=== PATIENT | male | born 1985 | race Caucasian/White ===

== ENCOUNTER 2019-05-26 12:10 | Emergency (ER) | payer MEDICARE, MEDICAID, SELFPAY ==
[2019-05-26 12:23] VITALS: BP 166/127; PULSE 91; RESP 20; TEMP 36.3; O2SAT 97; BMI 35.7
--- NOTE | 2019-05-26 13:15 | ED_ITS ---
Entered by Brenda Kilpatrick, acting as scribe for Gwendolyn Oquendo DO HPI - Abdominal Pain General: Chief Complaint: Abdominal Pain Stated Complaint: Side pain Time Seen by Provider: 05/26/19 13:14 Source: patient Mode of arrival: ambulatory Limitations: no limitations History of Present Illness: HPI narrative: 34 yo Male presents to ED with complaint of right abdominal and flank pain. Pt states that he thinks he has a kidney stone and when he went to the bathroom the pain got better. Pt states that he has a history of kidney stones. MD elicited complaint: abdominal pain and flank pain Pertinent past history: kidney stones Pain Consistency: constant Location: RLQ and R flank Pain scale (0-10): 9 Exacerbating factors: nothing Relieving factors: other (urination) Associated Symptoms: Reports dysuria; Denies chills, constipation, diarrhea, fever(s), fecal incontinence, nausea and vomiting Review of Systems Const: Denies: fever, chills, change in appetite or malaise Eyes: Denies: change in vision, blurry vision, eye discharge or eye redness ENMT: Denies: throat pain, uvular edema, painful swallowing, mouth pain, dental pain, nasal congestion or facial/sinus pain Card: Denies: chest pain, irregular heart rhythm, swelling of feet/ankles, shortness of breath on exertion, shortness of breath when lying down or leg pain with exertion Resp: Denies: shortness of breath, productive cough, wheezing or coughing up blood GI: Reports: abdominal pain; Denies: nausea, vomiting, diarrhea, constipation or fecal incontinence : Reports: flank pain and painful urination Musc: Denies: neck pain, back pain, extremity pain or extremity swelling Skin/Breast: Denies: rash, itching, redness, yellow skin or dry skin Neuro: Denies: headache, numbness in extremities, weakness in extremities, changes in sensation, lack of coordination or difficulty walking Psych: Denies: anxiety, depression, mood swings, panic attacks, sleeping less, suicidal ideation or homicidal ideation Endo: Denies: excessive urination, excessive thirst or tired all the time Bruce/Lymph: Denies: easy bruising, petechiae or enlarged lymph nodes All/Imm: Denies: hives, throat swelling, facial swelling, acute wheezing or seasonal allergies PFSH ED PFSH: Statuses (acute, chronic, etc) shown below reflect problem list status as previously entered and may not be historically accurate Social History Smoking and tobacco status: current every day smoker Physical Exam Const: COMMON NORMALS: no apparent distress, oriented x3, no limitations, healthy appearing, alert and well nourished GENERAL APPEARANCE: cooperative, comfortable, well kempt and well developed ORIENTATION/CONSCIOUSNESS: Yes awake, Yes oriented to person, Yes oriented to place and Yes oriented to time HENMT: COMMON NORMALS: normocephalic, head/scalp atraumatic, hearing grossly normal bilaterally, external ears normal, EAC's normal, TM's normal bilaterally, external nose normal, nasal mucous membranes and turbinates normal, moist oral mucous membranes, oropharynx normal, dentition normal and gingiva normal HEAD & SCALP: normal to inspection, normocephalic and atraumatic FACE & SINUS: normal facial exam NOSE: external nose normal and nasal mucous membranes and turbinates normal EXTERNAL EAR: Yes external ears normal EXTERNAL AUDITORY CANAL: EAC's normal TYMPANIC MEMBRANE: TM's normal bilaterally MOUTH: oral and palatal mucosa normal, lip normal and tongue normal THROAT: no uvular edema Eye: COMMON NORMALS: PERRL, EOMs intact bilaterally, conjunctivae normal, no scleral icterus and normal visual alba by confrontation GENERAL EYE: normal appearance of both eyes and normal light reflex VISUAL ACUITY: Yes acuity normal ALIGNMENT: Yes alignment normal PERIORBITAL: periorbital findings normal EYELID: eyelids normal CONJUNCTIVA: Yes conjunctivae normal SCLERA: sclerae normal PUPIL: Yes PERRL and Yes accommodation reflex normal DIRECT OPHTHALMOSCOPY: Yes normal light reflex Neck/C-Spine: COMMON NORMALS: full ROM, no lymphadenopathy, supple, no meningeal signs and no JVD GENERAL: Yes normal visual inspection CAROTIDS: Yes normal carotid upstroke CERVICAL SPINE: Yes cervical ROM normal Lymph: LYMPHATIC: no lymphadenopathy noted Chest: COMMONS NORMALS: inspection of chest normal CHEST: Yes symmetrical chest wall rise Resp: COMMON NORMALS: normal respiratory effort, no retractions, no use of accessory muscles and clear to auscultation bilaterally EFFORT & INSPECTION: Yes able to speak in complete sentences and Yes symmetric chest movement AUSCULTATION: clear to auscultation bilaterally Cardio: COMMON NORMALS: no JVD, regular rate, regular rhythm, S1 normal heart sound, S2 normal heart sound, no murmurs and peripheral pulses 2+ throughout RATE: regular rate RHYTHM: regular rhythm HEART SOUNDS: S1 normal and S2 normal PERIPHERAL PULSES: pulses 2+ throughout GI: COMMON NORMALS: normal to inspection, nondistended, normoactive bowel sounds and non-tender : COMMON NORMALS: Yes no CVA tenderness BLADDER/KIDNEY EXAM: Yes no CVA tenderness Back/Pelvis: COMMON NORMALS: no CVA tenderness, thoracic and lumbar spine normal to inspection, no thoracic nor lumbar tenderness and thoraco-lumbar ROM normal Extremity: COMMON NORMALS: normal to inspection, full ROM, normal capillary refill, no calf tenderness and no pedal edema Neuro: COMMON NORMALS: oriented x3, CN's II-XII intact bilaterally, moves all extremities, no focal motor deficits, no sensory deficits noted and gait normal SENSORIUM/ORIENTATION: Yes alert, Yes oriented to person, Yes oriented to place and Yes oriented to time MENINGEAL SIGNS: Yes no meningeal signs SPEECH: speech normal GAIT: Yes normal gait MOTOR EXAM: strength 5/5 throughout, no pronator drift and no tremor noted Psych: COMMON NORMALS: mental status grossly normal, thought process normal, cooperative, affect normal, speech normal and activity/motor behavior normal APPEARANCE: Yes well kempt SPEECH: Yes normal speech THOUGHT PROCESS: n ormal thought process THOUGHT CONTENT: Yes normal thought content INSIGHT: insight good Skin: COMMON NORMALS: no rashes or lesions noted, no wounds, skin turgor normal and no jaundice GENERAL SKIN EXAM: no rashes or lesions noted and turgor normal Course ED course: while in the department patient sat up and stated that he believes he passed his stone and that he feels better and is ready to go home. Blood work pending and cancelled. Return as needed. Vital Signs: Vital signs: Vital Signs Temperature 97.4 F L 05/26/19 12:23 Pulse Rate 91 05/26/19 12:23 Respiratory Rate 20 H 05/26/19 12:23 Blood Pressure 166/127 05/26/19 12:23 Pulse Oximetry 97 05/26/19 12:23 MDM - Abdominal Pain Differential Diagnosis: Differential diagnosis abdominal pain: Likely abdominal pain, calculus of kidney and constipation Medical Records: Attestation: I reviewed the patient's medical records. Lab Data: Attestation: I reviewed the patient's lab results. Labs: Lab Results 05/26/19 Range/Units 13:02 Urine Color Red (Yellow) Urine Appearance Cloudy (CLEAR) Urine pH 5 (5-7) Ur Specific Gravit y 1.025 (1.005-1.030) Urine Protein 2+ H (Negative) Urine Glucose (UA) Norm (Normal) Urine Ketones Negative (Negative) Urine Occult Blood 3+ H (Negative) Urine Nitrate Negative (Negative) Urine Bilirubin Neg (NEGATIVE) Urine Urobilinogen 1 H (Negative) mg/dL Ur Leukocyte Caro ase Trace H (Negative) Urine RBC 40-50 H (0-2) /hpf Urine WBC 5-10 H (0-5) /hpf Ur Squamous Epith Cells 0-4 H (0-5) Urine Bacteria 2+ H (NONE) Urine Mucus 1+ Discharge Plan Discharge Patient Disposition: Home, Self-Care Clinical Impression: Calculus of kidney Condition: Stable Discharge Orders: Discharge Order (Routine); Ordered 05/26/19 Ordered By: Gwendolyn Oquendo Referrals: Raheem Varghese MD [Family Provider] - Discharge Diet: Usual diet Discharge Activity: Resume usual activity Patient Instructions: Kidney Stones Coding Level of Care Code ED Office Coordinator for Chg Fwd Exam Problem Focused The documentation recorded by the Shonna max Carmen, accurately reflects the service I personally performed and the decisions made by Azra ballard Amanda, DO
--- NOTE | 2019-05-26 13:18 | CTR_ITS ---
PROCEDURE INFORMATION: Exam: CT Abdomen And Pelvis Without Contrast Exam date and time: 05/26/2019 1:27 PM Age: 34 years old Clinical indication: Abdominal pain; Patient HX: Right flank pain HX of stones TECHNIQUE: Imaging protocol: Computed tomography of the abdomen and pelvis without contrast. Total DLP: 1771.61 mGy-cm Radiation optimization: All CT scans at this facility use at least one of these dose optimization techniques: automated exposure control; mA and/or kV adjustment per patient size (includes targeted exams where dose is matched to clinical indication); or iterative reconstruction. COMPARISON: CT Abdomen/Pelvis Renal 15180 12/31/2018 10:28 AM FINDINGS: Liver: The liver is diffusely decreased in attenuation, consistent with fatty infiltration. Gallbladder and bile ducts: Normal. No calcified stones. No ductal dilation. Pancreas: Normal. No ductal dilation. Spleen: Calcifications are present within the spleen, likely due to old granulomatous disease. Adrenals: Normal. No mass. Kidneys and ureters: Multiple non-obstructing calculi are present within both kidneys. There is minimal dilation of the right renal collecting system and right ureter. Minimal inflammation is also present around the right ureter. No obstructing ureteral stone is identified. Clinical correlation for a recently passed stone or underlying infection is recommended. The previously noted obstructing left ureteral stone is no longer present. Stomach and bowel: Unremarkable. No obstruction. No mucosal thickening. Appendix: No evidence of appendicitis. Intraperitoneal space: Unremarkable. No free air. No significant fluid collection. Vasculature: Unremarkable. No abdominal aortic aneurysm. Lymph nodes: Unremarkable. No enlarged lymph nodes. Bladder: Unremarkable as visualized. Reproductive: Multiple nonspecific calcifications are present in the prostate gland. Bones/joints: Unremarkable. No acute fracture. Soft tissues: A tiny fat containing umbilical hernia is present. CT/CT kidney stone 50301 IMPRESSION: 1. Multiple non-obstructing calculi are present within both kidneys. There is minimal dilation of the right renal collecting system and right ureter. Minimal inflammation is also present around the right ureter. No obstructing ureteral stone is identified. Clinical correlation for a recently passed stone or underlying infection is recommended. 2. Chronic findings as discussed above. Radiation Dose CTDIVOL = (mGy): DLP = 1771.61 (mGy-cm)
--- NOTE | 2019-05-26 13:20 | PC.NURSE ---
Patient states he has had several kidney stones, these symptoms are similar to previous kidney stones. After vomiting from intense pain, feels like its passed as pain has lessened but still present.
[2019-05-26 13:31] LABS: Bilirubin Urine Neg (NEGATIVE); Blood Urine 3+ (Negative); Glucose Urine UA Norm (Normal); Ketones Urine Negative (Negative); Leukocyte Esterase Urine Trace (Negative); Nitrate Urine Negative (Negative); Protein Urine 2+ (Negative); Specific Gravity, Urine 1.025 (1.005-1.030); Urine Appearance Cloudy (CLEAR); Urine Color Red (Yellow); Urobilinogen Urine 1 mg/dL (Negative); pH Urine 5 (5-7)
[2019-05-26 13:32] LABS: Add Urine Microscopic? YES
[2019-05-26 13:37] LABS: Bacteria Urine 2+; Mucus Urine 1+; RBC Urine 40-50 /hpf (0-2); Squamous Epithelial Cell Urine 0-4 (0-5)
[2019-05-26 13:38] LABS: Add Urine Culture? Yes
[2019-05-26 13:57] VITALS: BP 145/102; PULSE 86; RESP 18; O2SAT 99
== END 2019-05-26 13:55 | disposition home or self-care (01) ==
LOC: ER 13:57
PROVIDERS: Nurse Practitioner Family; Emergency Provider Emergency Medicine; Family Provider Family Medicine
DX: N20.0 Calculus of kidney (principal); F17.210 Nicotine dependence, cigarettes, uncomplicated
CPT/HCPCS: 74176; 81001; 87086; 99282; A9270

== ENCOUNTER 2019-06-18 09:38 | Emergency (ER) | payer MEDICARE, MEDICAID, SELFPAY ==
[2019-06-18 09:39] VITALS: BP 167/101; PULSE 104; RESP 22; TEMP 36.6; O2SAT 98; BMI 35.2
--- NOTE | 2019-06-18 09:42 | ED_ITS ---
Entered by Carlos Mcgill, acting as scribe for HPI - Abdominal Pain General: Chief Complaint: Abdominal Pain Stated Complaint: abd/back pain Time Seen by Provider: 06/18/19 09:42 History of Present Illness: HPI narrative: 34 yo male presents with abd pain and back pain. Pt states that he started having pain about 2 am this morning. Pt states that he has seen Dr. Hendricks. Associated Symptoms: Reports nausea and vomiting; Denies chills and fever(s) Review of Systems Const: Denies: fever, chills, body aches or change in appetite Eyes: Denies: blurry vision or eye discomfort ENMT: Denies: throat pain or dental pain Card: Denies: chest pain Resp: Denies: shortness of breath GI: Reports: abdominal pain, nausea and vomiting : Reports: flank pain Musc: Denies: neck pain or back pain Skin/Breast: Denies: rash Neuro: Denies: headache Psych: Denies: depression Bruce/Lymph: Denies: easy bruising All/Imm: Denies: hives PFSH ED PFSH: Medical History (Updated 06/18/19 @ 11:21 by Ananth Romano MD) Kidney stones Surgical History (Updated 06/18/19 @ 09:47 by Carlos Mcgill) Hx of tonsillectomy Social History Smoking and tobacco status: current every day smoker Physical Exam Const: COMMON NORMALS: no apparent distress, oriented x3 and healthy appearing HENMT: COMMON NORMALS: normocephalic and head/scalp atraumatic HEAD & SCALP: normocephalic and atraumatic Eye: COMMON NORMALS: PERRL and EOMs intact bilaterally PUPIL: Yes PERRL Neck/C-Spine: COMMON NORMALS: full ROM and supple Chest: COMMONS NORMALS: inspection of chest normal and palpation of chest normal Resp: COMMON NORMALS: normal respiratory effort, no retractions, no use of accessory muscles and clear to auscultation bilaterally AUSCULTATION: clear to auscultation bilaterally Cardio: COMMON NORMALS: regular rate, regular rhythm and no murmurs RATE: regular rate RHYTHM: regular rhythm GI: COMMON NORMALS: soft to palpation PALPATION: Yes soft and Yes tender : BLADDER/KIDNEY EXAM: Yes CVA tenderness Back/Pelvis: GENERAL BACK: Yes CVA tenderness Extremity: COMMON NORMALS: normal to inspection and full ROM Neuro: COMMON NORMALS: oriented x3, moves all extremities and no focal motor deficits Psych: COMMON NORMALS: mental status grossly normal, thought process normal and cooperative THOUGHT PROCESS: normal thought process Skin: COMMON NORMALS: no rashes or lesions noted and no wounds GENERAL SKIN EXAM: no rashes or lesions noted Course Vital Signs: Vital signs: Vital Signs Temperature 97.8 F 06/18/19 09:39 Pulse Rate 89 06/18/19 11:43 Respiratory Rate 18 06/18/19 11:43 Blood Pressure 150/102 06/18/19 11:43 Pulse Oximetry 97 06/18/19 11:43 MDM - Abdominal Pain MDM Narrative: Medical decision making narrative: Patient presents here with flank pain with likely kidney stone. Patient does have hematuria. Patient's pain is much improved here and will prescribe pain meds for home. He is to follow-up with urology and return if worsening. Lab Data: Labs: Lab Results 06/18/19 Range/Units 10:40 Urine Color Red (Yellow) Urine Appearance Bloody A (CLEAR) Urine pH 5 (5-7) Ur Specific Gravit y 1.020 (1.005-1.030) Urine Protein 1+ H (Negative) Urine Glucose (UA) Norm (Normal) Urine Ketones 1+ H (Negative) Urine Blood 3+ H (Negative) Urine Nitrate Negative (Negative) Urine Bilirubin Neg (NEGATIVE) Urine Urobilinogen 1 H (Negative) mg/dL Ur Leukocyte Caro ase Negative (Negative) Urine RBC Too numerous to c nt H (0-2) /hpf Urine WBC None (0-5) /hpf Ur Squamous Epith Cells None (0-5) Urine Bacteria 1+ H (NONE) Discharge Plan Discharge Patient Disposition: Home, Self-Care Clinical Impression: Calculus of kidney Condition: Stable Prescriptions: New [place] 5-325 mg tablet 1 tab PO Q6H PRN (Reason: pain) Qty: 10 RF: 0 Zofran 4 mg tablet 4 mg PO QID PRN (Reason: nausea and vomiting) Qty: 14 RF: 0 Discharge Orders: Discharge Order (Routine); Ordered 06/18/19 Ordered By: Ananth Romano Referrals: Kaden Hendricks MD [Physician] - Raheem Varghese MD [Family Provider] - Discharge Diet: Advance as tolerated Discharge Activity: Resume usual activity Patient Instructions: Kidney Stones (ED) Discharge Date/Time: 06/18/19 11:46 Coding Level of Care Code ED Grounds Caretaker for Chg Fwd Exam Comprehensive The documentation recorded by the Artem max Kialy, accurately reflects the service I personally performed and the decisions made by Juan Antonio ballard Korby, MD Jun 18, 2019 09:38
[2019-06-18] MEDS: sodium chloride 0.9% 1,000 ML 999 ML IV (10:32)
[2019-06-18] MEDS: ondansetron 2 mg/ML SDV 2 mL 4 MG IVP (10:35)
[2019-06-18 11:17] LABS: Urine Appearance Bloody (CLEAR); Urine Color Red (Yellow)
[2019-06-18 11:18] LABS: Bilirubin Urine Neg (NEGATIVE); Blood Urine 3+ (Negative); Glucose Urine UA Norm (Normal); Ketones Urine 1+ (Negative); Leukocyte Esterase Urine Negative (Negative); Nitrate Urine Negative (Negative); Protein Urine 1+ (Negative); Urobilinogen Urine 1 mg/dL (Negative); pH Urine 5 (5-7)
[2019-06-18 11:21] VITALS: BP 150/102; PULSE 96; O2SAT 96
[2019-06-18] MEDS: HYDROcodone-acetaminophen 7.5-325 mg Tablet 1 TAB PO (11:22)
[2019-06-18 11:23] LABS: Add Urine Culture? Yes; Bacteria Urine 1+; RBC Urine TOO NUMEROUS TO CNT /hpf (0-2)
[2019-06-18 11:43] VITALS: BP 150/102; PULSE 89; RESP 18; O2SAT 97
--- NOTE | 2019-06-19 14:20 | DCPLANNER ---
retail advertising sales manager had message to schedule a follow up appointment for patient with Dr. Hendricks. retail advertising sales manager called the office of Dr. Hendricks, spoke with Keerthi, gave clinic patients information. retail advertising sales manager was told that patients information would be printed and given to Mary Ellen for review. Clinic will call patient with appointment information, spring encaser will call for appointment information.
--- NOTE | 2019-06-20 13:11 | DCPLANNER ---
Patient has a follow up appointment scheduled for , June 29, 2019 at 2:[address] Hendricks. Clinic will call patient with appointment information.
--- NOTE | 2019-07-14 09:22 | DCPLANNER ---
Appointment scheduled for 07.06.19 has been rescheduled for a later date.
== END 2019-06-18 11:46 | disposition home or self-care (01) ==
PROVIDERS: Emergency Provider Emergency Medicine; Family Provider Family Medicine
DX: N20.0 Calculus of kidney (principal); F17.200 Nicotine dependence, unspecified, uncomplicated
CPT/HCPCS: 81001; 87086; 96361; 96374; 96375; 99282; 99283; J2405; J7030

== ENCOUNTER 2019-09-22 00:13 | Emergency (ER) | payer MEDICARE, MEDICAID, SELFPAY ==
[2019-09-22 00:31] VITALS: BP 182/93; PULSE 114; RESP 18; TEMP 37.1; O2SAT 97; BMI 34.4
--- NOTE | 2019-09-22 00:36 | W.ED.WOUNDLC ---
HPI - Wound/Laceration General: Chief Complaint: Wound/Laceration Stated Complaint: ABSESS ON R SIDE OF NECK Time Seen by Provider: 09/22/19 00:32 Source: patient Mode of arrival: ambulatory Limitations: no limitations History of Present Illness: HPI narrative: 34-year-old male he has an abscess to his anterior chest over the last 4 days. He states that he started out as a pimple and he has popped it and it is open and draining but is increased in size. States it is painful and rates pain a 2 out of 10. Denies any fever. He denies any worsening or improving factors. Associated symptoms: Denies chills, fever(s), nausea or vomiting Review of Systems Const: Denies: fever(s), chills, body aches or change in appetite Eyes: Denies: blurry vision or eye discomfort ENMT: Denies: throat pain or dental pain Card: Denies: chest pain Resp: Denies: dyspnea GI: Denies: abdominal pain, nausea, vomiting or diarrhea : Denies: dysuria Musc: Denies: neck pain or back pain Skin/Breast: Denies: rash Neuro: Denies: headache(s) Psych: Denies: depression Bruce/Lymph: Denies: easy bruising All/Imm: Denies: urticaria PFSH ED PFSH: Medical History (Updated 09/22/19 @ 00:36 by Ananth Romano MD) Kidney stones Surgical History (Updated 06/22/19 @ 14:50 by Mayi Peterson RN) Hx of tonsillectomy Family History (Updated 06/22/19 @ 14:50 by Mayi Peterson RN) Family/Other Cancer Diabetes Mother No problems noted. Social History (Updated 06/22/19 @ 14:51 by Mayi Peterson RN) Smoking and tobacco status: current every day smoker Alcohol intake: current Marital status: Single History of recent travel: No Physical Exam Const: COMMON NORMALS: no acute distress, patient oriented x3 and healthy appearing HENMT: COMMON NORMALS: normocephalic and atraumatic HEAD & SCALP: normocephalic and atraumatic Eye: COMMON NORMALS: Equal, round and reactive pupils present and EOMs intact bilaterally PUPIL: Yes Equal, round and reactive pupils present Neck/C-Spine: COMMON NORMALS: full ROM and supple Chest: COMMONS NORMALS: normal inspection of the chest and normal palpation of entire chest wall Resp: COMMON NORMALS: normal respiratory effort, No retractions, No use of accessory muscles and clear to auscultation bilaterally AUSCULTATION: clear to auscultation bilaterally Cardio: COMMON NORMALS: regular rate, regular rhythm and No murmurs present (Cardio) RATE: regular rate RHYTHM: regular rhythm GI: COMMON NORMALS: Normal to inspection, nondistended, normoactive bowel sounds present, Soft to palpation, non-tender and no masses PALPATION: Yes Soft to palpation Extremity: COMMON NORMALS: normal to inspection and full ROM Neuro: COMMON NORMALS: patient oriented x3, moves all extremities and no focal motor deficits Psych: COMMON NORMALS: mental status grossly normal, Normal thought process present and cooperative THOUGHT PROCESS: Normal thought process present Skin: COMMON NORMALS: no rashes or lesions noted and no wounds NARRATIVE SKIN EXAM: 2 cm abscess to anterior chest that is currently opening and draining mild cellulitis around abscess GENERAL SKIN EXAM: no rashes or lesions noted Course Vital Signs: Vital signs: Vital Signs Temperature 98.7 F 09/22/19 00:31 Pulse Rate 114 H 09/22/19 00:31 Respiratory Rate 18 09/22/19 00:31 Blood Pressure 182/93 09/22/19 00:31 Pulse Oximetry 97 09/22/19 00:31 MDM - Wound/Laceration MDM Narrative: Medical decision making narrative: Patient presents with an abscess to his chest that is currently open and draining we will start him on Bactrim and he is to do warm compresses. Patient is to return if worsening. He understands and agrees to plan. Discharge Plan Discharge Patient Disposition: Home, Self-Care Clinical Impression: Abscess Condition: Stable Prescriptions: New Bactrim DS 800-160 mg tablet 1 tab PO BID 10 Days Qty: 20 RF: 0 Discharge Orders: Discharge Order (Routine); Ordered 09/22/19 Ordered By: Ananth Romano Discharge Diet: Advance as tolerated Discharge Activity: Resume usual activity Patient Instructions: Abscess (ED) Coding Level of Care Code ED Income Tax Expert for 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
== END 2019-09-22 00:45 | disposition home or self-care (01) ==
LOC: ER 00:37
PROVIDERS: Emergency Provider Emergency Medicine
DX: L02.213 Cutaneous abscess of chest wall (principal); F17.210 Nicotine dependence, cigarettes, uncomplicated
CPT/HCPCS: 12345; 99281; 99282

== ENCOUNTER 2019-12-31 12:57 | Emergency (ER) | payer MEDICARE, MEDICAID, SELFPAY ==
[2019-12-31 13:02] VITALS: BP 171/116; PULSE 93; RESP 18; TEMP 36.6; O2SAT 96; BMI 28.7
[2019-12-31] MEDS: ondansetron 2 mg/ML SDV 2 mL 4 MG IVP (13:12)
--- NOTE | 2019-12-31 13:12 | W.ED.MALEGU ---
HPI - Male Genitourinary General: Chief complaint: Urogenital-Male Stated complaint: POSS KIDNEY STONE Time Seen by Provider: 12/31/19 13:03 Source: patient Mode of arrival: ambulatory Limitations: no limitations History of Present Illness: HPI Narrative: 34-year-old male who has history of multiple kidney stones in the past. Patient states this morning at 6 AM started having severe right flank pain. Patient states the pain is sharp in nature and rates it a 9 out of 10. Denies any fever. Denies any worsening or improving factors. Associated symptoms: Deny nausea or vomiting Review of Systems Const: Denies: fever(s), chills, body aches or change in appetite Eyes: Denies: blurry vision or eye discomfort ENMT: Denies: throat pain or dental pain Card: Denies: chest pain Resp: Denies: dyspnea GI: Denies: abdominal pain, nausea, vomiting or diarrhea : Reports: flank pain Musc: Denies: neck pain or back pain Skin/Breast: Denies: rash Neuro: Denies: headache(s) Psych: Denies: depression Bruce/Lymph: Denies: easy bruising All/Imm: Denies: urticaria PFSH ED PFSH: Medical History Kidney stones Surgical History Hx of tonsillectomy Family History Family/Other Cancer Diabetes Mother No problems noted. Social History Smoking and tobacco status: current every day smoker Alcohol intake: current Marital status: Single History of recent travel: No Physical Exam Const: COMMON NORMALS: no acute distress, patient oriented x3 and healthy appearing HENMT: COMMON NORMALS: normocephalic and atraumatic HEAD & SCALP: normocephalic and atraumatic Eye: COMMON NORMALS: Equal, round and reactive pupils present and EOMs intact bilaterally PUPIL: Yes Equal, round and reactive pupils present Neck/C-Spine: COMMON NORMALS: full ROM and supple Chest: COMMONS NORMALS: normal inspection of the chest and normal palpation of entire chest wall Resp: COMMON NORMALS: normal respiratory effort, No retractions, No use of accessory muscles and clear to auscultation bilaterally AUSCULTATION: clear to auscultation bilaterally Cardio: COMMON NORMALS: regular rate, regular rhythm and No murmurs present (Cardio) RATE: regular rate RHYTHM: regular rhythm GI: COMMON NORMALS: Normal to inspection, nondistended, normoactive bowel sounds present, Soft to palpation, non-tender and no masses PALPATION: Yes Soft to palpation Extremity: COMMON NORMALS: normal to inspection and full ROM Neuro: COMMON NORMALS: patient oriented x3, moves all extremities and no focal motor deficits Psych: COMMON NORMALS: mental status grossly normal, Normal thought process present and cooperative THOUGHT PROCESS: Normal thought process present Skin: COMMON NORMALS: no rashes or lesions noted and no wounds GENERAL SKIN EXAM: no rashes or lesions noted Course Vital Signs: Vital signs: Vital Signs Temperature 97.8 F 12/31/19 13:02 Pulse Rate 78 12/31/19 14:32 Respiratory Rate 17 12/31/19 14:32 Blood Pressure 188/92 12/31/19 14:32 Pulse Oximetry 99 12/31/19 14:32 MDM - Male MDM Narrative: Medical decision making narrative: Patient presents here with flank pain possible kidney stone. He does have heme. Has had multiple kidney stones in the past and I do not believe he needs a CT scan at this time. Patient's pain is improved here. He is to follow-up with Dr. Hendricks and is to return if worsening. Lab Data: Labs: Lab Results 12/31/19 Range/Units 13:27 Urine Color Red (Yellow) Urine Appearance Cloudy (CLEAR) Urine pH 5 (5-7) Ur Specific Gravit y 1.025 (1.005-1.030) Urine Protein 1+ H (Negative) Urine Glucose (UA) Norm (Normal) Urine Ketones Negative (Negative) Urine Blood 3+ H (Negative) Urine Nitrate Negative (Negative) Urine Bilirubin Neg (Negative) Urine Urobilinogen Norm (Negative) mg/dL Ur Leukocyte Caro ase Trace H (Negative) Urine RBC >100 H (0-2) /hpf Urine WBC 5-10 H (0-5) /hpf Ur Squamous Epith Cells None (0-5) /hpf Amorphous Sediment Not Reportable Urine Bacteria 1+ H (NONE) /hpf Imaging Data: KUB: Radiologist's impression: [facility] [address] [place] [address] XRay Report Signed Patient: Markie Meza Unit #: [id number] : 1985 Age/Sex: 34 / M ADM Date: 12/31/19 Loc: ER Room/Bed: Attending Dr: Ordering Provider/Ordering MD: Ananth Romano MD Date of Service: 12/31/19 Procedure(s): XR KUB portable [id number] Accession Number(s): [id number] Report Number: [id number] PROCEDURE INFORMATION: Exam: XR Abdomen, 1 View Exam date and time: 12/31/2019 1:12 PM Age: 34 years old Clinical indication: Abdominal pain; Flank; Right; Prior surgery; Surgery date: 6+ months; Surgery type: Lithotripsy; Additional info: Kidney stone TECHNIQUE: Imaging protocol: XR of the abdomen. Views: Frontal supine view of the abdomen. 1 View. COMPARISON: CT kidney stone [id number] 05/26/2019 1:50 PM FINDINGS: Gastrointestinal tract: There is diffuse colonic fecal stasis in the ascending and transverse colon Organs: Kidneys: There are multiple nonobstructing caliceal stones present in the proximal collecting system of both kidneys. The largest stones measure 3 mm to 4 mm size. The remainder of the stones are smaller. Review of prior CT abdomen examination showed these findings were present on prior study and are similar Bones/joints: The distal coccyx is curved toward the right side stable since prior XR/XR KUB portable [id number] IMPRESSION: 1. Stable multiple bilateral renal caliceal stones. 2. Distal coccyx curved toward the right side 3. Otherwise No acute GI abnormality. Discharge Plan Discharge Patient Disposition: Home Clinical Impression: Right flank pain Condition: Stable Prescriptions: [place] 5-325 mg tablet 1 tab PO Q6H PRN (Reason: pain) Qty: 14 RF: 0 ondansetron 4 mg tablet,disintegrating 4 mg PO Q6H PRN (Reason: nausea and vomiting) Qty: 14 RF: 0 Flomax 0.4 mg capsule 0.4 mg PO DAILY Qty: 5 RF: 0 Discharge Orders: Discharge Order (Routine); Ordered 12/31/19 Ordered By: Ananth Romano Referrals: Kaden Hendricks MD [Physician] - 1-3 days Discharge Diet: Advance as tolerated Discharge Activity: Resume usual activity Patient Instructions: Kidney Stones (ED) Discharge Date/Time: 12/31/19 14:35 Coding Level of Care Code ED Preschool Teacher Aide for Chg Fwd Exam Comprehensive
[2019-12-31 13:14] VITALS: RESP 18; O2SAT 99
[2019-12-31] MEDS: HYDROmorphone 1 mg/mL INJ 1 mL IVP ×2 (13:14→14:16)
[2019-12-31 13:31] VITALS: BP 194/124; PULSE 87; RESP 18; O2SAT 98
[2019-12-31] MEDS: ketorolac 30 mg/mL INJ IVP (13:37)
[2019-12-31 13:40] LABS: Add Urine Microscopic? YES; Bilirubin Urine Neg (Negative); Blood Urine 3+ (Negative); Glucose Urine UA Norm (Normal); Ketones Urine Negative (Negative); Leukocyte Esterase Urine Trace (Negative); Nitrate Urine Negative (Negative); Protein Urine 1+ (Negative); Specific Gravity, Urine 1.025 (1.005-1.030); Urine Appearance Cloudy (CLEAR); Urine Color Red (Yellow); Urobilinogen Urine Norm (Negative); pH Urine 5 (5-7)
[2019-12-31 13:45] LABS: RBC Urine >100 /hpf (0-2)
[2019-12-31 13:46] LABS: Add Urine Culture? Yes; Bacteria Urine 1+ /hpf
[2019-12-31 14:16] VITALS: RESP 18; O2SAT 98
[2019-12-31 14:32] VITALS: BP 188/92; PULSE 78; RESP 17; O2SAT 99
--- NOTE | 2020-01-01 09:46 | DCPLANNER ---
adult education manager had message to schedule a follow up appointment for patient with Dr. Hendricks. adult education manager called the office of Dr. Hendricks, spoke with Evelyn, gave clinic patients information. adult education manager gave clinic patients information, was told that patients information would be printed and given to Mary Ellen for review. Clinic will call patient with appointment information.
--- NOTE | 2020-01-04 15:11 | DCPLANNER ---
Addendum entered by Mary Tellez 01/05/20 09:52: Patients appointment scheduled for 01.05.20 was cancelled. Original Note: Patient has a follow up appointment scheduled for Wednesday, January 05, 2020 at 8:[address] Adams office. Clinic will call patient with appointment information.
== END 2019-12-31 14:35 | disposition home or self-care (01) ==
PROVIDERS: Emergency Provider Emergency Medicine
DX: R10.9 Unspecified abdominal pain (principal); F17.210 Nicotine dependence, cigarettes, uncomplicated; Z87.442 Personal history of urinary calculi
CPT/HCPCS: 12345; 74018; 81001; 87086; 96374; 96375; 96376; 99282; 99283; J1170; J1885; J2405

== ENCOUNTER 2020-08-09 07:56 | Emergency (ER) | payer MEDICARE, MEDICAID, SELFPAY ==
[2020-08-09 08:02] VITALS: BP 175/126; PULSE 91; RESP 18; TEMP 36.3; O2SAT 100; BMI 34.4
[2020-08-09 08:14] VITALS: O2SAT 99
--- NOTE | 2020-08-09 08:22 | W.ED.EYEPROB ---
HPI - Eye Problem General: Chief complaint: Eye Problems Stated complaint: PAIN IN BOTH EYES Time Seen by Provider: 08/09/20 08:05 History of Present Illness: HPI Narrative: 5-year-old male presents emergency room complaint of eye discomfort feels scratchy bilaterally some mild redness and drainage. He is using a perlite grinder yesterday. He does not feel like he got anything in his eyes. No vision changes or loss. Photophobia. chief complaint: eye pain, eye redness and foreign body Onset (ago): hour(s) Onset description: sudden Duration: constant Location: both eyes Eye Symptoms: burning, redness, pain, foreign body sensation, itching and photophobia Place: home Mechanism: occurred while hammering/grinding Severity: moderate If Pain, Quality: burning Associated symptoms: Reports no associated symptoms; Denies fever(s), nausea or vomiting Treatments Prior to Arrival: none Review of Systems Const: Denies: fever(s), chills, body aches, change in appetite, fatigue or malaise ENMT: Denies: throat pain, ear or mastoid pain, nasal discharge or nasal congestion Card: Denies: chest pain, edema, dyspnea on exertion or orthopnea Resp: Denies: dyspnea, productive cough or non-productive cough GI: Denies: abdominal pain, nausea, vomiting, hematemesis, coffee ground emesis, diarrhea, constipation, bloating, hematochezia or melena : Denies: flank pain, dysuria, urinary frequency or urinary urgency Skin/Breast: Denies: rash or pruritus [facility] ED PFSH: Medical History (Updated 08/09/20 @ 09:12 by Allen Lal DO) Kidney stones Surgical History Hx of tonsillectomy Family History Family/Other Cancer Diabetes Mother No problems noted. Social History Smoking and tobacco status: current every day smoker Alcohol intake: current Marital status: Single History of recent travel: No Physical Exam Const: COMMON NORMALS: no acute distress GENERAL APPEARANCE: cooperative and comfortable ORIENTATION/CONSCIOUSNESS: Yes awake, Yes oriented to person, Yes oriented to place and Yes oriented to time HENMT: COMMON NORMALS: normocephalic, atraumatic, hearing grossly normal bilaterally, external ears normal, EAC's normal, TM's normal bilaterally, Normal nasal mucous membranes and turbinates present, moist oral mucous membranes and oropharynx normal HEAD & SCALP: normocephalic and atraumatic NOSE: Normal nasal mucous membranes and turbinates present EXTERNAL EAR: Yes external ears normal EXTERNAL AUDITORY CANAL: EAC's normal TYMPANIC MEMBRANE: TM's normal bilaterally Eye: COMMON NORMALS: Equal, round and reactive pupils present and EOMs intact bilaterally PUPIL: Yes Equal, round and reactive pupils present DIRECT OPHTHALMOSCOPY: Yes photophobia OTHER: Laterally reddened inflamed sclera. Tetracaine dye applied and fluorescein patient is multiple corneal abrasions that appear to be punctate there are multiple foreign bodies present with about 4-5 including several in the central field of vision on the right a few less on the left. Neck/C-Spine: COMMON NORMALS: no JVD Resp: COMMON NORMALS: normal respiratory effort, No retractions, No use of accessory muscles and clear to auscultation bilaterally AUSCULTATION: clear to auscultation bilaterally Cardio: COMMON NORMALS: no JVD, regular rate, regular rhythm and No murmurs present (Cardio) RATE: regular rate RHYTHM: regular rhythm Neuro: SENSORIUM/ORIENTATION: Yes oriented to person, Yes oriented to place and Yes oriented to time Skin: COMMON NORMALS: no rashes or lesions noted GENERAL SKIN EXAM: no rashes or lesions noted Course Vital Signs: Vital signs: Vital Signs Temperature 97.4 F L 08/09/20 08:02 Pulse Rate 91 08/09/20 08:02 Respiratory Rate 18 08/09/20 08:02 Blood Pressure 175/126 08/09/20 08:02 Pulse Oximetry 99 08/09/20 08:14 MDM - Eye Problem MDM Narrative: Medical decision making narrative: Dr. Oswald is on-call will discharge the patient from the ER to his office he has proper equipment care to remove foreign bodies we have a slit-lamp here but I am not comfortable removing these in the central part of the vision has been present there for almost 24 hours none patient given directions to Dr. Oswald's office asked to see there directly. He states his tetanus up-to-date Discharge Plan Discharge Patient Disposition: Home Clinical Impression: Corneal abrasion, Foreign body of cornea, left, Foreign body of cornea, right Condition: Stable Prescriptions: No Action [place] 5-325 mg tablet 1 tab PO Q6H PRN (Reason: pain) Qty: 14 RF: 0 ondansetron 4 mg tablet,disintegrating 4 mg PO Q6H PRN (Reason: nausea and vomiting) Qty: 14 RF: 0 Flomax 0.4 mg capsule 0.4 mg PO DAILY Qty: 5 RF: 0 Discharge Orders: Discharge ED (Routine); Ordered 08/09/20 Ordered By: Allen Lal Patient Instructions: Opioid Safety Activity Restrictions/Additional Instructions: Recommend you go directly to Dr. Oswald's office after being discharged from the ER. He has specialized equipment at his office and will be able to remove the corneal foreign bodies. Coding Level of Care Code ED Diamond Finishing Supervisor for Trang Fwd Exam Detailed
[2020-08-09] MEDS: tetanus-dipt-pertussis 0.5 mL SDV IM (09:20)
== END 2020-08-09 09:26 | disposition home or self-care (01) ==
PROVIDERS: Emergency Provider Family Medicine
DX: T15.02XA Foreign body in cornea, left eye, initial encounter (principal); T15.01XA Foreign body in cornea, right eye, initial encounter; X58.XXXA Exposure to other specified factors, initial encounter; F17.210 Nicotine dependence, cigarettes, uncomplicated; Z23 Encounter for immunization
CPT/HCPCS: 90471; 90715; 99283

== ENCOUNTER 2021-04-26 15:01 | Emergency (ER) | payer MEDICARE, MEDICAID, SELFPAY ==
[2021-04-26 15:41] VITALS: BP 136/95; PULSE 87; RESP 14; TEMP 36.7; O2SAT 98; BMI 35.9
--- NOTE | 2021-04-26 15:54 | XRR_ITS ---
PROCEDURE INFORMATION: Exam: XR Chest Exam date and time: 04/26/2021 3:54 PM Age: 35 years old Clinical indication: Pain; Chest pressure; Additional info: CVA TECHNIQUE: Imaging protocol: XR of the chest. Views: 1 view. COMPARISON: CR XR KUB portable [id number] 12/31/2019 1:19 PM FINDINGS: Lungs: Calcified granuloma in the peripheral right lung base. No consolidation. Pleural spaces: Unremarkable. No pleural effusion. No pneumothorax. Heart/Mediastinum: Unremarkable. No cardiomegaly. Bones/joints: Unremarkable. XR/XR chest 1V portable [id number] IMPRESSION: No acute findings.
--- NOTE | 2021-04-26 15:54 | ECG_ITS ---
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 Measurements Intervals [place] Rate: 79 P: 76 TN: 163 QRS: 98 QRSD: 102 T: 75 QT: 361 QTc: 414 Interpretive Statements SINUS RHYTHM BORDERLINE RIGHT AXIS DEVIATION [QRS AXIS > 90] INTERPRETATION BASED ON A DEFAULT AGE OF 40 YEARS No previous ECG available for comparison Electronically Signed On 04-27-2021 8:10:40 GROUND WATER PUMP INSTALLER by Shasha James M.D. [id number] f
--- NOTE | 2021-04-26 15:54 | CTR_ITS ---
PROCEDURE INFORMATION: Exam: CT Head Without Contrast Exam date and time: 04/26/2021 3:54 PM Age: 35 years old Clinical indication: Weakness, extremity; Right; Additional info: CVA TECHNIQUE: Imaging protocol: Computed tomography of the head without contrast. Radiation optimization: All CT scans at this facility use at least one of these dose optimization techniques: automated exposure control; mA and/or kV adjustment per patient size (includes targeted exams where dose is matched to clinical indication); or iterative reconstruction. COMPARISON: CT neck w con* [id number] 07/07/2015 8:24 PM RADIATION DOSE METRICS: Total DLP (mGy-cm): 2048.03 FINDINGS: Brain: No hemorrhage. Mild diffuse cerebral atrophy. Unremarkable white matter. No mass effect. Cerebral ventricles: No ventriculomegaly. Intact cavum septum pellucidum noted. Paranasal sinuses: Opacified right frontal sinus. Partially opacified ethmoid sinuses. The rest of the paranasal sinuses are well pneumatized. Mastoid air cells: Visualized mastoid air cells are well aerated. Bones/joints: Unremarkable. No acute fracture. Soft tissues: Unremarkable. CT/CT head wo con* [id number] IMPRESSION: 1. No acute intracranial abnormality. 2. Mild diffuse cerebral atrophy, appears advanced for patient's stated age.
--- NOTE | 2021-04-26 16:01 | ED_ITS ---
HPI - Weakness General: Chief complaint: Weakness Stated complaint: NO FEELING IN RIGHT SIDE Time Seen by Provider: 04/26/21 15:54 Source: patient Mode of arrival: ambulatory Limitations: no limitations History of Present Illness: HPI Narrative: 35-year-old male states that yesterday morning he started having weakness in his right arm right leg has been having difficulty walking due to weakness in the right leg. Last known normal was yesterday morning states he is also had some numbness to the right side of his face have a hard time drinking water also is having slurred speech denies any history of stroke denies any worsening improving factors. Patient here has been extremely agitated he screamed at me multiple times was unable to get a full physical due to him not being cooperative. Associated symptoms: Denies chest pain, chills, dysuria, easy bruising, fever(s), nausea or vomiting Review of Systems Const: Denies: fever(s), chills, body aches or change in appetite Eyes: Denies: blurry vision or eye discomfort ENMT: Denies: throat pain or dental pain Card: Denies: chest pain Resp: Denies: dyspnea GI: Denies: abdominal pain, nausea, vomiting or diarrhea : Denies: dysuria Musc: Denies: neck pain or back pain Skin/Breast: Denies: rash Neuro: Reports: weakness in extremities and Slurred speech present Psych: Denies: depression Bruce/Lymph: Denies: easy bruising All/Imm: Denies: urticaria PFSH ED PFSH: Medical History (Updated 04/26/21 @ 17:18 by Ananth Romano MD) Kidney stones Surgical History Hx of tonsillectomy Family History Family/Other Cancer Diabetes Mother No problems noted. Social History Smoking and tobacco status: current every day smoker Alcohol intake: current Marital status: Single History of recent travel: No Physical Exam Const: COMMON NORMALS: patient oriented x3 and healthy appearing HENMT: COMMON NORMALS: normocephalic and atraumatic HEAD & SCALP: normocephalic and atraumatic Eye: COMMON NORMALS: Equal, round and reactive pupils present and EOMs intact bilaterally PUPIL: Yes Equal, round and reactive pupils present Neck/C-Spine: COMMON NORMALS: full ROM and supple Chest: COMMONS NORMALS: normal inspection of the chest and normal palpation of entire chest wall Resp: COMMON NORMALS: normal respiratory effort, No retractions, No use of accessory muscles and clear to auscultation bilaterally AUSCULTATION: clear to auscultation bilaterally Cardio: COMMON NORMALS: regular rate, regular rhythm and No murmurs present (Cardio) RATE: regular rate RHYTHM: regular rhythm GI: COMMON NORMALS: Normal to inspection, nondistended, normoactive bowel sounds present, Soft to palpation, non-tender and no masses PALPATION: Yes Soft to palpation Extremity: COMMON NORMALS: normal to inspection and full ROM Neuro: COMMON NORMALS: patient oriented x3 and no focal motor deficits OTHER: Slurred speech noted does have difficulty with the rising his right arm and right leg was not able to do a full NIH as patient is extremely rude and inappropriate and would not follow commands we had him lift his right hand he flipped me off and said fuck off. I then explained to him I had to do this to assess his neuro status and asked him lift his right arm again he said want to slap you with it. When I asked him to smile he has fake teeth he just took them out and threw him on the bed and refused Psych: COMMON NORMALS: mental status grossly normal and Normal thought process present MOOD & AFFECT: Yes hostile affect THOUGHT PROCESS: Normal thought process present Skin: COMMON NORMALS: no rashes or lesions noted and no wounds GENERAL SKIN EXAM: no rashes or lesions noted Course Vital Signs: Vital signs: Vital Signs Temperature 98.0 F 04/26/21 15:41 Pulse Rate 87 04/26/21 15:41 Respiratory Rate 14 04/26/21 15:41 Blood Pressure 136/95 04/26/21 15:41 Pulse Oximetry 98 04/26/21 15:41 MDM - Weakness MDM Narrative: Medical decision making narrative: Patient presents here with right-sided weakness initial work-up here is all normal patient here has been very uncooperative when to speak to him and recommended admission as he likely needs an MRI to rule out a stroke he refuses he had already ripped out his IV in the room before I came and was actually walking out when I went and was not able to talk him into staying he left AGAINST MEDICAL ADVICE. Lab Data: Labs: Lab Results 04/26/21 04/26/21 04/26/21 16:11 16:11 16:11 WBC 13.0 10^3/uL H 10 ^3/uL (4.0-10.0) RBC 5.47 10^6/uL H 10 ^6/uL (4.1-5.3) Hgb 16.3 g/dL g/dL (11.7-16.6) Hct 49.0 % % (42.0-52.0) MCV 89.6 fl fl (80-94) MCH 29.8 pg pg (28.0-34.0) MCHC 33.3 g/dL g/dL (30.0-36.0) RDW 13.2 % % (12.1-15.1) Plt Count 310 10^3/cmm 10^3 /cmm (130-400) MPV 10.6 fL H fL (7.4-10.4) Neut % (Auto) 61.7 % % Lymph % (Auto) 26.4 % % [place] % (Auto) 9.7 % % Eos % (Auto) 1.5 % % Baso % (Auto) 0.5 % % Neut # (Auto) 7.98 10^3/uL H 10 ^3/uL (1.8-7.7) Lymph # (Auto) 3.4 10^3/uL 10^3/ uL (0.8-4.8) [place] # (Auto) 1.3 10^3/uL H 10^ 3/uL (0.2-0.9) Eos # (Auto) 0.2 10^3/uL 10^3/ uL (0.0-0.8) Baso # (Auto) 0.1 10^3/uL 10^3/ uL (0.0-0.1) Nucleated RBC % (a uto) 0 % % Nucleated RBCs # 0.0 /100WBC /100W BC PT 12.50 SECONDS SEC ONDS (12.1-14.9) INR 0.90 (0.8-1.2) Sodium 130 mmol/L L mmol /L (136-145) Potassium 3.5 mmol/L mmol/L (3.5-5.1) Chloride 94 mmol/L L mmol/ L (98-107) Carbon Dioxide 23 mmol/L mmol/L (22-29) Anion Gap 16.5 (5-19) BUN 16 mg/dL mg/dL (6-20) Creatinine 0.8 mg/dL mg/dL (0.7-1.2) GFR Calculation 109.4 mL/min mL/m in (90-130) Glucose 89 mg/dL mg/dL (65-115) Calculated Osmolal ity 271 mOsm/kg L mOs m/kg (285-295) Calcium 10.2 mg/dL mg/dL (8.5-10.5) Total Bilirubin 0.4 mg/dL mg/dL (0.15-1.2) AST 19 U/L U/L (0-40) ALT 18 U/L U/L (0-41) Alkaline Phosphata se 83 IU/L IU/L (40-130) Total Protein 7.5 g/dL g/dL (6.6-8.7) Albumin 4.5 g/dL g/dL (3.5-5.2) Globulin 3.0 g/dL g/dL (1.3-4.6) EKG Data^: EKG 1: Attestation: I personally reviewed and interpreted this EKG as follows: EKG interpretation date: 04/26/21 EKG interpretation time: 16:11 Interpretation: nsr hr [address] or t wave abnormalities qrs 102 qtc 395 Discharge Plan Discharge Patient Disposition: Left Against Medical Advice Clinical Impression: Right sided weakness Condition: Stable Prescriptions: No Action No Known Home Medications RF: 0 Discharge Diet: Advance as tolerated Discharge Activity: Resume usual activity Coding Level of Care Code ED Speech Language Pathologist Prn for Chg Fwd Exam Comprehensive
[2021-04-26 16:38] LABS: Basophils # 0.1 10^3/uL (0.0-0.1); Basophils % 0.5 %; Eosinophils # 0.2 10^3/uL (0.0-0.8); Eosinophils % 1.5 %; Hemoglobin 16.3 g/dL (11.7-16.6); Lymphocytes # 3.4 10^3/uL (0.8-4.8); Lymphocytes % 26.4 %; Mean Corpuscular HGB Conc 33.3 g/dL (30.0-36.0); Mean Corpuscular Hemoglobin 29.8 pg (28.0-34.0); Mean Corpuscular Volume 89.6 fl (80-94); Mean Platelet Volume 10.6 fL (7.4-10.4); Monocytes # 1.3 10^3/uL (0.2-0.9); Monocytes % 9.7 %; Neutrophils # 7.98 10^3/uL (1.8-7.7); Neutrophils % 61.7 %; Nucleated Red Blood Cells % 0 %; Platelet Count 310 10^3/cmm (130-400); Red Blood Count 5.47 10^6/uL (4.1-5.3); Red Cell Distribution Width 13.2 % (12.1-15.1)
[2021-04-26 17:02] LABS: Alanine Aminotransferase 18 U/L (0-41); Albumin Level 4.5 g/dL (3.5-5.2); Alkaline Phosphatase 83 IU/L (40-130); Anion Gap 16.5 (5-19); Aspartate Amino Transferase 19 U/L (0-40); Blood Urea Nitrogen 16 mg/dL (6-20); Calcium 10.2 mg/dL (8.5-10.5); Carbon Dioxide 23 mmol/L (22-29); Chloride 94 mmol/L (98-107); Glomerular Filtration Rate 109.4 mL/min (90-130); Glucose 89 mg/dL (65-115); Osmolality Calculated 271 mOsm/kg (285-295); Potassium 3.5 mmol/L (3.5-5.1); Sodium 130 mmol/L (136-145); Total Bilirubin 0.4 mg/dL (0.15-1.2); Total Protein 7.5 g/dL (6.6-8.7)
== END 2021-04-26 17:26 | disposition left against medical advice (07) ==
PROVIDERS: Emergency Provider Emergency Medicine
DX: R53.1 Weakness (principal); Z53.29 Procedure and treatment not carried out because of patient's decision for other reasons; Z91.19 Patient's noncompliance with other medical treatment and regimen; R47.81 Slurred speech; F17.200 Nicotine dependence, unspecified, uncomplicated; R45.1 Restlessness and agitation
CPT/HCPCS: 70450; 71045; 80053; 85025; 85610; 93005; 99283

== ENCOUNTER 2021-04-27 16:36 | Emergency (ER) | payer MEDICARE, MEDICAID, SELFPAY ==
[2021-04-27 16:56] VITALS: BP 133/85; PULSE 84; RESP 14; TEMP 36.9; O2SAT 98; BMI 35.9
--- NOTE | 2021-04-27 18:14 | XRR_ITS ---
PROCEDURE INFORMATION: Exam: XR Chest Exam date and time: 04/27/2021 6:14 PM Age: 35 years old Clinical indication: Other: Weakness TECHNIQUE: Imaging protocol: XR of the chest. Views: 1 view. COMPARISON: CR (CHEST, ) 04/26/2021 4:20 PM FINDINGS: Lungs: Calcified granuloma noted in the peripheral right lung base. No consolidation. Pleural spaces: Unremarkable. No pleural effusion. No pneumothorax. Heart/Mediastinum: Unremarkable. No cardiomegaly. Bones/joints: Unremarkable. XR/XR chest 1V portable [id number] IMPRESSION: No acute findings.
== END 2021-04-27 19:46 ==
PROVIDERS: Emergency Provider Family Medicine
DX: Z53.21 Procedure and treatment not carried out due to patient leaving prior to being seen by health care provider (principal)
CPT/HCPCS: 71045

== ENCOUNTER 2021-04-28 13:59 | Emergency (ER) | payer MEDICARE, MEDICAID, SELFPAY ==
[2021-04-28 14:12] VITALS: BP 177/109; PULSE 94; RESP 18; TEMP 36.8; O2SAT 94; BMI 28.7
== END 2021-04-28 15:34 | disposition left against medical advice (07) ==
PROVIDERS: Emergency Provider Family Medicine
DX: Z53.21 Procedure and treatment not carried out due to patient leaving prior to being seen by health care provider (principal)
CPT/HCPCS: 99282

== ENCOUNTER 2021-04-29 08:02 | Emergency (ER) | payer MEDICARE, MEDICAID, SELFPAY ==
--- NOTE | 2021-04-29 08:13 | XR_ITS ---
WS: [id number] XR ankle RT min 3V* [id number] REASON FOR EXAM: pain FINDINGS: No fracture or focal bone lesion. Lateral clear space and tibiotalar joint space well preserved. There is degenerative change involving the distal most medial malleolus compatible with previous medi al ligamentous injury. This is associated with mild narrowing of the medial clear space. 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 No acute abnormality identified.
[2021-04-29 08:14] VITALS: BP 162/103; PULSE 88; RESP 15; TEMP 36.7; O2SAT 99; BMI 45.7
--- NOTE | 2021-04-29 08:33 | ED_ITS ---
HPI - General Adult General: Chief complaint: General Medical Stated complaint: Right side numb and ankle pain from fall Time Seen by Provider: 04/29/21 08:12 History of Present Illness: HPI narrative: 35 yo male returns emergency room complaining of right ankle pain. He has been seen several times in the last few days. 3 days ago he was seen by Dr. Romano who wanted to work him up for stroke he had right-sided weakness facial droop and speech slurring. Patient refused and ended up leaving AMA. He twisted his ankle several times in the last several days he is not able to walk on it now. He is belligerent and profane when seen by the staff and by myself. He is exhibited phoebe similar behavior previously. I did offer to work him up for his stroke like symptoms which I highly suspect he has had he vehemently opposes this and began swearing at me again. He declines to answer any further questions regarding his health or condition. Onset (ago): day(s) (4) Location: right and lower extremity (Ankle) Severity: mild Quality: aching Pain Consistency: constant Relieving factors: immobilization and rest Exacerbating factors: movement and other (Ambulation) Associated symptoms: Reports malaise and weakness (Right side) Treatments prior to arrival: none Review of Systems General: Reports: Other (Patient refuses to discuss) Const: Reports: malaise [facility] ED PFSH: Medical History (Updated 04/29/21 @ 08:48 by Allen Lal DO) CVA (cerebral vascular accident) Kidney stones Right ankle sprain Surgical History Hx of tonsillectomy Family History Family/Other Cancer Diabetes Mother No problems noted. Social History Smoking and tobacco status: current every day smoker Alcohol intake: current Marital status: Single History of recent travel: No Physical Exam Const: ORIENTATION/CONSCIOUSNESS: Yes awake HENMT: COMMON NORMALS: normocephalic, atraumatic and hearing grossly normal bilaterally HEAD & SCALP: normocephalic and atraumatic Neck/C-Spine: COMMON NORMALS: no JVD Resp: COMMON NORMALS: normal respiratory effort, No retractions, No use of accessory muscles and clear to auscultation bilaterally AUSCULTATION: clear to auscultation bilaterally Cardio: COMMON NORMALS: no JVD, regular rate, regular rhythm and No murmurs present (Cardio) RATE: regular rate RHYTHM: regular rhythm Extremity: OTHER: Moderate swelling over the right lateral malleolus. Dorsalis pedis posterior tibialis pulses strong. Sensation somewhat decreased on the right compared to the left. No cyanosis. No deformity Course Vital Signs: Vital signs: Vital Signs Temperature 98.0 F 04/29/21 08:14 Pulse Rate 88 04/29/21 08:14 Respiratory Rate 15 04/29/21 08:14 Blood Pressure 162/103 04/29/21 08:14 Pulse Oximetry 99 04/29/21 08:14 MDM - General Adult MDM Narrative: Medical decision making narrative: X-rays are unremarkable of the right ankle. I tried to convince the patient to allow us to further evaluate him particularly for his right-sided weakness. I suspect he has had a stroke. He has had several days now of persistent right-sided weakness and he is falling and injuring that right side. He is adamantly opposed to any kind of further evaluation Wanted an x-ray of his ankle. X-ray is unremarkable we will discharge him home unfortunately I think the only thing we will be able to do to help him is encouraged him to take 81 mg tablet of aspirin daily. Given diclofenac to use as needed prescription written for a wheelchair since I do not think he can safe ly use a pair crutches also wrote a prescription for ankle brace. We will have staff Taco wrap his ankle prior to discharge. Additionally his blood pressure is markedly elevated we will start him on a low-dose antihypertensive. Discharge Plan Discharge Patient Disposition: Home Clinical Impression: Right ankle sprain, CVA (cerebral vascular accident), Hypertension Condition: Stable Prescriptions: New aspirin 81 mg tablet,delayed release (DR/EC) 81 mg PO DAILY Qty: 30 RF: 0 diclofenac sodium 75 mg tablet,delayed release (DR/EC) 75 mg PO Q12H PRN (Reason: pain) Qty: 20 RF: 0 (DME) Ankle Brace Misc See Rx Instructions .ROUTE Qty: 1 RF: 0 amlodipine 5 mg tablet 5 mg PO DAILY Qty: 30 RF: 0 Discharge Orders: Discharge ED (Routine); Ordered 04/29/21 Ordered By: Allen Lal Other Ambulatory Orders: DME: Wheelchair (Order) Location: None Selected Ordered By: Allen Lal Discharge Diet: Usual diet Discharge Activity: Wheelchair as instructed Patient Instructions: Opioid Safety Coding Level of Care Code ED Senior Project 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
== END 2021-04-29 09:08 | disposition home or self-care (01) ==
PROVIDERS: Emergency Provider Family Medicine
DX: S93.401A Sprain of unspecified ligament of right ankle, initial encounter (principal); I63.9 Cerebral infarction, unspecified; I10 Essential (primary) hypertension; Z79.82 Long term (current) use of aspirin; F17.210 Nicotine dependence, cigarettes, uncomplicated; X50.1XXA Overexertion from prolonged static or awkward postures, initial encounter
CPT/HCPCS: 73610; 99282

== ENCOUNTER 2021-08-09 00:03 | Emergency (ER) | payer MEDICARE, MEDICAID, SELFPAY ==
[2021-08-09 00:21] VITALS: BP 152/104; PULSE 101; RESP 20; TEMP 36.7; O2SAT 98; BMI 34.4
--- NOTE | 2021-08-09 00:34 | ED_ITS ---
HPI - Eye Problem General: Chief complaint: Eye Problems Stated complaint: welders flash Time Seen by Provider: 08/09/21 00:11 History of Present Illness: Patient complains about eyes hurting after welding today and being exposed to UV light at times. Said eye started hurting late th is evening. Denies drainage or other problems. Associated symptoms: Denies fever(s), headache(s), nausea or vomiting Review of Systems Const: Denies: fever(s), chills or body aches Eyes: Reports: photophobia, eye discomfort (Occurred after welding without a w elders helmet for a while today.) and eye redness; Denies: eye discharge ENMT: Denies: throat pain Card: Denies: chest pain Resp: Denies: dyspnea GI: Denies: abdominal pain, nausea or vomiting Skin/Breast: Denies: rash Neuro: Denies: headache(s) Psych: Denies: depression or suicidal ideation [facility] ED PFSH: Medical History (Updated 08/09/21 @ 00:36 by AMAYA Goins) CVA (cerebral vascular accident) Kidney stones Right ankle sprain Surgical History Hx of tonsillectomy Family History Family/Other Cancer Diabetes Mother No problems noted. Social History Smoking and tobacco status: current every day smoker Alcohol intake: current Marital status: Single History of recent travel: No Physical Exam Const: COMMON NORMALS: average body habitus HENMT: COMMON NORMALS: normocephalic and Normal external nose present HEAD & SCALP: normocephalic NOSE: Normal external nose present Eye: PERIORBITAL: periorbital findings normal EYELID: eyelids normal CONJUNCTIVA: Yes conjunctival abnormal positive bilateral conjunctival injection Resp: COMMON NORMALS: normal respiratory effort Psych: COMMON NORMALS: mental status grossly normal Course Vital Signs: Vital signs: Vital Signs Temperature 98.1 F 08/09/21 00:21 Pulse Rate 101 H 08/09/21 00:21 Respiratory Rate 20 H 08/09/21 00:21 Blood Pressure 152/104 08/09/21 00:21 Pulse Oximetry 98 08/09/21 00:21 MDM - Eye Problem Medical Decision Making Photo keratosis related to welding without using a welding helmet part of the day. Discharge Plan Discharge Patient Disposition: Home Clinical Impression: Photokeratitis of both eyes Condition: Stable Prescriptions: New [id number] 3.5-400-10,000 mg-unit/g-1% ointment 1 applic ophthalmic (eye) TID 5 Days Qty: 3.5 0RF Celebrex 100 mg capsule 100 mg PO BID Qty: 20 0RF No Action aspirin 81 mg tablet,delayed release (DR/EC) 81 mg PO DAILY Qty: 30 0RF diclofenac sodium 75 mg tablet,delayed release (DR/EC) 75 mg PO Q12H PRN (Reason: pain) Qty: 20 0RF (DME) Ankle Brace Misc See Rx Instructions .Route Qty: 1 0RF Rx Instructions: As directed amlodipine 5 mg tablet 5 mg PO DAILY Qty: 30 0RF Discharge Orders: Discharge ED (Routine); Ordered 08/09/21 Ordered By: Gene Tucker Patient Instructions: Corneal Flash Bella (ED) Activity Restrictions/Additional Instructions: Follow-up your primary care the eye doctor if no significant improvement noted in 24 to 36 hours. Medication as directed. Coding Level of Care Code ED Moving Consultant for Trang Fwd Exam Detailed
[2021-08-09] MEDS: HYDROcodone-acetaminophen 5-325 mg Tablet 2 TAB PO (00:51)
[2021-08-09] MEDS: neomycin-poly-dex Op 5 mL Btl 2 DROP EYE-BOTH (01:03)
[2021-08-09 01:21] VITALS: BP 159/100; PULSE 89; RESP 22; O2SAT 98
== END 2021-08-09 01:22 | disposition home or self-care (01) ==
PROVIDERS: Emergency Provider Nurse Practitioner Family
DX: H16.133 Photokeratitis, bilateral (principal); F17.200 Nicotine dependence, unspecified, uncomplicated
CPT/HCPCS: 99283

== ENCOUNTER 2022-02-26 03:23 | Emergency (ER) | payer MEDICARE, MEDICAID, SELFPAY ==
[2022-02-26 03:29] VITALS: BP 168/113; PULSE 99; RESP 16; TEMP 36.6; O2SAT 98; BMI 31.5
[2022-02-26 03:32] VITALS: PULSE 99; RESP 17; O2SAT 98
--- NOTE | 2022-02-26 03:32 | ED_ITS ---
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 Associated symptoms: Denies fever(s), headache(s), nausea, neck pain or vomiting Review of Systems Const: Denies: fever(s), chills, body aches or change in appetite Eyes: Reports: eye discomfort and eye redness ENMT: Denies: throat pain or dental pain Card: Denies: chest pain Resp: Denies: dyspnea GI: Denies: abdominal pain, nausea, vomiting or diarrhea : Denies: dysuria Musc: Denies: neck pain or back pain Skin/Breast: Denies: rash Neuro: Denies: headache(s) Psych: Denies: depression Bruce/Lymph: Denies: easy bruising All/Imm: Denies: urticaria PFS ED PFSH: Medical History (Updated 02/26/22 @ 03:34 by Ananth Romano MD) CVA (cerebral vascular accident) Kidney stones Right ankle sprain Surgical History Hx of tonsillectomy Family History Family/Other Cancer Diabetes Mother No problems noted. Social History Smoking and tobacco status: current every day smoker Alcohol intake: current Marital status: Single History of recent travel: No Physical Exam Const: COMMON NORMALS: no acute distress and patient oriented x3 HENMT: COMMON NORMALS: normocephalic and atraumatic HEAD & SCALP: normocephalic and atraumatic Eye: OTHER: Erythema to bilateral eyes Neck/C-Spine: COMMON NORMALS: full ROM Chest: COMMONS NORMALS: normal inspection of the chest Resp: COMMON NORMALS: normal respiratory effort Cardio: COMMON NORMALS: regular rate and regular rhythm RATE: regular rate RHYTHM: regular rhythm GI: INSPECTION: Yes normal to inspection Extremity: COMMON NORMALS: normal to inspection Neuro: COMMON NORMALS: patient oriented x3 Psych: COMMON NORMALS: mental status grossly normal Skin: COMMON NORMALS: no rashes or lesions noted GENERAL SKIN EXAM: no rashes or lesions noted Course Vital Signs: Vital signs: Vital Signs Temperature 97.9 F 02/26/22 03:29 Pulse Rate 99 02/26/22 03:29 Respiratory Rate 16 02/26/22 03:29 Blood Pressure 168/113 02/26/22 03:29 Pulse Oximetry 98 02/26/22 03:29 Oxygen Delivery Me thod 02/26/22 03:29 MDM - Eye Problem Medical Decision Making Patient presents here with Welders burn to bilateral eyes he is well-appearing here no signs of abrasions we will place him on erythromycin ointment he is to follow-up with PCP and return if worsening. Discharge Plan Discharge Patient Disposition: Home Clinical Impression: Welders' keratitis of both eyes Condition: Stable Prescriptions: New erythromycin 5 mg/gram (0.5 %) ointment 1 applic ophthalmic (eye) BID 7 Days Qty: 3.5 0RF No Action aspirin 81 mg tablet,delayed release (DR/EC) 81 mg PO DAILY Qty: 30 0RF diclofenac sodium 75 mg tablet,delayed release (DR/EC) 75 mg PO Q12H PRN (Reason: pain) Qty: 20 0RF (DME) Ankle Brace Misc See Rx Instructions .Route Qty: 1 0RF Rx Instructions: As directed amlodipine 5 mg tablet 5 mg PO DAILY Qty: 30 0RF Celebrex 100 mg capsule 100 mg PO BID Qty: 20 0RF Discharge Orders: Discharge ED (Routine); Ordered 02/26/22 Ordered By: Ananth Romano Discharge Diet: Advance as tolerated Discharge Activity: Resume usual activity Patient Instructions: Keratitis (ED) Coding Level of Care Code ED Senior Policy Associate for 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
[2022-02-26] MEDS: HYDROcodone-acetaminophen 7.5-325 mg Tablet 1 TAB PO (03:46)
== END 2022-02-26 03:47 | disposition home or self-care (01) ==
PROVIDERS: Emergency Provider Emergency Medicine
DX: H16.133 Photokeratitis, bilateral (principal); W89.8XXA Exposure to other man-made visible and ultraviolet light, initial encounter; Z86.73 Personal history of transient ischemic attack (TIA), and cerebral infarction without residual deficits; F17.210 Nicotine dependence, cigarettes, uncomplicated
CPT/HCPCS: 99283

== ENCOUNTER 2022-04-04 15:12 | Emergency (ER) | payer MEDICARE, MEDICAID, SELFPAY ==
[2022-04-04 15:19] VITALS: BP 163/107; PULSE 94; RESP 20; TEMP 36.4; O2SAT 100; BMI 31.5
--- NOTE | 2022-04-04 15:25 | ED_ITS ---
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 Patient states that his welders goggles were broken and allowed too much light in. Patient started having pain and discomfort after using them this morning. Patient worked reports worsening discomfort this evening. Patient has a history of prior injury. Patient appears nontoxic. Review of Systems Eyes: Reports: photophobia and eye discomfort [facility] ED PFSH: Medical History (Updated 04/04/22 @ 15:55 by AMAYA Mcallister) CVA (cerebral vascular accident) Kidney stones Right ankle sprain Surgical History Hx of tonsillectomy Family History Family/Other Cancer Diabetes Mother No problems noted. Social History Smoking and tobacco status: current every day smoker Alcohol intake: current Marital status: Single History of recent travel: No Physical Exam Const: COMMON NORMALS: alert HENMT: COMMON NORMALS: atraumatic HEAD & SCALP: atraumatic Neck/C-Spine: COMMON NORMALS: full ROM Resp: COMMON NORMALS: normal respiratory effort Cardio: COMMON NORMALS: regular rate and regular rhythm RATE: regular rate RHYTHM: regular rhythm Extremity: COMMON NORMALS: normal to inspection Neuro: SENSORIUM/ORIENTATION: Yes alert Skin: COMMON NORMALS: turgor normal GENERAL SKIN EXAM: turgor normal Course Vital Signs: Vital signs: Vital Signs Temperature 97.6 F 04/04/22 15:19 Pulse Rate 94 04/04/22 15:19 Respiratory Rate 20 H 04/04/22 15:19 Blood Pressure 163/107 04/04/22 15:19 Pulse Oximetry 100 04/04/22 15:19 Oxygen Delivery Me thod 04/04/22 15:19 MDM - Eye Problem Medical Decision Making Patient comes in today for 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 Patient appears in pain. Eyes were examined with tetracaine for anesthetic and fluorescein for staining. No obvious injury or ulceration was noted. QT was unable to be evaluated due to light sensitivity. Vital signs are normal. No signs of serious illness or injury was noted. Differential diagnosis photokeratitis, corneal abrasion/ulceration, conjunctivitis. Patient has a case of photokeratitis. Recommended emollient eyedrops, antibiotic eyedrops, and pain medication. Patient reported understanding of care plan need for follow-up or return to the ER. Discharge Plan Discharge Patient Disposition: Home Clinical Impression: Photokeratitis of both eyes Condition: Stable Prescriptions: New hydrocodone-acetaminophen 5-325 mg tablet 1 tab PO Q6H PRN (Reason: pain (scale score 7-10)) Qty: 8 0RF No Action aspirin 81 mg tablet,delayed release (DR/EC) 81 mg PO DAILY Qty: 30 0RF diclofenac sodium 75 mg tablet,delayed release (DR/EC) 75 mg PO Q12H PRN (Reason: pain) Qty: 20 0RF (DME) Ankle Brace Misc See Rx Instructions .Route Qty: 1 0RF Rx Instructions: As directed amlodipine 5 mg tablet 5 mg PO DAILY Qty: 30 0RF Celebrex 100 mg capsule 100 mg PO BID Qty: 20 0RF Discharge Orders: Discharge ED (Routine); Ordered 04/04/22 Ordered By: Jan Ang Discharge Diet: Usual diet Discharge Activity: Increase activity as tolerated Patient Instructions: Corneal Flash Bella (ED) Activity Restrictions/Additional Instructions: Use of emollient eyedrops like liquid tears as directed by liz. Continue Maxitrol, antibiotic eyedrops, 1 drop 4 times a day while awake for the next 7 days. Have eyes reevaluated in 3 days by eye animal care supervisor or primary care provider. Eyes most likely should heal without any difficulty and should improve steadily over the next 2 to 3 days. If symptoms persist or worsen it is necessary that you follow-up with the eye animal care supervisor. Return to ER for new concerns. Coding Level of Care Code ED Sausage Stringer for Trang Fwd Exam Detailed
[2022-04-04] MEDS: HYDROcodone-acetaminophen 10-325 mg Tablet 1 TAB PO (15:48)
[2022-04-04] MEDS: fluorescein 1 mg Strip EYE-BOTH (15:50)
[2022-04-04] MEDS: tetracaine 0.5% Op Soln 4 mL Btl 1 DROP EYE-BOTH (15:50)
[2022-04-04 15:54] VITALS: BP 158/110; PULSE 95; RESP 16; O2SAT 100
[2022-04-04] MEDS: neomycin-poly-dex Op 5 mL Btl 2 DROP EYE-BOTH (15:59)
[2022-04-04 16:03] VITALS: BP 170/113; PULSE 85; RESP 16; O2SAT 97
[2022-04-04 16:21] VITALS: BP 190/130; PULSE 95; RESP 16; O2SAT 99
[2022-04-04 16:26] VITALS: BP 190/130; PULSE 95; RESP 16; O2SAT 99
== END 2022-04-04 16:23 | disposition home or self-care (01) ==
PROVIDERS: Emergency Provider Nurse Practitioner Family
DX: H16.133 Photokeratitis, bilateral (principal); Z79.82 Long term (current) use of aspirin; F17.210 Nicotine dependence, cigarettes, uncomplicated; Z86.73 Personal history of transient ischemic attack (TIA), and cerebral infarction without residual deficits
CPT/HCPCS: 99283

== ENCOUNTER 2022-04-25 04:36 | Emergency (ER) | payer MEDICARE, MEDICAID, SELFPAY ==
[2022-04-25 04:44] VITALS: BP 178/127; PULSE 86; RESP 22; TEMP 36.4; O2SAT 93; BMI 33.7
--- NOTE | 2022-04-25 04:52 | CTR_ITS ---
PROCEDURE INFORMATION: Exam: CT Abdomen And Pelvis Without Contrast Exam date and time: 04/25/2022 5:16 AM Age: 36 years old Clinical indication: Abdominal pain; Flank; Right; Additional info: R flank pain TECHNIQUE: Imaging protocol: Computed tomography of the abdomen and pelvis without contrast. Radiation optimization: All CT scans at this facility use at least one of these dose optimization techniques: automated exposure control; mA and/or kV adjustment per patient size (includes targeted exams where dose is matched to clinical indication); or iterative reconstruction. COMPARISON: CT kidney stone [id number] 05/26/2019 1:50 PM RADIATION DOSE METRICS: Total DLP (mGy-cm): 877.53 FINDINGS: Lungs: Calcified granuloma in the lateral right lower lobe. The lung bases otherwise appear essentially clear. No pleural fluid. Liver: Unremarkable. Gallbladder and bile ducts: No definite gallbladder abnormality by CT. No biliary tree dilation. Pancreas: Unremarkable. Spleen: Unremarkable. Adrenal glands: Unremarkable. Kidneys and ureters: Multiple small intrarenal calculi bilaterally, right greater than left. Mild right perinephric and periureteric stranding. Moderate right hydronephrosis and hydroureter. There is a 5 mm distal right ureteral calculus, about 5 mm from the UVJ. No left hydronephrosis or visible left ureteral calculus. Stomach and bowel: No significant bowel distention. There are no CT findings to strongly suggest diverticulitis. Appendix: The appendix is visualized and appears normal. Intraperitoneal space: No free intraperitoneal air, or ascites. Vasculature: No evidence for abdominal aortic aneurysm. Lymph nodes: Several borderline and mildly enlarged inguinal lymph nodes bilaterally. Urinary bladder: Suspect mild to moderate diffuse urinary bladder wall thickening. Evaluation is somewhat limited, as the bladder is not well distended. While nonspecific, this could indicate evidence for cystitis. Please correlate clinically. Reproductive: Essentially unremarkable for age. Bones/joints: No significant acute finding. Soft tissues: Small umbilical hernia, containing only fat. CT/CT kidney stone [id number] IMPRESSION: 1. 5 mm distal right ureteral calculus, details above. 2. Moderate right hydronephrosis and hydroureter. 3. Bilateral intrarenal calculi. 4. Suspected urinary bladder wall thickening, see above. 5. Normal appendix. 6. Other findings discussed above.
[2022-04-25] MEDS: HYDROmorphone 1 mg/mL INJ 1 mL IVP (05:06)
[2022-04-25] MEDS: ondansetron 2 mg/ML SDV 2 mL 4 MG IVP (05:06)
[2022-04-25] MEDS: sodium chloride 0.9% 1,000 ML 999 ML IV (05:06)
[2022-04-25 05:10] LABS: Basophils # 0.1 10^3/uL (0.0-0.1); Basophils % 0.9 %; Eosinophils # 0.5 10^3/uL (0.0-0.8); Eosinophils % 4.4 %; Hematocrit 44.3 % (42.0-52.0); Hemoglobin 14.4 g/dL (11.7-16.6); Lymphocytes # 3.5 10^3/uL (0.8-4.8); Lymphocytes % 33.7 %; Mean Corpuscular HGB Conc 32.5 g/dL (30.0-36.0); Mean Corpuscular Hemoglobin 29.7 pg (28.0-34.0); Mean Corpuscular Volume 91.3 fl (80-94); Mean Platelet Volume 10.5 fL (7.4-10.4); Monocytes # 1.1 10^3/uL (0.2-0.9); Neutrophils # 5.14 10^3/uL (1.8-7.7); Neutrophils % 49.7 %; Nucleated Red Blood Cells % 0 %; Platelet Count 308 10^3/cmm (130-400); Red Blood Count 4.85 10^6/uL (4.1-5.3); Red Cell Distribution Width 13.6 % (12.1-15.1); White Blood Count 10.3 10^3/uL (4.0-10.0)
--- NOTE | 2022-04-25 05:12 | W.ED.BACK ---
HPI - Back Pain/Injury General: Chief Complaint: Back Pain/Injury Stated Complaint: kidney stones Time Seen by Provider: 04/25/22 04:49 Source: patient History of Present Illness: 36-year-old male with a history of kidney stones. He presents with acute onset of right flank pain yesterday, worsening this morning. He is nauseated, but has not vomited. No fever. He has noted darkening and blood in his urine. MD elicited complaint: back pain and other Pertinent past history: kidney stones Onset (ago): hour(s) Timing: intermittent and progressively worsening Severity: similar to previous episodes Quality: stabbing Location: right flank Radiation: abdomen Exacerbating factors: none Relieving factors: none Associated symptoms: Reports abdominal pain, hematuria and nausea; Deny fever(s) or vomiting Review of Systems Const: Denies: fever(s) Card: Denies: chest pain Resp: Denies: dyspnea GI: Reports: abdominal pain and nausea; Denies: vomiting : Reports: hematuria Musc: Reports: back pain; Denies: extremity pain PFSH ED PFSH: Medical History CVA (cerebral vascular accident) Kidney stones Right ankle sprain Surgical History Hx of tonsillectomy Family History Family/Other Cancer Diabetes Mother No problems noted. Social History Smoking and tobacco status: current every day smoker Alcohol intake: current Marital status: Single History of recent travel: No Physical Exam Const: COMMON NORMALS: no acute distress GENERAL APPEARANCE: cooperative and in distress (in pain); not frail appearing HENMT: COMMON NORMALS: normocephalic and Normal external nose present HEAD & SCALP: normocephalic FACE & SINUS: normal facial exam and face symmetric NOSE: Normal external nose present Eye: COMMON NORMALS: Equal, round and reactive pupils present and EOMs intact bilaterally PUPIL: Yes Equal, round and reactive pupils present Neck/C-Spine: GENERAL: Yes trachea midline Chest: CHEST: Yes Symmetrical chest wall rise Resp: COMMON NORMALS: normal respiratory effort, No retractions, No use of accessory muscles and clear to auscultation bilaterally AUSCULTATION: clear to auscultation bilaterally Cardio: COMMON NORMALS: regular rate and regular rhythm RATE: regular rate RHYTHM: regular rhythm GI: COMMON NORMALS: Normal to inspection, nondistended, normoactive bowel sounds present PALPATION: Yes Tenderness to palpation present (GI) Details: RLQ : BLADDER/KIDNEY EXAM: Yes CVA tenderness on the right Back/Pelvis: GENERAL BACK: Yes CVA tenderness Extremity: COMMON NORMALS: no pedal edema Neuro: AUBREY COMA SCALE: document GCS findings Stella coma scale eye opening: Spontaneous Stella coma scale verbal response: Orientated Stella coma scale motor response: Obey commands Stella coma scale total score: 15 SENSORY EXAM: Yes extremities (intact) Psych: COMMON NORMALS: speech normal SPEECH: Yes normal speech Skin: COMMON NORMALS: no rashes or lesions noted GENERAL SKIN EXAM: no rashes or lesions noted Course Vital Signs: Vital signs: Vital Signs Temperature 97.5 F L 04/25/22 04:44 Pulse Rate 86 04/25/22 04:44 Respiratory Rate 22 H 04/25/22 04:44 Blood Pressure 178/127 04/25/22 04:44 Pulse Oximetry 93 04/25/22 04:44 Oxygen Delivery Me thod 04/25/22 04:44 MDM - Back Pain/Injury Medical Decision Making Right flank pain in a patient with 5 mm distal right ureter calculus, moderate hydronephrosis and hydroureter, and no evidence of infection on urinalysis. He does have hematuria. His white count is 10. He has not thrown up since he has been here. Pain is better controlled. He will be given a trial as an outpatient on Flomax, Toradol, and hydrocodone. He is positive for amphetamines on drug screening which is concerning, which is why minimal narcotic pain medication will be prescribed. Close outpatient follow-up, knows to return if worsening. Labs 04/25/22 05:04 04/25/22 05:04 Radiology Impressions Abdomen/Pelvis CT 04/25/22 04:52 IMPRESSION: 1. 5 mm distal right ureteral calculus, details above. 2. Moderate right hydronephrosis and hydroureter. 3. Bilateral intrarenal calculi. 4. Suspected urinary bladder wall thickening, see above. 5. Normal appendix. 6. Other findings discussed above. Laboratory Results WBC 10.3 10^3/uL (4.0-10.0) H 04/25/22 05:04 RBC 4.85 10^6/uL (4.1-5.3) 04/25/22 05:04 Hgb 14.4 g/dL (11.7-16.6) 04/25/22 05:04 Hct 44.3 % (42.0-52.0) 04/25/22 05:04 MCV 91.3 fl (80-94) 04/25/22 05:04 MCH 29.7 pg (28.0-34.0) 04/25/22 05:04 MCHC 32.5 g/dL (30.0-36.0) 04/25/22 05:04 RDW 13.6 % (12.1-15.1) 04/25/22 05:04 Plt Count 308 10^3/cmm (130-400) 04/25/22 05:04 MPV 10.5 fL (7.4-10.4) H 04/25/22 05:04 Neut % (Auto) 49.7 % 04/25/22 05:04 Lymph % (Auto) 33.7 % 04/25/22 05:04 O'Brien % (Auto) 11.0 % 04/25/22 05:04 Eos % (Auto) 4.4 % 04/25/22 05:04 Baso % (Auto) 0.9 % 04/25/22 05:04 Neut # (Auto) 5.14 10^3/uL (1.8-7.7) 04/25/22 05:04 Lymph # (Auto) 3.5 10^3/uL (0.8-4.8) 04/25/22 05:04 O'Brien # (Auto) 1.1 10^3/uL (0.2-0.9) H 04/25/22 05:04 Eos # (Auto) 0.5 10^3/uL (0.0-0.8) 04/25/22 05:04 Baso # (Auto) 0.1 10^3/uL (0.0-0.1) 04/25/22 05:04 Nucleated RBC % (auto) 0 % 04/25/22 05:04 Nucleated RBCs # 0.0 /100WBC 04/25/22 05:04 Sodium 137 mmol/L (136-145) 04/25/22 05:04 Potassium 3.9 mmol/L (3.5-5.1) 04/25/22 05:04 Chloride 103 mmol/L (98-107) 04/25/22 05:04 Carbon Dioxide 25 mmol/L (22-29) 04/25/22 05:04 Anion Gap 12.9 (5-19) 04/25/22 05:04 BUN 18 mg/dL (6-20) 04/25/22 05:04 Creatinine 0.8 mg/dL (0.7-1.2) 04/25/22 05:04 GFR Calculation 108.8 mL/min (90-130) 04/25/22 05:04 Glucose 108 mg/dL (65-115) 04/25/22 05:04 Calculated Osmolality 286 mOsm/kg (285-295) 04/25/22 05:04 Calcium 8.7 mg/dL (8.5-10.5) 04/25/22 05:04 Magnesium 2.0 mg/dL (1.7-2.3) 04/25/22 05:04 Total Bilirubin 0.2 mg/dL (0.15-1.2) 04/25/22 05:04 AST 17 U/L (0-40) 04/25/22 05:04 ALT 19 U/L (0-41) 04/25/22 05:04 Alkaline Phosphatase 99 U/L (40-130) 04/25/22 05:04 Total Protein 7.2 g/dL (6.6-8.7) 04/25/22 05:04 Albumin 4.1 g/dL (3.5-5.2) 04/25/22 05:04 Globulin 3.1 g/dL (1.3-4.6) 04/25/22 05:04 Lipase 229 U/L (13-60) H 04/25/22 05:04 Urine Color [place] (Yellow) 04/25/22 06:07 Urine Appearance Sl cloudy (CLEAR) A 04/25/22 06:07 Urine pH 5 (5-7) 04/25/22 06:07 Ur Specific [place] 1.020 (1.005-1.030) 04/25/22 06:07 Urine Protein 1+ (Negative) H 04/25/22 06:07 Urine Glucose (UA) Norm (Normal) 04/25/22 06:07 Urine Ketones Negative (Negative) 04/25/22 06:07 Urine Blood 3+ (Negative) H 04/25/22 06:07 Urine Nitrate Negative (Negative) 04/25/22 06:07 Urine Bilirubin Neg (Negative) 04/25/22 06:07 Urine Urobilinogen Neg mg/dL (Negative) 04/25/22 06:07 Ur Leukocyte Esterase Trace (Negative) H 04/25/22 06:07 Urine RBC >100 /hpf (0-2) H 04/25/22 06:07 Urine WBC 10-15 /hpf (0-5) H 04/25/22 06:07 Ur Squamous Epith Cells 0-4 /hpf (0-5) H 04/25/22 06:07 Amorphous Sediment Not Reportable 04/25/22 06:07 Urine Bacteria 1+ /hpf (NONE) H 04/25/22 06:07 Urine Opiates Screen Negative ng/mL (Negative) 04/25/22 06:07 Ur Barbiturates Screen Negative ng/mL (Negative) 04/25/22 06:07 Ur Phencyclidine Scrn Negative ng/mL (Negative) 04/25/22 06:07 Ur Amphetamines Screen Positive ng/mL (Negative) H 04/25/22 06:07 U Benzodiazepines Scrn Negative ng/mL (Negative) 04/25/22 06:07 Urine Cocaine Screen Negative ng/mL (Negative) 04/25/22 06:07 U Marijuana (THC) Screen Negative ng/mL (Negative) 04/25/22 06:07 Discharge Plan Discharge Patient Disposition: Home Clinical Impression: Ureterolithiasis Condition: Stable Prescriptions: New ketorolac 10 mg tablet 10 mg PO TID PRN (Reason: pain) Qty: 10 0RF ondansetron 4 mg film 4 mg PO DAILY PRN (Reason: nausea and vomiting) Qty: 10 0RF Flomax 0.4 mg capsule 0.4 mg PO DAILY Qty: 10 0RF Continued hydrocodone-acetaminophen 5-325 mg tablet 1 tab PO Q6H PRN (Reason: pain (scale score 7-10)) Qty: 8 0RF Discontinued diclofenac sodium 75 mg tablet,delayed release (DR/EC) 75 mg PO Q12H PRN (Reason: pain) Qty: 20 0RF celecoxib [Celebrex] 100 mg capsule 100 mg PO BID Qty: 20 0RF No Action aspirin 81 mg tablet,delayed release (DR/EC) 81 mg PO DAILY Qty: 30 0RF (DME) Ankle Brace Misc See Rx Instructions .Route Qty: 1 0RF Rx Instructions: As directed amlodipine 5 mg tablet 5 mg PO DAILY Qty: 30 0RF Discharge Orders: Discharge ED (Routine); Ordered 04/25/22 Ordered By: Saeid York Referrals: Kaden Hendricks MD [Physician] - 4-7 days Patient Instructions: Kidney Stones (ED), Opioid Safety, Pain Management Activity Restrictions/Additional Instructions: Medications as directed. Tamsulosin should help you pass the kidney stone. Return for vomiting liquids or medications, fever greater than 100, inability to control pain despite medication, other concerning symptoms. Follow-up with urology. Call them on Wednesday as directed. Coding Level of Care Code ED Software Sales Executive for Chg Fwd Exam Comprehensive
[2022-04-25 05:33] LABS: Alanine Aminotransferase 19 U/L (0-41); Albumin Level 4.1 g/dL (3.5-5.2); Alkaline Phosphatase 99 U/L (40-130); Anion Gap 12.9 (5-19); Aspartate Amino Transferase 17 U/L (0-40); Blood Urea Nitrogen 18 mg/dL (6-20); Calcium 8.7 mg/dL (8.5-10.5); Carbon Dioxide 25 mmol/L (22-29); Chloride 103 mmol/L (98-107); Globulin 3.1 g/dL (1.3-4.6); Glomerular Filtration Rate 108.8 mL/min (90-130); Glucose 108 mg/dL (65-115); Lipase 229 U/L (13-60); Osmolality Calculated 286 mOsm/kg (285-295); Potassium 3.9 mmol/L (3.5-5.1); Sodium 137 mmol/L (136-145); Total Bilirubin 0.2 mg/dL (0.15-1.2); Total Protein 7.2 g/dL (6.6-8.7)
[2022-04-25 06:33] LABS: Blood Urine 3+ (Negative); Leukocyte Esterase Urine Trace (Negative); Protein Urine 1+ (Negative); Urine Color Orange (Yellow); pH Urine 5 (5-7)
[2022-04-25 06:34] LABS: Add Urine Microscopic? YES; Bilirubin Urine Neg (Negative); Glucose Urine UA Norm (Normal); Ketones Urine Negative (Negative); Nitrate Urine Negative (Negative); Urobilinogen Urine Neg (Negative)
[2022-04-25 06:37] LABS: Amphetamines Screen Urine Positive (Negative); Bacteria Urine 1+ /hpf; Barbiturates Screen Urine Negative (Negative); Benzodiazepines Screen Urine Negative (Negative); Cocaine Screen Urine Negative (Negative); Opiate Screen Urine Negative (Negative); PCP Screen Urine Negative (Negative); RBC Urine >100 /hpf (0-2); Squamous Epithelial Cell Urine 0-4 /hpf (0-5); THC Screen Urine Negative (Negative)
[2022-04-25 06:38] LABS: Add Urine Culture? Yes
== END 2022-04-25 07:00 | disposition home or self-care (01) ==
PROVIDERS: Emergency Provider Emergency Medicine
DX: N13.2 Hydronephrosis with renal and ureteral calculous obstruction (principal); Z79.82 Long term (current) use of aspirin; F17.210 Nicotine dependence, cigarettes, uncomplicated; Z86.73 Personal history of transient ischemic attack (TIA), and cerebral infarction without residual deficits; Z87.442 Personal history of urinary calculi
CPT/HCPCS: 74176; 80053; 80306; 81001; 83690; 83735; 85025; 87077; 87086; 96361; 96374; 96375; 99285; J1170; J2405; J7030

== ENCOUNTER 2022-06-27 16:19 | Emergency (ER) | payer MEDICARE, MEDICAID, SELFPAY ==
[2022-06-27 16:21] VITALS: BP 221/136; PULSE 104; RESP 24; O2SAT 100; BMI 31.5
--- NOTE | 2022-06-27 16:26 | ECG_ITS ---
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 Measurements Intervals [place] Rate: 104 P: 64 MD: 136 QRS: 202 QRSD: 90 T: 48 QT: 336 QTc: 443 Interpretive Statements SINUS TACHYCARDIA INDETERMINATE AXIS POSSIBLE RIGHT VENTRICULAR CONDUCTION DELAY [RSR (QR) IN V1/V2] LEFT POSTERIOR FASCICULAR BLOCK [QRS AXIS > 109, INFERIOR Q] Compared to ECG 04/26/2021 16:11:03 Indeterminate axis now present Left posterior fascicular block now present Sinus rhythm no longer present Electronically Signed On 06-28-2022 19:38:48 CDT by Berkley Ayala M.D. [id number]
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
[2022-06-27] MEDS: iohexol 350 mg/mL 500 mL Btl (per mL) IV (16:43)
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
[2022-06-27 17:02] VITALS: BP 201/136; PULSE 95; RESP 15; O2SAT 99
[2022-06-27 17:05] LABS: Basophils # 0.1 10^3/uL (0.0-0.1); Eosinophils # 0.3 10^3/uL (0.0-0.8); Eosinophils % 3.6 %; Hematocrit 47.5 % (42.0-52.0); Hemoglobin 15.6 g/dL (11.7-16.6); Lymphocytes # 2.5 10^3/uL (0.8-4.8); Lymphocytes % 30.5 %; Mean Corpuscular HGB Conc 32.8 g/dL (30.0-36.0); Mean Corpuscular Hemoglobin 29.4 pg (28.0-34.0); Mean Corpuscular Volume 89.5 fl (80-94); Mean Platelet Volume 11.2 fL (7.4-10.4); Monocytes # 0.8 10^3/uL (0.2-0.9); Monocytes % 9.3 %; Neutrophils # 4.56 10^3/uL (1.8-7.7); Neutrophils % 55.4 %; Nucleated Red Blood Cells % 0 %; Platelet Count 303 10^3/cmm (130-400); Red Blood Count 5.31 10^6/uL (4.1-5.3); Red Cell Distribution Width 13.3 % (12.1-15.1); White Blood Count 8.2 10^3/uL (4.0-10.0)
[2022-06-27 17:09] LABS: Alanine Aminotransferase 18 U/L (0-41); Albumin Level 4.3 g/dL (3.5-5.2); Alkaline Phosphatase 104 U/L (40-130); Blood Urea Nitrogen 13 mg/dL (6-20); Calcium 9.2 mg/dL (8.5-10.5); Carbon Dioxide 24 mmol/L (22-29); Chloride 104 mmol/L (98-107); Globulin 3.3 g/dL (1.3-4.6); Glomerular Filtration Rate 94.4 mL/min (90-130); Glucose 100 mg/dL (65-115); Lipase 297 U/L (13-60); Osmolality Calculated 292 mOsm/kg (285-295); Sodium 141 mmol/L (136-145); Total Bilirubin 0.3 mg/dL (0.15-1.2); Total Protein 7.6 g/dL (6.6-8.7)
[2022-06-27 17:13] LABS: Anion Gap 16.7 (5-19)
[2022-06-27 17:14] LABS: Aspartate Amino Transferase 21 U/L (0-40); Potassium 3.7 mmol/L (3.5-5.1)
--- NOTE | 2022-06-27 17:14 | PC.NURSE ---
DR. DEVRIES GAVE VERBAL ORDER TO DC C-COLLAR
[2022-06-27] MEDS: ketorolac 30 mg/mL INJ IVP (17:22)
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
[2022-06-27 17:54] LABS: Add Urine Microscopic? YES; Bilirubin Urine Neg (Negative); Blood Urine 2+ (Negative); Glucose Urine UA Norm (Normal); Ketones Urine Negative (Negative); Leukocyte Esterase Urine Negative (Negative); Nitrate Urine Negative (Negative); Protein Urine Neg (Negative); Specific Gravity, Urine 1.015 (1.005-1.030); Urine Appearance Clear (CLEAR); Urine Color Yellow (Yellow); Urobilinogen Urine Norm (Negative); pH Urine 6.5 (5-7)
[2022-06-27 17:55] LABS: Add Urine Culture? No; Bacteria Urine TRACE /hpf; Mucus Urine 1+ /hpf; Squamous Epithelial Cell Urine 0-4 /hpf (0-5); WBC Urine 0-4 /hpf (0-5)
[2022-06-27 18:02] LABS: Amphetamines Screen Urine Positive (Negative); Barbiturates Screen Urine Negative (Negative); Benzodiazepines Screen Urine Negative (Negative); Cocaine Screen Urine Negative (Negative); Opiate Screen Urine Negative (Negative); PCP Screen Urine Negative (Negative); THC Screen Urine Negative (Negative)
--- NOTE | 2022-06-30 15:43 | DCPLANNER ---
Addendum entered by Mary Tellez 06/30/22 15:44: patient declines Original Note: 06.28.22 - patient called due to no primary care physician - no answer at this time
== END 2022-06-27 17:55 | disposition left against medical advice (07) ==
PROVIDERS: Emergency Provider Family Medicine
DX: M54.2 Cervicalgia (principal); R51.9 Headache, unspecified; R41.82 Altered mental status, unspecified; Z86.73 Personal history of transient ischemic attack (TIA), and cerebral infarction without residual deficits; F17.200 Nicotine dependence, unspecified, uncomplicated; V89.2XXA Person injured in unspecified motor-vehicle accident, traffic, initial encounter; Z53.21 Procedure and treatment not carried out due to patient leaving prior to being seen by health care provider
CPT/HCPCS: 70450; 71260; 72125; 74177; 80053; 80306; 81001; 83690; 85025; 93005; 96374; 99285; J1885; Q9967

== ENCOUNTER 2022-07-03 07:52 | Inpatient (IN) | payer MEDICARE, MEDICAID, SELFPAY ==
[2022-07-03 07:55] VITALS: BMI 29.7
[2022-07-03 07:58] VITALS: BP 167/111; PULSE 99; RESP 16; TEMP 36.6; O2SAT 98
--- NOTE | 2022-07-03 08:00 | W.ED.PSYCHS ---
Documented by User: DILIA Damico 07/03/22 08:57 HPI - Psych General: Chief Complaint: Psychiatric Symptoms Stated Complaint: SI Time Seen by Provider: 07/03/22 07:54 Source: patient and EMS Mode of arrival: EMS Limitations: no limitations History of Present Illness: Patient is a 37-year-old male who presents to ED today with a complaint of auditory and visual hallucinations and self harming behaviors as well as intermittent suicidal thoughts. Patient states he is of been going on over the past 3 to 4 months. He states he will see dogs and bears and stuff . He states he hears a bunch of jumbled voices . He states he feels so distraught by the voices that it makes him want to harm himself and kill himself. The voices do not tell him to harm himself or harm other people. He states prior to several months ago he is not had much issues with depression or suicidal ideations. Patient is not on any psychiatric medications. When asked about drug use he states he will do meth once in a blue miller . MD complaint: suicidal ideation and feels depressed Onset (ago): month(s) Duration: intermittent History of same: No Relieving factors: none Exacerbating factors: none Associated psychiatric symptoms: depression, suicidal ideation, auditory hallucinations and visual hallucinations Associated symptoms: Reports auditory hallucinations, visual hallucinations, depression and suicidal ideation; Deny homicidal ideation Treatments prior to arrival: none If self harm: admits thoughts of self harm Review of Systems Const: Denies: fever(s) or chills Card: Denies: chest pain, palpitations, lightheadedness or syncope Resp: Denies: dyspnea GI: Denies: abdominal pain, nausea, vomiting or diarrhea Skin/Breast: Denies: rash Neuro: Denies: headache(s) Psych: Reports: depression, hopelessness, visual hallucinations, auditory hallucinations and suicidal ideation; Denies: panic attacks or homicidal ideation [facility] ED PFSH: Medical History CVA (cerebral vascular accident) Kidney stones Right ankle sprain Surgical History Hx of tonsillectomy Family History Family/Other Cancer Diabetes Mother No problems noted. Social History Smoking and tobacco status: current every day smoker Alcohol intake: current Marital status: Single Physical Exam Const: COMMON NORMALS: no acute distress, patient oriented x3, alert and well nourished GENERAL APPEARANCE: cooperative Resp: COMMON NORMALS: normal respiratory effort and clear to auscultation bilaterally AUSCULTATION: clear to auscultation bilaterally Cardio: COMMON NORMALS: regular rate and regular rhythm RATE: regular rate RHYTHM: regular rhythm Extremity: NARRATIVE EXTREMITY EXAM: several scabbed linear cuts/abrasions to bilateral forearms from cutting Neuro: MARCELINO COMA SCALE: document GCS findings [place] coma scale eye opening: Spontaneous [place] coma scale verbal response: Orientated [place] coma scale motor response: Obey commands Marcelino coma scale total score: 15 COMMON NORMALS: patient oriented x3 SENSORIUM/ORIENTATION: Yes alert Psych: COMMON NORMALS: mental status grossly normal, Normal thought process present, cooperative, speech normal, activity/motor behavior normal and denies homicidal ideation APPEARANCE: Yes disheveled ATTITUDE: Yes calm ACTIVITY/MOTOR BEHAVIOR: No psychomotor agitation and Yes Avoids eye contact (attititude/behavior) SPEECH: Yes normal speech MOOD & AFFECT: Yes Flat affect present THOUGHT PROCESS: Normal thought process present THOUGHT CONTENT: Yes Normal thought content present ATTENTION/CONCENTRATION: Yes attention grossly intact and Yes concentration grossly intact MEMORY/COGNITION: Yes memory grossly intact and Yes cognition grossly intact INSIGHT: Good insight present (Psych) JUDGEMENT: Good judgement present (Psych) Skin: NARRATIVE SKIN EXAM: see extremity assessment-otherwise normal skin exam Course Consultations: Consultation #1: Dr. ePterson-accepts to [facility] Vital Signs: Vital signs: Vital Signs Temperature 97.8 F 07/03/22 07:58 Pulse Rate 99 07/03/22 08:20 Respiratory Rate 16 07/03/22 08:20 Blood Pressure 167/95 07/03/22 08:20 Pulse Oximetry 98 07/03/22 07:58 Oxygen Delivery Me thod 07/03/22 07:58 MDM - Psych Medical Decision Making Patient will be admitted to NPU to Dr. Peterson for treatment and evaluation of auditory and visual hallucinations and suicidal ideations. Lab Data 07/03/22 08:09 07/03/22 08:09 Laboratory Results WBC 9.8 10^3/uL (4.0-10.0) 07/03/22 08:09 RBC 5.48 10^6/uL (4.1-5.3) H 07/03/22 08:09 Hgb 15.8 g/dL (11.7-16.6) 07/03/22 08:09 Hct 48.6 % (42.0-52.0) 07/03/22 08:09 MCV 88.7 fl (80-94) 07/03/22 08:09 MCH 28.8 pg (28.0-34.0) 07/03/22 08:09 MCHC 32.5 g/dL (30.0-36.0) 07/03/22 08:09 RDW 13.1 % (12.1-15.1) 07/03/22 08:09 Plt Count 289 10^3/cmm (130-400) 07/03/22 08:09 MPV 10.5 fL (7.4-10.4) H 07/03/22 08:09 Neut % (Auto) 56.4 % 07/03/22 08:09 Lymph % (Auto) 30.5 % 07/03/22 08:09 Logan % (Auto) 9.3 % 07/03/22 08:09 Eos % (Auto) 2.6 % 07/03/22 08:09 Baso % (Auto) 0.9 % 07/03/22 08:09 Neut # (Auto) 5.52 10^3/uL (1.8-7.7) 07/03/22 08:09 Lymph # (Auto) 3.0 10^3/uL (0.8-4.8) 07/03/22 08:09 Logan # (Auto) 0.9 10^3/uL (0.2-0.9) 07/03/22 08:09 Eos # (Auto) 0.3 10^3/uL (0.0-0.8) 07/03/22 08:09 Baso # (Auto) 0.1 10^3/uL (0.0-0.1) 07/03/22 08:09 Nucleated RBC % (auto) 0 % 07/03/22 08:09 Nucleated RBCs # 0.0 /100WBC 07/03/22 08:09 Sodium 143 mmol/L (136-145) 07/03/22 08:09 Potassium 4.0 mmol/L (3.5-5.1) 07/03/22 08:09 Chloride 105 mmol/L (98-107) 07/03/22 08:09 Carbon Dioxide 26 mmol/L (22-29) 07/03/22 08:09 Anion Gap 16.0 (5-19) 07/03/22 08:09 BUN 12 mg/dL (6-20) 07/03/22 08:09 Creatinine 0.9 mg/dL (0.7-1.2) 07/03/22 08:09 GFR Calculation 94.4 mL/min (90-130) 07/03/22 08:09 Glucose 99 mg/dL (65-115) 07/03/22 08:09 Calculated Osmolality 296 mOsm/kg (285-295) H 07/03/22 08:09 Calcium 9.3 mg/dL (8.5-10.5) 07/03/22 08:09 Total Bilirubin 0.3 mg/dL (0.15-1.2) 07/03/22 08:09 AST 18 U/L (0-40) 07/03/22 08:09 ALT 16 U/L (0-41) 07/03/22 08:09 Alkaline Phosphatase 93 U/L (40-130) 07/03/22 08:09 Total Protein 7.5 g/dL (6.6-8.7) 07/03/22 08:09 Albumin 4.3 g/dL (3.5-5.2) 07/03/22 08:09 Globulin 3.2 g/dL (1.3-4.6) 07/03/22 08:09 Salicylates < 0.3 mg/dL (3-10) L 07/03/22 08:09 Acetaminophen < 5.0 ug/mL (10-30) L 07/03/22 08:09 Ethyl Alcohol < 10 mg/dL (0-10) 07/03/22 08:09 Discharge Plan Discharge Patient Disposition: Xfer Psychiatric Hosp Clinical Impression: Suicidal ideation, Hallucinations Condition: Stable Coding Level of Care Code ED Senior Principal Process Engineer for [employer] Documented by User: Allen Lal DO 07/03/22 09:05 HPI - Psych General: Chief Complaint: Psychiatric Symptoms Stated Complaint: SI Time Seen by Provider: 07/03/22 07:54 PFSH ED PFSH: Medical History CVA (cerebral vascular accident) Kidney stones Right ankle sprain Surgical History Hx of tonsillectomy Family History Family/Other Cancer Diabetes Mother No problems noted. Social History Smoking and tobacco status: current every day smoker Alcohol intake: current Marital status: Single Physical Exam Neuro: MARCELINO COMA SCALE: document GCS findings Marcelino coma scale total score: 15 Course Vital Signs: Vital signs: Vital Signs Temperature 97.8 F 07/03/22 07:58 Pulse Rate 99 07/03/22 08:20 Respiratory Rate 16 07/03/22 08:20 Blood Pressure 167/95 07/03/22 08:20 Pulse Oximetry 98 07/03/22 07:58 Oxygen Delivery Me thod 07/03/22 07:58 MDM - Psych Medical Decision Making Patient will be admitted to NPU to Dr. Peterson for treatment and evaluation of auditory and visual hallucinations and suicidal ideations. Chart reviewed and patient discussed with midlevel. Agree with assessment and plan. Lab Data 07/03/22 08:09 07/03/22 08:09 Laboratory Results WBC 9.8 10^3/uL (4.0-10.0) 07/03/22 08:09 RBC 5.48 10^6/uL (4.1-5.3) H 07/03/22 08:09 Hgb 15.8 g/dL (11.7-16.6) 07/03/22 08:09 Hct 48.6 % (42.0-52.0) 07/03/22 08:09 MCV 88.7 fl (80-94) 07/03/22 08:09 MCH 28.8 pg (28.0-34.0) 07/03/22 08:09 MCHC 32.5 g/dL (30.0-36.0) 07/03/22 08:09 RDW 13.1 % (12.1-15.1) 07/03/22 08:09 Plt Count 289 10^3/cmm (130-400) 07/03/22 08:09 MPV 10.5 fL (7.4-10.4) H 07/03/22 08:09 Neut % (Auto) 56.4 % 07/03/22 08:09 Lymph % (Auto) 30.5 % 07/03/22 08:09 Logan % (Auto) 9.3 % 07/03/22 08:09 Eos % (Auto) 2.6 % 07/03/22 08:09 Baso % (Auto) 0.9 % 07/03/22 08:09 Neut # (Auto) 5.52 10^3/uL (1.8-7.7) 07/03/22 08:09 Lymph # (Auto) 3.0 10^3/uL (0.8-4.8) 07/03/22 08:09 Logan # (Auto) 0.9 10^3/uL (0.2-0.9) 07/03/22 08:09 Eos # (Auto) 0.3 10^3/uL (0.0-0.8) 07/03/22 08:09 Baso # (Auto) 0.1 10^3/uL (0.0-0.1) 07/03/22 08:09 Nucleated RBC % (auto) 0 % 07/03/22 08:09 Nucleated RBCs # 0.0 /100WBC 07/03/22 08:09 Sodium 143 mmol/L (136-145) 07/03/22 08:09 Potassium 4.0 mmol/L (3.5-5.1) 07/03/22 08:09 Chloride 105 mmol/L (98-107) 07/03/22 08:09 Carbon Dioxide 26 mmol/L (22-29) 07/03/22 08:09 Anion Gap 16.0 (5-19) 07/03/22 08:09 BUN 12 mg/dL (6-20) 07/03/22 08:09 Creatinine 0.9 mg/dL (0.7-1.2) 07/03/22 08:09 GFR Calculation 94.4 mL/min (90-130) 07/03/22 08:09 Glucose 99 mg/dL (65-115) 07/03/22 08:09 Calculated Osmolality 296 mOsm/kg (285-295) H 07/03/22 08:09 Calcium 9.3 mg/dL (8.5-10.5) 07/03/22 08:09 Total Bilirubin 0.3 mg/dL (0.15-1.2) 07/03/22 08:09 AST 18 U/L (0-40) 07/03/22 08:09 ALT 16 U/L (0-41) 07/03/22 08:09 Alkaline Phosphatase 93 U/L (40-130) 07/03/22 08:09 Total Protein 7.5 g/dL (6.6-8.7) 07/03/22 08:09 Albumin 4.3 g/dL (3.5-5.2) 07/03/22 08:09 Globulin 3.2 g/dL (1.3-4.6) 07/03/22 08:09 Salicylates < 0.3 mg/dL (3-10) L 07/03/22 08:09 Acetaminophen < 5.0 ug/mL (10-30) L 07/03/22 08:09 Ethyl Alcohol < 10 mg/dL (0-10) 07/03/22 08:09 Discharge Plan Discharge Patient Disposition: Xfer Psychiatric Hosp Clinical Impression: Suicidal ideation, Hallucinations Condition: Stable Coding Level of Care Code ED Senior Principal Process Engineer for 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
[2022-07-03 08:15] LABS: Basophils # 0.1 10^3/uL (0.0-0.1); Basophils % 0.9 %; Eosinophils # 0.3 10^3/uL (0.0-0.8); Eosinophils % 2.6 %; Hematocrit 48.6 % (42.0-52.0); Hemoglobin 15.8 g/dL (11.7-16.6); Lymphocytes % 30.5 %; Mean Corpuscular HGB Conc 32.5 g/dL (30.0-36.0); Mean Corpuscular Hemoglobin 28.8 pg (28.0-34.0); Mean Corpuscular Volume 88.7 fl (80-94); Mean Platelet Volume 10.5 fL (7.4-10.4); Monocytes # 0.9 10^3/uL (0.2-0.9); Monocytes % 9.3 %; Neutrophils # 5.52 10^3/uL (1.8-7.7); Neutrophils % 56.4 %; Nucleated Red Blood Cells % 0 %; Platelet Count 289 10^3/cmm (130-400); Red Blood Count 5.48 10^6/uL (4.1-5.3); Red Cell Distribution Width 13.1 % (12.1-15.1); White Blood Count 9.8 10^3/uL (4.0-10.0)
[2022-07-03 08:20] VITALS: BP 167/95; PULSE 99; RESP 16
[2022-07-03 08:34] LABS: Alanine Aminotransferase 16 U/L (0-41); Albumin Level 4.3 g/dL (3.5-5.2); Alkaline Phosphatase 93 U/L (40-130); Aspartate Amino Transferase 18 U/L (0-40); Blood Urea Nitrogen 12 mg/dL (6-20); Calcium 9.3 mg/dL (8.5-10.5); Carbon Dioxide 26 mmol/L (22-29); Chloride 105 mmol/L (98-107); Globulin 3.2 g/dL (1.3-4.6); Glomerular Filtration Rate 94.4 mL/min (90-130); Glucose 99 mg/dL (65-115); Osmolality Calculated 296 mOsm/kg (285-295); Sodium 143 mmol/L (136-145); Total Bilirubin 0.3 mg/dL (0.15-1.2); Total Protein 7.5 g/dL (6.6-8.7)
[2022-07-03 08:45] LABS: Acetaminophen < 5.0 ug/mL (10-30); Alcohol Level < 10 mg/dL (0-10); Salicylate < 0.3 mg/dL (3-10)
[2022-07-03 09:24] LABS: Amphetamines Screen Urine Positive (Negative); Barbiturates Screen Urine Negative (Negative); Benzodiazepines Screen Urine Negative (Negative); Cocaine Screen Urine Negative (Negative); Opiate Screen Urine Negative (Negative); PCP Screen Urine Negative (Negative); THC Screen Urine Negative (Negative)
[2022-07-03 12:15] VITALS: BP 155/71; PULSE 85; RESP 16
--- NOTE | 2022-07-03 12:40 | PC.NURSE ---
Patient given 96hr rights @1240. Reviewed these rights with pt. All question answered, but patient extremely unhappy with hold and inability to leave. Patient copy left at bedside. No other needs verbalized at this time.
[2022-07-03] MEDS: LORazepam 2 mg/mL INJ 1 mL (12:41)
[2022-07-03] MEDS: ziprasidone 20 mg/mL SDV (12:41)
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
--- NOTE | 2022-07-03 13:27 | PC.NURSE ---
Pt given water per request
--- NOTE | 2022-07-03 14:02 | PC.NURSE ---
Pt has calmed down, per Dr. Lal pt was removed from restraints with no issuies
[2022-07-03 14:08] VITALS: BP 143/93; PULSE 90; O2SAT 98
--- NOTE | 2022-07-03 14:14 | PC.NURSE ---
Pt arrived via wheelchair accompanied by ED and security staff. Pt leaning to his side while being pushed in chair. Pt very sleepy having received medication in ER; received minimal assistance from staff. VS taken 143/93 with 90 pulse 98% O2 sat. Pt remains in paper scrubs as pt lethargic at this time. Pt had to be redirected as was noted to be sitting at bedside reaching for things not there. He laid back down on the bed.
--- NOTE | 2022-07-03 15:15 | PC.NURSE ---
Resting in bed; eyes closed; respirations even and unlabored.
--- NOTE | 2022-07-03 15:47 | PC.OT ---
OT Eval Held - Patient inappropriate at this time, evaluation held until patient is more appropriate.
--- NOTE | 2022-07-03 16:19 | PC.NURSE ---
Attempted to complete pt's admission. Pt continues to rest in bed with his eyes closed; respirations even and unlabored. Pt did not respond to staff calling his name nor when staff covered pt's bottom with his blanket as he was exposed. Pt allowed to rest.
--- NOTE | 2022-07-03 17:23 | PC.NURSE ---
Attempted to complete pt's admission, however, pt didn't respond to staff's attempts to awaken him. Continues to rest in bed with eyes closed. Respirations even and unlabored.
[2022-07-03 22:00] VITALS: RESP 15
[2022-07-04 06:00] VITALS: RESP 17
--- NOTE | 2022-07-04 09:36 | P.NPUHP_ITS ---
Providers/Chief Complaint Admitting Physician: David Peterson MD Chief Complaint: SI HPI NPU History of Present Illness Markie Meza is a 37 year old male who presented to the emergency department on 07/03/2022 with complaints of auditory and visual hallucinations with reports of thoughts of hurting himself and thoughts of hurting others. The patient was admitted to the neuropsychiatric unit for further evaluation and treatment. Prior to arriving on the neuropsychiatric unit, the patient had been very ag itated and required the use of as needed medications including Geodon Ativan and Haldol. The patient on interview today reports that he has been having problems with hearing voices telling him to hurt himself and seeing things telling him to hurt himself. He has endorsed increased suspiciousness of others and states that the voices are sometimes jumbled. He had reported that he had been using m ethamphetamine intranasally and states that he had previously consumed alcohol but was no longer drinking. The patient was a poor historian and hostile and belligerent throughout much of the interview insisting that he needed to immediately check on his house. Patient had reported that he understood that he was on a 96-hour hold and stated that he did not like to take medications. Patient had acknowledged having depressed mood but did not elaborate any further regarding any changes in energy appetite or concentration. He reports having been diagnosed as having cognitive impairment and states that he was currently on disability for ADHD. Past psychiatric history: Patient denied any past history of psychiatric treatment other than reports of having been treated with ADHD as a child and r eporting having been hospitalized as a teenager in [place] for psychiatric reasons. 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 He had endorsed using methamphetamine infrequently for several years. He denied any other drug use. He smokes cigarettes Family psychiatric history: None reported Legal History: unknown Social history: Patient was born in [facility]. He had reported having several siblings. He reports that he grew up in a dysfunctional family and states that his biological parents are no longer together. He reports that his mother lives in [place] and his father is . He reports having a significant learning disability and graduated [employer] with a special diploma. He had reported that he is currently on disability and is not employed. He denies any sexual physical or emotional abuse. He reports he has never been but has children. Meds NPU Home Medications Medication Instructions Recorded Confirmed Last Taken Type leg brace (Ankle Brace) #1 ea 04/29/21 07/03/22 Unknown Rx Allergies Allergy/AdvReac Type Severity Reaction Status Date / Time No Known Allergies Allergy Verified 07/03/22 08:59 PFSH NPU PFSH: Medical History CVA (cerebral vascular accident) Kidney stones Right ankle sprain Surgical History Hx of tonsillectomy Family History Family/Other Cancer Diabetes Mother No problems noted. Social History Smoking and tobacco status: current every day smoker Alcohol intake: current Marital status: Single Mental Status Exam MSE Comments: Patient was lying in the bed in the dark and was extremely irritable and a poor distant historian as he appeared to get agitated when answering questions. He was alert and oriented to person place and time. His mood was described as okay. His affect was mood incongruent and irritable. His speech was slow and steady with normal volume. There was no evidence of any abnormal involuntary motor movements tics or tremors appreciated. His attention span appeared poor. He did at times appear to be responding to internal stimuli and reported to continue to hear things in his head. He had also appeared paranoid complaining of a red light that was bright underneath the ceiling tiles. He had reported that this was a camera to watch over him. His insight appeared impaired his judgment was poor. His impulse control appeared poor. His intelligence appeared commensurate with mild cognitive impairment. Vitals/I&O/Wt Last Vital Signs Temp 97.8 F 07/03/22 07:58 Pulse 90 07/03/22 14:08 Resp 17 07/04/22 06:00 BP 143/93 07/03/22 14:08 Pulse Ox 98 07/03/22 14:08 O2 Del Method 03/17/23 07:58 Weight last 48 hrs Weight 93.894 kg Data NPU 07/03/22 08:09 07/03/22 08:09 A&P Assessment and plan (1) Psychotic disorder due to psychoactive substance: (2) Hallucinations: Plan The patient is a 37-year-old white male with reports of auditory and visual hallucinations and increased paranoia likely controlled by methamphetamine use which was present in his urine on admission. Patient will be involuntarily hospitalized. He has requested to return home for unspecified reasons but does not appear to be a candidate at this time for discharge. 1.? Patient refusing any medication at this time. 2.? Continue every 15 minute checks for safety. 3.? Encourage individual, group and milieu therapy once he has engaged. 4.? Encourage sobriety treatment after discharge to the hospital care to which she is willing to commit.? Work on continuing previous plan for rehab. Attestations NPU Medical Necessity Statement*: Inpatient hospitalization is medically necessary and clinically appropriate at this time. We will monitor/initiate medications and make changes as indicated.? He will be in the hospital for over 2 midnights with his likely length of stay 7-10 days. Coding Level of Care Code Acute Code for [facility] Fwd Diagnoses Psychotic disorder due to psychoactive substance F19.959 Hallucinations R44.3
[2022-07-04] MEDS: nicotine 21 mg Patch 1 PATCH TRANSDERMA (13:48)
[2022-07-04] MEDS: hyDROXYzine 25 mg Capsule 50 MG PO (13:48)
[2022-07-04 14:00] VITALS: BP 147/99; PULSE 94; RESP 20; O2SAT 97
[2022-07-04 14:44] VITALS: BP 129/90; BP 147/99; PULSE 125; PULSE 94
[2022-07-04] MEDS: LORazepam 2 mg Tablet PO (16:06)
[2022-07-04] MEDS: haloperidol inj 5 mg/mL INJ 1 mL IM (16:27)
--- NOTE | 2022-07-04 16:33 | PC.NURSE ---
patient seen pacing in the [place], when asked he stated he was more anxious. Patient was given Ativan 2mg PO after scoring 15 on CIWA. Susananet then began stating he was told he could leave. He stated it was not staff or another patient, but he kept hearing it. This voice is a female and commanding him to get out. Patient agreed to an injection of Haldol 5mg IM in LD.
[2022-07-04 16:42] VITALS: BP 153/93; PULSE 94; RESP 18; O2SAT 98
[2022-07-04 22:00] VITALS: RESP 18
[2022-07-05 06:00] VITALS: RESP 18; BMI 29.7
[2022-07-05] MEDS: nicotine 21 mg Patch 1 PATCH TRANSDERMA (08:54)
[2022-07-05 14:00] VITALS: BP 91/72; PULSE 93; RESP 18; TEMP 36.4; O2SAT 98
[2022-07-05] MEDS: OLANZapine 5 mg ODT PO ×2 (14:49→21:04)
[2022-07-05] MEDS: hyDROXYzine 25 mg Capsule 50 MG PO ×2 (14:49→21:03)
--- NOTE | 2022-07-05 16:31 | P.NPUPN_ITS ---
Subjective NPU Subjective: 37-year-old white male with mild cognitive impairment admitted with aggression auditory hallucinations and increased irritability in the context of the use of methamphetamine. The patient was sleeping in his room and stated that he did not wish to talk about anything further. He stated that he wished to go home but reported that he understood that he was placed on a 96- hour hold. He reported that he continued to hear things but did not wish to take any medications at this time. He had made some vague threats on the unit but was redirectable and was eating and isolating himself in his room throughout much of the day. Mental Status Exam MSE Comments: Patient was lying in the bed in the dark and was extremely irritable. He was alert and oriented to person place and time. His mood was described as upset. His affect was irritable and mood congruent. There was clear cuts seen in his left arm that were healed over. His speech was slow and steady with normal volume. There was no evidence of any abnormal involuntary motor movements tics or tremors appreciated. His attention span appeared poor. He did not appear to be responding internal stimuli. He had appeared paranoid and suspicious on the unit. His doctor that his insight appeared impaired his judgment was poor. His impulse control appeared poor. His intelligence appeared commensurate with mild cognitive impairment. Vitals/I&O/Wt Last Vital Signs Temp 97.6 F 07/05/22 14:00 Pulse 93 07/05/22 14:00 Resp 18 07/05/22 14:00 BP 91/72 07/05/22 14:00 Pulse Ox 98 07/05/22 14:00 O2 Del Method 07/04/22 16:42 Weight last 48 hrs Weight 93.894 kg Data NPU 07/03/22 08:09 07/03/22 08:09 A&P Assessment and plan (1) Psychotic disorder due to psychoactive substance: (2) Hallucinations: Plan The patient is a 37-year-old white male with reports of auditory and visual h allucinations and increased paranoia likely controlled by methamphetamine use which was present in his urine on admission. Patient will be involuntarily hospitalized. He has requested to return home for unspecified reasons but does not appear to be a candidate at this time for discharge. 1.? Patient refusing any medication at this time. 2.? Continue every 15 minute checks for safety. 3.? Encourage individual, group and milieu therapy once he has engaged. 4.? Encourage sobriety treatment after discharge to the hospital care to which she is willing to commit.? Involuntary Hold Information 96 Hour Hold: 96 Hour Involuntary Admission: Yes 96 Hour Hold Ending Date: 07/09/22 96 Hour Hold Ending Time: 12:30 Attestations NPU Medical Necessity Statement*: Inpatient hospitalization is medically necessary and clinically appropriate at this time. We will monitor/initiate medications and make changes as indicated with his likely length of stay 7-10 days. Coding Level of Care Code Acute Code for [facility] Fwd Diagnoses Psychotic disorder due to psychoactive substance F19.959 Hallucinations R44.3
[2022-07-05 19:48] VITALS: BP 158/94; PULSE 109; RESP 16; TEMP 36.3; O2SAT 100
[2022-07-05] MEDS: trazodone 50 mg Tablet PO (21:03)
[2022-07-05] MEDS: LORazepam 2 mg Tablet PO (22:19)
[2022-07-05] MEDS: haloperidol 5 mg Tablet PO (22:20)
[2022-07-06 06:00] VITALS: BP 116/72; PULSE 76; RESP 16; O2SAT 97
--- NOTE | 2022-07-06 10:00 | PC.OT ---
OT EVALUATION ATTEMPTED. PATIENT SLEEPING SOUNDLY. WILL ATTEMPT AT A LATER TIME.
--- NOTE | 2022-07-06 13:47 | W.PM.NPUPNS ---
Subjective NPU Subjective: 37-year-old white male with mild cognitive impairment admitted with aggression auditory hallucinations and increased irritability in the context of the use of methamphetamine. The patient was sleeping in his room and stated that he did not wish to discuss his methamphetamine use and did not wish to go to rehab. Mother of patient had revealed that the patient had called repeatedly expressing paranoia that appeared to corroborate much of the witnessed behavior seen in while he had entered into the hospital. Patient had isolated himself and continued to spend much of the day in his room with limited communication with his peers. Patient had reported that he was frequently frustrated and stated that he had been treated for ADHD in the past. Mental Status Exam MSE Comments: Patient was lying in the bed in the dark and was less irritable. He was alert and oriented to person place and time. His mood was described as better. His affect somewhat flat. There was clear cuts seen in his left arm that were healed over. His speech was slow and steady with normal volume. There was no evidence of any abnormal involuntary motor movements tics or tremors appreciated. His attention span appeared poor. He did not appear to be responding internal stimuli. He had appeared distrustful on interview. His insight appeared impaired. His judgment was poor. His impulse control appeared poor. His intelligence appeared commensurate with mild cognitive impairment. Vitals/I&O/Wt Last Vital Signs Temp 97.4 F L 07/05/22 19:48 Pulse 76 07/06/22 06:00 Resp 16 07/06/22 06:00 BP 116/72 07/06/22 06:00 Pulse Ox 97 07/06/22 06:00 O2 Del Method 07/04/22 16:42 Weight last 48 hrs Weight 93.894 kg Data NPU 07/03/22 08:09 07/03/22 08:09 A&P Assessment and plan (1) Psychotic disorder due to psychoactive substance: (2) Hallucinations: Plan The patient is a 37-year-old white male with reports of auditory and visual hallucinations and increased paranoia likely controlled by methamphetamine use which was present in his urine on admission. Patient will be involuntarily hospitalized. He has requested to return home for unspecified reasons but does not appear to be a candidate at this time for discharge. 1.? Trial of risperidone 1mg at night to target agitation, psychosis. 2.? Continue every 15 minute checks for safety. 3.? Encourage individual, group and milieu therapy once he has engaged. 4.? Encourage sobriety treatment after discharge to the hospital care to which she is willing to commit.? Involuntary Hold Information 96 Hour Hold: 96 Hour Involuntary Admission: Yes 96 Hour Hold Ending Date: 07/09/22 96 Hour Hold Ending Time: 12:30 Attestations NPU Medical Necessity Statement*: Inpatient hospitalization is medically necessary and clinically appropriate at this time. We will monitor/initiate medications and make changes as indicated with his likely length of stay 4-6 days. Coding Level of Care Code Acute Code for [facility] Fwd Diagnoses Psychotic disorder due to psychoactive substance F19.959 Hallucinations R44.3
[2022-07-06 14:00] VITALS: RESP 17
[2022-07-06] MEDS: nicotine 4 mg lozenge MUCOUS MEM (17:51)
--- NOTE | 2022-07-06 18:26 | PC.NURSE ---
Patient told nurse he had a stroke about 1 year ago. When asked if patient was taking any medications for this, patient stated that he did not stay at the hospital long enough to be prescribed a medication. He also stated that he did not have a follow-up related to his stroke.
[2022-07-06 19:43] VITALS: BP 150/109; PULSE 131; RESP 18; TEMP 36.3; O2SAT 97
[2022-07-06] MEDS: OLANZapine 5 mg ODT PO (20:28)
[2022-07-06] MEDS: risperiDONE 1 mg Tablet PO (20:28)
[2022-07-06] MEDS: trazodone 50 mg Tablet PO (20:29)
[2022-07-07 06:00] VITALS: BP 124/90; PULSE 70; RESP 16; TEMP 36.5; O2SAT 98
[2022-07-07] MEDS: nicotine 21 mg Patch 1 PATCH TRANSDERMA (11:25)
[2022-07-07 14:00] VITALS: BP 154/101; PULSE 106; RESP 17; TEMP 36.3; O2SAT 98
[2022-07-07] MEDS: haloperidol 5 mg Tablet PO (15:10)
[2022-07-07] MEDS: LORazepam 2 mg Tablet PO (15:10)
--- NOTE | 2022-07-07 15:11 | PC.NURSE ---
PATIENT SITTING ON FLOOR ACROSS FROM NURSING STATION. APPEARS VERY DISTRESSED AND ANXIOUS. THIS NURSE ASKED PT WHAT IS WRONG AND HE BECAME TEARFUL AND HARD TO UNDERSTAND. VITAL SIGNS TAKEN; BP-148/118 P-106. DR. SALDIVAR NOTIFIED. NO NEW ORDER RECEIVED. PRN ATIVAN 2 MG BY MOUTH AND PRN HALDOL 5 MG BY MOUTH GIVEN FOR ANXIETY.
--- NOTE | 2022-07-07 16:01 | P.NPUPN_ITS ---
Subjective NPU Subjective: 37-year-old white male with mild cognitive impairment admitted with aggression auditory hallucinations and increased irritability in the context of the use of methamphetamine. The patient had reported that he continued to hear voices. He reports that he would take what ever medications he would need to to leave here. He had reported significant polysubstance use and reported that he did not wish to go into rehabilitation or treatment. He had acknowledged having increased paranoia while taking methamphetamine. Staff notes the patient had episodes of crying on the floor and had reported being distressed by the hallucinations according to nurses. He had attended groups but was minimally interactive. Mental Status Exam MSE Comments: Patient was casually dressed white male with poor hygiene and intermittent eye contact. He was alert and oriented to person place and time. His mood was described as okay. His affect was somewhat flat and mood incongruent. There was clear cuts seen in his left arm that were healed over. His speech was slow with some evidence of speech latency. There was a general poverty of content. There was no evidence of any abnormal involuntary motor mo vements tics or tremors appreciated. His attention span appeared poor. He did appear to be responding internal stimuli. His insight appeared impaired. His judgment was poor. His impulse control appeared poor. His intelligence appeared commensurate with mild cognitive impairment. Vitals/I&O/Wt Last Vital Signs Temp 97.7 F 07/07/22 06:00 Pulse 70 07/07/22 06:00 Resp 16 07/07/22 06:00 BP 124/90 07/07/22 06:00 Pulse Ox 98 07/07/22 06:00 O2 Del Method 07/04/22 16:42 Data NPU 07/03/22 08:09 07/03/22 08:09 A&P Assessment and plan (1) Psychotic disorder due to psychoactive substance: (2) Hallucinations: Plan The patient is a 37-year-old white male with reports of auditory and visual hallucinations and increased paranoia likely controlled by methamphetamine use which was present in his urine on admission. Patient will be involuntarily hospitalized. He has requested to return home for unspecified reasons but does not appear to be a candidate at this time for discharge. 1.? Switch to invega 3mg at night to target agitation, psychosis. 2.? Continue every 15 minute checks for safety. 3.? Encourage individual, group and milieu therapy once he has engaged. 4.? Encourage sobriety treatment after discharge to the hospital care to which she is willing to commit.? Involuntary Hold Information 96 Hour Hold: 96 Hour Involuntary Admission: Yes 96 Hour Hold Ending Date: 07/09/22 96 Hour Hold Ending Time: 12:30 Attestations NPU Medical Necessity Statement*: Inpatient hospitalization is medically necessary and clinically appropriate at this time. We will monitor/initiate medications and make changes as indicated with his likely length of stay 4-6 days. Coding Level of Care Code Acute Code for [facility] Fwd Diagnoses Psychotic disorder due to psychoactive substance F19.959 Hallucinations R44.3
[2022-07-07 17:07] VITALS: BP 152/115; PULSE 109; O2SAT 100
[2022-07-07] MEDS: cloNIDine 0.1 mg Tablet PO (18:00)
--- NOTE | 2022-07-07 18:45 | PC.NURSE ---
Rechecked patient's blood pressure at 1843. Reading was: 146/99. Patient is resting in bed.
[2022-07-07] MEDS: paliperidone ER 3 mg Tablet PO (20:52)
[2022-07-07] MEDS: OLANZapine 5 mg ODT PO (20:52)
--- NOTE | 2022-07-08 02:49 | PC.NURSE ---
earlier in the evening the patient reported to nurse he was unable to sleep as his roommate snores. pt moved to another room.
[2022-07-08 06:00] VITALS: BP 157/89; PULSE 77; RESP 18; TEMP 36.5; O2SAT 100
[2022-07-08] MEDS: paliperidone ER 3 mg Tablet PO (09:07)
[2022-07-08 13:49] VITALS: BP 144/90; PULSE 96; RESP 18; TEMP 36.6; O2SAT 96
[2022-07-08] MEDS: nicotine 21 mg Patch 1 PATCH TRANSDERMA (13:57)
[2022-07-08] MEDS: hyDROXYzine 25 mg Capsule 50 MG PO (15:37)
[2022-07-08] MEDS: acetaminophen 325 mg Tablet 650 MG PO (17:38)
--- NOTE | 2022-07-08 18:07 | W.PM.NPUPNS ---
Subjective NPU Subjective: 37-year-old white male with mild cognitive impairment admitted with aggression auditory hallucinations and increased irritability in the context of the use of methamphetamine. The patient had appeared more interactive and less isolative on the milieu. He reported that the thoughts of hurting himself had diminished. He reported that the voices were becoming quieter. He had expressed desire to return home and stated that he would try to continue to take the medication. He had been able to attend groups although he appeared on the periphery. He had appeared to struggle significantly with reading and had endorsed having problems with reading. He had had a history of a learning problem throughout his life. He had reported no desire to attend substance abuse treatment but reported that he was willing to continue to take medication that may help with protecting him from having hallucinations if he were to use illicit substances particularly methamphetamine. Mental Status Exam MSE Comments: Patient was casually dressed white male with poor hygiene and intermittent eye contact. He was alert and oriented to person place and time. His mood was described as okay. His affect was somewhat flat and mood incongruent. There was clear cuts seen in his left arm that were healed over. His speech was slow with some evidence of speech latency. There was a general poverty of content. There was no evidence of any abnormal involuntary motor movements tics or tremors appreciated. His attention span appeared poor. He did not appear to be responding internal stimuli. His insight appeared impaired. His judgment was poor. His impulse control appeared to be improving. His intelligence appeared commensurate with mild cognitive impairment. Vitals/I&O/Wt Last Vital Signs Temp 97.8 F 07/08/22 13:49 Pulse 96 07/08/22 13:49 Resp 18 07/08/22 13:49 BP 144/90 07/08/22 13:49 Pulse Ox 96 07/08/22 13:49 O2 Del Method 07/08/22 06:00 Data NPU 07/03/22 08:09 07/03/22 08:09 A&P Assessment and plan (1) Psychotic disorder due to psychoactive substance: (2) Hallucinations: Plan The patient is a 37-year-old white male with reports of auditory and visual hallucinations and increased paranoia likely controlled by methamphetamine use which was present in his urine on admission. Patient will be involuntarily hospitalized. He has requested to return home for unspecified reasons but does not appear to be a candidate at this time for discharge. 1.? Continue invega 3mg at night to target agitation, psychosis. 2.? Continue every 15 minute checks for safety. 3.? Encourage individual, group and milieu therapy once he has engaged. 4.? Encourage sobriety treatment after discharge to the hospital care to which she is willing to commit.? Involuntary Hold Information 96 Hour Hold: 96 Hour Involuntary Admission: Yes 96 Hour Hold Ending Date: 07/09/22 96 Hour Hold Ending Time: 12:30 Attestations NPU Medical Necessity Statement*: Inpatient hospitalization is medically necessary and clinically appropriate at this time. We will monitor/initiate medications and make changes as indicated with his likely length of stay 1-2 days. Coding Level of Care Code Acute Code for [facility] Fwd Diagnoses Psychotic disorder due to psychoactive substance F19.959 Hallucinations R44.3
--- NOTE | 2022-07-08 19:55 | PC.NURSE ---
Patient reports feeling very anxious and agitated. Reports female peer is in his personal space and it is bothering him. Patient requesting prn for agitation. Haldol given.
[2022-07-08] MEDS: haloperidol 5 mg Tablet PO (19:56)
[2022-07-08] MEDS: trazodone 50 mg Tablet PO (19:56)
[2022-07-08] MEDS: OLANZapine 5 mg ODT PO (20:05)
[2022-07-08 20:10] VITALS: BP 150/113
[2022-07-08] MEDS: cloNIDine 0.1 mg Tablet PO (20:10)
--- NOTE | 2022-07-08 20:14 | PC.NURSE ---
Dr. Peterson contatcted for B/P of 150/113 and pulse of 111. N.O. received to give 0.1 clonidine po prn. Give one now as well. Educated patient on medication and voiced understanding.
--- NOTE | 2022-07-08 21:00 | PC.NURSE ---
Patient stated haldol helped calm him down. Discussed coping skills with patient and suggested he return to room and rest. Patient voiced understanding.
[2022-07-08 21:27] VITALS: BP 150/113; PULSE 111; RESP 18; TEMP 37; O2SAT 100
--- NOTE | 2022-07-08 21:30 | PC.NURSE ---
Blood pressure rechecked with a reading of 151/83 pulse 102. No signs of distress.
[2022-07-09 06:00] VITALS: RESP 18
[2022-07-09] MEDS: paliperidone ER 3 mg Tablet PO (08:43)
[2022-07-09] MEDS: nicotine 21 mg Patch 1 PATCH TRANSDERMA (08:44)
--- NOTE | 2022-07-09 09:20 | P.NPUDS_ITS ---
Diagnoses at Discharge Discharge Diagnosis (1) Psychotic disorder due to psychoactive substance: Status: Acute (2) Hallucinations: Status: Acute Reason for Visit Reason for Visit: SI Brief History: History of Present Illness Markie Meza is a 37 year old male who presented to the emergency department on 07/03/2022 with complaints of auditory and visual hallucinations with reports of thoughts of hurting himself and thoughts of hurting others.? The patient was admitted to the neuropsychiatric unit for further evaluation and treatment.? P rior to arriving on the neuropsychiatric unit, the patient had been very agitated and required the use of as needed medications including Geodon Ativan and Haldol.? The patient on interview today reports that he has been having problems with hearing voices telling him to hurt himself and seeing things telling him to hurt himself.? He has endorsed increased suspiciousness of others and states that the voices are sometimes jumbled.? He had reported that he had been using methamphetamine intranasally and states that he had previously consumed alcohol but was no longer drinking.? The patient was a poor historian and hostile and belligerent throughout much of the interview insisting that he needed to immediately check on his house.? Patient had reported that he understood that he was on a 96-hour hold and stated that he did not like to take medications.? Patient had acknowledged having depressed mood but did not elaborate any further regarding any changes in energy appetite or concentration .? He reports having been diagnosed as having cognitive impairment and states that he was currently on disability for ADHD. Past psychiatric history: Patient denied any past history of psychiatric lexie atment other than reports of having been treated with ADHD as a child and reporting having been hospitalized as a teenager in [place] for psychiatric reasons. 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 He had endorsed using methamphetamine infrequently for several years.? He denied any other drug use.? He smokes cigarettes Family psychiatric history: None reported Legal History: unknown Social history: Patient was born in [facility]. He had reported having s everal siblings.? He reports that he grew up in a dysfunctional family and states that his biological parents are no longer together.? He reports that his mother lives in [place] and his father is .? He reports having a significant learning disability and graduated [employer] with a special diploma.? He had reported that he is currently on disability and is not employed.? He denies any sexual physical or emotional abuse. He reports he has never been but has children. Hospital Course Hospital Course Discharge Summary: During the hospitalization, patient had routine laboratory studies which were within normal limits except for few outliers. Additionally there was a general medical evaluation which was also within normal limits and revealed no new acute processes. At the time of discharge, lethality was denied and psychosis was resolving. Mood and anxiety were well managed. Patient endorsed a plan to avoid all drugs of abuse and follow-up with the aftercare recommendations of the treatment team. Patient was evaluated and deemed to be absent credible lethality, and had achieved the maximum benefit from an inpatient hospitalization, so was discharged. He refused all efforts for outpatient or inpatient substance abuse treatment but was willing to receive outpatient medication management for psychotic symptoms. Involuntary Hold Information 96 Hour Hold: 96 Hour Involuntary Admission: Yes 96 Hour Hold Ending Date: 07/09/22 96 Hour Hold Ending Time: 12:30 Mental Status Exam MSE Comments: Patient was casually dressed white male with poor hygiene and intermittent eye contact. He was alert and oriented to person place and time. His mood was described as good. His affect remained flat. There was clear cuts seen in his left arm that were healed over. His speech was slow but productive and normal in volume. There was no evidence of any abnormal involuntary motor movements tics or tremors appreciated. His attention span appeared variable. He did not appear to be responding internal stimuli. His insight appeared limited. His judgment was fair. His impulse control appeared to be improving. His intelligence appeared commensurate with mild cognitive impairment. Discharge Data Studies Completed and Pending: Laboratory Results WBC 9.8 10^3/uL (4.0- 10.0) 07/03/22 08:09 RBC 5.48 10^6/uL (4.1 -5.3) H 07/03/22 08:09 Hgb 15.8 g/dL (11.7-1 6.6) 07/03/22 08:09 Hct 48.6 % (42.0-52.0 ) 07/03/22 08:09 MCV 88.7 fl (80-94) 07/03/22 08:09 MCH 28.8 pg (28.0-34. 0) 07/03/22 08:09 MCHC 32.5 g/dL (30.0-3 6.0) 07/03/22 08:09 RDW 13.1 % (12.1-15.1 ) 07/03/22 08:09 Plt Count 289 10^3/cmm (130 -400) 07/03/22 08:09 MPV 10.5 fL (7.4-10.4 ) H 07/03/22 08:09 Neut % (Auto) 56.4 % 07/03/22 08:09 Lymph % (Auto) 30.5 % 07/03/22 08:09 [place]nairy % (Auto) 9.3 % 07/03/22 08:09 Eos % (Auto) 2.6 % 07/03/22 08:09 Baso % (Auto) 0.9 % 07/03/22 08:09 Neut # (Auto) 5.52 10^3/uL (1.8 -7.7) 07/03/22 08:09 Lymph # (Auto) 3.0 10^3/uL (0.8- 4.8) 07/03/22 08:09 [place]nairy # (Auto) 0.9 10^3/uL (0.2- 0.9) 07/03/22 08:09 Eos # (Auto) 0.3 10^3/uL (0.0- 0.8) 07/03/22 08:09 Baso # (Auto) 0.1 10^3/uL (0.0- 0.1) 07/03/22 08:09 Nucleated RBC % (a uto) 0 % 07/03/22 08:09 Nucleated RBCs # 0.0 /100WBC 07/03/22 08:09 Sodium 143 mmol/L (136-1 45) 07/03/22 08:09 Potassium 4.0 mmol/L (3.5-5 .1) 07/03/22 08:09 Chloride 105 mmol/L (98-10 7) 07/03/22 08:09 Carbon Dioxide 26 mmol/L (22-29) 07/03/22 08:09 Anion Gap 16.0 (5-19) 07/03/22 08:09 BUN 12 mg/dL (6-20) 07/03/22 08:09 Creatinine 0.9 mg/dL (0.7-1. 2) 07/03/22 08:09 GFR Calculation 94.4 mL/min (90-1 30) 07/03/22 08:09 Glucose 99 mg/dL (65-115) 07/03/22 08:09 Calculated Osmolal ity 296 mOsm/kg (285- 295) H 07/03/22 08:09 Calcium 9.3 mg/dL (8.5-10 .5) 07/03/22 08:09 Total Bilirubin 0.3 mg/dL (0.15-1 .2) 07/03/22 08:09 AST 18 U/L (0-40) 07/03/22 08:09 ALT 16 U/L (0-41) 07/03/22 08:09 Alkaline Phosphata se 93 U/L (40-130) 07/03/22 08:09 Total Protein 7.5 g/dL (6.6-8.7 ) 07/03/22 08:09 Albumin 4.3 g/dL (3.5-5.2 ) 07/03/22 08:09 Globulin 3.2 g/dL (1.3-4.6 ) 07/03/22 08:09 Salicylates < 0.3 mg/dL (3-10 ) L 07/03/22 08:09 Urine Opiates Scre en Negative ng/mL (N egative) 07/03/22 08:42 Acetaminophen < 5.0 ug/mL (10-3 0) L 07/03/22 08:09 Ur Barbiturates Sc reen Negative ng/mL (N egative) 07/03/22 08:42 Ur Phencyclidine S crn Negative ng/mL (N egative) 07/03/22 08:42 Ur Amphetamines Sc reen Positive ng/mL (N egative) H 07/03/22 08:42 U Benzodiazepines Scrn Negative ng/mL (N egative) 07/03/22 08:42 Urine Cocaine Scre en Negative ng/mL (N egative) 07/03/22 08:42 U Marijuana (THC) Screen Negative ng/mL (N egative) 07/03/22 08:42 Ethyl Alcohol < 10 mg/dL (0-10) 07/03/22 08:09 Vitals: Last Vital Signs Temp 98.6 F 07/08/22 21:27 Pulse 111 H 07/08/22 21:27 Resp 18 07/09/22 06:00 BP 150/113 07/08/22 21:27 Pulse Ox 100 07/08/22 21:27 O2 Del Method 07/08/22 21:27 Discharge Plan Discharge Patient Disposition: Home Condition: Stable Prescriptions: New paliperidone 3 mg Tablet Extended Release 24 Hr 3 mg PO .at night 30 Days Qty: 30 1RF clonidine HCl 0.1 mg Tablet 0.1 mg PO TID 30 Days Qty: 90 1RF No Action (DME) Ankle Brace Misc See Rx Instructions .Route Qty: 1 0RF Rx Instructions: As directed Discharge Orders: Discharge Order (Routine); Ordered 07/09/22 Ordered By: David Peterson Referrals: [facility] [Outside] - 07/16/22 8:30 am (Initail apppointment) Anthony Panda MD [Physician] - 07/17/22 11:00 am (Establishing care) Discharge Diet: Usual diet Discharge Activity: Resume usual activity Patient Instructions: Clonidine (By mouth) (Cataprbecky, Mario, Kapely Dose Pack), Paliperidone (By mouth) (Invega), Suicide Prevention (DC), Opioid Safety Discharge Attestations NPU Time Spent in Discharge Care*: less than 30 min Specific Discharge Activities: Specific discharge activities: educating patient, discussing with showcase maker/social workers/dc planners, documenting/other paperwork and evaluating patient/reviewing data Coding Level of Care Code Acute Chg FW DC note Diagnoses Psychotic disorder due to psychoactive substance F19.959 Hallucinations R44.3
[2022-07-09 09:36] VITALS: RESP 18
--- NOTE | 2022-07-09 11:16 | DCPLANNER ---
IMM completed 07/09/22 @ 1108. Pt was given a copy of rights and he stated he understood his rights.
== END 2022-07-09 11:28 | disposition home or self-care (01) | DRG 897 ==
LOC: ER 09:03 → NP 11:48
PROVIDERS: Physician Assistant; Admitting Provider Psychiatry & Neurology Psychiatry; Emergency Provider Family Medicine; Visit Provider Psychiatry & Neurology Psychiatry
DX: F15.151 Other stimulant abuse with stimulant-induced psychotic disorder with hallucinations (principal); F10.11 Alcohol abuse, in remission; F90.9 Attention-deficit hyperactivity disorder, unspecified type; Z86.73 Personal history of transient ischemic attack (TIA), and cerebral infarction without residual deficits; F17.200 Nicotine dependence, unspecified, uncomplicated; G31.84 Mild cognitive impairment of uncertain or unknown etiology
CPT/HCPCS: 36415; 80053; 80306; 80307; 85025; 96372; 97150; 97165; 99238; 99285; J1630; J2060; J3486

== ENCOUNTER 2022-07-20 08:11 | Inpatient (IN) | payer MEDICARE, MEDICAID, SELFPAY ==
[2022-07-20 08:25] VITALS: BP 164/120; PULSE 120; RESP 16; O2SAT 99; BMI 34.4
[2022-07-20 08:32] VITALS: RESP 22
--- NOTE | 2022-07-20 08:38 | ED.C_ITS ---
HPI - Psych General: Chief Complaint: Psychiatric Symptoms Stated Complaint: [facility] Eval Time Seen by Provider: 07/20/22 08:22 Source: patient Mode of arrival: ambulatory History of Present Illness: 29-year-old male presents emergency room with a family friend he is acutely psychotic with auditory and visual hallucinations telling him to harm himself and others. He admits to all of this he also endorses suicidal intent. He last used meth 2 days ago. He has a history of methamphetamine and alcohol abuse. MD complaint: suicidal ideation and feels depressed Onset (ago): day(s) Duration: constant History of same: Yes Relieving factors: none Exacerbating factors: drug use Context: recent drug abuse Associated psychiatric symptoms: depression, suicidal ideation, homicidal ideation, auditory hallucinations and visual hallucinations Associated symptoms: Reports auditory hallucinations, visual hallucinations, depression, homicidal ideation and suicidal ideation Treatments prior to arrival: none If self harm: admits thoughts of self harm and has plan Review of Systems Const: Denies: fever(s), chills, body aches, fatigue, malaise or night sweats Eyes: Denies: change in vision or blurry vision ENMT: Denies: throat pain, oral sores, dental pain, nasal discharge or nasal congestion Card: Denies: chest pain, palpitations, irregular heart rhythm, edema, syncope, dyspnea on exertion, orthopnea or leg pain with exertion Resp: Denies: dyspnea, productive cough, non-productive cough or wheezing GI: Denies: abdominal pain, nausea, vomiting, hematemesis, coffee ground emesis, dysphagia, heartburn, diarrhea, constipation, GI cramping, hematochezia or melena : Denies: flank pain, difficulty urinating, dysuria, urinary frequency, urinary urgency, urinary incontinence or hematuria Musc: Denies: neck pain, back pain, extremity pain, extremity swelling, joint pain or joint swelling Skin/Breast: Denies: rash, pruritus or erythema Neuro: Denies: headache(s), numbness in extremities, weakness in extremities, sensory changes, lack of coordination, difficulty walking, frequent falls, dizziness, vertigo or confusion Psych: Reports: depression, visual hallucinations, auditory hallucinations, suicidal ideation and homicidal ideation Endo: Denies: polyuria, polydipsia, tired all the time or cold intolerance Bruce/Lymph: Denies: easy bruising, easy bleeding, petechiae, enlarged lymph nodes or tender lymph nodes PFS ED PFSH: Medical History (Updated 07/20/22 @ 14:13 by Allen Lal DO) CVA (cerebral vascular accident) Kidney stones Psychiatric care Right ankle sprain Surgical History Hx of tonsillectomy Family History Family/Other Cancer Diabetes Mother No problems noted. Social History Smoking and tobacco status: current every day smoker Alcohol intake: current Marital status: Single Physical Exam Const: GENERAL APPEARANCE: comfortable ORIENTATION/CONSCIOUSNESS: Yes awake HENMT: COMMON NORMALS: normocephalic, atraumatic and hearing grossly normal bilaterally HEAD & SCALP: normocephalic and atraumatic Resp: COMMON NORMALS: normal respiratory effort, No retractions, No use of accessory muscles and clear to auscultation bilaterally AUSCULTATION: clear to auscultation bilaterally Cardio: COMMON NORMALS: regular rate, regular rhythm and No murmurs present (Cardio) RATE: regular rate RHYTHM: regular rhythm GI: COMMON NORMALS: Soft to palpation and No hepatosplenomegaly present AUSCULTATION: Yes normoactive bowel sounds PALPATION: Yes Soft to palpation, No Tenderness to palpation present (GI), No Guarding due to palpation present (GI) and Yes No hepatosplenomegaly present Extremity: COMMON NORMALS: normal to inspection, capillary refill normal, no clubbing, cyanosis or edema, no calf tenderness and no pedal edema Skin: COMMON NORMALS: no rashes or lesions noted GENERAL SKIN EXAM: no rashes or lesions noted Course Vital Signs: Vital signs: Vital Signs Pulse Rate 88 07/20/22 11:55 Respiratory Rate 16 07/20/22 11:55 Blood Pressure 172/115 07/20/22 11:55 Pulse Oximetry 94 07/20/22 11:55 Oxygen Delivery Me thod 07/20/22 12:02 MDM - Psych Medical Decision Making 96-hour hold for suicidal homicidal ideation. 96-hour hold filled out discussed Dr. Ansari he has agreed to take you patient. Orders written Medical Records I reviewed the patient's medical records. Lab Data I reviewed the patient's lab results. 07/20/22 08:43 07/20/22 08:43 Laboratory Results WBC 12.4 10^3/uL (4.0-10.0) H 07/20/22 08:43 RBC 5.06 10^6/uL (4.1-5.3) 07/20/22 08:43 Hgb 14.8 g/dL (11.7-16.6) 07/20/22 08:43 Hct 44.6 % (42.0-52.0) 07/20/22 08:43 MCV 88.1 fl (80-94) 07/20/22 08:43 MCH 29.2 pg (28.0-34.0) 07/20/22 08:43 MCHC 33.2 g/dL (30.0-36.0) 07/20/22 08:43 RDW 13.5 % (12.1-15.1) 07/20/22 08:43 Plt Count 308 10^3/cmm (130-400) 07/20/22 08:43 MPV 9.9 fL (7.4-10.4) 07/20/22 08:43 Neut % (Auto) 69.1 % 07/20/22 08:43 Lymph % (Auto) 18.8 % 07/20/22 08:43 Callaway % (Auto) 9.5 % 07/20/22 08:43 Eos % (Auto) 1.6 % 07/20/22 08:43 Baso % (Auto) 0.6 % 07/20/22 08:43 Neut # (Auto) 8.53 10^3/uL (1.8-7.7) H 07/20/22 08:43 Lymph # (Auto) 2.3 10^3/uL (0.8-4.8) 07/20/22 08:43 [place] # (Auto) 1.2 10^3/uL (0.2-0.9) H 07/20/22 08:43 Eos # (Auto) 0.2 10^3/uL (0.0-0.8) 07/20/22 08:43 Baso # (Auto) 0.1 10^3/uL (0.0-0.1) 07/20/22 08:43 Nucleated RBC % (auto) 0 % 07/20/22 08:43 Nucleated RBCs # 0.0 /100WBC 07/20/22 08:43 Sodium 133 mmol/L (136-145) L 07/20/22 08:43 Potassium 3.3 mmol/L (3.5-5.1) L 07/20/22 08:43 Chloride 99 mmol/L (98-107) 07/20/22 08:43 Carbon Dioxide 25 mmol/L (22-29) 07/20/22 08:43 Anion Gap 12.3 (5-19) 07/20/22 08:43 BUN 8 mg/dL (6-20) 07/20/22 08:43 Creatinine 0.8 mg/dL (0.7-1.2) 07/20/22 08:43 GFR Calculation 108.2 mL/min (90-130) 07/20/22 08:43 Glucose 92 mg/dL (65-115) 07/20/22 08:43 Calculated Osmolality 274 mOsm/kg (285-295) L 07/20/22 08:43 Calcium 8.9 mg/dL (8.5-10.5) 07/20/22 08:43 Total Bilirubin 0.2 mg/dL (0.15-1.2) 07/20/22 08:43 AST 17 U/L (0-40) 07/20/22 08:43 ALT 17 U/L (0-41) 07/20/22 08:43 Alkaline Phosphatase 97 U/L (40-130) 07/20/22 08:43 Total Protein 7.4 g/dL (6.6-8.7) 07/20/22 08:43 Albumin 4.3 g/dL (3.5-5.2) 07/20/22 08:43 Globulin 3.1 g/dL (1.3-4.6) 07/20/22 08:43 Salicylates < 0.3 mg/dL (3-10) L 07/20/22 08:43 Acetaminophen < 5.0 ug/mL (10-30) L 07/20/22 08:43 Ethyl Alcohol < 10 mg/dL (0-10) 07/20/22 08:43 Discharge Plan Discharge Patient Disposition: Admitted As Inpatient Admit Provider: Jason Ansari Clinical Impression: Suicidal ideation, Drug-induced psychotic disorder Condition: Stable Coding Level of Care Code ED Terminal Make Up Operator for 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
[2022-07-20 08:58] LABS: Basophils # 0.1 10^3/uL (0.0-0.1); Basophils % 0.6 %; Eosinophils # 0.2 10^3/uL (0.0-0.8); Eosinophils % 1.6 %; Hematocrit 44.6 % (42.0-52.0); Hemoglobin 14.8 g/dL (11.7-16.6); Lymphocytes # 2.3 10^3/uL (0.8-4.8); Lymphocytes % 18.8 %; Mean Corpuscular HGB Conc 33.2 g/dL (30.0-36.0); Mean Corpuscular Hemoglobin 29.2 pg (28.0-34.0); Mean Corpuscular Volume 88.1 fl (80-94); Mean Platelet Volume 9.9 fL (7.4-10.4); Monocytes # 1.2 10^3/uL (0.2-0.9); Monocytes % 9.5 %; Neutrophils # 8.53 10^3/uL (1.8-7.7); Neutrophils % 69.1 %; Nucleated Red Blood Cells % 0 %; Platelet Count 308 10^3/cmm (130-400); Red Blood Count 5.06 10^6/uL (4.1-5.3); Red Cell Distribution Width 13.5 % (12.1-15.1); White Blood Count 12.4 10^3/uL (4.0-10.0)
[2022-07-20 09:17] LABS: Alanine Aminotransferase 17 U/L (0-41); Albumin Level 4.3 g/dL (3.5-5.2); Alkaline Phosphatase 97 U/L (40-130); Anion Gap 12.3 (5-19); Aspartate Amino Transferase 17 U/L (0-40); Blood Urea Nitrogen 8 mg/dL (6-20); Calcium 8.9 mg/dL (8.5-10.5); Carbon Dioxide 25 mmol/L (22-29); Chloride 99 mmol/L (98-107); Globulin 3.1 g/dL (1.3-4.6); Glomerular Filtration Rate 108.2 mL/min (90-130); Glucose 92 mg/dL (65-115); Osmolality Calculated 274 mOsm/kg (285-295); Potassium 3.3 mmol/L (3.5-5.1); Sodium 133 mmol/L (136-145); Total Bilirubin 0.2 mg/dL (0.15-1.2); Total Protein 7.4 g/dL (6.6-8.7)
[2022-07-20 09:18] LABS: Acetaminophen < 5.0 ug/mL (10-30); Salicylate < 0.3 mg/dL (3-10)
[2022-07-20 09:40] LABS: Alcohol Level < 10 mg/dL (0-10)
[2022-07-20] MEDS: ziprasidone 20 mg/mL SDV 5 MG IM (09:54)
[2022-07-20] MEDS: amlodipine 5 mg Tablet PO (10:52)
[2022-07-20 11:11] VITALS: BP 175/128
[2022-07-20] MEDS: cloNIDine 0.1 mg Tablet PO (11:11)
[2022-07-20 11:55] VITALS: BP 172/115; PULSE 88; RESP 16; O2SAT 94
[2022-07-20 14:00] VITALS: BP 145/94; PULSE 119; RESP 18; TEMP 36.6; O2SAT 96
--- NOTE | 2022-07-20 19:48 | PC.NURSE ---
Pt given his 96 hr rights @0900, and a copy was left at bedside with pt. Pt did not seem to fully understand what 96hr rights meant, and stated he felt like we were going to make him go to retirement. Code 10 called overhead because pt forcefully trying to get out the door to leave hospital facility. Multiple attempts by myself, and ER Dr to explain reasoning for 96 hr to be placed.
[2022-07-20 22:00] VITALS: BP 155/93; PULSE 94; RESP 18; TEMP 36.8; O2SAT 99
[2022-07-21 01:16] VITALS: BP 139/93; PULSE 103; RESP 18; TEMP 36.6; O2SAT 99
--- NOTE | 2022-07-21 05:00 | PC.NURSE ---
Patient B/P 153/96. Clonidine given as ordered. Patient denies any symptoms. No signs of distress. Will continue to assess.
[2022-07-21 05:13] VITALS: BP 153/96; PULSE 86; RESP 16; TEMP 36.6; O2SAT 97
[2022-07-21 05:36] VITALS: BP 153/96
[2022-07-21] MEDS: cloNIDine 0.1 mg Tablet PO (05:36)
--- NOTE | 2022-07-21 08:54 | W.PM.NPUH&PS ---
Providers/Chief Complaint Admitting Physician: Jason Ansari MD Chief Complaint: [facility] Eval [facility] NPU History of Present Illness Markie Meza is a 37 year old male who presented to the emergency department with the following report: Chief Complaint: Psychiatric Symptoms Stated Complaint: [facility] Eval Time Seen by Provider: 07/20/22 08:22 Source: patient Mode of arrival: ambulatory History of Present Illness: 29-year-old male presents emergency room with a family friend he is acutely psychotic with auditory and visual hallucinations telling him to harm himself and others. He admits to all of this he also endorses suicidal intent. He last used meth 2 days ago. He has a history of methamphetamine and alcohol abuse. MD complaint: suicidal ideation and feels depressed Onset (ago): day(s) Duration: constant History of same: Yes Relieving factors: none Exacerbating factors: drug use Context: recent drug abuse Associated psychiatric symptoms: depression, suicidal ideation, homicidal ideation, auditory hallucinations and visual hallucinations Associated symptoms: Reports auditory hallucinations, visual hallucinations, depression, homicidal ideation and suicidal ideation Treatments prior to arrival: none If self harm: admits thoughts of self harm and has plan Was admitted to the neuropsychiatric unit for definitive treatment of those issues. He once again presents as a limited historian due to some likely lethargy secondary to his presumed methamphetamine withdrawal. He presents with limited responses but endorsing that he has not been taking his medication, that he has been still engaged in methamphetamine use and that he came to the hospital secondary to feeling suicidal and having hallucinations. We discussed the risk benefits and alternatives of restarting the Invega but at 6 mg p.o. nightly as well as working with the treatment team to figure out if we can find a reasonable treatment option to begin to impact his drug use. He was fairly ambivalent in the conversation but mostly secondary to being lethargic and wanting to really sleep versus answering the questions. An excerpt of his discharge summary from 07/09/2022 is included below for context and the fact that he denies substantive changes since that time. UDS was not back at the time of interview. Per his 07/09/2022 [facility] inpatient psychiatric discharge summary: SI Brief History: History of Present Illness Markie Mzea is a 37 year old male who presented to the emergency department on 07/03/2022 with complaints of auditory and visual hallucinations with reports of thoughts of hurting himself and thoughts of hurting others. The patient was admitted to the neuropsychiatric unit for further evaluation and treatment. Prior to arriving on the neuropsychiatric unit, the patient had been very agitated and required the use of as needed medications including Geodon Ativan and Haldol. The patient on interview today reports that he has been having problems with hearing voices telling him to hurt himself and seeing things telling him to hurt himself. He has endorsed increased suspiciousness of others and states that the voices are sometimes jumbled. He had reported that he had been using methamphetamine intranasally and states that he had previously consumed alcohol but was no longer drinking. The patient was a poor historian and hostile and belligerent throughout much of the interview insisting that he needed to immediately check on his house. Patient had reported that he understood that he was on a 96-hour hold and stated that he did not like to take medications. Patient had acknowledged having depressed mood but did not elaborate any further regarding any changes in energy appetite or concentration. He reports having been diagnosed as having cognitive impairment and states that he was currently on disability for ADHD. Past psychiatric history: Patient denied any past history of psychiatric treatment other than reports of having been treated with ADHD as a child and reporting having been hospitalized as a teenager in [place] for psychiatric reasons. 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 He had endorsed using methamphetamine infrequently for several years. He denied any other drug use. He smokes cigarettes Family psychiatric history: None reported Legal History: unknown Social history: Patient was born in [facility]. He had reported having several siblings. He reports that he grew up in a dysfunctional family and states that his biological parents are no longer together. He reports that his mother lives in [place] and his father is . He reports having a significant learning disability and graduated [employer] with a special diploma. He had reported that he is currently on disability and is not employed. He denies any sexual physical or emotional abuse. He reports he has never been but has children. Hospital Course Discharge Summary: During the hospitalization, patient had routine laboratory studies which were within normal limits except for few outliers. Additionally there was a general medical evaluation which was also within normal limits and revealed no new acute processes. At the time of discharge, lethality was denied and psychosis was resolving. Mood and anxiety were well managed. Patient endorsed a plan to avoid all drugs of abuse and follow-up with the aftercare recommendations of the treatment team. Patient was evaluated and deemed to be absent credible lethality, and had achieved the maximum benefit from an inpatient hospitalization, so was discharged. He refused all efforts for outpatient or inpatient substance abuse treatment but was willing to receive outpatient medication management for psychotic symptoms. Meds NPU Home Medications Medication Instructions Recorded Confirmed Last Taken Type leg brace (Ankle Brace) #1 ea 04/29/21 07/20/22 Unknown Rx clonidine HCl 0.1 mg tablet 0.1 mg PO TID 30 days #90 tabs 07/09/22 07/20/22 Unknown Rx paliperidone 3 mg tablet,extended 3 mg PO .at night 30 days #30 tabs 07/09/22 07/20/22 Unknown Rx release 24 hr Allergies Allergy/AdvReac Type Severity Reaction Status Date / Time No Known Allergies Allergy Verified 07/03/22 08:59 PFS NPU PFSH: Medical History (Updated 07/20/22 @ 14:13 by Allen Lal DO) CVA (cerebral vascular accident) Kidney stones Psychiatric care Right ankle sprain Surgical History Hx of tonsillectomy Family History Family/Other Cancer Diabetes Mother No problems noted. Social History Smoking and tobacco status: current every day smoker Alcohol intake: current Marital status: Single Mental Status Exam MSE Comments: This is an obese white male in hospital scrubs with limited grooming and eye contact. Mostly disheveled and with poor hygiene and clearly dirty and notable foul smell. No abnormal movements except for significant psychomotor retardation. Limited cooperation with exam and mild distress. Speech was limited and decreased rate and volume. Mood not described but affect was subdued. Thought process linear. Thought content: Patient endorsed suicidal but denied homicidal ideation, there were no delusions reported but clear paranoia noted, he endorsed auditory and visual hallucinations. Attention and concentration were limited and memory was somewhat reliable but none were formally tested. He is alert and oriented to person and place. Insight, judgment and impulse control are impaired. Vitals/I&O/Wt Last Vital Signs Temp 97.9 F 07/21/22 05:13 Pulse 86 07/21/22 05:13 Resp 16 07/21/22 05:13 BP 153/96 07/21/22 05:36 Pulse Ox 97 07/21/22 05:13 O2 Del Method 07/20/22 12:02 Weight last 48 hrs Weight 108.862 kg Data NPU 07/20/22 08:43 07/20/22 08:43 A&P Assessment and plan (1) Psychotic disorder due to psychoactive substance: (2) Hallucinations: Plan The patient is a 37-year-old white male who was discharged from this unit about 2 weeks ago once again presenting with with reports of auditory and visual hallucinations and increased paranoia likely related to methamphetamine use which was present in his urine on last admission. Patient once again involuntarily hospitalized. 1.? Restart Invega but increase to 6mg at night to target agitation, psychosis. 2.? Continue every 15 minute checks for safety. 3.? Encourage individual, group and milieu therapy once he has engaged. 4.? Encourage sobriety treatment after discharge to the hospital care to which she is willing to commit.? 5. Obtain UDS. Involuntary Hold Information 96 Hour Hold: 96 Hour Involuntary Admission: Yes 96 Hour Hold Ending Date: 07/27/22 96 Hour Hold Ending Time: 08:45 Attestations NPU Medical Necessity Statement*: Inpatient hospitalization is medically necessary and clinically appropriate at this time. We will monitor/initiate medications and make changes as indicated.? He will be in the hospital for over 2 midnights. Likely length of stay 7-10 days. Coding Level of Care Code Acute Code for [facility] Fwd Diagnoses Psychotic disorder due to psychoactive substance F19.959 Hallucinations R44.3
[2022-07-21] MEDS: haloperidol 5 mg Tablet PO (11:02)
[2022-07-21] MEDS: OLANZapine 5 mg ODT PO (11:02)
[2022-07-21 14:00] VITALS: BP 120/86; PULSE 126; RESP 18; TEMP 36.6; O2SAT 97
[2022-07-21 19:34] VITALS: RESP 18
[2022-07-21] MEDS: paliperidone ER 6 mg Tablet PO (19:46)
[2022-07-22 06:00] VITALS: RESP 15
[2022-07-22] MEDS: nicotine 21 mg Patch 1 PATCH TRANSDERMA (11:05)
[2022-07-22] MEDS: acetaminophen 325 mg Tablet 650 MG PO (13:04)
[2022-07-22 14:00] VITALS: BP 146/88; PULSE 86; RESP 20; TEMP 36.6; O2SAT 97
--- NOTE | 2022-07-22 15:39 | P.NPUPN_ITS ---
Subjective NPU Subjective: Today patient presented reporting that he was doing okay. However he seemed almost more confused than when he got here. He was asking about when he might be discharged but seem to almost be having aphasic tendencies of not being able to find the word or having paraphrases surrounding the words he is seeking. Trying to discuss the possibility of discharge as we tried to discuss the importance of him taking his medication and gaining clarity. Mental Status Exam MSE Comments: This is an obese white male in hospital scrubs with limited grooming and eye contact. Mostly disheveled and with poor hygiene and clearly dirty and notable foul smell. No abnormal movements except for significant psy chomotor retardation. Limited cooperation with exam and mild distress. Speech was limited and decreased rate and volume. Mood not described but affect was subdued. Thought process linear, but at times disorganized. Thought content: Patient endorsed suicidal but denied homicidal ideation, there were no delusions reported but clear paranoia noted, he endorsed auditory and visual hallucinations. Attention and concentration were limited and memory was somewhat reliable but none were formally tested. He is alert and oriented to person and place. Insight, judgment and impulse control are impaired. Vitals/I&O/Wt Last Vital Signs Temp 98 F 07/21/22 14:00 Pulse 126 H 07/21/22 14:00 Resp 15 07/22/22 06:00 BP 120/86 07/21/22 14:00 Pulse Ox 97 07/21/22 14:00 O2 Del Method 07/21/22 14:00 Data NPU 07/20/22 08:43 07/20/22 08:43 A&P Assessment and plan (1) Psychotic disorder due to psychoactive substance: (2) Hallucinations: Plan The patient is a 37-year-old white male who was discharged from this unit about 2 weeks ago once again presenting with with reports of auditory and visual hallucinations and increased paranoia likely related to methamphetamine use which was present in his urine on last admission. Patient once again involuntarily hospitalized. 1.? Restart Invega but increased to 6mg at night to target agitation, psychosis. 2.? Continue every 15 minute checks for safety. 3.? Encourage individual, group and milieu therapy once he has engaged. 4.? Encourage sobriety treatment after discharge to the hospital care to which she is willing to commit.? 5. Obtain UDS. Involuntary Hold Information 96 Hour Hold: 96 Hour Involuntary Admission: Yes 96 Hour Hold Ending Date: 07/27/22 96 Hour Hold Ending Time: 08:45 Attestations NPU Medical Necessity Statement*: Inpatient hospitalization is medically necessary and clinically appropriate at this time. We will monitor/initiate medications and make changes as indicated.? He will be in the hospital for over 2 midnights. Likely length of stay 7-10 days. Coding Level of Care Code Acute Code for [facility] Fwd Diagnoses Psychotic disorder due to psychoactive substance F19.959 Hallucinations R44.3
[2022-07-22] MEDS: hyDROXYzine 25 mg Capsule 50 MG PO (16:47)
--- NOTE | 2022-07-22 16:48 | PC.NURSE ---
Patient given 50mg Vistaril PO. Patient stated that he was feeling anxious and requested a medication to help with this. Patient took the medication
[2022-07-22] MEDS: haloperidol 5 mg Tablet PO (18:44)
--- NOTE | 2022-07-22 18:45 | PC.NURSE ---
Patient stated that he was hearing voices persistently. Patient given Haldol. Patient denies knowing what the voices are saying.
[2022-07-22] MEDS: paliperidone ER 6 mg Tablet PO (20:02)
[2022-07-23 06:00] VITALS: RESP 15
--- NOTE | 2022-07-23 11:15 | P.NPUPN_ITS ---
Subjective NPU Subjective: Patient presented today with some more spontaneous speech during our conversation. This was the first time of the strong lucius sentences to talk about what is next versus just alluding to discharge. He identified that taking his medication might assist him and not returning here anytime soon and then, seemingly reluctantly, he identified that not using drugs would also go a long way in preventing recurrence of hospitalization and improving his overall functioning. He identified working with the dialysis social worker to connect him with turning naseem and suggested that he wanted to engage in treatment. However he once again was focused on discharge as the primary question. Mental Status Exam MSE Comments: This is an obese white male in hospital scrubs with limited grooming and eye contact. Less disheveled and slightly better hygiene. No abnormal movements except for significant psychomotor retardation. More cooperative with exam and mild distress. Speech was more spontaneous and decr eased rate and volume with speech impediment related to Rs. Mood described as better, affect congruent but still slightly subdued. Thought process linear and less disorganized. Thought content: Patient denied suicidal or homicidal ideation, there were no delusions reported and less paranoia/guardedness noted, he denied current auditory and visual hallucinations. Attention and concentration were improving and memory was more reliable but none were formally tested. He is alert and oriented x3. Insight, judgment and impulse control are limited. Vitals/I&O/Wt Last Vital Signs Temp 97.9 F 07/22/22 14:00 Pulse 86 07/22/22 14:00 Resp 15 07/23/22 06:00 BP 146/88 07/22/22 14:00 Pulse Ox 97 07/22/22 14:00 O2 Del Method 07/21/22 14:00 Data NPU 07/20/22 08:43 07/20/22 08:43 A&P Assessment and plan (1) Psychotic disorder due to psychoactive substance: (2) Hallucinations: Plan The patient is a 37-year-old white male who was discharged from this unit about 2 weeks ago once again presenting with with reports of auditory and visual hallucinations and increased paranoia likely related to methamphetamine use which was present in his urine on last admission. Patient once again involuntarily hospitalized. 1.? Restart Invega but increased to 6mg at night to target agitation, psychosis. Work towards long-acting injectable. 2.? Continue every 15 minute checks for safety. 3.? Encourage individual, group and milieu therapy once he has engaged. 4.? Encourage sobriety treatment after discharge to the hospital care to which she is willing to commit.? Involuntary Hold Information 96 Hour Hold: 96 Hour Involuntary Admission: Yes 96 Hour Hold Ending Date: 07/27/22 96 Hour Hold Ending Time: 08:45 Attestations NPU Medical Necessity Statement*: Inpatient hospitalization is medically necessary and clinically appropriate at this time. We will monitor/initiate medications and make changes as indicated.? Likely length of stay 5-7 days. Coding Level of Care Code Acute Code for [facility] Fwd Diagnoses Psychotic disorder due to psychoactive substance F19.959 Hallucinations R44.3
[2022-07-23] MEDS: OLANZapine 5 mg ODT PO (11:56)
[2022-07-23] MEDS: haloperidol 5 mg Tablet PO (13:17)
--- NOTE | 2022-07-23 13:37 | PC.NURSE ---
PRN Linux Engineer Patient walking the hallways, staring blankly ahead. This RN asked him if something was bothering him and he asked if there was something he could take to get rid of the voices he was hearing. I then asked what he was hearing and he became very tearful and stated, I just hear people talking about killing me and killing my family. Haldol 5mg PO administered. Patient advised to take deep breaths and redirected to reality that he and his family were safe.
[2022-07-23 14:00] VITALS: BP 187/92; PULSE 88; RESP 20; TEMP 36.6; O2SAT 92
[2022-07-23] MEDS: acetaminophen 325 mg Tablet 650 MG PO (18:35)
[2022-07-23] MEDS: paliperidone ER 6 mg Tablet PO (21:33)
[2022-07-23 22:00] VITALS: RESP 15
[2022-07-24 06:00] VITALS: RESP 16
[2022-07-24] MEDS: acetaminophen 325 mg Tablet 650 MG PO (12:14)
[2022-07-24 13:19] VITALS: BP 138/101; PULSE 114; RESP 17; TEMP 36.4; O2SAT 97
--- NOTE | 2022-07-24 13:39 | W.PM.NPUPNS ---
Subjective NPU Subjective: Patient presented today reporting that he was still having psychotic symptoms and hearing voices. We discussed the risk benefits and alternatives of increasing his Invega to 9 mg p.o. daily and he understood and agreed to proceed as is documented in this note. We continue to discuss his psychosis and our plan to initiate a 21-day hold. Mental Status Exam MSE Comments: This is an obese white male in hospital scrubs with limited grooming and eye contact. Less disheveled and slightly better hygiene. No abnormal movements except for significant psychomotor retardation. More cooperative with exam and mild distress. Speech was more spontaneous and decreased rate and volume with speech impediment related to Rs. Mood described as better, affect congruent but still slightly subdued. Thought process linear and less disorganized. Thought content: Patient denied suicidal or homicidal ideation, there were no delusions reported and less paranoia/guardedness noted, he denied current auditory and visual hallucinations. Attention and concentration were improving and memory was more reliable but none were formally tested. He is alert and oriented x3. Insight, judgment and impulse control are limited. Vitals/I&O/Wt Last Vital Signs Temp 97.5 F L 07/24/22 13:19 Pulse 114 H 07/24/22 13:19 Resp 17 07/24/22 13:19 BP 138/101 07/24/22 13:19 Pulse Ox 97 07/24/22 13:19 O2 Del Method 07/21/22 14:00 Data NPU 07/20/22 08:43 07/20/22 08:43 A&P Assessment and plan (1) Psychotic disorder due to psychoactive substance: (2) Hallucinations: Plan The patient is a 37-year-old white male who was discharged from this unit about 2 weeks ago once again presenting with with reports of auditory and visual hallucinations and increased paranoia likely related to methamphetamine use which was present in his urine on last admission. Patient once again involuntarily hospitalized. 1.? Restart Invega but increased to 6mg at night to target agitation, psychosis. Increase Invega to 9 mg p.o. nightly. Work towards long-acting injectable. 2.? Continue every 15 minute checks for safety. 3.? Encourage individual, group and milieu therapy once he has engaged. 4.? Encourage sobriety treatment after discharge to the hospital care to which she is willing to commit.? Involuntary Hold Information 96 Hour Hold: 96 Hour Involuntary Admission: Yes 96 Hour Hold Ending Date: 07/27/22 96 Hour Hold Ending Time: 08:45 Attestations NPU Medical Necessity Statement*: Inpatient hospitalization is medically necessary and clinically appropriate at this time. We will monitor/initiate medications and make changes as indicated.? Likely length of stay 5-7 days. Coding Level of Care Code Acute Code for [facility] Fwd Diagnoses Psychotic disorder due to psychoactive substance F19.959 Hallucinations R44.3
[2022-07-24] MEDS: nicotine 21 mg Patch 1 PATCH TRANSDERMA (14:07)
[2022-07-24] MEDS: hyDROXYzine 25 mg Capsule 50 MG PO ×2 (16:31→21:43)
--- NOTE | 2022-07-24 17:03 | PC.NURSE ---
3mg invega ordered by doctor for this RN to put in to equal 9mg for the day so this RN entered the order. However, we did not realize he took it at night so skipped the 3mg originally ordered and will give the full 9mg tonight.
[2022-07-24 17:57] VITALS: BP 155/108; PULSE 104; RESP 16; TEMP 36.7
--- NOTE | 2022-07-24 17:58 | PC.NURSE ---
patient came to desk asking to have his BP checked. Stated he was having chest pain, on the R side, described as sharp and worse with deep inspiration, cough, and palpation. Very wet cough. Covid swab done and sent to lab, patient asked to isolate to his room until the test comes back.
[2022-07-24 20:09] VITALS: BP 146/99; PULSE 88; RESP 18; TEMP 36.6; O2SAT 96
[2022-07-24] MEDS: paliperidone ER 3 mg Tablet 9 MG PO (21:05)
[2022-07-24] MEDS: trazodone 50 mg Tablet PO ×2 (21:43→23:59)
[2022-07-24 22:41] LABS: Adenovirus Not Detected (NOT DETECT); Chlamydia Pneumoniae Not Detected (NOT DETECT); Coronavirus 229E,HKU1,NL63,OC4 Not Detected (NOT DETECT); Human Metapneumovirus Not Detected (NOT DETECT); Human Rhinovirus/Enterovirus Not Detected (NOT DETECT); Influenza A Not Detected (NOT DETECT); Influenza A H1 Not Detected (NOT DETECT); Influenza A H1-2009 Not Detected (NOT DETECT); Influenza A H3 Not Detected (NOT DETECT); Influenza B Not Detected (NOT DETECT); Mycoplasma Pneumoniae Not Detected (NOT DETECT); Parainfluenza Virus Type 1 Not Detected (NOT DETECT); Parainfluenza Virus Type 2 Not Detected (NOT DETECT); Parainfluenza Virus Type 3 Not Detected (NOT DETECT); Parainfluenza Virus Type 4 Not Detected (NOT DETECT); Respiratory Syncytial Virus A Not Detected (NOT DETECT); Respiratory Syncytial Virus B Not Detected (NOT DETECT); SARS-COV-2 Not Detected (NOT DETECT)
[2022-07-25 06:00] VITALS: BP 127/81; PULSE 79; RESP 18; TEMP 37; O2SAT 97
--- NOTE | 2022-07-25 13:21 | P.NPUPN_ITS ---
Subjective NPU Subjective: Patient presented today lamenting about still being in the hospital. We discussed the fact that he was reporting overwhelming auditory hallucinations just yesterday we increased his Invega to 9 mg p.o. daily. And that his drug use has led us to this challenging situation. He was demonstrati ng very little insight and very little impulse control as he expressed that he needed to be here no later than Wednesday or things would not be good. He defined not good his holes in burr and things like that. We discussed the fact that his being here is a testament to recent behaviors and not the choices of the staff or the hospital. Mental Status Exam MSE Comments: This is an obese white male in hospital scrubs with limited grooming and eye contact. Less disheveled and slightly better hygiene. No abnormal movements except for significant psychomotor agitation. More cooperative with exam in moderate distress. Speech was more spontaneous and decreased rate and volume with speech impediment related to Rs. Mood described as upset about being here, affect congruent and irritable. Thought process linear and less disorganized. Thought content: Patient denied suicidal or homicidal ideation, there were no delusions reported and less paranoia/guardedness noted, he denied current auditory and visual hallucinations. Attention and concentration were improving and memory was more reliable but none were formally tested. He is alert and oriented x3. Insight, judgment and impulse control are limited. Vitals/I&O/Wt Last Vital Signs Temp 98.6 F 07/25/22 06:00 Pulse 79 07/25/22 06:00 Resp 18 07/25/22 06:00 BP 127/81 07/25/22 06:00 Pulse Ox 97 07/25/22 06:00 O2 Del Method 07/24/22 17:57 07/24/22 07/25/22 07/25/22 22:59 06:59 14:59 Intake Total 480 / 480 Balance 480 / 480 Data NPU 07/20/22 08:43 07/20/22 08:43 A&P Assessment and plan (1) Psychotic disorder due to psychoactive substance: (2) Hallucinations: Plan The patient is a 37-year-old white male who was discharged from this unit about 2 weeks ago once again presenting with with reports of auditory and visual hallucinations and increased paranoia likely related to methamphetamine use which was present in his urine on last admission. Patient once again involuntarily hospitalized. 1.? Restart Invega but increased to 6mg at night to target agitation, psychosis. Increase Invega to 9 mg p.o. nightly. Work towards long-acting injectable. 2.? Continue every 15 minute checks for safety. 3.? Encourage individual, group and milieu therapy once he has engaged. 4.? Encourage sobriety treatment after discharge to the hospital care to which he is willing to commit.? 5. 21-day hold paperwork was submitted. Involuntary Hold Information 96 Hour Hold: 96 Hour Involuntary Admission: Yes 96 Hour Hold Ending Date: 07/27/22 96 Hour Hold Ending Time: 08:45 Attestations NPU Medical Necessity Statement*: Inpatient hospitalization is medically necessary and clinically appropriate at this time. We will monitor/initiate medications and make changes as indicated.? Likely length of stay 5-7 days. Coding Level of Care Code Acute Code for [facility] Fwd Diagnoses Psychotic disorder due to psychoactive substance F19.959 Hallucinations R44.3
[2022-07-25 14:00] VITALS: BP 137/100; PULSE 101; RESP 18; TEMP 36.7; O2SAT 97
[2022-07-25] MEDS: hyDROXYzine 25 mg Capsule 50 MG PO (14:44)
--- NOTE | 2022-07-25 14:48 | PC.NURSE ---
Addendum entered by Mara Robles RN 07/25/22 15:04: Dr. Ansari informed of pt's behavior, i.e., hurting his knuckles against the door frame. Original Note: Staff reported pt had been rubbing his knuckles against his door jamb and barking his knuckles. Staff requested pt to come back to his room and pt was asked about his behavior. He acknowledged he had been trying to hurt his hands because he was tired of being here. Superficial scrapes noted to knuckles on both hands. Pt had recently spoke with his mom on the phone and had been a little agitated with her, complaining he was having to be here, there wasn't much to do, the food was terrible, etc. Pt cursing a lot during the conversation. Staff sat and visited with the pt briefly. Pt said he didn't think he could stay here much longer, said he was tired of being alone. Staff talked about coping skills and pt was encouraged to use relaxation techniques, including tensing and relaxing his muscles, using breathing techniques, visualizations. Pt agreed to take medication for anxiety. Up for a snack and then returned to his room to lay down.
--- NOTE | 2022-07-25 16:42 | PC.NURSE ---
Pt up in day room watching tv. Pt said he was feeling a little better; less anxious.
[2022-07-25 20:24] VITALS: BP 147/92
[2022-07-25] MEDS: paliperidone ER 3 mg Tablet 9 MG PO (20:24)
[2022-07-25] MEDS: cloNIDine 0.1 mg Tablet PO (20:24)
[2022-07-25] MEDS: trazodone 50 mg Tablet PO (20:25)
[2022-07-25] MEDS: nicotine 2 mg Gum BUCCAL (20:25)
[2022-07-25] MEDS: OLANZapine 5 mg ODT PO (20:25)
[2022-07-25 22:00] VITALS: BP 147/92; PULSE 92; RESP 18; TEMP 36.2; O2SAT 95
[2022-07-26 06:00] VITALS: BP 124/84; PULSE 69; RESP 18; TEMP 36.4; O2SAT 98; BMI 34.4
--- NOTE | 2022-07-26 07:15 | W.PM.NPUPNS ---
Subjective NPU Subjective: Patient presented today reporting that he is feeling like he wants to leave still. We discussed the fact that we would like to get him transferred over to the long-acting injectable and that some kind of treatment for his addiction would seem necessary to give him a better chance of not having to face some of the issues surrounding his psychosis but also exacerbating his psychosis. He continues to report that being in the hospital was not helpful. We discussed him having his 21-day hold hearing likely tomorrow or Wednesday. Mental Status Exam MSE Comments: This is an obese white male in hospital scrubs with limited grooming and eye contact. Less disheveled and slightly better hygiene. No abnormal movements except for significant psychomotor agitation. More cooperative with exam in moderate distress. Speech was more spontaneous and decreased rate and volume with speech impediment related to Rs. Mood described as upset about being here, affect congruent and irritable. Thought process linear and less disorganized. Thought content: Patient denied suicidal or homicidal ideation, there were no delusions reported and less paranoia/guardedness noted, he denied current auditory and visual hallucinations. Attention and concentration were improving and memory was more reliable but none were formally tested. He is alert and oriented x3. Insight, judgment and impulse control are limited. Vitals/I&O/Wt Last Vital Signs Temp 97.2 F L 07/25/22 22:00 Pulse 92 07/25/22 22:00 Resp 18 07/25/22 22:00 BP 147/92 07/25/22 22:00 Pulse Ox 95 07/25/22 22:00 O2 Del Method 07/24/22 17:57 Weight last 48 hrs Weight 108.862 kg Data NPU 07/20/22 08:43 07/20/22 08:43 A&P Assessment and plan (1) Psychotic disorder due to psychoactive substance: (2) Hallucinations: Plan The patient is a 37-year-old white male who was discharged from this unit about 2 weeks ago once again presenting with with reports of auditory and visual hallucinations and increased paranoia likely related to methamphetamine use which was present in his urine on last admission. Patient once again involuntarily hospitalized. 1.? Restart Invega but increased to 6mg at night to target agitation, psychosis. Increased Invega to 9 mg p.o. nightly. Work towards long-acting injectable. 2.? Continue every 15 minute checks for safety. 3.? Encourage individual, group and milieu therapy once he has engaged. 4.? Encourage sobriety treatment after discharge to the hospital care to which he is willing to commit.? 5. 21-day hold paperwork was submitted. Involuntary Hold Information 96 Hour Hold: 96 Hour Involuntary Admission: Yes 96 Hour Hold Ending Date: 07/27/22 96 Hour Hold Ending Time: 08:45 Attestations NPU Medical Necessity Statement*: Inpatient hospitalization is medically necessary and clinically appropriate at this time. We will monitor/initiate medications and make changes as indicated.? Likely length of stay 5-7 days. Coding Level of Care Code Acute Code for [facility] Fwd Diagnoses Psychotic disorder due to psychoactive substance F19.959 Hallucinations R44.3
[2022-07-26] MEDS: nicotine 2 mg Gum BUCCAL (13:05)
[2022-07-26 14:00] VITALS: BP 138/74; PULSE 120; RESP 17; TEMP 36.3; O2SAT 98
[2022-07-26] MEDS: nicotine 4 mg lozenge MUCOUS MEM (16:42)
[2022-07-26] MEDS: paliperidone ER 3 mg Tablet 9 MG PO (19:39)
[2022-07-26 20:25] VITALS: BP 143/91; PULSE 108; RESP 18; TEMP 36.6; O2SAT 100
[2022-07-26] MEDS: OLANZapine 5 mg ODT PO (20:59)
[2022-07-26] MEDS: trazodone 50 mg Tablet PO (20:59)
[2022-07-27 06:00] VITALS: BP 160/93; PULSE 85; RESP 18; TEMP 36.7; O2SAT 96
--- NOTE | 2022-07-27 13:53 | PC.NURSE ---
off unit for court hearing
[2022-07-27 14:00] VITALS: BP 143/88; PULSE 124; RESP 20; TEMP 36.7; O2SAT 97
[2022-07-27] MEDS: nicotine 4 mg lozenge MUCOUS MEM (15:04)
[2022-07-27] MEDS: diphenhydrAMINE 50 mg/mL SDV 1mL IM (15:45)
[2022-07-27] MEDS: haloperidol inj 5 mg/mL INJ 1 mL IM (15:46)
[2022-07-27] MEDS: LORazepam 2 mg/mL INJ 1 mL IM (15:46)
--- NOTE | 2022-07-27 15:49 | PC.NURSE ---
disruptive behavior/Code 10/PRN Ativan, Haldol, Benadryl patient had a visitor, got upset while visiting started yelling, flipped two chairs over in the day area, came up to the nurses & attempted to flip over the wooden bench in the hallway yelling I just want the fuck out of here now! staff immediately intervened, asked visitor to exit since patient was experiencing increased anxiety/agitation. security also called to come to the unit, once visitor was out through the door, patient began hitting the door several times with his right hand, Code 10 called at this time, this nurse went to the med room to pull PRN injections, several staff members responded to the Code 10, when this nurse came back to the nurses station with injections, patient was pacing hallways, offered PRN injections to help improve his mood, alleviate anxiety/agitation. pt stated no I don't just want to be knocked the fuck out! staff offered oral medications, pt refused. this nurse & NPU guard manager offered injections again, pt agreeable to take injections. went to his room for med administration, Benadryl 50 mg given IM in left detoid, Haldol 5 mg given IM with Ativan 2 mg IM in right deltoid. offered lemonade which patient accepted. staff will cont to monitor closely for medication effectiveness. Dr. Peterson also notified about patient behaviors.
--- NOTE | 2022-07-27 17:08 | P.NPUPN_ITS ---
Subjective NPU Subjective: Patient is a 37-year-old white male with mild cognitive impairment admitted with agitation hallucinations paranoia likely secondary to the use of methamphetamine. Patient had been placed involuntarily for up to [address] today. He had become agitated after a visit with his mother and required as needed medications due to aggression and significant agitation. He had continued to show evidence of limited insight stating that he was at simply wanted to return home and would be able to manage his sobriety. He had reported no desire to consider any form of substance abuse treatment despite his previous failure with maintenance of sobriety just 2 weeks ago. Mental Status Exam MSE Comments: This is an obese white male in hospital scrubs with limited grooming and eye contact. Less disheveled and slightly better hygiene. No abnormal movements except for significant psychomotor agitation. He is in moderate to severe distress. Speech was more spontaneous and decreased rate and volume with speech impediment related to impairment. Mood was described as upset. His affect was mood congruent and irritable. Thought process was concrete and superficial. Thought content: Patient denied suicidal or homicidal ideation. He was agitated and threatening later on interview requiring chemical restraint. He denied current auditory and visual hallucinations. Attention and concentration were improving and memory was more reliable but none were formally tested. He is alert and oriented x3. Insight is poor. His judgment and impulse control are feeble. Vitals/I&O/Wt Last Vital Signs Temp 98.1 F 07/27/22 14:00 Pulse 124 H 07/27/22 14:00 Resp 20 H 07/27/22 14:00 BP 143/88 07/27/22 14:00 Pulse Ox 97 07/27/22 14:00 O2 Del Method 07/24/22 17:57 Weight last 48 hrs Weight 108.862 kg Data NPU 07/20/22 08:43 07/20/22 08:43 A&P Assessment and plan (1) Psychotic disorder due to psychoactive substance: (2) Hallucinations: Plan The patient is a 37-year-old white male who was discharged from this unit about 2 weeks ago once again presenting with with reports of auditory and visual hallucinations and increased paranoia likely related to methamphetamine use which was present in his urine on last admission. Patient once again involuntarily hospitalized. 1.? Restart Invega but increased to 6mg at night to target agitation, psychosis. Increased Invega to 9 mg p.o. nightly. Long acting injectable ordered today- 234mg IM invega sustenna 2.? Continue every 15 minute checks for safety. 3.? Encourage individual, group and milieu therapy once he has engaged. 4.? Encourage sobriety treatment after discharge to the hospital care to which he is willing to commit.? 5. 21-day hold confirmed in court today. Involuntary Hold Information 96 Hour Hold: 96 Hour Involuntary Admission: Yes 96 Hour Hold Ending Date: 07/27/22 96 Hour Hold Ending Time: 08:45 Attestations NPU Medical Necessity Statement*: Inpatient hospitalization is medically necessary and clinically appropriate at this time. We will monitor/initiate medications and make changes as indicated.? Likely length of stay 5-7 days. Coding Level of Care Code Acute Code for g Fwd Diagnoses Psychotic disorder due to psychoactive substance F19.959 Hallucinations R44.3
[2022-07-27] MEDS: paliperidone palmitate 234 mg Syringe IM (17:26)
[2022-07-27 19:55] VITALS: BP 105/63; PULSE 110; RESP 20; TEMP 36.7; O2SAT 98
[2022-07-27] MEDS: trazodone 50 mg Tablet PO (20:42)
[2022-07-27] MEDS: paliperidone ER 3 mg Tablet 9 MG PO (20:42)
[2022-07-27] MEDS: hyDROXYzine 25 mg Capsule 50 MG PO (20:42)
[2022-07-28 06:00] VITALS: BP 132/79; PULSE 70; RESP 18; O2SAT 97
[2022-07-28 14:00] VITALS: BP 142/95; PULSE 104; RESP 18; TEMP 36.4; O2SAT 98
[2022-07-28] MEDS: nicotine 4 mg lozenge MUCOUS MEM ×3 (14:47→19:56)
[2022-07-28] MEDS: hyDROXYzine 25 mg Capsule 50 MG PO ×2 (16:10→19:57)
--- NOTE | 2022-07-28 16:18 | PC.NURSE ---
After ending a phone call, patient came to this nurse stating that he needed something for his anxiety. Patient was visibly shaken and teary eyed. Administered 50mg PO Vistaril to patient. Will continue to monitor patient.
[2022-07-28] MEDS: ibuprofen 600 mg Tablet PO (17:11)
--- NOTE | 2022-07-28 17:38 | PC.NURSE ---
Patient's son's cell phone number is: [phone]. Patient's son is
[2022-07-28] MEDS: OLANZapine 5 mg ODT PO ×2 (18:20→21:23)
--- NOTE | 2022-07-28 18:22 | PC.NURSE ---
Patient stated that he is hearing voices. Patient stated that the voices are telling him to hurt himself. Administered 5mg Zyprexa to patient.
[2022-07-28] MEDS: nicotine 2 mg Gum BUCCAL (18:49)
--- NOTE | 2022-07-28 19:14 | P.NPUPN_ITS ---
Subjective NPU Subjective: Patient is a 37-year-old white male with mild cognitive impairment admitted with agitation hallucinations paranoia likely secondary to the use of methamphetamine. Patient continued to isolate himself in the milieu and was reporting feeling bored. He had been somewhat quiet and did not wish to speak today to the junior underwriter of this note stating that he was tired of being here. The patient had struggled with reading and writing and appeared to struggle with processing information in groups. He had acknowledged that he needed help with maintaining sobriety but continued to report no desire to engage in any inpatient substance abuse treatment. He had appeared to become very agitated in the presence of his mother requiring as needed medications and chemical restraint. He stated he was willing to continue with medications to help with managing his paranoia and did receive his intramuscular Invega Sustenna yesterday. Mental Status Exam MSE Comments: This is an burly white male in hospital scrubs with limited grooming and eye contact. Less disheveled and slightly better hygiene. No abn ormal movements except for significant psychomotor agitation. He is in moderate to severe distress. Speech was more spontaneous and decreased rate and volume with speech impediment related to impairment. Mood was described as upset. His affect was mood congruent, labile and irritable. Thought process was concrete and superficial. Thought content: Patient denied suicidal or homicidal idea tion. He denied current auditory and visual hallucinations. Attention and concentration were improving and memory was more reliable but none were formally tested. He is alert and oriented x3. Insight is poor. His judgment and impulse control are impaired. His intelligence was commensurate with mild cognitive impairment. Vitals/I&O/Wt Last Vital Signs Temp 97.6 F 07/28/22 14:00 Pulse 104 H 07/28/22 14:00 Resp 18 07/28/22 14:00 BP 142/95 07/28/22 14:00 Pulse Ox 98 07/28/22 14:00 O2 Del Method 07/28/22 06:00 Data NPU 07/20/22 08:43 07/20/22 08:43 A&P Assessment and plan (1) Psychotic disorder due to psychoactive substance: (2) Hallucinations: Plan The patient is a 37-year-old white male who was discharged from this unit about 2 weeks ago once again presenting with with reports of auditory and visual hallu cinations and increased paranoia likely related to methamphetamine use which was present in his urine on last admission. Patient once again involuntarily hospitalized. 1.? Restart Invega but increased to 6mg at night to target agitation, psychosis. Continue Invega to 9 mg p.o. nightly. Long acting injectable ordered and given on 07/27/22-234mg IM invega sustenna 2.? Continue every 15 minute checks for safety. 3.? Encourage individual, group and milieu therapy once he has engaged. 4.? Encourage sobriety treatment after discharge to the hospital care to which he is willing to commit.? 5. 21-day hold confirmed in court today. Involuntary Hold Information 96 Hour Hold: 96 Hour Involuntary Admission: Yes 96 Hour Hold Ending Date: 07/27/22 96 Hour Hold Ending Time: 08:45 Attestations NPU Medical Necessity Statement*: Inpatient hospitalization is medically necessary and clinically appropriate at this time. We will monitor/initiate medications and make changes as indicated.? Likely length of stay 5-7 days. Coding Level of Care Code Acute Code for [facility] Fwd Diagnoses Psychotic disorder due to psychoactive substance F19.959 Hallucinations R44.3
[2022-07-28 19:55] VITALS: BP 137/69; PULSE 112; RESP 18; TEMP 36.7; O2SAT 97
[2022-07-28] MEDS: paliperidone ER 3 mg Tablet 9 MG PO (19:56)
[2022-07-28] MEDS: trazodone 50 mg Tablet PO (19:57)
[2022-07-29 06:00] VITALS: BP 124/80; PULSE 66; RESP 20; TEMP 36.4; O2SAT 99
[2022-07-29] MEDS: nicotine 4 mg lozenge MUCOUS MEM ×5 (11:31→20:26)
[2022-07-29] MEDS: acetaminophen 325 mg Tablet 650 MG PO ×2 (13:35→18:20)
[2022-07-29 14:00] VITALS: BP 148/85; PULSE 105; RESP 18; TEMP 36.7; O2SAT 98
[2022-07-29] MEDS: hyDROXYzine 25 mg Capsule 50 MG PO ×2 (15:51→20:26)
[2022-07-29] MEDS: OLANZapine 5 mg ODT PO (17:55)
--- NOTE | 2022-07-29 18:04 | W.PM.NPUPNS ---
Subjective NPU Subjective: Patient is a 37-year-old white male with mild to moderate cognitive impairment admitted with agitation, hallucinations , and paranoia likely secondary to the use of methamphetamine abuse. The patient continued to struggle with his emotions with periods of crying and reporting frustration at having to be here. The patient did not appear to attend groups and struggled with processing information within the group. He had acknowledged being illiterate and struggled with paying attention and gaining information regarding his medications. He had expressed concern that he could not manage oral medications and remember to take them but stated that he was motivated to continue a once a month shot. He had reported no side effects from his Invega Sustenna. Mental Status Exam MSE Comments: This is an burly white male in hospital scrubs with limited grooming and eye contact. Less disheveled and slightly better hygiene. No abnormal movements except for significant psychomotor agitation. He is in moderate to severe distress. Speech was more spontaneous and decreased rate and volume with speech impediment related to impairment. Mood was described as upset. His affect was mood congruent but less irritable. Thought process was concrete and superficial. Thought content: Patient denied suicidal or homicidal ideation. He denied current auditory and visual hallucinations. Attention and concentration were improving and memory was more reliable but none were formally tested. He is alert and oriented x3. Insight is poor. His judgment and impulse control are impaired. His intelligence was commensurate with mild cognitive impairment. Vitals/I&O/Wt Last Vital Signs Temp 98.1 F 07/29/22 14:00 Pulse 105 H 07/29/22 14:00 Resp 18 07/29/22 14:00 BP 148/85 07/29/22 14:00 Pulse Ox 98 07/29/22 14:00 O2 Del Method Room Air 07/29/22 06:00 Data NPU 07/20/22 08:43 07/20/22 08:43 A&P Assessment and plan (1) Psychotic disorder due to psychoactive substance: (2) Hallucinations: Plan The patient is a 37-year-old white male who was discharged from this unit about 2 weeks ago once again presenting with with reports of auditory and visual hallucinations and increased paranoia likely related to methamphetamine use which was present in his urine on last admission. Patient once again involuntarily hospitalized. 1.? Long acting injectable ordered and given on 07/27/22-234mg IM invega sustenna. 2.? Continue every 15 minute checks for safety. 3.? Encourage individual, group and milieu therapy once he has engaged. 4.? Encourage sobriety treatment after discharge to the hospital care to which he is willing to commit.? 5. 21-day hold confirmed in court, he appears to be poor candidate for drug rehabilitation due to cognitive limitations. Involuntary Hold Information 96 Hour Hold: 96 Hour Involuntary Admission: Yes 96 Hour Hold Ending Date: 07/27/22 96 Hour Hold Ending Time: 08:45 Attestations NPU Medical Necessity Statement*: Inpatient hospitalization is medically necessary and clinically appropriate at this time. We will monitor/initiate medications and make changes as indicated.? Likely length of stay 2-3 days. Coding Level of Care Code Acute Code for [facility] Fwd Diagnoses Psychotic disorder due to psychoactive substance F19.959 Hallucinations R44.3
[2022-07-29] MEDS: trazodone 50 mg Tablet PO (20:26)
[2022-07-29] MEDS: paliperidone ER 3 mg Tablet 9 MG PO (20:26)
[2022-07-29 22:00] VITALS: RESP 15
[2022-07-30 06:00] VITALS: RESP 16
[2022-07-30] MEDS: paliperidone palmitate 156 mg Syringe IM (10:00)
[2022-07-30 11:41] VITALS: BP 148/85; PULSE 105; RESP 16; TEMP 36.7; O2SAT 100
--- NOTE | 2022-07-30 12:08 | W.PM.NPUDCS ---
Diagnoses at Discharge Discharge Diagnosis (1) Psychotic disorder due to psychoactive substance: Status: Resolved (2) Hallucinations: Status: Resolved Reason for Visit Reason for Visit: [facility] Eval Brief History: History of Present Illness Markie Meza is a 37 year old male who presented to the emergency department with the following report: Chief Complaint: Psychiatric Symptoms Stated Complaint: [facility] Eval Time Seen by Provider: 07/20/22 08:22 Source: patient Mode of arrival: ambulatory History of Present Illness:?? 29-year-old male presents emergency room with a family friend he is acutely psychotic with auditory and visual hallucinations telling him to harm himself and others.? He admits to all of this he also endorses suicidal intent.? He last used meth 2 days ago.? He has a history of methamphetamine and alcohol abuse. MD complaint: suicidal ideation and feels depressed Onset (ago): day(s) Duration: constant History of same: Yes Relieving factors: none Exacerbating factors: drug use Context: recent drug abuse Associated psychiatric symptoms: depression, suicidal ideation, homicidal ideation, auditory hallucinations and visual hallucinations Associated symptoms: Reports auditory hallucinations, visual hallucinations, depression, homicidal ideation and suicidal ideation Treatments prior to arrival: none If self harm: admits thoughts of self harm and has plan Was admitted to the neuropsychiatric unit for definitive treatment of those issues.? He once again presents as a limited historian due to some likely lethargy secondary to his presumed methamphetamine withdrawal.? He presents with limited responses but endorsing that he has not been taking his medication, that he has been still engaged in methamphetamine use and that he came to the hospital secondary to feeling suicidal and having hallucinations.? We discussed the risk benefits and alternatives of restarting the Invega but at 6 mg p.o. nightly as well as working with the treatment team to figure out if we can find a reasonable treatment option to begin to impact his drug use.? He was fairly ambivalent in the conversation but mostly secondary to being lethargic and wanting to really sleep versus answering the questions.? An excerpt of his discharge summary from 07/09/2022 is included below for context and the fact that he denies substantive changes since that time.? UDS was not back at the time of interview. Per his 07/09/2022 [facility] inpatient psychiatric discharge summary: SI? Brief History: History of Present Illness Markie Meza is a 37 year old male who presented to the emergency department on 07/03/2022 with complaints of auditory and visual hallucinations with reports of thoughts of hurting himself and thoughts of hurting others.? The patient was admitted to the neuropsychiatric unit for further evaluation and treatment.? Prior to arriving on the neuropsychiatric unit, the patient had been very agitated and required the use of as needed medications including Geodon Ativan and Haldol.? The patient on interview today reports that he has been having problems with hearing voices telling him to hurt himself and seeing things telling him to hurt himself.? He has endorsed increased suspiciousness of others and states that the voices are sometimes jumbled.? He had reported that he had been using methamphetamine intranasally and states that he had previously consumed alcohol but was no longer drinking.? The patient was a poor historian and hostile and belligerent throughout much of the interview insisting that he needed to immediately check on his house.? Patient had reported that he understood that he was on a 96-hour hold and stated that he did not like to take medications.? Patient had acknowledged having depressed mood but did not elaborate any further regarding any changes in energy appetite or concentration.? He reports having been diagnosed as having cognitive impairment and states that he was currently on disability for ADHD. Past psychiatric history: Patient denied any past history of psychiatric treatment other than reports of having been treated with ADHD as a child and reporting having been hospitalized as a teenager in [place] for psychiatric reasons. 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 He had endorsed using methamphetamine infrequently for several years.? He denied any other drug use.? He smokes cigarettes Family psychiatric history: None reported Legal History: unknown Social history: Patient was born in [facility]. He had reported having several siblings.? He reports that he grew up in a dysfunctional family and states that his biological parents are no longer together.? He reports that his mother lives in [place] and his father is .? He reports having a significant learning disability and graduated [employer] with a special diploma.? He had reported that he is currently on disability and is not employed.? He denies any sexual physical or emotional abuse. He reports he has never been but has children. ? Hospital Course Discharge Summary: During the hospitalization, patient had routine laboratory studies which were within normal limits except for few outliers.? Additionally there was a general medical evaluation which was also within normal limits and revealed no new acute processes. At the time of discharge, lethality was denied and psychosis was resolving.? Mood and anxiety were well managed.? Patient endorsed a plan to avoid all drugs of abuse and follow-up with the aftercare recommendations of the treatment team.? Patient was evaluated and deemed to be absent credible lethality, and had achieved the maximum benefit from an inpatient hospitalization, so was discharged.? He refused all efforts for outpatient or inpatient substance abuse treatment but was willing to receive outpatient medication management for psychotic symptoms. Hospital Course Hospital Course Discharge Summary: During the hospitalization, patient had routine laboratory studies which were within normal limits except for few outliers. Additionally there was a general medical evaluation which was also within normal limits and revealed no new acute processes. At the time of discharge, lethality was denied and psychosis was resolving. Mood and anxiety were well managed. Patient endorsed a plan to avoid all drugs of abuse and follow-up with the aftercare recommendations of the treatment team. Patient was evaluated and deemed to be absent credible lethality, and had achieved the maximum benefit from an inpatient hospitalization, so was discharged. He was placed on IM invega sustenna and 3 shots Involuntary Hold Information 96 Hour Hold: 96 Hour Involuntary Admission: Yes 96 Hour Hold Ending Date: 07/27/22 96 Hour Hold Ending Time: 08:45 Mental Status Exam MSE Comments: This is an burly white male in hospital scrubs with limited grooming and eye contact. Less disheveled and slightly better hygiene. No abnormal movements except for significant psychomotor agitation. He is in mild distress. Speech was more spontaneous and decreased rate and volume with speech impediment related to impairment. Mood was described as better. His affect was brighter on discharge. Thought process was concrete and superficial. Thought content: Patient denied suicidal or homicidal ideation. He denied current auditory and visual hallucinations. Attention and concentration were improving and memory was more reliable but none were formally tested. He is alert and oriented x3. Insight is poor. His judgment and impulse control are at baseline. His intelligence was commensurate with mild cognitive impairment. Discharge Data Studies Completed and Pending: Pending at discharge Category Date Time Status Drug Screen, Urin e Stat Lab 07/20/22 09:11 Uncollected Laboratory Results WBC 12.4 10^3/uL (4.0 -10.0) H 07/20/22 08:43 RBC 5.06 10^6/uL (4.1 -5.3) 07/20/22 08:43 Hgb 14.8 g/dL (11.7-1 6.6) 07/20/22 08:43 Hct 44.6 % (42.0-52.0 ) 07/20/22 08:43 MCV 88.1 fl (80-94) 07/20/22 08:43 MCH 29.2 pg (28.0-34. 0) 07/20/22 08:43 MCHC 33.2 g/dL (30.0-3 6.0) 07/20/22 08:43 RDW 13.5 % (12.1-15.1 ) 07/20/22 08:43 Plt Count 308 10^3/cmm (130 -400) 07/20/22 08:43 MPV 9.9 fL (7.4-10.4) 07/20/22 08:43 Neut % (Auto) 69.1 % 07/20/22 08:43 Lymph % (Auto) 18.8 % 07/20/22 08:43 [place] % (Auto) 9.5 % 07/20/22 08:43 Eos % (Auto) 1.6 % 07/20/22 08:43 Baso % (Auto) 0.6 % 07/20/22 08:43 Neut # (Auto) 8.53 10^3/uL (1.8 -7.7) H 07/20/22 08:43 Lymph # (Auto) 2.3 10^3/uL (0.8- 4.8) 07/20/22 08:43 [place] # (Auto) 1.2 10^3/uL (0.2- 0.9) H 07/20/22 08:43 Eos # (Auto) 0.2 10^3/uL (0.0- 0.8) 07/20/22 08:43 Baso # (Auto) 0.1 10^3/uL (0.0- 0.1) 07/20/22 08:43 Nucleated RBC % (a uto) 0 % 07/20/22 08:43 Nucleated RBCs # 0.0 /100WBC 07/20/22 08:43 Sodium 133 mmol/L (136-1 45) L 07/20/22 08:43 Potassium 3.3 mmol/L (3.5-5 .1) L 07/20/22 08:43 Chloride 99 mmol/L (98-107 ) 07/20/22 08:43 Carbon Dioxide 25 mmol/L (22-29) 07/20/22 08:43 Anion Gap 12.3 (5-19) 07/20/22 08:43 BUN 8 mg/dL (6-20) 07/20/22 08:43 Creatinine 0.8 mg/dL (0.7-1. 2) 07/20/22 08:43 GFR Calculation 108.2 mL/min (90- 130) 07/20/22 08:43 Glucose 92 mg/dL (65-115) 07/20/22 08:43 Calculated Osmolal ity 274 mOsm/kg (285- 295) L 07/20/22 08:43 Calcium 8.9 mg/dL (8.5-10 .5) 07/20/22 08:43 Total Bilirubin 0.2 mg/dL (0.15-1 .2) 07/20/22 08:43 AST 17 U/L (0-40) 07/20/22 08:43 ALT 17 U/L (0-41) 07/20/22 08:43 Alkaline Phosphata se 97 U/L (40-130) 07/20/22 08:43 Total Protein 7.4 g/dL (6.6-8.7 ) 07/20/22 08:43 Albumin 4.3 g/dL (3.5-5.2 ) 07/20/22 08:43 Globulin 3.1 g/dL (1.3-4.6 ) 07/20/22 08:43 Salicylates < 0.3 mg/dL (3-10 ) L 07/20/22 08:43 Acetaminophen < 5.0 ug/mL (10-3 0) L 07/20/22 08:43 Ethyl Alcohol < 10 mg/dL (0-10) 07/20/22 08:43 Coronavirus 229E ( PCR) Not detected (NO T DETECT) 07/24/22 17:46 SARS-CoV-2 (PCR) Not detected (NO T DETECT) 07/24/22 17:46 SARS-CoV-2 Ag (Rap id) Cancelled 07/24/22 17:46 Vitals: Last Vital Signs Temp 98.1 F 07/30/22 11:41 Pulse 105 H 07/30/22 11:41 Resp 16 07/30/22 11:41 BP 148/85 07/30/22 11:41 Pulse Ox 100 07/30/22 11:41 O2 Del Method Room Air 07/29/22 06:00 Discharge Plan Discharge Patient Disposition: Home Condition: Stable Prescriptions: New Invega Sustenna 117 mg/0.75 mL syringe 117 mg IM Q30D Qty: 0.75 1RF Rx Instructions: This shot is due on 08/24/22 Continued clonidine HCl 0.1 mg Tablet 0.1 mg PO TID 30 Days Qty: 90 1RF Discontinued paliperidone 3 mg Tablet Extended Release 24 Hr 3 mg PO .at night 30 Days Qty: 30 1RF No Action (DME) Ankle Brace [facility] See Rx Instructions .Route Qty: 1 0RF Rx Instructions: As directed Discharge Orders: Discharge Order (Routine); Ordered 07/30/22 Ordered By: David Peterson Referrals: [facility] [Other] (Your application has been sent. Call to check on date and time for the Blitz happening in August. ) [facility] [Outside] - 08/06/22 8:45 am (Follow up appointment 08/06/22@ 08:45 am with Bogdan Conte for 7 day follow-up only, not for therapy. ) Anthony Panda MD [Physician] - Jo-Ann Interiano, [email or web address] [Staff Physician] - 08/21/22 9:30 am Discharge Diet: Usual diet Discharge Activity: Resume usual activity Patient Instructions: Clonidine (By mouth), Paliperidone (By injection) (Invega Sustenna, Invega Trinza, Invega..., Psychotic Disorder (ED), Suicide Prevention (DC), Opioid Safety Discharge Attestations NPU Time Spent in Discharge Care*: less than 30 min Specific Discharge Activities: Specific discharge activities: educating patient and documenting/other paperwork Coding Level of Care Code Acute [facility] DC note Diagnoses Psychotic disorder due to psychoactive substance F19.959 Hallucinations R44.3
[2022-07-30] MEDS: nicotine 4 mg lozenge MUCOUS MEM (12:18)
--- NOTE | 2022-07-30 12:55 | DCPLANNER ---
IMM was given to pt and rights explained and a copy was placed in pts file.
== END 2022-07-30 13:05 | disposition home or self-care (01) | DRG 897 ==
LOC: ER 09:52 → NP 14:10
PROVIDERS: Admitting Provider Psychiatry & Neurology Psychiatry; Emergency Provider Family Medicine; Visit Provider Psychiatry & Neurology Psychiatry
DX: F15.151 Other stimulant abuse with stimulant-induced psychotic disorder with hallucinations (principal); R45.851 Suicidal ideations; R45.850 Homicidal ideations; F15.13 Other stimulant abuse with withdrawal; F17.210 Nicotine dependence, cigarettes, uncomplicated; Z86.73 Personal history of transient ischemic attack (TIA), and cerebral infarction without residual deficits
CPT/HCPCS: 36415; 80053; 80307; 85025; 87635; 96372; 97150; 97165; 99285; J1200; J1630; J2060; J3486

== ENCOUNTER 2022-07-31 23:45 | Emergency (ER) | payer MEDICARE, MEDICAID, SELFPAY ==
[2022-08-01 00:01] VITALS: BP 129/93; PULSE 104; RESP 20; TEMP 36.7; O2SAT 98; BMI 34.4
[2022-08-01] MEDS: tetracaine 0.5% Op Soln 4 mL Btl 1 DROP EYE-BOTH (00:30)
[2022-08-01] MEDS: fluorescein 1 mg Strip EYE-BOTH (00:31)
[2022-08-01] MEDS: eye irrigation 30 mL Btl EYE-BOTH (00:31)
[2022-08-01] MEDS: ketorolac 0.5% Op 5 mL Btl 1 DROP EYE-BOTH (00:31)
[2022-08-01] MEDS: polymyxin-trimethoprim Op Soln 10 mL Btl 1 DROP EYE-BOTH (00:32)
--- NOTE | 2022-08-01 02:40 | W.ED.EYEPROB ---
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 His eyes began to hurt this evening. He complains of pain, blurry vision, light sensitivity, etc. chief complaint: eye pain and eye redness Onset (ago): hour(s) Onset description: sudden Duration: constant Location: both eyes Eye Symptoms: burning, redness, pain, blurry vision and photophobia Place: home Mechanism: UV exposure Severity: moderate If Pain, Quality: burning Associated symptoms: Denies cough, fever(s), nausea, neck pain, short of breath or vomiting Treatments Prior to Arrival: none Review of Systems Const: Denies: fever(s) ENMT: Denies: throat pain Card: Denies: chest pain GI: Denies: nausea or vomiting Musc: Denies: neck pain PFS ED PFSH: Medical History (Updated 08/01/22 @ 00:36 by Saeid York DO) CVA (cerebral vascular accident) Kidney stones Psychiatric care Right ankle sprain Surgical History Hx of tonsillectomy Family History Family/Other Cancer Diabetes Mother No problems noted. Social History Smoking and tobacco status: current every day smoker Alcohol intake: current Marital status: Single Physical Exam Const: COMMON NORMALS: no acute distress GENERAL APPEARANCE: cooperative; not ill appearing and not frail appearing HENMT: COMMON NORMALS: normocephalic, atraumatic and Normal external nose present HEAD & SCALP: normocephalic and atraumatic FACE & SINUS: normal facial exam and face symmetric NOSE: Normal external nose present Eye: COMMON NORMALS: Equal, round and reactive pupils present and EOMs intact bilaterally CONJUNCTIVA: Yes conjunctival abnormal positive bilateral conjunctival injection; without discharge PUPIL: Yes Equal, round and reactive pupils present Neck/C-Spine: GENERAL: Yes trachea midline Chest: CHEST: Yes Symmetrical chest wall rise Resp: COMMON NORMALS: normal respiratory effort, No retractions, No use of accessory muscles and clear to auscultation bilaterally AUSCULTATION: clear to auscultation bilaterally Cardio: COMMON NORMALS: regular rate and regular rhythm RATE: regular rate RHYTHM: regular rhythm GI: COMMON NORMALS: Normal to inspection, nondistended, normoactive bowel sounds present Extremity: COMMON NORMALS: no pedal edema Neuro: MARCELINO COMA SCALE: document GCS findings Marcelino coma scale eye opening: Spontaneous Marcelino coma scale verbal response: Orientated [place] coma scale motor response: Obey commands Marcelino coma scale total score: 15 SENSORY EXAM: Yes extremities (intact) Psych: COMMON NORMALS: speech normal SPEECH: Yes normal speech Skin: COMMON NORMALS: no rashes or lesions noted GENERAL SKIN EXAM: no rashes or lesions noted Course Vital Signs: Vital signs: Vital Signs Temperature 98.1 F 08/01/22 00:01 Pulse Rate 104 H 08/01/22 00:01 Respiratory Rate 20 H 08/01/22 00:01 Blood Pressure 129/93 08/01/22 00:01 Pulse Oximetry 98 08/01/22 00:01 Oxygen Delivery Me thod Room Air 08/01/22 00:01 MDM - Eye Problem Medical Decision Making Findings consistent with UV keratitis. Treat accordingly. Ketorolac eyedrops. Polytrim. Ophthalmology follow-up. Discharge Plan Discharge Patient Disposition: Home Clinical Impression: Ultraviolet keratitis of both eyes Condition: Stable Prescriptions: No Action (DME) Ankle Brace Misc See Rx Instructions .Route Qty: 1 0RF Rx Instructions: As directed clonidine HCl 0.1 mg Tablet 0.1 mg PO TID 30 Days Qty: 90 1RF Invega Sustenna 117 mg/0.75 mL syringe 117 mg IM Q30D Qty: 0.75 1RF Rx Instructions: This shot is due on 08/24/22 Discharge Orders: Discharge ED (Routine); Ordered 08/01/22 Ordered By: Saeid York Referrals: Liu Womack [Referring] - 4-7 days Patient Instructions: Keratitis (ED) Activity Restrictions/Additional Instructions: Use the ketorolac eyedrops every 6 hours while awake for pain. Antibiotic eyedrops every 4 hours while awake for the next 7 days. If symptoms or not improving significantly in 3 days, follow-up with ophthalmology. Their number is listed above. Let them know you were seen in the ER. Coding Level of Care Code ED Project Production Engineer for 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
--- NOTE | 2022-08-05 15:21 | DCPLANNER ---
TCM called patient due to no primary physician - patient declines
== END 2022-08-01 00:40 | disposition home or self-care (01) ==
PROVIDERS: Emergency Provider Emergency Medicine
DX: H16.133 Photokeratitis, bilateral (principal); W89.8XXA Exposure to other man-made visible and ultraviolet light, initial encounter; Z86.73 Personal history of transient ischemic attack (TIA), and cerebral infarction without residual deficits; F17.210 Nicotine dependence, cigarettes, uncomplicated
CPT/HCPCS: 99283

== ENCOUNTER → 2022-08-17 10:18 | Outpatient (BNVA) | payer MEDICARE, MEDICAID, SELFPAY | PROVIDERS: Visit Provider Podiatrist Foot & Ankle Surgery | DX: M21.611 Bunion of right foot (principal); M21.612 Bunion of left foot; M25.872 Other specified joint disorders, left ankle and foot; M21.40 Flat foot [pes planus] (acquired), unspecified foot | CPT/HCPCS: 73630; 99203 ==

== ENCOUNTER → 2022-08-21 11:58 | Outpatient (BNVA) | payer MEDICARE, MEDICAID, SELFPAY | PROVIDERS: Visit Provider Nurse Practitioner Psychiatric/Mental Health | DX: F15.20 Other stimulant dependence, uncomplicated (principal); F12.90 Cannabis use, unspecified, uncomplicated; F17.210 Nicotine dependence, cigarettes, uncomplicated; Z79.899 Other long term (current) drug therapy | CPT/HCPCS: 80053; 80061; 80307; 83036 ==

== ENCOUNTER → 2022-10-28 09:05 | Outpatient (BNVA) | payer MEDICARE, MEDICAID, SELFPAY | PROVIDERS: Visit Provider Podiatrist Foot & Ankle Surgery | DX: M21.611 Bunion of right foot (principal); M21.612 Bunion of left foot; M25.872 Other specified joint disorders, left ankle and foot; M21.40 Flat foot [pes planus] (acquired), unspecified foot | CPT/HCPCS: 99213 ==

== ENCOUNTER 2023-03-09 15:37 | Emergency (ER) | payer MEDICARE, MEDICAID, SELFPAY ==
[2023-03-09 15:47] VITALS: BP 131/81; PULSE 102; RESP 17; TEMP 37.1; O2SAT 99; BMI 38.0
--- NOTE | 2023-03-09 16:19 | ED_ITS ---
HPI - General Adult General: Chief complaint: General Medical Stated complaint: skin problems Time Seen by Provider: 03/09/23 15:51 Source: patient and family (mother) Mode of arrival: ambulatory Limitations: no limitations History of Present Illness: Patient is a 37-year-old male who presents to ED today along with his mother for medical concerns. Mother states he had unprotected intercourse with a female individual approximately a 1-2 months ago. Mother states that the female sleeps around . She states she had one of patient's friends tell him that the hallucinations that he has could be secondary to tertiary syphilis/neurosyphilis. Patient has been dealing with hallucinations for years. He recently has been placed on Zyprexa by PCP and mother states these seem to be helping. Relieving factors: none Exacerbating factors: none Associated symptoms: Deny chest pain, dyspnea, headache(s), malaise, nausea, rash or vomiting Treatments prior to arrival: none Review of Systems Const: Denies: fever(s), chills, body aches, fatigue or malaise Eyes: Denies: change in vision, blurry vision, photophobia, floaters or seeing flashes Card: Denies: chest pain Resp: Denies: dyspnea GI: Denies: abdominal pain, nausea, vomiting or diarrhea : Denies: flank pain, difficulty urinating, dysuria, urinary frequency, urinary urgency, hematuria, genital pain, genital lesions, penile discharge, testicular pain, testicular mass, scrotal swelling or hematospermia Musc: Denies: neck pain, back pain, extremity pain or joint pain Skin/Breast: Denies: rash Neuro: Denies: headache(s), numbness in extremities, weakness in extremities, sensory changes or dizziness Psych: Reports: visual hallucinations and auditory hallucinations; Denies: suicidal ideation or homicidal ideation [facility] ED PFSH: Medical History Cigarette nicotine dependence CVA (cerebral vascular accident) Kidney stones Marijuana use, episodic 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 Social History Smoking and tobacco/nicotine status: current every day tobacco/nicotine user Alcohol intake: current Marital status: Single Physical Exam Const: COMMON NORMALS: no acute distress, average body habitus, patient oriented x3, no limitations, alert and well nourished HENMT: COMMON NORMALS: normocephalic and atraumatic HEAD & SCALP: normocephalic and atraumatic Eye: COMMON NORMALS: Equal, round and reactive pupils present and EOMs intact bilaterally GENERAL EYE: appearance normal, both eyes and all related structures and normal light reflex PUPIL: Yes Equal, round and reactive pupils present DIRECT OPHTHALMOSCOPY: Yes normal light reflex Neck/C-Spine: COMMON NORMALS: full ROM, no lymphadenopathy, supple and no meningeal signs Chest: COMMONS NORMALS: normal inspection of the chest Resp: COMMON NORMALS: normal respiratory effort and clear to auscultation bilaterally AUSCULTATION: clear to auscultation bilaterally Cardio: COMMON NORMALS: regular rate and regular rhythm RATE: regular rate RHYTHM: regular rhythm GI: COMMON NORMALS: Normal to inspection, nondistended, normoactive bowel sounds present, Soft to palpation, non-tender, No hepatosplenomegaly present and no masses PALPATION: Yes Soft to palpation and Yes No hepatosplenomegaly present : COMMON NORMALS: Yes no CVA tenderness BLADDER/KIDNEY EXAM: Yes no CVA tenderness Back/Pelvis: COMMON NORMALS: no CVA tenderness and thoracic and lumbar spine normal to inspection Extremity: COMMON NORMALS: normal to inspection Neuro: MARCELINO COMA SCALE: document GCS findings Marcelino coma scale eye opening: Spontaneous [place] coma scale verbal response: Orientated Marcelino coma scale motor response: Obey commands [place] coma scale total score: 15 COMMON NORMALS: patient oriented x3, CN's II-XII intact bilaterally, moves all extremities, no focal motor deficits, no sensory deficits noted and gait normal SENSORIUM/ORIENTATION: Yes alert MENINGEAL SIGNS: Yes no meningeal signs Skin: COMMON NORMALS: no rashes or lesions noted GENERAL SKIN EXAM: no rashes or lesions noted Course Vital Signs: Vital signs: Vital Signs Temperature 98.7 F 03/09/23 15:47 Pulse Rate 102 H 03/09/23 15:47 Respiratory Rate 17 03/09/23 15:47 Blood Pressure 131/81 03/09/23 15:47 Pulse Oximetry 99 03/09/23 15:47 Oxygen Delivery Me thod Room Air 03/09/23 15:47 MDM - General Adult Medical Decision Making Patient's hallucinations have been present even before the reported worrisome exposure. Patient denies ever having a genital lesion/chancre. I have zero concern at this time for tertiary/neurosyphilis. I do recommend he go to the health department for full STD screening if he is worried about his recent unprotected exposure. No radiology studies performed this visit Discharge Plan Discharge Patient Disposition: Home Clinical Impression: Hallucinations Condition: Stable Prescriptions: No Action propranolol 20 mg tablet 20 mg PO .morning Qty: 30 3RF Rx Instructions: Take one tablet every morning olanzapine 10 mg tablet,disintegrating 10 mg PO BID Qty: 60 3RF Rx Instructions: Take one tablet twice per day Discharge Orders: Discharge ED (Routine); Ordered 03/09/23 Ordered By: Estella Miramontes Coding Level of Care Code ED Performance Improvement Coordinator for 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
== END 2023-03-09 17:08 | disposition home or self-care (01) ==
PROVIDERS: Emergency Provider Physician Assistant
DX: R44.3 Hallucinations, unspecified (principal); Z72.0 Tobacco use; Z86.73 Personal history of transient ischemic attack (TIA), and cerebral infarction without residual deficits
CPT/HCPCS: 99281

== ENCOUNTER 2023-03-18 16:33 | Emergency (ER) | payer MEDICARE, MEDICAID, SELFPAY ==
--- NOTE | 2023-03-18 16:33 | ECG_ITS ---
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 Measurements Intervals Waterfall Rate: 96 P: 70 IL: 153 QRS: 89 QRSD: 94 T: 61 QT: 331 QTc: 420 Interpretive Statements SINUS RHYTHM Normal EKG Compared to ECG 06/27/2022 17:17:35 No Change Electronically Signed On 03-18-2023 17:05:46 RAIL TRACTOR OPERATOR by Marlo Tirado M.D. [email or web address]
[2023-03-18 16:40] VITALS: BMI 38.0
[2023-03-18 16:42] VITALS: BP 160/87; PULSE 98; RESP 16; TEMP 37.2; O2SAT 98
--- NOTE | 2023-03-18 16:46 | ED_ITS ---
HPI - Chest Pain General: Chief Complaint: Chest Pain Stated Complaint: chest pain Time Seen by Provider: 03/18/23 16:36 History of Present Illness: Patient presents to the ER from residential with chest pain. Patient was given 3 and 24 mg aspirin and [address] Immediately when I walked in the room he asked me if he could leave. He said he did have to go through all the stuff pain it was in his heart. I told him that he was on advisable that he would have to sign out AGAINST MEDICAL ADVICE which he said he would and he proceeded to sign out AGAINST MEDICAL ADVICE. 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 Social History Smoking and tobacco/nicotine status: current every day tobacco/nicotine user Alcohol intake: current Marital status: Single Physical Exam Const: EXAM LIMITATIONS: other limitations (Unobtainable due to patient leaving AMA) Course Vital Signs: Vital signs: Vital Signs Temperature 98.9 F 03/18/23 16:42 Pulse Rate 98 03/18/23 16:42 Respiratory Rate 16 03/18/23 16:42 Blood Pressure 160/87 03/18/23 16:42 Pulse Oximetry 98 03/18/23 16:42 Oxygen Delivery Me thod Room Air 03/18/23 16:42 MDM - Chest Pain Medical Decision Making Patient left AMA Differential Diagnosis Unlikely acute massive pulmonary embolism, acute respiratory failure, acute myocardial infarction, cardiac arrest or sudden cardiac Medical Records I reviewed the patient's medical records. Lab Data I reviewed the patient's lab results. No radiology studies performed this visit EKG Data EKG 1: I personally reviewed and interpreted this EKG as follows: EKG interpretation date: 03/18/23 EKG interpretation time: 16:33 Prior EKG tracings: not available for review Interpretation: EKG showed ventricular rate 96 bpm, ID interval 153, QRS duration 94, QTc of 385, sinus rhythm Discharge Plan Discharge Patient Disposition: Left Against Medical Advice Clinical Impression: Chest pain Qualifiers: Chest pain type: unspecified Qualified Code(s): R07.9 - Chest pain, unspecified Condition: Stable Prescriptions: No Action propranolol 20 mg tablet 20 mg PO .morning Qty: 30 3RF Rx Instructions: Take one tablet every morning olanzapine 10 mg tablet,disintegrating 10 mg PO BID Qty: 60 3RF Rx Instructions: Take one tablet twice per day Discharge Orders: Discharge ED (Routine); Ordered 03/18/23 Ordered By: Momo Felipe Patient Instructions: Chest Pain (ED), Against Medical Advice (ED) Activity Restrictions/Additional Instructions: Please follow-up with your reproductive healthcare assistant and/or family practice physician [facility] for further evaluation and testing. If you change your mind or the pain changes or worsens please feel free to return to the ER for further evaluation testing. Coding Level of Care Code ED Large Animal Husbandry Technician for 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
[2023-03-18 16:54] VITALS: BP 160/87; PULSE 98; RESP 16; TEMP 37.2; O2SAT 98
== END 2023-03-18 16:55 | disposition left against medical advice (07) ==
PROVIDERS: Emergency Provider Emergency Medicine
DX: R07.9 Chest pain, unspecified (principal); Z53.29 Procedure and treatment not carried out because of patient's decision for other reasons; Z86.73 Personal history of transient ischemic attack (TIA), and cerebral infarction without residual deficits; Z72.0 Tobacco use
CPT/HCPCS: 93005; 99283

== ENCOUNTER → 2023-03-23 13:39 | Outpatient (BNVA) | payer MEDICARE, MEDICAID, OTHER, SELFPAY | PROVIDERS: Visit Provider Nurse Practitioner Psychiatric/Mental Health | DX: Z79.899 Other long term (current) drug therapy (principal); F15.251 Other stimulant dependence with stimulant-induced psychotic disorder with hallucinations; F12.90 Cannabis use, unspecified, uncomplicated; R45.88 Nonsuicidal self-harm; F17.210 Nicotine dependence, cigarettes, uncomplicated | CPT/HCPCS: 80306 ==

== ENCOUNTER 2023-03-24 12:43 | Inpatient (IN) | payer MEDICARE, MEDICAID, SELFPAY ==
[2023-03-24 12:47] VITALS: BP 141/89; PULSE 89; RESP 18; TEMP 37.2; O2SAT 98; BMI 35.2
--- NOTE | 2023-03-24 13:09 | PC.NURSE ---
this nurse informed pt in ER room 9 of hospital policy and need to change into scrubs and remove personal belongings. pt refused to change into scrubs or give up personal belongings. pt states he is hearing voices telling himself to hurt himself. this nurse informed ER physician caring for pt at this time. security notified at this time.
--- NOTE | 2023-03-24 13:15 | W.ED.PSYCHS ---
HPI - Psych General: Chief Complaint: Psychiatric Symptoms Stated Complaint: SI Time Seen by Provider: 03/24/23 12:51 Source: patient Mode of arrival: ambulatory Limitations: no limitations History of Present Illness: 37-year-old male who states he has a history of meth abuse he states has been using meth recently he is having loose [place] he states has been hearing voices they have been telling him to harm himself he states he had suicidal thoughts and thoughts of cutting his wrist denies any worsening improving factors. Associated symptoms: Reports auditory hallucinations, depression and suicidal ideation Review of Systems Const: Denies: fever(s), chills, body aches or change in appetite ENMT: Denies: throat pain or dental pain Card: Denies: chest pain Resp: Denies: dyspnea GI: Denies: abdominal pain, nausea, vomiting or diarrhea Musc: Denies: neck pain or back pain Skin/Breast: Denies: rash Neuro: Denies: headache(s) Psych: Reports: depression, auditory hallucinations and suicidal ideation [facility] ED PFSH: Medical History (Updated 03/24/23 @ 13:19 by Ananth Romano MD) Non-suicidal self harm as coping mechanism Marijuana use, episodic Cigarette nicotine dependence 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 Social History Smoking and tobacco/nicotine status: current every day tobacco/nicotine user Alcohol intake: current Marital status: Single Physical Exam Const: COMMON NORMALS: patient oriented x3 HENMT: COMMON NORMALS: normocephalic and atraumatic HEAD & SCALP: normocephalic and atraumatic Eye: COMMON NORMALS: Equal, round and reactive pupils present and EOMs intact bilaterally PUPIL: Yes Equal, round and reactive pupils present Neck/C-Spine: COMMON NORMALS: full ROM and supple Chest: COMMONS NORMALS: normal inspection of the chest and normal palpation of entire chest wall Resp: COMMON NORMALS: normal respiratory effort, No retractions, No use of accessory muscles and clear to auscultation bilaterally AUSCULTATION: clear to auscultation bilaterally Cardio: COMMON NORMALS: regular rate, regular rhythm and No murmurs present (Cardio) RATE: regular rate RHYTHM: regular rhythm GI: COMMON NORMALS: Normal to inspection, nondistended, normoactive bowel sounds present, Soft to palpation, non-tender and no masses PALPATION: Yes Soft to palpation Extremity: COMMON NORMALS: normal to inspection and full ROM Neuro: COMMON NORMALS: patient oriented x3, moves all extremities and no focal motor deficits Psych: COMMON NORMALS: mental status grossly normal, Normal thought process present and cooperative THOUGHT PROCESS: Normal thought process present THOUGHT CONTENT: Yes Suicidality present and Yes Hallucination(s) present Skin: COMMON NORMALS: no rashes or lesions noted and no wounds GENERAL SKIN EXAM: no rashes or lesions noted Course Vital Signs: Vital signs: Vital Signs Temperature 98.9 F 03/24/23 12:47 Pulse Rate 22 L 03/24/23 14:24 Respiratory Rate 18 03/24/23 12:47 Blood Pressure 141/89 03/24/23 12:47 Pulse Oximetry 98 03/24/23 12:47 Oxygen Delivery Me thod Room Air 03/24/23 12:47 MDM - Psych Medical Decision Making Patient presents here with meth abuse along with hallucinations and suicidal ideations patient placed under 96-hour hold I spoke to psychiatrist Dr. Ansari and will admit at this time. Medical Records I reviewed the patient's medical records. Lab Data I reviewed the patient's lab results. 03/24/23 13:17 03/24/23 13:17 Laboratory Results WBC 11.23 10^3/uL (3.29-11.43) 03/24/23 13:17 RBC 4.80 10^6/uL (3.85-5.65) 03/24/23 13:17 Hgb 14.80 g/dL (11.27-16.99) 03/24/23 13:17 Hct 45.5 % (37-53) 03/24/23 13:17 MCV 94.8 fl (82-101) 03/24/23 13:17 MCH 30.8 pg (27-33) 03/24/23 13:17 MCHC 32.5 g/dL (30-55) 03/24/23 13:17 RDW 13.1 % (12.1-15.1) 03/24/23 13:17 Plt Count 257 10^3/cmm (157-399) 03/24/23 13:17 MPV 10.5 fL (7.4-10.4) H 03/24/23 13:17 Neut % (Auto) 67.8 % 03/24/23 13:17 Lymph % (Auto) 21.2 % 03/24/23 13:17 [place] % (Auto) 7.3 % 03/24/23 13:17 Eos % (Auto) 2.8 % 03/24/23 13:17 Baso % (Auto) 0.5 % 03/24/23 13:17 Neut # (Auto) 7.60 10^3/uL (1.8-7.7) 03/24/23 13:17 Lymph # (Auto) 2.4 10^3/uL (0.8-4.8) 03/24/23 13:17 [place] # (Auto) 0.8 10^3/uL (0.2-0.9) 03/24/23 13:17 Eos # (Auto) 0.3 10^3/uL (0.0-0.8) 03/24/23 13:17 Baso # (Auto) 0.1 10^3/uL (0.0-0.1) 03/24/23 13:17 Nucleated RBC % (auto) 0 % 03/24/23 13:17 Nucleated RBCs # 0.0 /100WBC 03/24/23 13:17 Sodium 141 mmol/L (136-145) 03/24/23 13:17 Potassium 3.7 mmol/L (3.5-5.1) 03/24/23 13:17 Chloride 107 mmol/L (98-107) 03/24/23 13:17 Carbon Dioxide 23 mmol/L (22-29) 03/24/23 13:17 Anion Gap 14.7 (5-19) 03/24/23 13:17 BUN 15 mg/dL (6-20) 03/24/23 13:17 Creatinine 0.9 mg/dL (0.7-1.2) 03/24/23 13:17 GFR Calculation 94.4 mL/min (90-130) 03/24/23 13:17 Glucose 115 mg/dL (65-115) 03/24/23 13:17 Calculated Osmolality 294 mOsm/kg (285-295) 03/24/23 13:17 Calcium 8.8 mg/dL (8.5-10.5) 03/24/23 13:17 Total Bilirubin 0.2 mg/dL (0.15-1.2) 03/24/23 13:17 AST 13 U/L (0-40) 03/24/23 13:17 ALT 16 U/L (0-41) 03/24/23 13:17 Alkaline Phosphatase 94 U/L (40-130) 03/24/23 13:17 Total Protein 6.5 g/dL (6.6-8.7) L 03/24/23 13:17 Albumin 3.9 g/dL (3.5-5.2) 03/24/23 13:17 Globulin 2.6 g/dL (1.3-4.6) 03/24/23 13:17 Salicylates < 0.3 mg/dL (3-10) L 03/24/23 13:17 Acetaminophen < 5.0 ug/mL (10-30) L 03/24/23 13:17 Ethyl Alcohol < 10 mg/dL (0-10) 03/24/23 13:17 No radiology studies performed this visit Discharge Plan Discharge Patient Disposition: Admitted As Inpatient Admit Provider: Jason Ansari Clinical Impression: Suicidal ideation, Drug-induced psychotic disorder Condition: Stable Coding Level of Care Code ED Radioactivity Technician for 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
--- NOTE | 2023-03-24 13:19 | PC.PHAR ---
pt states he doesnt know the names of his medications-pt states he he brought in his medication bottles-medications entered are from the medication bottles the pt brought in-pt brought in olanzapine odt 10mg bid dated 03/17/23 15d/s and 5mg hs dated 11/20/22 90d/s
[2023-03-24 13:28] LABS: Basophils # 0.1 10^3/uL (0.0-0.1); Basophils % 0.5 %; Eosinophils # 0.3 10^3/uL (0.0-0.8); Eosinophils % 2.8 %; Hematocrit 45.5 % (37-53); Lymphocytes # 2.4 10^3/uL (0.8-4.8); Lymphocytes % 21.2 %; Mean Corpuscular HGB Conc 32.5 g/dL (30-55); Mean Corpuscular Hemoglobin 30.8 pg (27-33); Mean Corpuscular Volume 94.8 fl (82-101); Mean Platelet Volume 10.5 fL (7.4-10.4); Monocytes # 0.8 10^3/uL (0.2-0.9); Monocytes % 7.3 %; Neutrophils % 67.8 %; Nucleated Red Blood Cells % 0 %; Platelet Count 257 10^3/cmm (157-399); Red Cell Distribution Width 13.1 % (12.1-15.1); White Blood Count 11.23 10^3/uL (3.29-11.43)
[2023-03-24] MEDS: haloperidol inj 5 mg/mL INJ 1 mL IM (13:35)
--- NOTE | 2023-03-24 13:35 | PC.NURSE ---
pt informed by security and house mover supervisor that pt is placed on 96 hour hold. pt irritable, cussing at staff. pt did cooperate and change into scrubs and give personal belongings to staff. pt started hitting himself and scratching arms multiple times. pt L arm started bleeding. wound dressed with coban and 2x2.
[2023-03-24 13:49] LABS: Alanine Aminotransferase 16 U/L (0-41); Albumin Level 3.9 g/dL (3.5-5.2); Alkaline Phosphatase 94 U/L (40-130); Anion Gap 14.7 (5-19); Aspartate Amino Transferase 13 U/L (0-40); Blood Urea Nitrogen 15 mg/dL (6-20); Calcium 8.8 mg/dL (8.5-10.5); Carbon Dioxide 23 mmol/L (22-29); Chloride 107 mmol/L (98-107); Creatinine Clr Calc Pharmacy 138.9152; Globulin 2.6 g/dL (1.3-4.6); Glomerular Filtration Rate 94.4 mL/min (90-130); Glucose 115 mg/dL (65-115); Osmolality Calculated 294 mOsm/kg (285-295); Potassium 3.7 mmol/L (3.5-5.1); Sodium 141 mmol/L (136-145); Total Bilirubin 0.2 mg/dL (0.15-1.2); Total Protein 6.5 g/dL (6.6-8.7)
[2023-03-24 13:51] LABS: Acetaminophen < 5.0 ug/mL (10-30); Alcohol Level < 10 mg/dL (0-10); Salicylate < 0.3 mg/dL (3-10)
--- NOTE | 2023-03-24 13:51 | PC.NURSE ---
pt started getting irritable and cussing and raising voice at staff. pt began scratching arms causing them to bleed. pt pacing around room and hitting hand apprentice instrument technician in room 9. security, 4 [facility] deputies, x3 nurses at bedside. pt given 20mg geodon IM at 1350. pt currently laying in bed in room 9 calm 1355.
[2023-03-24] MEDS: ziprasidone 20 mg/mL SDV IM (13:56)
[2023-03-24] MEDS: water for injection-sterile 10 ML (13:56)
--- NOTE | 2023-03-24 14:16 | PC.NURSE ---
report called to NPU by this nurse. security notified for transport to NPU
[2023-03-24 14:24] VITALS: PULSE 22
[2023-03-24 14:36] VITALS: BP 152/99; PULSE 106; RESP 16; TEMP 36.6; O2SAT 98
--- NOTE | 2023-03-24 19:33 | PC.NURSE ---
Patient has self-inflicted scratches to left and right forearms. Superficial in depth.
[2023-03-24 19:47] VITALS: BP 147/76; PULSE 77; RESP 15; TEMP 36.7; O2SAT 96
[2023-03-25 06:00] VITALS: RESP 16
--- NOTE | 2023-03-25 06:51 | W.PM.NPUH&PS ---
Providers/Chief Complaint Admitting Physician: Jason Ansari MD Chief Complaint: SI HPI NPU History of Present Illness Markie Meza is a 37 year old male who presented to the emergency department with the following report: Chief Complaint: Psychiatric Symptoms Stated Complaint: SI Time Seen by Provider: 03/24/23 12:51 Source: patient Mode of arrival: ambulatory Limitations: no limitations History of Present Illness: 37-year-old male who states he has a history of meth abuse he states has been using meth recently he is having loose [place] he states has been hearing voices they have been telling him to harm himself he states he had suicidal thoughts and thoughts of cutting his wrist denies any worsening improving factors. Associated symptoms: Reports auditory hallucinations, depression and suicidal ideation He was admitted to the neuropsychiatric unit for definitive treatment of those issues. He presents today as he has presented to previous hospitalizations fairly disheveled, disorganized and indecisive. He had limited responses to the interview. He is known to this junior underwriter through past contacts. A discharge summary from July was reviewed with him and he denied substantive changes but seem to be willing to answer briefly and abruptly to anything to try to get the interview to end. He did acknowledge continued methamphetamine use and reports an openness to getting engaged in treatment. An excerpt of that discharge summary is included below for context and the fact that he is very limited as a historian at this point. We agreed we would review available data to identify the likelihood of adherence to his Invega and that we would restart the Invega as indicated with that information. We discussed the desire to initiate the long-acting injectable. We discussed his outpatient chart and the fact that he has been attending his appointments as scheduled and he could not give a clear indication of what happened to get things off course. We agreed we would assist him in getting things restarted. Per his 07/30/2022 [facility] inpatient psychiatric discharge summary: Discharge Diagnosis (1) Psychotic disorder due to psychoactive substance: Status: Resolved (2) Hallucinations: Status: Resolved Reason for Visit Reason for Visit: [facility] Eval Brief History: History of Present Illness Markie Meza is a 37 year old male who presented to the emergency department with the following report: Chief Complaint: Psychiatric Symptoms Stated Complaint: [facility] Eval Time Seen by Provider: 07/20/22 08:22 Source: patient Mode of arrival: ambulatory History of Present Illness: 29-year-old male presents emergency room with a family friend he is acutely psychotic with auditory and visual hallucinations telling him to harm himself and others. He admits to all of this he also endorses suicidal intent. He last used meth 2 days ago. He has a history of methamphetamine and alcohol abuse. MD complaint: suicidal ideation and feels depressed Onset (ago): day(s) Duration: constant History of same: Yes Relieving factors: none Exacerbating factors: drug use Context: recent drug abuse Associated psychiatric symptoms: depression, suicidal ideation, homicidal ideation, auditory hallucinations and visual hallucinations Associated symptoms: Reports auditory hallucinations, visual hallucinations, depression, homicidal ideation and suicidal ideation Treatments prior to arrival: none If self harm: admits thoughts of self harm and has plan Was admitted to the neuropsychiatric unit for definitive treatment of those issues. He once again presents as a limited historian due to some likely lethargy secondary to his presumed methamphetamine withdrawal. He presents with limited responses but endorsing that he has not been taking his medication, that he has been still engaged in methamphetamine use and that he came to the hospital secondary to feeling suicidal and having hallucinations. We discussed the risk benefits and alternatives of restarting the Invega but at 6 mg p.o. nightly as well as working with the treatment team to figure out if we can find a reasonable treatment option to begin to impact his drug use. He was fairly ambivalent in the conversation but mostly secondary to being lethargic and wanting to really sleep versus answering the questions. An excerpt of his discharge summary from 07/09/2022 is included below for context and the fact that he denies substantive changes since that time. UDS was not back at the time of interview. Per his 07/09/2022 [facility] inpatient psychiatric discharge summary: SI Brief History: History of Present Illness Markie Meza is a 37 year old male who presented to the emergency department on 07/03/2022 with complaints of auditory and visual hallucinations with reports of thoughts of hurting himself and thoughts of hurting others. The patient was admitted to the neuropsychiatric unit for further evaluation and treatment. Prior to arriving on the neuropsychiatric unit, the patient had been very agitated and required the use of as needed medications including Geodon Ativan and Haldol. The patient on interview today reports that he has been having problems with hearing voices telling him to hurt himself and seeing things telling him to hurt himself. He has endorsed increased suspiciousness of others and states that the voices are sometimes jumbled. He had reported that he had been using methamphetamine intranasally and states that he had previously consumed alcohol but was no longer drinking. The patient was a poor historian and hostile and belligerent throughout much of the interview insisting that he needed to immediately check on his house. Patient had reported that he understood that he was on a 96-hour hold and stated that he did not like to take medications. Patient had acknowledged having depressed mood but did not elaborate any further regarding any changes in energy appetite or concentration. He reports having been diagnosed as having cognitive impairment and states that he was currently on disability for ADHD. Past psychiatric history: Patient denied any past history of psychiatric treatment other than reports of having been treated with ADHD as a child and reporting having been hospitalized as a teenager in [place] for psychiatric reasons. 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 He had endorsed using methamphetamine infrequently for several years. He denied any other drug use. He smokes cigarettes Family psychiatric history: None reported Legal History: unknown Social history: Patient was born in [facility]. He had reported having several siblings. He reports that he grew up in a dysfunctional family and states that his biological parents are no longer together. He reports that his mother lives in [place] and his father is . He reports having a significant learning disability and graduated [employer] with a special diploma. He had reported that he is currently on disability and is not employed. He denies any sexual physical or emotional abuse. He reports he has never been but has children. Hospital Course Discharge Summary: During the hospitalization, patient had routine laboratory studies which were within normal limits except for few outliers. Additionally there was a general medical evaluation which was also within normal limits and revealed no new acute processes. At the time of discharge, lethality was denied and psychosis was resolving. Mood and anxiety were well managed. Patient endorsed a plan to avoid all drugs of abuse and follow-up with the aftercare recommendations of the treatment team. Patient was evaluated and deemed to be absent credible lethality, and had achieved the maximum benefit from an inpatient hospitalization, so was discharged. He refused all efforts for outpatient or inpatient substance abuse treatment but was willing to receive outpatient medication management for psychotic symptoms. Hospital Course Discharge Summary: During the hospitalization, patient had routine laboratory studies which were within normal limits except for few outliers. Additionally there was a general medical evaluation which was also within normal limits and revealed no new acute processes. At the time of discharge, lethality was denied and psychosis was resolving. Mood and anxiety were well managed. Patient endorsed a plan to avoid all drugs of abuse and follow-up with the aftercare recommendations of the treatment team. Patient was evaluated and deemed to be absent credible lethality, and had achieved the maximum benefit from an inpatient hospitalization, so was discharged. He was placed on IM invega sustenna and 3 shots Meds NPU Home Medications Medication Instructions Recorded Confirmed Last Taken Type olanzapine 10 mg disintegrating 10 mg PO BID #60 tabs 03/08/23 03/24/23 Unknown Rx tablet amoxicillin 875 mg-potassium 1 tab PO BID 03/24/23 03/24/23 Unknown History clavulanate 125 mg tablet naltrexone 50 mg tablet 50 mg PO QAM 03/24/23 03/24/23 Unknown History olanzapine 5 mg tablet 5 mg PO BEDTIME 03/24/23 03/24/23 Unknown History propranolol 20 mg tablet 20 mg PO QAM 03/24/23 03/24/23 Unknown History Allergies Allergy/AdvReac Type Severity Reaction Status Date / Time No Known Allergies Allergy Verified 03/23/23 12:51 [facility] NPU PFSH: Medical History (Updated 03/24/23 @ 13:19 by Ananth Romano MD) Non-suicidal self harm as coping mechanism Marijuana use, episodic Cigarette nicotine dependence 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 Social History Smoking and tobacco/nicotine status: current every day tobacco/nicotine user Alcohol intake: current Marital status: Single Mental Status Exam MSE Comments: This is an obese white male in hospital scrubs with limited grooming and eye contact. Mostly disheveled and with poor hygiene and clearly dirty and notable foul smell. No abnormal movements except for significant psychomotor retardation. Limited cooperation with exam in mild distress. Speech was limited and decreased rate and volume. Mood not described but affect was subdued. Thought process linear. Thought content: Patient endorsed suicidal but denied homicidal ideation, there were no delusions reported but clear paranoia noted, he endorsed auditory and visual hallucinations. Attention and concentration were limited and memory was unreliable but none were formally tested. He is alert and oriented to person and place. Insight, judgment and impulse control are impaired. Vitals/I&O/Wt Last Vital Signs Temp 98.0 F 03/24/23 19:47 Pulse 77 03/24/23 19:47 Resp 16 03/25/23 06:00 BP 147/76 03/24/23 19:47 Pulse Ox 96 03/24/23 19:47 O2 Del Method Room Air 03/24/23 19:47 03/24/23 03/24/23 03/25/23 14:59 22:59 06:59 Intake Total Balance Weight last 48 hrs Weight 111.13 kg Data NPU 03/24/23 13:17 03/24/23 13:17 A&P Assessment and plan (1) Psychotic disorder due to psychoactive substance: (2) Hallucinations: Plan The patient is a 37-year-old white male who was most recently discharged from this unit in July of this year presents as he often does with reports of auditory and visual hallucinations and increased paranoia likely related to methamphetamine use which was present in his urine on admission. Patient once again involuntarily hospitalized. 1.? Continue current medications or restart Invega if cannot determine adherence 2.? Continue every 15 minute checks for safety. 3.? Encourage individual, group and milieu therapy once he has engaged. 4.? Encourage sobriety treatment after discharge to the hospital care to which he is willing to commit.? Involuntary Hold Information 96 Hour Hold: 96 Hour Involuntary Admission: Yes 96 Hour Hold Ending Date: 07/27/22 96 Hour Hold Ending Time: 08:45 Attestations NPU Medical Necessity Statement*: Inpatient hospitalization is medically necessary and clinically appropriate at this time. We will monitor/initiate medications and make changes as indicated.? He will be in the hospital for over 2 midnights. Likely length of stay 5-7 days. Coding Level of Care Code Acute Code for Chg Fwd Diagnoses Psychotic disorder due to psychoactive substance F19.959 Hallucinations R44.3
[2023-03-25] MEDS: propranolol 20 mg Tablet PO (11:39)
[2023-03-25] MEDS: OLANZapine 10 mg TABLET PO ×2 (11:39→17:34)
[2023-03-25] MEDS: naltrexone hcl 50 mg Tablet PO (11:39)
[2023-03-25 14:00] VITALS: BP 122/71; PULSE 86; RESP 18; TEMP 36.9; O2SAT 99
[2023-03-25] MEDS: haloperidol 5 mg Tablet PO (15:03)
--- NOTE | 2023-03-25 15:03 | PC.NURSE ---
Administered 5mg haldol to patient after patient reported hearing voices. will continue to monitor
[2023-03-25] MEDS: OLANZapine 5 mg ODT PO (17:13)
[2023-03-25] MEDS: amoxicillin-clav 875-125 mg Tablet 1 TAB PO (17:34)
[2023-03-25] MEDS: nicotine 4 mg lozenge MUCOUS MEM (17:34)
[2023-03-25] MEDS: OLANZapine 5 mg TABLET PO (19:55)
--- NOTE | 2023-03-25 20:22 | PC.NURSE ---
pt ref vs upset and cussing about having to do a ua resp 18
[2023-03-25 21:16] LABS: Amphetamines Screen Urine Positive (Negative); Barbiturates Screen Urine Negative (Negative); Benzodiazepines Screen Urine Positive (Negative); Cocaine Screen Urine Negative (Negative); Opiate Screen Urine Negative (Negative); PCP Screen Urine Negative (Negative); THC Screen Urine Negative (Negative)
--- NOTE | 2023-03-26 06:43 | PC.NURSE ---
pt sleeping resp documented
[2023-03-26] MEDS: amoxicillin-clav 875-125 mg Tablet 1 TAB PO ×2 (08:46→17:19)
[2023-03-26] MEDS: propranolol 20 mg Tablet PO (08:46)
[2023-03-26] MEDS: naltrexone hcl 50 mg Tablet PO (08:46)
[2023-03-26] MEDS: OLANZapine 10 mg TABLET PO ×2 (08:46→17:24)
[2023-03-26] MEDS: nicotine 4 mg lozenge MUCOUS MEM ×2 (08:46→16:13)
--- NOTE | 2023-03-26 10:14 | P.NPUPN_ITS ---
Subjective NPU 2 Subjective: Patient presented today reporting that he is doing a little better. He reports he is tolerating the Zyprexa as currently prescribed. He reports that he has a place to go to at discharge he was just feeling bad and felt he needed to make some change so that things that get worse. He continues to demonstrate ambivalence about the methamphetamine and not really appreciating how impactful it is to his psychosis. We discussed possible treatment options other than the naltrexone including active recovery oriented treatment but he continues to be resistant. Mental Status Exam 2 MSE Comments: This is an obese white male in hospital scrubs with limited grooming and eye contact. Mostly disheveled with some improved hygiene and clearly dirty and no current notable foul smell. No abnormal movements except for significant psychomotor retardation. More cooperative with exam in mild distress. Speech was limited and decreased rate and volume. Mood reported as a little better, affect was subdued. Thought process linear. Thought content: Patient endorsed suicidal but denied homicidal ideation, there were no delusions reported but clear paranoia noted, he endorsed auditory and visual hallucinations. Attention and concentration were limited and memory was unreliable but none were formally tested. He is alert and oriented to person and place. Insight, judgment and impulse control are impaired. Vitals/I&O/Wt Last Vital Signs Temp 98.4 F 03/25/23 14:00 Pulse 86 03/25/23 14:00 Resp 18 03/25/23 14:00 BP 122/71 03/25/23 14:00 Pulse Ox 99 03/25/23 14:00 O2 Del Method Room Air 03/25/23 14:00 Weight last 48 hrs Weight 111.13 kg Data NPU 03/24/23 13:17 03/24/23 13:17 A&P Assessment and plan (1) Psychotic disorder due to psychoactive substance: (2) Hallucinations: Plan The patient is a 37-year-old white male who was most recently discharged from this unit in July of this year presents as he often does with reports of auditory and visual hallucinations and increased paranoia likely related to methamphetamine use which was present in his urine on admission. Patient once again involuntarily hospitalized. 1.? Continue current medications. Continue the Zyprexa 10 mg p.o. twice daily with an increase to the extra 5 mg at bedtime. 2.? Continue every 15 minute checks for safety. 3.? Encourage individual, group and milieu therapy once he has engaged. 4.? Encourage sobriety treatment after discharge to the hospital care to which he is willing to commit.? Involuntary Hold Information 2 96 Hour Hold: 96 Hour Involuntary Admission: Yes 96 Hour Hold Ending Date: 07/27/22 96 Hour Hold Ending Time: 08:45 Attestations NPU 2 Medical Necessity Statement*: Inpatient hospitalization is medically necessary and clinically appropriate at this time. We will monitor/initiate medications and make changes as indicated.?Likely length of stay 5-7 days. Coding Level of Care Code Acute Code for Chg Fwd Diagnoses Psychotic disorder due to psychoactive substance F19.959 Hallucinations R44.3
[2023-03-26 14:00] VITALS: BP 138/92; PULSE 86; RESP 16; TEMP 36.5; O2SAT 94
--- NOTE | 2023-03-26 15:26 | DCPLANNER ---
Imm was printed and given to patient and copy placed in file
--- NOTE | 2023-03-26 17:27 | DCPLANNER ---
Imm was given to pt and copy placed in file.
[2023-03-26] MEDS: OLANZapine 5 mg TABLET PO (20:04)
[2023-03-26 20:53] VITALS: BP 151/80; PULSE 82; RESP 20; O2SAT 96
[2023-03-27 06:00] VITALS: RESP 16
[2023-03-27] MEDS: amoxicillin-clav 875-125 mg Tablet 1 TAB PO ×2 (09:24→17:58)
[2023-03-27] MEDS: OLANZapine 10 mg TABLET PO ×2 (09:24→17:58)
[2023-03-27] MEDS: propranolol 20 mg Tablet PO (09:24)
[2023-03-27] MEDS: naltrexone hcl 50 mg Tablet PO (09:25)
[2023-03-27 14:00] VITALS: BP 145/72; PULSE 108; RESP 16; TEMP 36.3; O2SAT 96
--- NOTE | 2023-03-27 15:52 | PC.NURSE ---
Mr. Meza's mother came to visit him and stated to staff that she hoped he would not be released anytime soon because she believes he is getting worse. She says she is tired of this shit and hopes he stays here for a long time and gets help.
--- NOTE | 2023-03-27 16:32 | P.NPUPN_ITS ---
Subjective NPU 2 Subjective: Patient presented today reporting that he is doing okay. He reports that he is working with the treatment team for discharge planning but continues to seem ambivalent about any changes. We discussed working with them on Wednesday for a more clear discharge plan. He denied any issues with the medications. Mental Status Exam 2 MSE Comments: This is an obese white male in hospital scrubs with limited grooming and eye contact. Mostly disheveled with some improved hygiene and more kempt and no current notable foul smell. No abnormal movements except for psychomotor retardation. More cooperative with exam in mild distress. Speech was limited and decreased rate and volume. Mood reported as a little better, affect was subdued. Thought process linear. Thought content: Patient endorsed suicidal but denied homicidal ideation, there were no delusions reported but clear paranoia noted, he endorsed auditory and visual hallucinations. Attention and concentration were limited and memory was unreliable but none were formally tested. He is alert and oriented to person and place. Insight, judgment and impulse control are impaired. Vitals/I&O/Wt Last Vital Signs Temp 97.3 F L 03/27/23 14:00 Pulse 108 H 03/27/23 14:00 Resp 16 03/27/23 14:00 BP 145/72 03/27/23 14:00 Pulse Ox 96 03/27/23 14:00 O2 Del Method Room Air 03/27/23 14:00 Data NPU 03/24/23 13:17 03/24/23 13:17 A&P Assessment and plan (1) Psychotic disorder due to psychoactive substance: (2) Hallucinations: Plan The patient is a 37-year-old white male who was most recently discharged from this unit in July of this year presents as he often does with reports of auditory and visual hallucinations and increased paranoia likely related to methamphetamine use which was present in his urine on admission. Patient once again involuntarily hospitalized. 1.? Continue current medications. Continue the Zyprexa 10 mg p.o. twice daily with extra 5 mg at bedtime now. 2.? Continue every 15 minute checks for safety. 3.? Encourage individual, group and milieu therapy once he has engaged. 4.? Encourage sobriety treatment after discharge to the hospital care to which he is willing to commit.? Involuntary Hold Information 2 96 Hour Hold: 96 Hour Involuntary Admission: Yes 96 Hour Hold Ending Date: 07/27/22 96 Hour Hold Ending Time: 08:45 Attestations NPU 2 Medical Necessity Statement*: Inpatient hospitalization is medically necessary and clinically appropriate at this time. We will monitor/initiate medications and make changes as indicated.?Likely length of stay 4-6 days. Coding Level of Care Code Acute Code for Chg Fwd Diagnoses Psychotic disorder due to psychoactive substance F19.959 Hallucinations R44.3
[2023-03-27] MEDS: OLANZapine 5 mg TABLET PO (20:29)
[2023-03-27 20:47] VITALS: RESP 16
[2023-03-28 06:00] VITALS: BP 135/83; PULSE 93; RESP 15; O2SAT 98
[2023-03-28] MEDS: amoxicillin-clav 875-125 mg Tablet 1 TAB PO ×2 (09:47→17:01)
[2023-03-28] MEDS: propranolol 20 mg Tablet PO (09:47)
[2023-03-28] MEDS: naltrexone hcl 50 mg Tablet PO (09:47)
[2023-03-28] MEDS: OLANZapine 10 mg TABLET PO ×2 (09:48→17:01)
--- NOTE | 2023-03-28 13:04 | P.NPUPN_ITS ---
Subjective NPU 2 Subjective: Patient presented today continuing to spend a lot of time in bed but being up more often. He reports that he is tolerating his medication without any problems. He continues to be fairly ambivalent about issues surrounding any addictive behavior. And is endorsing being hopeful that he can discharge in the next 24 to 48 hours. Mental Status Exam 2 MSE Comments: This is an obese white male in hospital scrubs with limited grooming and eye contact. Mostly disheveled with some improved hygiene and more kempt and no current notable foul smell. No abnormal movements except for psychomotor retardation. More cooperative with exam in mild distress. Speech was limited and decreased rate and volume. Mood reported as a little better, affect was subdued. Thought process linear. Thought content: Patient endorsed suicidal but denied homicidal ideation, there were no delusions reported but clear paranoia noted, he endorsed auditory and visual hallucinations. Attention and concentration were limited and memory was unreliable but none were formally tested. He is alert and oriented to person and place. Insight, judgment and impulse control are impaired. Vitals/I&O/Wt Last Vital Signs Temp 97.3 F L 03/27/23 14:00 Pulse 93 03/28/23 06:00 Resp 15 03/28/23 06:00 BP 135/83 03/28/23 06:00 Pulse Ox 98 03/28/23 06:00 O2 Del Method Room Air 03/27/23 14:00 Weight last 48 hrs Weight 92.079 kg Data NPU 03/24/23 13:17 03/24/23 13:17 A&P Assessment and plan (1) Psychotic disorder due to psychoactive substance: (2) Hallucinations: Plan The patient is a 37-year-old white male who was most recently discharged from this unit in July of this year presents as he often does with reports of auditory and visual hallucinations and increased paranoia likely related to methamphetamine use which was present in his urine on admission. Patient once again involuntarily hospitalized. 1.? Continue current medications. Continue the Zyprexa 10 mg p.o. twice daily with extra 5 mg at bedtime now. 2.? Continue every 15 minute checks for safety. 3.? Encourage individual, group and milieu therapy once he has engaged. 4.? Encourage sobriety treatment after discharge to the hospital care to which he is willing to commit.? Involuntary Hold Information 2 96 Hour Hold: 96 Hour Involuntary Admission: Yes 96 Hour Hold Ending Date: 07/27/22 96 Hour Hold Ending Time: 08:45 Attestations NPU 2 Medical Necessity Statement*: Inpatient hospitalization is medically necessary and clinically appropriate at this time. We will monitor/initiate medications and make changes as indicated.?Likely length of stay 2-4 days. Coding Level of Care Code Acute Code for Chg Fwd Diagnoses Psychotic disorder due to psychoactive substance F19.959 Hallucinations R44.3
[2023-03-28 14:00] VITALS: BP 134/86; PULSE 74; RESP 16; TEMP 36.6; O2SAT 98
[2023-03-28] MEDS: nicotine 4 mg lozenge MUCOUS MEM (15:11)
[2023-03-28 19:43] VITALS: BP 135/94; PULSE 88; RESP 18; O2SAT 97
[2023-03-28] MEDS: OLANZapine 5 mg TABLET PO (19:52)
[2023-03-28] MEDS: nicotine 2 mg Gum BUCCAL (19:52)
[2023-03-29 06:00] VITALS: BP 137/82; PULSE 71; RESP 18; O2SAT 98
[2023-03-29] MEDS: OLANZapine 10 mg TABLET PO (09:49)
[2023-03-29] MEDS: naltrexone hcl 50 mg Tablet PO (09:49)
[2023-03-29] MEDS: propranolol 20 mg Tablet PO (09:49)
--- NOTE | 2023-03-29 12:46 | P.NPUDS_ITS ---
Diagnoses at Discharge Discharge Diagnosis (1) Psychotic disorder due to psychoactive substance: Status: Resolved (2) Hallucinations: Status: Resolved Reason for Visit Reason for Visit: SI Brief History: History of Present Illness Markie Meza is a 37 year old male who presented to the emergency department with the following report: Chief Complaint: Psychiatric Symptoms Stated Complaint: SI Time Seen by Provider: 03/24/23 12:51 Source: patient Mode of arrival: ambulatory Limitations: no limitations History of Present Illness: 37-year-old male who states he has a his tory of meth abuse he states has been using meth recently he is having loose [place] he states has been hearing voices they have been telling him to harm himself he states he had suicidal thoughts and thoughts of cutting his wrist denies any worsening improving factors. Associated symptoms: Reports auditory hallucinations, depression and suicidal ideation He was admitted to the neuropsychiatric unit for definitive treatment of those issues. He presents today as he has presented to previous hospitalizations fairly disheveled, disorganized and indecisive. He had limited responses to the interview. He is known to this creative services writer through past contacts. A discharge summary from July was reviewed with him and he denied substantive changes but seem to be willing to answer briefly and abruptly to anything to try to get the interview to end. He did acknowledge continued methamphetamine use and reports an openness to getting engaged in treatment. An excerpt of that discharge summary is included below for context and the fact that he is very limited as a historian at this point. We agreed we would review available data to identify the likelihood of adherence to his Invega and that we would restart the Invega as indicated with that information. We discussed the desire to initiate the long-acting injectable. We discussed his outpatient chart and the fact that he has been attending his appointments as scheduled and he could not give a clear indication of what happened to get things off course. We agreed we would assist him in getting things restarted. Per his 07/30/2022 [facility] inpatient psychiatric discharge summary: Discharge Diagnosis (1) Psychotic disorder due to psychoacti ve substance: Status: Resolved (2) Hallucinations: Status: Resolved Reason for Visit Reason for Visit: [facility] Eval Brief History: History of Present Illness Markie Meza is a 37 year old male who presented to the emergency department with the following report: Chief Complaint: Psychiatric Symptoms Stated Complaint: [facility] Eval Time Seen by Provider: 07/20/22 08:22 Source: patient Mode of arrival: ambulatory History of Present Illness: 29-year-old male presents emergency room with a family friend he is acutely psychotic with auditory and visual hallucinations telling him to harm himself and others. He admits to all of this he also endorses suicidal intent. He last used meth 2 days ago. He has a history of methamphetamine and alcohol abuse. MD complaint: suicidal ideation and feels depressed Onset (ago): day(s) Duration: constant History of same: Yes Relieving factors: none Exacerbating factors: drug use Context: recent drug abuse Associated psychiatric symptoms: depression, suicidal ideation, homicidal ideation, auditory hallucinations and visual hallucinations Associated symptoms: Reports auditory hallucinations, visual hallucinations, depression, homicidal ideation and suicidal ideation Treatments prior to arrival: none If self harm: admits thoughts of self harm and has plan Was admitted to the neuropsychiatric unit for definitive treatment of those issues. He once again presents as a limited historian due to some likely lethargy secondary to his presumed methamphetamine withdrawal. He presents with limited responses but endorsing that he has not been taking his medication, that he has been still engaged in methamphetamine use and that he came to the hospital secondary to feeling suicidal and having hallucinations. We discussed the risk benefits and alternatives of restarting the Invega but at 6 mg p.o. nightly as well as working with the treatment team to figure out if we can find a reasonable treatment option to begin to impact his drug use. He was fairly ambivalent in the conversation but mostly secondary to being lethargic and wanting to really sleep versus answering the questions. An excerpt of his discharge summary from 07/09/2022 is included below for context and the fact that he denies substantive changes since that time. UDS was not back at the time of interview. Per his 07/09/2022 [facility] inpatient psychiatric discharge summary: SI Brief History: History of Present Illness Markie Meza is a 37 year old male who presented to the emergency department on 07/03/2022 with complaints of auditory and visual hallucinations with reports of thoughts of hurting himself and thoughts of hurting others. The patient was admitted to the neuropsychiatric unit for further evaluation and treatment. Prior to arriving on the neuropsychiatric unit, the patient had been very agitated and required the use of as needed medications including Geodon Ativan and Haldol. The patient on interview today reports that he has been having prob lems with hearing voices telling him to hurt himself and seeing things telling him to hurt himself. He has endorsed increased suspiciousness of others and states that the voices are sometimes jumbled. He had reported that he had been using methamphetamine intranasally and states that he had previously consumed alcohol but was no longer drinking. The patient was a poor historian and hostile and belligerent throughout much of the interview insisting that he needed to immediately check on his house. Patient had reported that he understood that he was on a 96-hour hold and stated that he did not like to take medications. Patient had acknowledged having depressed mood but did not elaborate any further regarding any changes in energy appetite or concentration. He reports having been diagnosed as having cognitive impairment and states that he was currently on disability for ADHD. Past psychiatric history: Patient denied any past history of psychiatric treatment other than reports of having been treated with ADHD as a child and reporting having been hospitalized as a teenager in [place] for psychiatric reasons. 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 He had endorsed using methamphetamine infrequently for several years. He denied any other drug use. He smokes cigarettes Family psychiatric history: None reported Legal History: unknown Social history: Patient was born in [facility]. He had reported having several siblings. He reports that he grew up in a dysfunctional family and states that his biological parents are no longer together. He reports that his mother lives in [place] and his father is . He reports having a sig nificant learning disability and graduated [employer] with a special diploma. He had reported that he is currently on disability and is not employed. He denies any sexual physical or emotional abuse. He reports he has never been but has children. Hospital Course Discharge Summary: During the hospitalization, patient had routine laboratory studies which were within normal limits except for few outliers. Additionally there was a general medical evaluation which was also within normal limits and revealed no new acute processes. At the time of discharge, lethality was denied and psychosis was resolving. Mood and anxiety were well managed. Patient endorsed a plan to avoid all drugs of abuse and follow-up with the aftercare recommendations of the treatment team. Patient was evaluated and deemed to be absent credible lethality, and had achieved the maximum benefit from an inpatient hospitalization, so was discharged. He was placed on IM invega sustenna and 3 shots Hospital Course Hospital Course He slowly acclimated to the individual, group and milieu therapies provided. He presented with nonadherence to his medication. Eventually he allowed us to restart his medications with an increase from 10 mg p.o. twice daily of Zyprexa to 10 mg in the morning and 15 mg at night. We continued his other medications without incident. He did well with these changes. He was able to work with the social work team to get appropriate follow-up and aftercare. During the stay, he had significant improvement and was able to contract for safety outside of the hospital prior to discharge. During the hospitalization, the patient had routine laboratory studies which were within normal limits except for a few outliers.? Additionally, there was a general medical evaluation which was also within normal limits and revealed no new acute processes.? At the time of discharge, he denied lethality and his psychosis was resolving.? Mood and anxiety were well managed.? The patient endorsed a plan to avoid all drugs of abuse and follow up with the aftercare recommendations of the treatment team.? The patient was evaluated and deemed to be absent credible lethality and had achieved the maximum benefit from an inpatient hospitalization, and so was discharged. Involuntary Hold Information 96 Hour Hold: 96 Hour Involuntary Admission: Yes 96 Hour Hold Ending Date: 07/27/22 96 Hour Hold Ending Time: 08:45 Mental Status Exam MSE Comments: This is an obese white male in hospital scrubs with limited grooming and eye contact. Some improved hygiene and more kempt and no current notable foul smell. No abnormal movements except for mild psychomotor retardation. More cooperative with exam in mild distress. Speech was limited and decreased rate and volume. Mood reported as better, affect was less subdued. Thought process linear. Thought content: Patient denied suicidal or homicidal ideation, there were no delusions reported but clear paranoia noted, he endorsed auditory and visual hallucinations. Attention and concentration were limited and memory was unreliable but none were formally tested. He is alert and oriented to person and place. Insight, judgment and impulse control are impaired. Discharge Data Studies Completed and Pending: Laboratory Results WBC 11.23 10^3/uL (3. 29-11.43) 03/24/23 13:17 RBC 4.80 10^6/uL (3.8 5-5.65) 03/24/23 13:17 Hgb 14.80 g/dL (11.27 -16.99) 03/24/23 13:17 Hct 45.5 % (37-53) 03/24/23 13:17 MCV 94.8 fl (82-101) 03/24/23 13:17 MCH 30.8 pg (27-33) 03/24/23 13:17 MCHC 32.5 g/dL (30-55) 03/24/23 13:17 RDW 13.1 % (12.1-15.1 ) 03/24/23 13:17 Plt Count 257 10^3/cmm (157 -399) 03/24/23 13:17 MPV 10.5 fL (7.4-10.4 ) H 03/24/23 13:17 Neut % (Auto) 67.8 % 03/24/23 13:17 Lymph % (Auto) 21.2 % 03/24/23 13:17 [place] % (Auto) 7.3 % 03/24/23 13:17 Eos % (Auto) 2.8 % 03/24/23 13:17 Baso % (Auto) 0.5 % 03/24/23 13:17 Neut # (Auto) 7.60 10^3/uL (1.8 -7.7) 03/24/23 13:17 Lymph # (Auto) 2.4 10^3/uL (0.8- 4.8) 03/24/23 13:17 [place] # (Auto) 0.8 10^3/uL (0.2- 0.9) 03/24/23 13:17 Eos # (Auto) 0.3 10^3/uL (0.0- 0.8) 03/24/23 13:17 Baso # (Auto) 0.1 10^3/uL (0.0- 0.1) 03/24/23 13:17 Nucleated RBC % (a uto) 0 % 03/24/23 13:17 Nucleated RBCs # 0.0 /100WBC 03/24/23 13:17 Sodium 141 mmol/L (136-1 45) 03/24/23 13:17 Potassium 3.7 mmol/L (3.5-5 .1) 03/24/23 13:17 Chloride 107 mmol/L (98-10 7) 03/24/23 13:17 Carbon Dioxide 23 mmol/L (22-29) 03/24/23 13:17 Anion Gap 14.7 (5-19) 03/24/23 13:17 BUN 15 mg/dL (6-20) 03/24/23 13:17 Creatinine 0.9 mg/dL (0.7-1. 2) 03/24/23 13:17 GFR Calculation 94.4 mL/min (90-1 30) 03/24/23 13:17 Glucose 115 mg/dL (65-115 ) 03/24/23 13:17 Calculated Osmolal ity 294 mOsm/kg (285- 295) 03/24/23 13:17 Calcium 8.8 mg/dL (8.5-10 .5) 03/24/23 13:17 Total Bilirubin 0.2 mg/dL (0.15-1 .2) 03/24/23 13:17 AST 13 U/L (0-40) 03/24/23 13:17 ALT 16 U/L (0-41) 03/24/23 13:17 Alkaline Phosphata se 94 U/L (40-130) 03/24/23 13:17 Total Protein 6.5 g/dL (6.6-8.7 ) L 03/24/23 13:17 Albumin 3.9 g/dL (3.5-5.2 ) 03/24/23 13:17 Globulin 2.6 g/dL (1.3-4.6 ) 03/24/23 13:17 Salicylates < 0.3 mg/dL (3-10 ) L 03/24/23 13:17 Urine Opiates Scre en Negative ng/mL (N egative) 03/25/23 20:15 Acetaminophen < 5.0 ug/mL (10-3 0) L 03/24/23 13:17 Ur Barbiturates Sc reen Negative ng/mL (N egative) 03/25/23 20:15 Ur Phencyclidine S crn Negative ng/mL (N egative) 03/25/23 20:15 Ur Amphetamines Sc reen Positive ng/mL (N egative) H 03/25/23 20:15 U Benzodiazepines Scrn Positive ng/mL (N egative) H 03/25/23 20:15 Urine Cocaine Scre en Negative ng/mL (N egative) 03/25/23 20:15 U Marijuana (THC) Screen Negative ng/mL (N egative) 03/25/23 20:15 Ethyl Alcohol < 10 mg/dL (0-10) 03/24/23 13:17 Vitals: Last Vital Signs Temp 98 F 03/28/23 14:00 Pulse 71 03/29/23 06:00 Resp 18 03/29/23 06:00 BP 137/82 03/29/23 06:00 Pulse Ox 98 03/29/23 06:00 O2 Del Method Room Air 03/28/23 19:43 Discharge Plan Discharge Patient Disposition: Home Condition: Stable Prescriptions: Continued olanzapine 10 mg tablet,disintegrating 10 mg PO BID Qty: 60 3RF olanzapine 5 mg tablet 5 mg PO BEDTIME 30 Days Qty: 30 1RF Rx Instructions: rx bottle dated 11/20/22 90d/s Changed naltrexone 50 mg tablet 50 mg PO QAM 30 Days Qty: 30 1RF propranolol 20 mg tablet 20 mg PO QAM 30 Days Qty: 30 1RF Discontinued amoxicillin-pot clavulanate 875-125 mg tablet 1 tab PO BID Rx Instructions: for 10 days (rx filled 03/13/23) No Action amoxicillin-pot clavulanate 875-125 mg tablet 1 tab PO BID Qty: 14 0RF ketorolac 10 mg tablet 10 mg PO Q6H PRN (Reason: pain) 5 Days Qty: 14 0RF Discharge Orders: Discharge Order (Routine); Ordered 03/29/23 Ordered By: Jason Ansari Referrals: [facility] [Other] [facility] [Outside] - 03/30/23 7:30 am (Hospital follow up 03/30/23 @ 7:30 with Corazon Burns) Jo-Ann Interiano, PMHNP [Staff Physician] - 04/29/23 1:15 pm (Follow up) Discharge Diet: Regular Discharge Activity: Resume usual activity Patient Instructions: Olanzapine (By mouth), Help Prevent Suicide in Older Adults (GEN), Opioid Safety Discharge Attestations NPU Time Spent in Discharge Care*: less than 30 min Specific Discharge Activities: Specific discharge activities: educating patient, discussing with case advocate/social workers/dc planners, documenting/other paperwork and evaluating patient/reviewing data Coding Level of Care Code Acute Code for Chg Fwd Diagnoses Psychotic disorder due to psychoactive substance F19.959 Hallucinations R44.3
[2023-03-29 13:03] VITALS: BP 137/82; PULSE 71; RESP 18; O2SAT 98
--- NOTE | 2023-03-29 13:17 | DCPLANNER ---
IMM was printed and given to pt and it was placed in his file
== END 2023-03-29 13:29 | disposition home or self-care (01) | DRG 897 ==
LOC: ER 13:21 → NP 13:51
PROVIDERS: Admitting Provider Psychiatry & Neurology Psychiatry; Emergency Provider Emergency Medicine; Visit Provider Psychiatry & Neurology Psychiatry
DX: F15.151 Other stimulant abuse with stimulant-induced psychotic disorder with hallucinations (principal); R45.851 Suicidal ideations; F10.10 Alcohol abuse, uncomplicated; F15.150 Other stimulant abuse with stimulant-induced psychotic disorder with delusions; F32.A Depression, unspecified; Z91.52 Personal history of nonsuicidal self-harm; F12.90 Cannabis use, unspecified, uncomplicated; F17.210 Nicotine dependence, cigarettes, uncomplicated; Z86.73 Personal history of transient ischemic attack (TIA), and cerebral infarction without residual deficits; F90.9 Attention-deficit hyperactivity disorder, unspecified type
CPT/HCPCS: 36415; 80053; 80306; 80307; 85025; 96372; 97165; 99285; J1630; J2060; J3486

== ENCOUNTER 2023-04-12 17:51 | Emergency (ER) | payer MEDICARE, MEDICAID, SELFPAY ==
--- NOTE | 2023-04-12 18:00 | ECG_ITS ---
[facility] Test Date: 2023-04-12 Pat Name: Markie Meza Department: Room: Gender: Male Ostomy Rn: : 1985 Requested By: Momo Felipe Order Number: [id number] Bledsoe MD: Primitivo Smith M.D. Measurements Intervals E[place] Rate: 120 P: 67 LA: 143 QRS: 259 QRSD: 86 T: 67 QT: 302 QTc: 427 Interpretive Statements SINUS TACHYCARDIA RIGHT VENTRICULAR HYPERTROPHY [SOME/ALL OF: PROMINENT R IN V1, LATE TRANSITION, RAD, RAMANA, SSS] Compared to ECG 03/18/2023 16:33:52 Right ventricular hypertrophy now present Atrial abnormality now present Sinus rhythm no longer present Electronically Signed On 04-12-2023 22:58:10 POLICY WRITER TYPIST by Primitivo Smith M.D. [email or web address]
[2023-04-12 18:01] VITALS: BP 156/122; PULSE 116; RESP 17; TEMP 36.3; O2SAT 99; BMI 34.4
--- NOTE | 2023-04-12 18:14 | XRR_ITS ---
PROCEDURE INFORMATION: Exam: XR Chest Exam date and time: 04/12/2023 6:19 PM Age: 37 years old Clinical indication: Chest wall pain; Additional info: Chest pain TECHNIQUE: Imaging protocol: Radiologic exam of the chest. Views: 1 view. COMPARISON: CT chest abdpel w/*[id number] 06/27/2022 4:48 PM FINDINGS: Lungs: No consolidation. Granuloma in the right lower lung, unchanged. Pleural spaces: No large pleural effusion. No pneumothorax. Heart/Mediastinum: Unremarkable cardiomediastinal silhouette. Bones/joints: No acute abnormality. XR/XR chest 1V portable [id number] IMPRESSION: No acute findings.
--- NOTE | 2023-04-12 18:58 | PC.NURSE ---
RN assumed care at this time
[2023-04-12 19:01] VITALS: BP 135/89; PULSE 93; RESP 18; O2SAT 96
[2023-04-12 19:43] VITALS: BP 103/74; PULSE 101; RESP 16; O2SAT 97
--- NOTE | 2023-04-12 19:44 | ED_ITS ---
HPI - Chest Pain 2 General: Chief Complaint: Chest Pain Stated Complaint: chest pains, back pains Time Seen by Provider: 04/12/23 18:14 History of Present Illness: Presents to the ER with 1 day history of chest pain that radiated to his back between shoulder blades. Patient denies any shortness of breath diaphoresis nausea or vomiting. Denies any recent injury or trauma. Patient does have hypertension and takes his medicine. He has no other heart history. Patient has not been having fevers chills or coughs. 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 Social History Smoking and tobacco/nicotine status: current every day tobacco/nicotine user Alcohol intake: current Marital status: Single Physical Exam 2 Const: COMMON NORMALS: no acute distress, average body habitus, patient oriented x3, no limitations, healthy appearing, alert and well nourished HENMT: COMMON NORMALS: normocephalic, atraumatic, hearing grossly normal bilaterally, external ears normal, Normal external nose present, moist oral mucous membranes and oropharynx normal HEAD & SCALP: normocephalic and atraumatic NOSE: Normal external nose present EXTERNAL EAR: Yes external ears normal Neck/C-Spine: COMMON NORMALS: full ROM, no lymphadenopathy, supple, no meningeal signs, no JVD and Thyroid normal THYROID: Thyroid normal Chest: COMMONS NORMALS: normal inspection of the chest and normal palpation of entire chest wall Resp: COMMON NORMALS: normal respiratory effort, No retractions, No use of accessory muscles and clear to auscultation bilaterally AUSCULTATION: clear to auscultation bilaterally Cardio: COMMON NORMALS: no JVD, regular rate, regular rhythm, S1 normal heart sound present, S2 normal heart sound present, No gallops present (Cardio), No clicks present (Cardio), No murmurs present (Cardio) and No rub (Cardio) R ATE: regular rate RHYTHM: regular rhythm HEART SOUNDS: S1 normal heart sound present and S2 normal heart sound present GI: COMMON NORMALS: Normal to inspection, nondistended, normoactive bowel sounds present, Soft to palpation, non-tender, No hepatosplenomegaly present and no masses PALPATION: Yes Soft to palpation and Yes No hepatosplenomegaly present Neuro: COMMON NORMALS: patient oriented x3 SENSORIUM/ORIENTATION: Yes alert MENINGEAL SIGNS: Yes no meningeal signs Course 2 Vital Signs: Vital signs: Vital Signs Temperature 97.3 F L 04/12/23 20:35 Pulse Rate 101 H 04/12/23 20:35 Respiratory Rate 16 04/12/23 20:35 Blood Pressure 103/74 04/12/23 20:35 Pulse Oximetry 97 04/12/23 20:35 Oxygen Delivery Me thod Room Air 04/12/23 19:01 MDM - Chest Pain Medical Decision Making s to the ER with chest pain that radiated to his back for the last day. Patient was worked up in a standard chest pain fashion with serial EKGs, and enzymes and chest x-ray. All of which was essentially benign. It is thought that the patient does not have cardiac type chest pain. Patient be discharged home to follow-up with his PCP on this 7 days or sooner on an as-needed basis. Differential Diagnosis Unlikely acute massive pulmonary embolism, acute respiratory failure, acute myocardial infarction, cardiac arrest or sudden cardiac Medical Records I reviewed the patient's medical records. Present Lab Data I reviewed the patient's lab results. 04/12/23 19:32 04/12/23 19:32 Radiology Impressions Chest X-Ray 04/12/23 18:14 IMPRESSION: No acute findings. Laboratory Results WBC 5.31 10^3/uL (3.29-11.43) 04/12/23 19:32 RBC 5.14 10^6/uL (3.85-5.65) 04/12/23 19:32 Hgb 15.60 g/dL (11.27-16.99) 04/12/23 19:32 Hct 47.1 % (37-53) 04/12/23 19:32 MCV 91.6 fl (82-101) 04/12/23 19:32 MCH 30.4 pg (27-33) 04/12/23 19:32 MCHC 33.1 g/dL (30-55) 04/12/23 19:32 RDW 13.4 % (12.1-15.1) 04/12/23 19:32 Plt Count 166 10^3/cmm (157-399) 04/12/23 19:32 MPV 10.7 fL (7.4-10.4) H 04/12/23 19:32 Neut % (Auto) 53.0 % 04/12/23 19:32 Lymph % (Auto) 27.3 % 04/12/23 19:32 Sawyer % (Auto) 18.1 % 04/12/23 19:32 Eos % (Auto) 0.8 % 04/12/23 19:32 Baso % (Auto) 0.6 % 04/12/23 19:32 Neut # (Auto) 2.82 10^3/uL (1.8-7.7) 04/12/23 19:32 Lymph # (Auto) 1.5 10^3/uL (0.8-4.8) 04/12/23 19:32 Sawyer # (Auto) 1.0 10^3/uL (0.2-0.9) H 04/12/23 19:32 Eos # (Auto) 0.0 10^3/uL (0.0-0.8) 04/12/23 19:32 Baso # (Auto) 0.0 10^3/uL (0.0-0.1) 04/12/23 19:32 Nucleated RBC % (auto) 0 % 04/12/23 19: Nucleated RBCs # 0.0 /100WBC 04/12/23 19:32 Sodium 140 mmol/L (136-145) 04/12/23 19:32 Potassium 4.1 mmol/L (3.5-5.1) 04/12/23 19:32 Chloride 105 mmol/L (98-107) 04/12/23 19:32 Carbon Dioxide 25 mmol/L (22-29) 04/12/23 19:32 Anion Gap 14.1 (5-19) 04/12/23 19:32 BUN 21 mg/dL (6-20) H 04/12/23 19:32 Creatinine 0.8 mg/dL (0.7-1.2) 04/12/23 19:32 GFR Calculation 108.2 mL/min (90-130) 04/12/23 19:32 Glucose 87 mg/dL (65-115) 04/12/23 19:32 Calculated Osmolality 292 mOsm/kg (285-295) 04/12/23 19:32 Calcium 9.4 mg/dL (8.5-10.5) 04/12/23 19:32 Total Bilirubin 0.2 mg/dL (0.15-1.2) 04/12/23 19:32 AST 22 U/L (0-40) 04/12/23 19:32 ALT 23 U/L (0-41) 04/12/23 19:32 Alkaline Phosphatase 87 U/L (40-130) 04/12/23 19:32 Troponin T Baseline 7 ng/L (0-15) 04/12/23 19:32 Total Protein 7.1 g/dL (6.6-8.7) 04/12/23 19:32 Albumin 4.4 g/dL (3.5-5.2) 04/12/23 19:32 Globulin 2.7 g/dL (1.3-4.6) 04/12/23 19:32 All radiology interpretation(s) finalized by discharge Discharge Plan Discharge Patient Disposition: Home Clinical Impression: Atypical chest pain Condition: Stable Prescriptions: No Action olanzapine 10 mg tablet,disintegrating 10 mg PO BID Qty: 60 3RF naltrexone 50 mg tablet 50 mg PO QAM 30 Days Qty: 30 1RF olanzapine 5 mg tablet 5 mg PO BEDTIME 30 Days Qty: 30 1RF Rx Instructions: rx bottle dated 11/20/22 90d/s propranolol 20 mg tablet 20 mg PO QAM 30 Days Qty: 30 1RF Discharge Orders: Discharge ED (Routine); Ordered 04/12/23 Ordered By: Momo Felipe Referrals: Kim Moser FNP [Primary Care Provider] - 1 week Patient Instructions: Chest Pain (ED) Activity Restrictions/Additional Instructions: Your workup did not show any acute changes for cardiac chest pain. It is thought that you have noncardiac chest pain or probable musculoskeletal pain. Please follow-up with your family practice physician within the next 7 to 10 days for further evaluation and treatment. If your pain worsens or changes please feel free to return to the ER. Coding Level of Care Code ED Industrial Trainer for 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
[2023-04-12 20:01] LABS: Basophils % 0.6 %; Eosinophils % 0.8 %; Hematocrit 47.1 % (37-53); Lymphocytes # 1.5 10^3/uL (0.8-4.8); Lymphocytes % 27.3 %; Mean Corpuscular HGB Conc 33.1 g/dL (30-55); Mean Corpuscular Hemoglobin 30.4 pg (27-33); Mean Corpuscular Volume 91.6 fl (82-101); Mean Platelet Volume 10.7 fL (7.4-10.4); Monocytes % 18.1 %; Neutrophils # 2.82 10^3/uL (1.8-7.7); Nucleated Red Blood Cells % 0 %; Platelet Count 166 10^3/cmm (157-399); Red Blood Count 5.14 10^6/uL (3.85-5.65); Red Cell Distribution Width 13.4 % (12.1-15.1); White Blood Count 5.31 10^3/uL (3.29-11.43)
[2023-04-12 20:21] LABS: Troponin(5th) Baseline 7 ng/L (0-15)
[2023-04-12 20:24] LABS: Alanine Aminotransferase 23 U/L (0-41); Albumin Level 4.4 g/dL (3.5-5.2); Alkaline Phosphatase 87 U/L (40-130); Anion Gap 14.1 (5-19); Aspartate Amino Transferase 22 U/L (0-40); Blood Urea Nitrogen 21 mg/dL (6-20); Calcium 9.4 mg/dL (8.5-10.5); Carbon Dioxide 25 mmol/L (22-29); Chloride 105 mmol/L (98-107); Globulin 2.7 g/dL (1.3-4.6); Glomerular Filtration Rate 108.2 mL/min (90-130); Glucose 87 mg/dL (65-115); Osmolality Calculated 292 mOsm/kg (285-295); Potassium 4.1 mmol/L (3.5-5.1); Sodium 140 mmol/L (136-145); Total Bilirubin 0.2 mg/dL (0.15-1.2); Total Protein 7.1 g/dL (6.6-8.7)
[2023-04-12 20:35] VITALS: BP 103/74; PULSE 101; RESP 16; TEMP 36.3; O2SAT 97
== END 2023-04-12 20:37 | disposition home or self-care (01) ==
PROVIDERS: Emergency Provider Emergency Medicine; PCP Nurse Practitioner Family
DX: R07.89 Other chest pain (principal); Z72.0 Tobacco use; Z86.73 Personal history of transient ischemic attack (TIA), and cerebral infarction without residual deficits
CPT/HCPCS: 36415; 71045; 80053; 84484; 85025; 93005; 99285

== ENCOUNTER 2023-04-21 19:54 | Emergency (ER) | payer MEDICARE, MEDICAID, SELFPAY ==
[2023-04-21 19:55] VITALS: BP 151/101; PULSE 90; RESP 16; TEMP 36.7; O2SAT 100; BMI 28.7
--- NOTE | 2023-04-21 20:08 | ED_ITS ---
HPI - URI/Sore Throat General: Chief Complaint: Ear Stated Complaint: right ear pain Time Seen by Provider: 04/21/23 20:01 History of Present Illness: 37-year-old male patient comes in today with right ear pain. Patient reports that he had a cough for about a week and over the last day or 2 he started having ear pain. Patient appears nontoxic. Patient does appear in mild to moderate pain. 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 Social History Smoking and tobacco/nicotine status: current every day tobacco/nicotine user Alcohol intake: current Marital status: Single Physical Exam Const: COMMON NORMALS: alert HENMT: COMMON NORMALS: normocephalic HEAD & SCALP: normocephalic EXTERNAL AUDITORY CANAL: Abnormal EAC present EAC laterality: right Details: erythema and edema TYMPANIC MEMBRANE: TM abnormal TM laterality: right Details: bulging, dull and erythematous Neck/C-Spine: COMMON NORMALS: full ROM Resp: COMMON NORMALS: normal respiratory effort Cardio: COMMON NORMALS: regular rate RATE: regular rate GI: COMMON NORMALS: non-tender Back/Pelvis: COMMON NORMALS: thoracic and lumbar spine normal to inspection Extremity: COMMON NORMALS: normal to inspection Neuro: SENSORIUM/ORIENTATION: Yes alert Skin: COMMON NORMALS: turgor normal GENERAL SKIN EXAM: turgor normal Course Vital Signs: Vital signs: Vital Signs Temperature 98.1 F 04/21/23 19:55 Pulse Rate 90 04/21/23 19:55 Respiratory Rate 16 04/21/23 19:55 Blood Pressure 151/101 04/21/23 19:55 Pulse Oximetry 100 04/21/23 19:55 Oxygen Delivery Me thod Room Air 04/21/23 19:55 MDM - URI/Sore Throat Medical Decision Making 37-year-old male patient comes in today with complaints of right ear pain. On exam patient has swelling of the right ear canal, erythema and dullness of the right tympanic membrane, posterior pharynx is erythematous, no lymphadenopathy, lungs are clear to auscultation. Vital signs are normal except for some elevated blood pressure. Differential diagnosis includes not limited to upper respiratory infection, otitis media, otitis externa, perforation of the tympanic membrane. Patient has significant swelling of the ear canal we will go ahead and start him on Cortisporin eardrops to help with the infection and swelling of canal. Patient put on oral antibiotics for probable otitis media with secondary otitis externa. Patient was given a Toradol tablet for his pain. Patient was recommended to follow-up with primary care for further instructions and reevaluation in 1 week. No radiology studies performed this visit Discharge Plan Discharge Patient Disposition: Home Clinical Impression: Otitis media Qualifiers: Otitis media type: suppurative Chronicity: acute Laterality: right Recurrence: not specified as recurrent Spontaneous tympanic membrane rupture: without spontaneous rupture Qualified Code(s): H66.001 - Acute suppurative otitis media without spontaneous rupture of ear drum, right ear Condition: Stable Prescriptions: New amoxicillin-pot clavulanate 875-125 mg tablet 1 tab PO BID Qty: 14 0RF ketorolac 10 mg tablet 10 mg PO Q6H PRN (Reason: pain) 5 Days Qty: 14 0RF No Action olanzapine 10 mg tablet,disintegrating 10 mg PO BID Qty: 60 3RF naltrexone 50 mg tablet 50 mg PO QAM 30 Days Qty: 30 1RF olanzapine 5 mg tablet 5 mg PO BEDTIME 30 Days Qty: 30 1RF Rx Instructions: rx bottle dated 11/20/22 90d/s propranolol 20 mg tablet 20 mg PO QAM 30 Days Qty: 30 1RF Discharge Orders: Discharge ED (Routine); Ordered 04/21/23 Ordered By: Jan Ang Referrals: Kim Moser FNP [Primary Care Provider] - Discharge Diet: Usual diet Discharge Activity: Increase activity as tolerated Patient Instructions: Earache (ED) Activity Restrictions/Additional Instructions: Home and rest. Drink plenty of water and fluids. Take antibiotics as directed. Use heat packs to the ear for further pain relief. Use acetaminophen to help control pain. Use ketorolac every 6 hours as needed for worse pain. Follow-up with primary care for further instructions. Return to ED for new concerns. Coding Level of Care Code ED Optical Instrument Assembly Supervisor for 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
[2023-04-21] MEDS: ketorolac 10 mg Tablet PO (20:31)
[2023-04-21] MEDS: amoxicillin-clav 875-125 mg Tablet 1 TAB PO (20:31)
[2023-04-21] MEDS: neomycin-poly-hydrocort Otic Susp 10 mL Btl 4 DROP EAR-RIGHT (20:43)
== END 2023-04-21 20:54 | disposition home or self-care (01) ==
PROVIDERS: Emergency Provider Nurse Practitioner Family; PCP Nurse Practitioner Family
DX: H66.001 Acute suppurative otitis media without spontaneous rupture of ear drum, right ear (principal); Z86.73 Personal history of transient ischemic attack (TIA), and cerebral infarction without residual deficits; Z72.0 Tobacco use
CPT/HCPCS: 99283

== ENCOUNTER → 2023-04-29 14:25 | Outpatient (BNVA) | payer MEDICARE, MEDICAID, SELFPAY | PROVIDERS: PCP Nurse Practitioner Family; Visit Provider Nurse Practitioner Psychiatric/Mental Health | DX: F15.251 Other stimulant dependence with stimulant-induced psychotic disorder with hallucinations (principal); F12.90 Cannabis use, unspecified, uncomplicated; R45.88 Nonsuicidal self-harm; F17.210 Nicotine dependence, cigarettes, uncomplicated; Z79.899 Other long term (current) drug therapy | CPT/HCPCS: 80053; 80061; 80307; 83036 ==

== ENCOUNTER 2023-06-22 04:04 | Inpatient (IN) | payer MEDICARE, MEDICAID, SELFPAY ==
[2023-06-22 04:14] VITALS: PULSE 146; RESP 16; TEMP 36.4; O2SAT 97
[2023-06-22] MEDS: water for injection-sterile 10 ML 1.19999999999999996 ML (04:19)
[2023-06-22] MEDS: ziprasidone 20 mg/mL SDV IM (04:19)
--- NOTE | 2023-06-22 04:29 | ED.C_ITS ---
HPI - Psych 2 General: Chief Complaint: Psychiatric Symptoms Stated Complaint: MHE Time Seen by Provider: 06/22/23 04:22 History of Present Illness: Patient was brought in by EMS for mental health exam, EMS said the patient has been hearing voices for the last few years but woke up tonight and was freaking out. His family called EMS wanted him to be here to be evaluated. Patient adamant that he went to see his mom is not going to stress unit. Patient denies homicidal suicidal ideations. He does state that he hears voices but he cannot understand what they are saying. 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 Social History Smoking and tobacco/nicotine status: current every day tobacco/nicotine user Alcohol intake: current Marital status: Single Physical Exam 2 Const: COMMON NORMALS: no acute distress, average body habitus, healthy appearing, alert and well nourished HENMT: COMMON NORMALS: normocephalic, atraumatic, hearing grossly normal bilaterally, external ears normal, Normal external nose present, moist oral mucous membranes and oropharynx normal HEAD & SCALP: normocephalic and atraumatic NOSE: Normal external nose present EXTERNAL EAR: Yes external ears normal Neck/C-Spine: COMMON NORMALS: no JVD Chest: COMMONS NORMALS: normal inspection of the chest and normal palpation of entire chest wall Resp: COMMON NORMALS: normal respiratory effort, No retractions, No use of accessory muscles and clear to auscultation bilaterally AUSCULTATION: clear to auscultation bilaterally Cardio: COMMON NORMALS: no JVD, regular rhythm, S1 normal heart sound present, S2 normal heart sound present, No clicks present (Cardio), No murmurs present (Cardio) and No rub (Cardio); negative for regular rate (Tachycardic) RATE: abnormal rate (Tachycardic) RHYTHM: regular rhythm HEART SOUNDS: S1 normal heart sound present and S2 normal heart sound present GI: COMMON NORMALS: Normal to inspection, nondistended, normoactive bowel sounds present, Soft to palpation, non-tender, No hepatosplenomegaly present and no masses PALPATION: Yes Soft to palpation and Yes No hepatosplenomegaly present Neuro: SENSORIUM/ORIENTATION: Yes alert Psych: APPEARANCE: Yes grossly normal ACTIVITY/MOTOR BEHAVIOR: Yes appropriate eye contact and Yes psychomotor agitation SPEECH: Yes rapid M OOD & AFFECT: Yes irritable Course 2 Vital Signs: Vital signs: Vital Signs Temperature 97.6 F 06/22/23 04:14 Pulse Rate 146 H 06/22/23 04:14 Respiratory Rate 16 06/22/23 04:14 Pulse Oximetry 97 06/22/23 04:14 [facility] - Psych Medical Decision Making Discussed the patient with the police and his mother. They want him admitted for evaluation. They did file affidavits. Patient be 96-hour held. Lab work was obtained for medical clearance once medical clearance was obtained Dr. Ansari was consulted who agreed to place patient in [facility] for further evaluation and treatment. Differential Diagnosis Likely acute psychosis and drug-induced psychotic disorder Medical Records I reviewed the patient's medical records. Lab Data I reviewed the patient's lab results. 06/22/23 04:14 06/22/23 04:14 Laboratory Results WBC 9.96 10^3/uL (3.29-11.43) 06/22/23 04:14 RBC 5.19 10^6/uL (3.85-5.65) 06/22/23 04:14 Hgb 15.90 g/dL (11.27-16.99) 06/22/23 04:14 Hct 47.2 % (37-53) 06/22/23 04:14 MCV 90.9 fl (82-101) 06/22/23 04:14 MCH 30.6 pg (27-33) 06/22/23 04:14 MCHC 33.7 g/dL (30-55) 06/22/23 04:14 RDW 13.4 % (12.1-15.1) 06/22/23 04:14 Plt Count 283 10^3/cmm (157-399) 06/22/23 04:14 MPV 10.4 fL (7.4-10.4) 06/22/23 04:14 Neut % (Auto) 51.0 % 06/22/23 04:14 Lymph % (Auto) 32.2 % 06/22/23 04:14 Mercer % (Auto) 10.1 % 06/22/23 04:14 Eos % (Auto) 5.3 % 06/22/23 04:14 Baso % (Auto) 1.0 % 06/22/23 04:14 Neut # (Auto) 5.07 10^3/uL (1.8-7.7) 06/22/23 04:14 Lymph # (Auto) 3.2 10^3/uL (0.8-4.8) 06/22/23 04:14 Mercer # (Auto) 1.0 10^3/uL (0.2-0.9) H 06/22/23 04:14 Eos # (Auto) 0.5 10^3/uL (0.0-0.8) 06/22/23 04:14 Baso # (Auto) 0.1 10^3/uL (0.0-0.1) 06/22/23 04:14 Nucleated RBC % (auto) 0 % 06/22/23 04:14 Nucleated RBCs # 0.0 /100WBC 06/22/23 04:14 Sodium 139 mmol/L (136-145) 06/22/23 04:14 Potassium 3.3 mmol/L (3.5-5.1) L 06/22/23 04:14 Chloride 103 mmol/L (98-107) 06/22/23 04:14 Carbon Dioxide 20 mmol/L (22-29) L 06/22/23 04:14 Anion Gap 19.3 (5-19) H 06/22/23 04:14 BUN 13 mg/dL (6-20) 06/22/23 04:14 Creatinine 1.0 mg/dL (0.7-1.2) 06/22/23 04:14 GFR Calculation 83.2 mL/min (90-130) L 06/22/23 04:14 Glucose 169 mg/dL (65-115) H 06/22/23 04:14 Calculated Osmolality 292 mOsm/kg (285-295) 06/22/23 04:14 Calcium 8.9 mg/dL (8.5-10.5) 06/22/23 04:14 Total Bilirubin 0.2 mg/dL (0.15-1.2) 06/22/23 04:14 AST 15 U/L (0-40) 06/22/23 04:14 ALT 16 U/L (0-41) 06/22/23 04:14 Alkaline Phosphatase 107 U/L (40-130) 06/22/23 04:14 Total Protein 7.1 g/dL (6.6-8.7) 06/22/23 04:14 Albumin 4.1 g/dL (3.5-5.2) 06/22/23 04:14 Globulin 3.0 g/dL (1.3-4.6) 06/22/23 04:14 Salicylates < 0.3 mg/dL (3-10) L 06/22/23 04:14 Acetaminophen < 5.0 ug/mL (10-30) L 06/22/23 04:14 Ethyl Alcohol < 10 mg/dL (0-10) 06/22/23 04:14 No radiology studies performed this visit Discharge Plan Discharge Patient Disposition: Admitted As Inpatient Clinical Impression: Acute psychosis, Drug-induced psychotic disorder Condition: Stable Coding Level of Care Code ED Senior Financial Accountant for 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
[2023-06-22 04:41] LABS: Basophils # 0.1 10^3/uL (0.0-0.1); Eosinophils # 0.5 10^3/uL (0.0-0.8); Eosinophils % 5.3 %; Hematocrit 47.2 % (37-53); Lymphocytes # 3.2 10^3/uL (0.8-4.8); Lymphocytes % 32.2 %; Mean Corpuscular HGB Conc 33.7 g/dL (30-55); Mean Corpuscular Hemoglobin 30.6 pg (27-33); Mean Corpuscular Volume 90.9 fl (82-101); Mean Platelet Volume 10.4 fL (7.4-10.4); Monocytes % 10.1 %; Neutrophils # 5.07 10^3/uL (1.8-7.7); Nucleated Red Blood Cells % 0 %; Platelet Count 283 10^3/cmm (157-399); Red Blood Count 5.19 10^6/uL (3.85-5.65); Red Cell Distribution Width 13.4 % (12.1-15.1); White Blood Count 9.96 10^3/uL (3.29-11.43)
[2023-06-22 05:02] LABS: Alanine Aminotransferase 16 U/L (0-41); Albumin Level 4.1 g/dL (3.5-5.2); Alkaline Phosphatase 107 U/L (40-130); Anion Gap 19.3 (5-19); Aspartate Amino Transferase 15 U/L (0-40); Blood Urea Nitrogen 13 mg/dL (6-20); Calcium 8.9 mg/dL (8.5-10.5); Carbon Dioxide 20 mmol/L (22-29); Chloride 103 mmol/L (98-107); Creatinine Clr Calc Pharmacy 117.4349; Glomerular Filtration Rate 83.2 mL/min (90-130); Glucose 169 mg/dL (65-115); Osmolality Calculated 292 mOsm/kg (285-295); Potassium 3.3 mmol/L (3.5-5.1); Sodium 139 mmol/L (136-145); Total Bilirubin 0.2 mg/dL (0.15-1.2); Total Protein 7.1 g/dL (6.6-8.7)
[2023-06-22 05:03] LABS: Acetaminophen < 5.0 ug/mL (10-30); Alcohol Level < 10 mg/dL (0-10); Salicylate < 0.3 mg/dL (3-10)
--- NOTE | 2023-06-22 06:20 | PC.NURSE ---
96 Hour Hold Copy of 96 Hour Hold served to pt by this RN and security. Pt sleepy, but responding appropriately.
[2023-06-22 06:46] VITALS: BP 157/96; PULSE 105; RESP 18; O2SAT 96
[2023-06-22 07:34] VITALS: BP 118/84; PULSE 114; RESP 14; O2SAT 98
--- NOTE | 2023-06-22 13:05 | PC.OT ---
OT EVALUATION ATTEMPTED TWICE TODAY; ONCE IN A.M. AND IN P.M. PATIENT IS SLEEPING SOUNDLY ON BOTH TRIALS. WILL ATTEMPT OT EVALUATION AGAIN TOMORROW.
[2023-06-22 14:00] VITALS: BP 137/90; PULSE 91; RESP 12; O2SAT 97
--- NOTE | 2023-06-22 15:49 | P.NPUHP_ITS ---
Providers/Chief Complaint 2 Admitting Physician: Jason Ansari MD Primary Care Provider: AMAYA Rangel Chief Complaint: MHE HPI NPU History of Present Illness Markie Meza is a 38 year old male most recently discharged from the neuropsychiatric unit on 03/29/2023 who presented to the emergency department by EMS after the family had requested that the patient be evaluated. The patient in the emergency department had acknowledged hearing voices and stated to staff in the emergency department that he was hearing voices. He reported that he was uncertain as to what the voices were saying. The patient had become acutely agitated and was given Geodon 20mg intramuscularly prior to arriving on the neuropsychiatric unit for further evaluation and treatment. He was placed on a 96-hour hold as the patient had been confused and agitated. The patient was unable to provide any further history as he remained sedated throughout this initial interview. Previous outpatient records from his visit in June 01, 2023 had revealed that the patient had continued to use methamphetamines but the patient had reported that he had not been consuming alcohol. He had during that visit stated that he was having problems with hallucinations and increased paranoia as he stated that he had felt as if people are watching him. Current medications: naltrexone 50mg daily, olanzapine 20mg at night. Excerpt from NPU discharge summary on 03/29/23 Discharge Diagnosis (1) Psychotic disorder due to psychoactive substance: Status: Resolved (2) Hallucinations: Status: Resolved Reason for Visit story: History of Present Illness Markie Meza is a 37 year old male who presented to the emergency department with the following report: Chief Complaint: Psychiatric Symptoms Stated Complaint: SI Time Seen by Provider: 03/24/23 12:51 Source: patient Mode of arrival: ambulatory Limitations: no limitations History of Present Illness: 37-year-old male who states he has a history of meth abuse he states has been using meth recently he is having loose Nations he states has been hearing voices they have been telling him to harm himself he states he had suicidal thoughts and thoughts of cutting his wrist denies any worsening improving factors. Associated symptoms: Reports auditory hallucinations, depression and suicidal ideation He was admitted to the neuropsychiatric unit for definitive treatment of those issues. He presents today as he has presented to previous hospitalizations fairly disheveled, disorganized and indecisive. He had limited responses to the interview. He is known to this bid writer through past contacts. A discharge summary from July was reviewed with him and he denied substantive changes but seem to be willing to answer briefly and abruptly to anything to try to get the interview to end. He did acknowledge continued methamphetamine use and reports an openness to getting engaged in treatment. An excerpt of that discharge summary is included below for context and the fact that he is very limited as a historian at this point. We agreed we would review available data to identify the likelihood of adherence to his Invega and that we would restart the Invega as indicated with that information. We discussed the desire to initiate the long-acting injectable. We discussed his outpatient chart and the fact that he has been attending his appointments as scheduled and he could not give a clear indication of what happened to get things off course. We agreed we would assist him in getting things restarted. Per his 07/30/2022 [facility] inpatient psychiatric discharge summary: Discharge Diagnosis (1) Psychotic disorder due to psychoactive substance: Status: Resolved (2) Hallucinations: Status: Resolved Reason for Visit Reason for Visit: [facility] Brief History: History of Present Illness Markie Meza is a 37 year old male who presented to the emergency department with the following report: Chief Complaint: Psychiatric Symptoms Stated Complaint: [facility] Time Seen by Provider: 07/20/22 08:22 Source: patient Mode of arrival: ambulatory History of Present Illness: 29-year-old male presents emergency room with a family friend he is acutely psychotic with auditory and visual hallucinations telling him to harm himself and others. He admits to all of this he also endorses suicidal intent. He last used meth 2 days ago. He has a history of methamphetamine and alcohol abuse. MD complaint: suicidal ideation and feels depressed Onset (ago): day(s) Duration: constant History of same: Yes Relieving factors: none Exacerbating factors: drug use Context: recent drug abuse Associated psychiatric symptoms: depression, suicidal ideation, homicidal ideation, auditory hallucinations and visual hallucinations Associated symptoms: Reports auditory hallucinations, visual hallucinations, depression, homicidal ideation and suicidal ideation Treatments prior to arrival: none If self harm: admits thoughts of self harm and has plan Was admitted to the neuropsychiatric unit for definitive treatment of those issues. He once again presents as a limited historian due to some likely lethargy secondary to his presumed methamphetamine withdrawal. He presents with limited responses but endorsing that he has not been taking his medication, that he has been still engaged in methamphetamine use and that he came to the hospital secondary to feeling suicidal and having hallucinations. We discussed the risk benefits and alternatives of restarting the Invega but at 6 mg p.o. nightly as well as working with the treatment team to figure out if we can find a reasonable treatment option to begin to impact his drug use. He was fairly ambivalent in the conversation but mostly secondary to being lethargic and wanting to really sleep versus answering the questions. An excerpt of his discharge summary from 07/09/2022 is included below for context and the fact that he denies substantive changes since that time. UDS was not back at the time of interview. Per his 07/09/2022 [facility] inpatient psychiatric discharge summary: SI Brief History: History of Present Illness Markie Meza is a 37 year old male who presented to the emergency department on 07/03/2022 with complaints of auditory and visual hallucinations with reports of thoughts of hurting himself and thoughts of hurting others. The patient was admitted to the neuropsychiatric unit for further evaluation and treatment. Prior to arriving on the neuropsychiatric unit, the patient had been very agitated and required the use of as needed medications including Geodon Ativan and Haldol. The patient on interview today reports that he has been having problems with hearing voices telling him to hurt himself and seeing things telling him to hurt himself. He has endorsed increased suspiciousness of others and states that the voices are sometimes jumbled. He had reported that he had been using methamphetamine intranasally and states that he had previously consumed alcohol but was no longer drinking. The patient was a poor historian and hostile and belligerent throughout much of the interview insisting that he needed to immediately check on his house. Patient had reported that he understood that he was on a 96-hour hold and stated that he did not like to take medications. Patient had acknowledged having depressed mood but did not elaborate any further regarding any changes in energy appetite or concentration. He reports having been diagnosed as having cognitive impairment and states that he was currently on disability for ADHD. Past psychiatric history: Patient denied any past history of psychiatric treatment other than reports of having been treated with ADHD as a child and reporting having been hospitalized as a teenager in [place] for psychiatric reasons. 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 He had endorsed using methamphetamine infrequently for several years. He denied any other drug use. He smokes cigarettes Family psychiatric history: None reported Legal History: unknown Social history: Patient was born in [facility]. He had reported having several siblings. He reports that he grew up in a dysfunctional family and states that his biological parents are no longer together. He reports that his mother lives in [place] and his father is . He reports having a significant learning disability and graduated [employer] with a special diploma. He had reported that he is currently on disability and is not employed. He denies any sexual physical or emotional abuse. He reports he has never been but has children. Hospital Course Discharge Summary: During the hospitalization, patient had routine laboratory studies which were within normal limits except for few outliers. Additionally there was a general medical evaluation which was also within normal limits and revealed no new acute processes. At the time of discharge, lethality was denied and psychosis was resolving. Mood and anxiety were well managed. Patient endorsed a plan to avoid all drugs of abuse and follow-up with the aftercare recommendations of the treatment team. Patient was evaluated and deemed to be absent credible lethality, and had achieved the maximum benefit from an inpatient hospitalization, so was discharged. He was placed on IM invega sustenna and 3 shots Hospital Course Hospital Course He slowly acclimated to the individual, group and milieu therapies provided. He presented with nonadherence to his medication. Eventually he allowed us to restart his medications with an increase from 10 mg p.o. twice daily of Zyprexa to 10 mg in the morning and 15 mg at night. We continued his other medications without incident. He did well with these changes. He was able to work with the social work team to get appropriate follow-up and aftercare. During the stay, he had significant improvement and was able to contract for safety outside of the hospital prior to discharge. During the hospitalization, the patient had routine laboratory studies which were within normal limits except for a few outliers.? Additionally, there was a general medical evaluation which was also within normal limits and revealed no new acute processes.? At the time of discharge, he denied lethality and his psychosis was resolving.? Mood and anxiety were well managed.? The patient endorsed a plan to avoid all drugs of abuse and follow up with the aftercare recommendations of the treatment team.? The patient was evaluated and deemed to be absent credible lethality and had achieved the maximum benefit from an inpatient hospitalization, and so was discharged. Meds NPU Home Medications Medication Instructions Recorded Confirmed Last Taken Type naltrexone 50 mg tablet 50 mg PO QAM 30 days #30 tabs 04/29/23 06/22/23 Unknown Rx olanzapine 10 mg tablet (Zyprexa) 10 mg PO BEDTIME #30 tabs 04/29/23 06/22/23 Unknown Rx propranolol 20 mg tablet 40 mg (2 x 20 mg) PO QAM 30 days 04/29/23 06/22/23 Unknown Rx #60 tabs Allergies Allergy/AdvReac Type Severity Reaction Status Date / Time No Known Allergies Allergy Verified 06/01/23 15:42 PFSH NPU 2 PFSH: Medical History Non-suicidal self harm as coping mechanism Marijuana use, episodic Cigarette nicotine dependence 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 Social History Smoking and tobacco/nicotine status: current every day tobacco/nicotine user Alcohol intake: current Marital status: Single Mental Status Exam 2 MSE Comments: This is an obese white male in hospital scrubs with poor grooming and no eye contact. Mostly disheveled and with poor hygiene and malodorous. No abnormal involuntary motor movements except for significant psychomotor retardation. He was not awake and was unable to be awakened. Speech was absent. Mood was not endorsed, Affect appeared blunted. Thought process: difficult to assess as he was essentially nonverbal. Thought content: difficult to assess as he was essentially nonverbal. Attention and concentration were limited and memory was unreliable but none were formally tested. He is nonalert but breathing. He was sleeping and had difficulty with staying awake. Insight, judgment and impulse control are all impaired. Vitals/I&O/Wt Last Vital Signs Temp 97.6 F 06/22/23 04:14 Pulse 114 H 06/22/23 07:34 Resp 14 06/22/23 07:34 BP 118/84 06/22/23 07:34 Pulse Ox 98 06/22/23 07:34 O2 Del Method Room Air 06/22/23 06:46 06/22/23 06/22/23 06/22/23 06:59 14:59 22:59 Intake Total 1.2 / 1.2 Balance 1.2 / 1.2 Weight last 48 hrs Weight 99.79 kg Data NPU 06/22/23 04:14 06/22/23 04:14 A&P Assessment and plan (1) Psychotic disorder due to psychoactive substance: (2) Hallucinations: (3) Methamphetamine abuse: Plan The patient is a 38-year-old white male known to unit discharged in March who presents involuntarily with agitation, and psychosis with unclear history of compliance on zyprexa with continued use of methamphetamine as noted by other recent records. 1.? Consider switching antipsychotic back to Invega instead of zyprexa. 2.? Continue every 15 minute checks for safety. 3.? Encourage individual, group and milieu therapy once he has engaged. 4.? Encourage sobriety treatment after discharge to the hospital care to which he is willing to commit.? 5. Will attempt to gather collateral information. Involuntary Hold Information 2 96 Hour Hold: 96 Hour Involuntary Admission: Yes 96 Hour Hold Ending Date: 07/27/22 96 Hour Hold Ending Time: 08:45 Attestations NPU 2 Medical Necessity Statement*: Inpatient hospitalization is medically necessary and clinically appropriate at this time. We will monitor/initiate medications and make changes as indicated.? He will be in the hospital for over 2 midnights. Likely length of stay 5-7 days. Coding Level of Care Code Acute Code for Chg Fwd Diagnoses Psychotic disorder due to psychoactive substance F19.959 Hallucinations R44.3 Methamphetamine abuse F15.10
[2023-06-22 19:59] VITALS: BP 132/86; PULSE 93; RESP 18; O2SAT 96
[2023-06-23 06:00] VITALS: BP 147/89; PULSE 81; RESP 16; O2SAT 96
[2023-06-23 14:00] VITALS: BP 130/64; PULSE 82; RESP 20; TEMP 36.8; O2SAT 95
--- NOTE | 2023-06-23 14:38 | PC.OT ---
OT EVALUATION ATTEMPTED TWICE TODAY. PATIENT CONTINUES TO SLEEP AND NOT AWAKEN
--- NOTE | 2023-06-23 15:33 | W.PM.NPUPNS ---
Subjective NPU Subjective: 38-year-old white male with mild cognitive impairment admitted with aggression ,auditory hallucinations, paranoia and increased irritability in the presence of the presumptive use of methamphetamine. The patient was sleeping in his room and stated that he did not wish to talk to process description writer of this note. He spent all of the afternoon sleeping with no regard for self care and no communication with staff. He had no need for prn medications for aggression yet. Mental Status Exam MSE Comments: This is an obese white male in hospital scrubs with poor grooming and no eye contact. Mostly disheveled and with poor hygiene and malodorous. No abnormal involuntary motor movements except for significant psychomotor retardation. He was not awake and requested that process description writer go away. Speech was limited. Mood was not endorsed, Affect appeared blunted. Thought process: difficult to assess as he was essentially nonverbal. Thought content: difficult to assess as he was essentially nonverbal. Attention and concentration were limited and memory was unreliable but none were formally tested. He is nonalert but breathing. He was sleeping and was not able to stay awake. Insight, judgment and impulse control are all impaired. Vitals/I&O/Wt Last Vital Signs Temp 97.6 F 06/22/23 04:14 Pulse 81 06/23/23 06:00 Resp 16 06/23/23 06:00 BP 147/89 06/23/23 06:00 Pulse Ox 96 06/23/23 06:00 O2 Del Method Room Air 06/23/23 06:00 Weight last 48 hrs Weight 99.79 kg Data NPU 06/22/23 04:14 06/22/23 04:14 A&P Assessment and plan (1) Psychotic disorder due to psychoactive substance: (2) Hallucinations: (3) Methamphetamine abuse: Plan The patient is a 38-year-old white male known to unit who presents involuntarily with agitation, and psychosis with likely concurrent use of methamphetamine. 1.? Consider Invega IM, invega 3mg oral. 2.? Continue every 15 minute checks for safety. 3.? Encourage individual, group and milieu therapy once he has engaged. 4.? Encourage sobriety treatment after discharge to the hospital care to which he is willing to commit.? 5. Will attempt to gather collateral information. Involuntary Hold Information 96 Hour Hold: 96 Hour Involuntary Admission: Yes 96 Hour Hold Ending Date: 06/28/23 96 Hour Hold Ending Time: 05:15 Attestations NPU Medical Necessity Statement*: Inpatient hospitalization is medically necessary and clinically appropriate at this time. We will monitor/initiate medications and make changes as indicated.? The patient's likely length of stay 5-7 days. Coding Level of Care Code Acute Code for Chg Fwd Diagnoses Psychotic disorder due to psychoactive substance F19.959 Hallucinations R44.3 Methamphetamine abuse F15.10
[2023-06-23] MEDS: paliperidone ER 3 mg Tablet PO (20:20)
[2023-06-23] MEDS: OLANZapine 10 mg TABLET PO (20:20)
[2023-06-23 20:45] VITALS: PULSE 89; RESP 18; O2SAT 97
--- NOTE | 2023-06-23 20:45 | PC.NURSE ---
Took patients vitals. Patients BP was 166/122 told patient that we were taken them again due to it being high. Patient got agitated and ref.
[2023-06-23 20:53] LABS: Add Urine Microscopic? YES; Bilirubin Urine Neg (Negative); Blood Urine 2+ (Negative); Glucose Urine UA Norm (Normal); Ketones Urine 1+ (Negative); Leukocyte Esterase Urine Negative (Negative); Nitrate Urine Negative (Negative); Protein Urine Trace (Negative); Urine Appearance SL Hazy (CLEAR); Urine Color Yellow (Yellow); Urobilinogen Urine Neg (Negative); pH Urine 6.5 (5-7)
[2023-06-23 20:54] LABS: Add Urine Culture? Yes; Bacteria Urine TRACE /hpf; Mucus Urine 2+ /hpf; Squamous Epithelial Cell Urine 0-4 /hpf (0-5)
[2023-06-23 21:05] LABS: Amphetamines Screen Urine Positive (Negative); Barbiturates Screen Urine Negative (Negative); Benzodiazepines Screen Urine Negative (Negative); Cocaine Screen Urine Negative (Negative); Opiate Screen Urine Negative (Negative); PCP Screen Urine Negative (Negative); THC Screen Urine Negative (Negative)
[2023-06-23] MEDS: trazodone 50 mg Tablet PO (21:26)
[2023-06-24 06:00] VITALS: BP 159/89; PULSE 78; RESP 18; O2SAT 96
[2023-06-24] MEDS: naltrexone hcl 50 mg Tablet PO (11:10)
[2023-06-24] MEDS: propranolol 20 mg Tablet 40 MG PO (11:10)
[2023-06-24 14:00] VITALS: BP 115/79; PULSE 117; RESP 20; TEMP 36.6; O2SAT 97
[2023-06-24] MEDS: docusate sodium 100 mg Capsule PO (15:23)
--- NOTE | 2023-06-24 16:37 | P.NPUPN_ITS ---
Subjective NPU 2 Subjective: 38-year-old white male with mild cogniti ve impairment admitted with aggression ,auditory hallucinations, paranoia and increased irritability in the presence of the presumptive use of methamphetamine. Patient urine positive for amphetamine. Patient had continued to isolate self on the milieu. patient reported feeling tired. He had acknowledged feeling depressed. He did not leave his room other than to eat and consume fluids. There was no acts of aggression. Mental Status Exam 2 MSE Comments: This is an obese white male in hospital scrubs with poor grooming and no eye contact. Disheveled appearance with poor hygiene and malodorous. No abnormal involuntary motor movements except for severe psychomotor retardation. He was difficult to awaken again and noncooperative on interview. Speech was nonproductive. Mood was not endorsed, Affect appeared blunted. Thought process: difficult to assess as he was essentially nonverbal. Thought content: difficult to assess as he was essentially nonverbal. Attention and concentration were limited and memory was unreliable but none were formally tested. He is nonalert but breathing. He was sleeping and was not able to stay awake. Insight, judgment and impulse control are all impaired. Vitals/I&O/Wt Last Vital Signs Temp 98 F 06/24/23 14:00 Pulse 117 H 06/24/23 14:00 Resp 20 H 06/24/23 14:00 BP 115/79 06/24/23 14:00 Pulse Ox 97 06/24/23 14:00 O2 Del Method Room Air 06/24/23 06:00 Data NPU 06/22/23 04:14 06/22/23 04:14 A&P Assessment and plan (1) Psychotic disorder due to psychoactive substance: (2) Hallucinations: (3) Methamphetamine abuse: Plan The patient is a 38-year-old white male known to unit who presents involuntarily with agitation, and psychosis with likely concurrent use of methamphetamine. 1.? Restart zyprexa 10mg at night, urine screen positive for amphetamine again. 2.? Continue every 15 minute checks for safety. 3.? Encourage individual, group and milieu therapy once he has engaged. 4.? Encourage sobriety treatment after discharge to the hospital care to which he is willing to commit.? 5. Will attempt to gather collateral information. Involuntary Hold Information 2 96 Hour Hold: 96 Hour Involuntary Admission: Yes 96 Hour Hold Ending Date: 06/28/23 96 Hour Hold Ending Time: 05:15 Attestations NPU 2 Medical Necessity Statement*: Inpatient hospitalization is medically necessary and clinically appropriate at this time. We will monitor/initiate medications and make changes as indicated.? The patient's likely length of stay 5-7 days. Coding Level of Care Code Acute Code for Chg Fwd Diagnoses Psychotic disorder due to psychoactive substance F19.959 Hallucinations R44.3 Methamphetamine abuse F15.10
[2023-06-24] MEDS: paliperidone ER 3 mg Tablet PO (20:03)
[2023-06-24] MEDS: OLANZapine 10 mg TABLET PO (20:03)
--- NOTE | 2023-06-24 20:36 | PC.NURSE ---
PT RESTING IN BED AROUSES TO VOICE. PT DENIES PAIN. DENIES SI/HI AND AVH AT THIS TIME. RATES ANXIETY AND DEPRESSION 0/10. DECLINES THE NEED FOR PRN MEDICATIONS AT THIS TIME. PT IS NOTED TO BE WITHDRAWN AND HAS A FLAT AFFECT, GUARDED WITH STAFF AND EVASIVE WITH ASSESSMENT QUESTIONS. ALL QUESTIONS WERE ANSWERED AND SUPPORT WAS VOICED,
[2023-06-24 20:44] VITALS: BP 134/78; PULSE 89; RESP 16; O2SAT 96
[2023-06-25 06:00] VITALS: BP 147/78; PULSE 70; RESP 15; O2SAT 97
[2023-06-25] MEDS: propranolol 20 mg Tablet 40 MG PO (06:22)
[2023-06-25] MEDS: naltrexone hcl 50 mg Tablet PO (06:23)
--- NOTE | 2023-06-25 06:30 | PC.NURSE ---
PT DID NOT REQUIRE ANY PRN'S THIS SHIFT. PT TOOK SCHEDULED NIGHT TIME MEDICATIONS AND WAS ABLE TO REST THROUGHOUT THE SHIFT. PT HAS SLEPT APPROXIMATELY 8-9 HOURS THIS SHIFT. PT CONTINUES TO REST WITH EYES CLOSED WITH NO DISTRESS NOTED AT THIS TIME.
[2023-06-25] MEDS: guaiFENesin 600 mg Tablet PO ×2 (08:26→17:39)
--- NOTE | 2023-06-25 13:49 | W.PM.NPUPNS ---
Subjective NPU Subjective: 38-year-old white male with mild cognitive impairment admitted with aggression ,auditory hallucinations, paranoia and increased irritability in the presence of the presumptive use of methamphetamine. The patient had admitted to having placed a crossbow next to his had with a plan to harm himself. He continued to spend nearly every hour of the day in his room sleeping. He had some improved oral intake. He had reported that he was living alone. He had acknowledged methamphetamine use. He had stated that he was no longer having thoughts of hurting himself. There was no acts of aggression noted on the unit. Mental Status Exam MSE Comments: This is an obese white male in hospital scrubs with poor grooming and minimal eye contact. Disheveled appearance with poor hygiene and malodorous. No abnormal involuntary motor movements except for severe psychomotor retardation. He was difficult to awaken again and minimally cooperative on interview. Speech was limited to one or two word answers with no elaboration. normal volume and diminished rate. Mood was described as fine. Affect was blunted. Thought process: linear but concrete. Thought content: minimized homicidal or suicidal ideation now but reports having put a bow to his head. He did at times appear to be responding to internal stimuli despite denying any auditory or visual hallucinations. Attention and concentration were limited and memory was unreliable but none were formally tested. He was alert to person and place but not time. He was sleeping and was not able to stay awake. Insight, judgment and impulse control are all impaired. 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 1.? Continue zyprexa 10mg at night, urine screen positive for amphetamine again. 2.? Continue every 15 minute checks for safety. 3.? Encourage individual, group and milieu therapy once he has engaged. 4.? Encourage sobriety treatment after discharge to the hospital care to which he is willing to commit.? 5. Patient remains psychotic and continued request for 21 day hold completed today. Involuntary Hold Information 96 Hour Hold: 96 Hour Involuntary Admission: Yes 96 Hour Hold Ending Date: 06/28/23 96 Hour Hold Ending Time: 05:15 Attestations NPU Medical Necessity Statement*: Inpatient hospitalization is medically necessary and clinically appropriate at this time. We will monitor/initiate medications and make changes as indicated.? The patient's likely length of stay 5-7 days. Coding Level of Care Code Acute Code for [facility] Fwd Diagnoses Psychotic disorder due to psychoactive substance F19.959 Hallucinations R44.3 Methamphetamine abuse F15.10
[2023-06-25 14:00] VITALS: BP 148/87; PULSE 75; RESP 16; TEMP 36.7; O2SAT 97
--- NOTE | 2023-06-25 14:47 | PC.OT ---
OT evaluation attempted with pt declining to be evaluated; will attempt at later time.
[2023-06-25 19:40] VITALS: BP 161/112; PULSE 89; RESP 15; TEMP 36.2; O2SAT 98
[2023-06-25] MEDS: OLANZapine 5 mg TABLET PO (20:25)
[2023-06-25] MEDS: paliperidone ER 6 mg Tablet PO (20:25)
--- NOTE | 2023-06-25 20:47 | PC.NURSE ---
RESTING IN BED AROUSES TO VOICE. DENIES PAIN. DENIES SI/HI AND AVH AT THIS TIME. PT IS NOTED TO HAVE A FLAT AFFECT AND IS WITHDRAWN, ISOLATES TO ROOM. PT RATES ANXIETY 1/10 AND DEPRESSION 1/10. PT DECLINES THE NEED FOR PRN MEDICATIONS. PT IS EVASIVE WITH ASSESSMENT AND ROLLED OVER AND WENT BACK TO RESTING. ALL QUESTIONS ANSWERED AND SUPPORT WAS VOICED.
[2023-06-26 06:00] VITALS: BP 151/84; PULSE 74; RESP 16; TEMP 36.4; O2SAT 97
--- NOTE | 2023-06-26 06:17 | PC.NURSE ---
PT DID NOT REQUIRE ANY PRN MEDICATIONS THIS SHIFT. PT HAS SLEPT APPROXIMATELY 9-10 HOURS THIS SHIFT. PT CONTINUES TO REST WITH EYES CLOSED WITH NO DISTRESS NOTED AT THIS TIME.
[2023-06-26] MEDS: guaiFENesin 600 mg Tablet PO ×2 (08:19→18:21)
[2023-06-26] MEDS: propranolol 20 mg Tablet 40 MG PO ×4 (08:19→19:46)
[2023-06-26] MEDS: naltrexone hcl 50 mg Tablet PO (08:19)
--- NOTE | 2023-06-26 08:28 | PC.NURSE ---
Patient denies anxiety, depression, SI, HI, AVH. Patient sluggish during assessment. Patient states that he feels like crap.
--- NOTE | 2023-06-26 11:33 | P.NPUPN_ITS ---
Subjective NPU 2 Subjective: Patient presented today reporting that he is doing fine and was somewhat unclear about why he was here. He was asking about length of stay and we discussed the fact that he had had limited engagement with the previous provider and that we would need to get some sense of what was driving his situation. We discussed concerns about his adherence to his medications. He was not very engaging and mostly dismissive of questions and more wanting to focus on when he would be discharged. We discussed wanting the work with the treatment team for appropriate discharge planning on Wednesday but wanting to make sure that his thought disorder and dysfunction were at the very least reduced prior to discharge. He denied any side effects to the medications. Mental Status Exam 2 MSE Comments: This is an obese white male in hospital scrubs with poor grooming and minimal eye contact. Disheveled appearance with poor hygiene and malodorous. No abnormal involuntary motor movements except for significant psychomotor retardation. Limited cooperation with exam in mild to moderate distress. Speech was limited with more normal rate and volume.. Mood was described as fine. Affect was blunted. Thought process: linear but concrete. Thought content: minimized homicidal or suicidal ideation. There were no delusions reported but he did appear extremely guarded. He did at times appear to be responding to internal stimuli despite denying any auditory or visual hallucinations. Attention and concentration were limited and memory was unreliable but none were formally tested. He was alert to person and place but not time. He was alert and oriented to person and place. Insight, judgment and impulse control are all impaired. 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 1.? Continue zyprexa 10mg at night, urine screen positive for amphetamine again. May consider switch or addition of Invega or Abilify to allow for a long-acting injectable. 2.? Continue every 15 minute checks for safety. 3.? Encourage individual, group and milieu therapy once he has engaged. 4.? Encourage sobriety treatment after discharge to the hospital care to which he is willing to commit.? 5. Patient remains psychotic and 21-day hold paperwork filed. Involuntary Hold Information 2 96 Hour Hold: 96 Hour Involuntary Admission: Yes 96 Hour Hold Ending Date: 06/28/23 96 Hour Hold Ending Time: 05:15 Attestations NPU 2 Medical Necessity Statement*: Inpatient hospitalization is medically necessary and clinically appropriate at this time. We will monitor/initiate medications and make changes as indicated.? The patient's likely length of stay 4-6 days. Coding Level of Care Code Acute Code for [facility] Fwd Diagnoses Psychotic disorder due to psychoactive substance F19.959 Hallucinations R44.3 Methamphetamine abuse F15.10
[2023-06-26 14:00] VITALS: BP 137/78; PULSE 79; RESP 16; TEMP 36.3; O2SAT 98
[2023-06-26] MEDS: OLANZapine 5 mg TABLET PO (19:46)
[2023-06-26] MEDS: paliperidone ER 6 mg Tablet PO (19:46)
--- NOTE | 2023-06-26 19:55 | PC.NURSE ---
RESTING IN BED,DOES AROUSE TO VOICE. PT DENIES PAIN. DENIES SI/HI AND AVH AT THIS TIME. PT IS NOTED TO HAVE A FLAT AFFECT AND DEPRESSED MOOD. OBSERVED ISOLATING TO ROOM AND IS WITHDRAWN AND GUARDED WITH STAFF. PT IS COMPLIANT WITH HS MEDICATIONS AND DENIES THE NEED FOR PRN MEDICATIONS AT THIS TIME. PT RATES ANXIETY AND DEPRESSION 04/28. ALL QUESTIONS ANSWERED AND SUPPORT WAS VOICED.
[2023-06-26 20:36] VITALS: BP 127/71; PULSE 68; RESP 16; O2SAT 97
--- NOTE | 2023-06-27 05:45 | PC.NURSE ---
PT DID NOT REQUIRE PRN MEDICATIONS THIS SHIFT, PT DENIED THE NEED FOR ANY. PT HAS SLEPT APPROXIMATELY 9-10 HOURS THIS SHIFT. PT CONTINUES TO REST WITH EYES CLOSED WITH NO DISTRESS NOTED AT THIS TIME.
[2023-06-27 06:00] VITALS: BP 128/80; PULSE 64; RESP 15; TEMP 36.4; O2SAT 98
--- NOTE | 2023-06-27 07:58 | W.PM.NPUPNS ---
Subjective NPU Subjective: Patient presented today continuing to be isolative in his interactions on the unit. He continued to stay in his room and be somewhat confused but seeming to be very clear about wanting to leave. He denied any specific issues related to being here and was very resistant to discussions about his recovery and need for appropriate services for us to change this pattern. At times he spoke nonsensical. There were no reports of issues or side effects with his medication. Mental Status Exam MSE Comments: This is an obese white male in hospital scrubs with poor grooming and minimal eye contact. Disheveled appearance with poor hygiene and malodorous. No abnormal involuntary motor movements except for significant psychomotor retardation. Limited cooperation with exam in mild to moderate distress. Speech was limited with more normal rate and volume.. Mood was described as fine. Affect was blunted. Thought process: linear but concrete. Thought content: minimized homicidal or suicidal ideation. There were no delusions reported but he did appear extremely guarded. He did at times appear to be responding to internal stimuli despite denying any auditory or visual hallucinations. Attention and concentration were limited and memory was unreliable but none were formally tested. He was alert to person and place but not time. He was alert and oriented to person and place. Insight, judgment and impulse control are all impaired. 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 1.? Continue zyprexa 10mg at night, urine screen positive for amphetamine again. May consider switch or addition of Invega or Abilify to allow for a long-acting injectable. 2.? Continue every 15 minute checks for safety. 3.? Encourage individual, group and milieu therapy once he has engaged. 4.? Encourage sobriety treatment after discharge to the hospital care to which he is willing to commit.? 5. Patient remains psychotic and 21-day hold paperwork filed. Involuntary Hold Information 96 Hour Hold: 96 Hour Involuntary Admission: Yes 96 Hour Hold Ending Date: 06/28/23 96 Hour Hold Ending Time: 05:15 Attestations NPU Medical Necessity Statement*: Inpatient hospitalization is medically necessary and clinically appropriate at this time. We will monitor/initiate medications and make changes as indicated.? The patient's likely length of stay 4-6 days. Coding Level of Care Code Acute Code for [facility] Fwd Diagnoses Psychotic disorder due to psychoactive substance F19.959 Hallucinations R44.3 Methamphetamine abuse F15.10
[2023-06-27] MEDS: propranolol 20 mg Tablet 40 MG PO ×4 (08:22→20:02)
[2023-06-27] MEDS: guaiFENesin 600 mg Tablet PO ×2 (08:23→17:46)
[2023-06-27] MEDS: naltrexone hcl 50 mg Tablet PO (08:23)
[2023-06-27 14:00] VITALS: BP 141/63; PULSE 66; RESP 16; TEMP 36.6; O2SAT 96
[2023-06-27 19:59] VITALS: BP 131/75; PULSE 67; RESP 18; TEMP 36.4; O2SAT 95
[2023-06-27] MEDS: paliperidone ER 6 mg Tablet PO (20:02)
[2023-06-27] MEDS: trazodone 50 mg Tablet PO (20:02)
[2023-06-27] MEDS: OLANZapine 5 mg TABLET PO (20:02)
[2023-06-28 06:00] VITALS: BP 149/92; PULSE 66; RESP 16; O2SAT 95
--- NOTE | 2023-06-28 07:50 | PC.NURSE ---
RESTING IN BED AROUSES TO VOICE. PT DENIES SI/HI AND AVH AT THIS TIME. DENIES PAIN. RATES ANXIETY AND DEPRESSION 04/28. PT DECLINES THE NEED FOR PRN MEDICATIONS THIS AM. PT IS NOTED TO BE WITHDRAWN AND ISOLATES TO ROOM. PT WAS ENCOURAGED TO EAT BREAKFAST BUT STATED WHO SAID I WAS EATING. PT IS OBSERVED BEING EVASIVE WITH ASSESSMENT QUESTIONS AND ASSESSMENT IN GENERAL. ALL QUESTIONS ANSWERED AND SUPPORT WAS VOICED.
[2023-06-28] MEDS: guaiFENesin 600 mg Tablet PO ×2 (08:31→17:19)
[2023-06-28] MEDS: naltrexone hcl 50 mg Tablet PO (08:31)
[2023-06-28] MEDS: propranolol 20 mg Tablet 40 MG PO ×4 (08:31→20:16)
[2023-06-28 14:00] VITALS: BP 146/81; PULSE 73; RESP 16; TEMP 36.7; O2SAT 94
--- NOTE | 2023-06-28 18:49 | W.PM.NPUPNS ---
Subjective NPU Subjective: Patient presented today reporting that he did not understand why he could not just be discharged. We discussed his outburst when he was made aware that the 21-day hold was granted. We discussed his continued confusion and psychosis and the fact that we needed to know that he was cognitively fit and safe to be discharged before we did that. He denied any side effects of the medication. Mental Status Exam MSE Comments: This is an obese white male in hospital scrubs with poor grooming and minimal eye contact. Disheveled appearance with poor hygiene and malodorous. No abnormal involuntary motor movements except for significant psychomotor retardation. Limited cooperation with exam in mild to moderate distress. Speech was limited with more normal rate and volume.. Mood was described as fine. Affect was blunted. Thought process: linear but concrete. Thought content: minimized homicidal or suicidal ideation. There were no delusions reported but he did appear extremely guarded. He did at times appear to be responding to internal stimuli despite denying any auditory or visual hallucinations. Attention and concentration were limited and memory was unreliable but none were formally tested. He was alert to person and place but not time. He was alert and oriented to person and place. Insight, judgment and impulse control are all impaired. 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 1.? Continue zyprexa 10mg at night, urine screen positive for amphetamine again. May consider switch or addition of Invega or Abilify to allow for a long-acting injectable. 2.? Continue every 15 minute checks for safety. 3.? Encourage individual, group and milieu therapy once he has engaged. 4.? Encourage sobriety treatment after discharge to the hospital care to which he is willing to commit.? 5. Patient remains psychotic and 21-day hold paperwork filed. Involuntary Hold Information 96 Hour Hold: 96 Hour Involuntary Admission: Yes 96 Hour Hold Ending Date: 06/28/23 96 Hour Hold Ending Time: 05:15 Attestations NPU Medical Necessity Statement*: Inpatient hospitalization is medically necessary and clinically appropriate at this time. We will monitor/initiate medications and make changes as indicated.? The patient's likely length of stay 4-6 days. Coding Level of Care Code Acute Code for [facility] Fwd Diagnoses Psychotic disorder due to psychoactive substance F19.959 Hallucinations R44.3 Methamphetamine abuse F15.10
[2023-06-28] MEDS: OLANZapine 5 mg TABLET PO (20:16)
[2023-06-28] MEDS: paliperidone ER 6 mg Tablet PO (20:16)
[2023-06-28 20:23] VITALS: BP 127/82; PULSE 75; RESP 16; TEMP 36.8; O2SAT 96
[2023-06-29 06:00] VITALS: BP 134/90; PULSE 66; RESP 18; TEMP 36.7; O2SAT 98
[2023-06-29] MEDS: propranolol 20 mg Tablet 40 MG PO ×3 (09:49→20:31)
[2023-06-29] MEDS: guaiFENesin 600 mg Tablet PO ×2 (09:49→17:45)
[2023-06-29] MEDS: naltrexone hcl 50 mg Tablet PO (09:49)
[2023-06-29 14:00] VITALS: RESP 16
--- NOTE | 2023-06-29 14:44 | P.NPUPN_ITS ---
Subjective NPU 2 Subjective: Patient presents today reporting that he is doing fine. However he continues to be irritable and staying in bed and isolative. He reports that he needs to get home and take care of some things but we discussed a desire to see him demonstrate that he is in a functional place here so that we will feel confident that he will be able to be functional at home to which she was resistant. We discussed trying to get him to consider a long-acting injectable so that he will be able to be consistent with his medication that we may consider forced medication tomorrow. He denied any side effects to his current medication. Mental Status Exam 2 MSE Comments: This is an obese white male in hospital scrubs with poor grooming and minimal eye contact. Disheveled appearance with poor hygiene and malodorous. No abnormal involuntary motor movements except for significant psychomotor retardation. Limited cooperation with exam in mild to moderate distress. Speech was limited with more normal rate and volume.. Mood was described as fine. Affect was blunted. Thought process: linear but concrete. Thought content: minimized homicidal or suicidal ideation. There were no delusions reported but he did appear extremely guarded. He did at times appear to be responding to internal stimuli despite denying any auditory or visual hallucinations. Attention and concentration were limited and memory was unreliable but none were formally tested. He was alert to person and place but not time. He was alert and oriented to person and place. Insight, judgment and impulse control are all impaired. 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 1.? Continue zyprexa 10mg at night, urine screen positive for amphetamine again. May consider switch or addition of Invega or Abilify to allow for a long-acting injectable. 2.? Continue every 15 minute checks for safety. 3.? Encourage individual, group and milieu therapy once he has engaged. 4.? Encourage sobriety treatment after discharge to the hospital care to which he is willing to commit.? 5. Patient placed on 21-day hold 06/27/2020. Involuntary Hold Information 2 96 Hour Hold: 96 Hour Involuntary Admission: Yes 96 Hour Hold Ending Date: 06/28/23 96 Hour Hold Ending Time: 05:15 Attestations NPU 2 Medical Necessity Statement*: Inpatient hospitalization is medically necessary and clinically appropriate at this time. We will monitor/initiate medications and make changes as indicated.? The patient's likely length of stay 4-6 days. Coding Level of Care Code Acute Code for [facility] Fwd Diagnoses Psychotic disorder due to psychoactive substance F19.959 Hallucinations R44.3 Methamphetamine abuse F15.10
[2023-06-29 20:00] VITALS: BP 113/61; PULSE 86; RESP 18; O2SAT 96
[2023-06-29] MEDS: trazodone 50 mg Tablet PO (20:31)
[2023-06-29] MEDS: OLANZapine 5 mg TABLET PO (20:31)
[2023-06-29] MEDS: paliperidone ER 6 mg Tablet PO (20:31)
[2023-06-30 06:00] VITALS: BP 145/78; PULSE 76; RESP 16; O2SAT 97
[2023-06-30] MEDS: guaiFENesin 600 mg Tablet PO ×2 (08:25→17:03)
[2023-06-30] MEDS: naltrexone hcl 50 mg Tablet PO (08:25)
[2023-06-30] MEDS: propranolol 20 mg Tablet 40 MG PO ×3 (08:25→20:42)
[2023-06-30] MEDS: nicotine 2 mg Gum BUCCAL (08:25)
[2023-06-30 12:19] VITALS: BP 99/62; PULSE 60; RESP 18; O2SAT 98
--- NOTE | 2023-06-30 12:48 | P.NPUPN_ITS ---
Subjective NPU 2 Subjective: Patient presented today continuing to be challenging by mostly staying in his room and not showing much signs of improvement. Very limited interactions but reports that he wants to leave and go take care of his dog and his child. We discussed the importance of him demonstrating he can take care of basic things here before discharging and is getting a better idea of if he is having significant psychosis which at times appears to be the case. He denied any side effects of the medication but did not seem to be having insight into the benefit there from. Mental Status Exam 2 MSE Comments: This is an obese white male in hospital scrubs with poor grooming and minimal eye contact. Disheveled appearance with poor hygiene and malodorous. No abnormal involuntary motor movements except for significant psychomotor retardation. Limited cooperation with exam in mild to moderate distress. Speech was limited with more normal rate and volume.. Mood was described as fine. Affect was blunted. Thought process: linear but concrete. Thought content: minimized homicidal or suicidal ideation. There were no delusions reported but he did appear extremely guarded. He did at times appear to be responding to internal stimuli despite denying any auditory or visual hallucinations. Attention and concentration were limited and memory was unreliable but none were formally tested. He was alert to person and place but not time. He was alert and oriented to person and place. Insight, judgment and impulse control are all impaired. 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 1.? Continue zyprexa 10mg at night, urine screen positive for amphetamine again. May consider switch or addition of Invega or Abilify to allow for a long-acting injectable. 2.? Continue every 15 minute checks for safety. 3.? Encourage individual, group and milieu therapy once he has engaged. 4.? Encourage sobriety treatment after discharge to the hospital care to which he is willing to commit.? 5. Patient placed on 21-day hold 06/27/2020. Involuntary Hold Information 2 96 Hour Hold: 96 Hour Involuntary Admission: Yes 96 Hour Hold Ending Date: 06/28/23 96 Hour Hold Ending Time: 05:15 Attestations NPU 2 Medical Necessity Statement*: Inpatient hospitalization is medically necessary and clinically appropriate at this time. We will monitor/initiate medications and make changes as indicated.? The patient's likely length of stay 4-6 days. Coding Level of Care Code Acute Code for [facility] Fwd Diagnoses Psychotic disorder due to psychoactive substance F19.959 Hallucinations R44.3 Methamphetamine abuse F15.10
[2023-06-30 14:00] VITALS: BP 99/62; PULSE 60; RESP 18; O2SAT 98
[2023-06-30 20:14] VITALS: BP 114/75; PULSE 74; RESP 18; O2SAT 98
[2023-06-30] MEDS: OLANZapine 5 mg TABLET PO (20:42)
[2023-06-30] MEDS: paliperidone ER 6 mg Tablet PO (20:42)
[2023-07-01 06:00] VITALS: BP 130/78; PULSE 69; RESP 18; O2SAT 97
[2023-07-01] MEDS: guaiFENesin 600 mg Tablet PO ×2 (09:12→17:54)
[2023-07-01] MEDS: naltrexone hcl 50 mg Tablet PO (09:12)
[2023-07-01] MEDS: propranolol 20 mg Tablet 40 MG PO ×4 (09:12→20:32)
--- NOTE | 2023-07-01 10:51 | P.NPUPN_ITS ---
Subjective NPU 2 Subjective: Patient presents today continuing to be more communicative and now being very focused on being discharged. He reported that there was not anything he could really do here but that he has things to take care of at home. We discussed the fact that he was incapable of managing things at home in a way that was functional in the condition that he presented. He seemed to have limited insight into his level of dysfunction on arrival. He is resistant to any medication changes. Mental Status Exam 2 MSE Comments: This is an obese white male in hospital scrubs with poor grooming and minimal eye contact. Disheveled appearance with poor hygiene and malodorous. No abnormal involuntary motor movements except for significant psychomotor retardation. Limited cooperation with exam in mild to moderate distress. Speech was limited with more normal rate and volume. Mood was described as fine, but I do not want to be here anymore. Affect was blunted. Thought process: linear but concrete. Thought content: minimized homicidal or suicidal ideation. There were no delusions reported but he did appear extremely guarded. He did at times appear to be responding to internal stimuli despite denying any auditory or visual hallucinations. Attention and concentration were limited and memory was unreliable but none were formally tested. He was alert to person and place but not time. He was alert and oriented to person and place. Insight, judgment and impulse control are all impaired. 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 1.? Continue zyprexa 10mg at night, urine screen positive for amphetamine again. May consider switch or addition of Invega or Abilify to allow for a long-acting injectable. 2.? Continue every 15 minute checks for safety. 3.? Encourage individual, group and milieu therapy once he has engaged. 4.? Encourage sobriety treatment after discharge to the hospital care to which he is willing to commit.? 5. Patient placed on 21-day hold 06/27/2020. Involuntary Hold Information 2 96 Hour Hold: 96 Hour Involuntary Admission: Yes 96 Hour Hold Ending Date: 06/28/23 96 Hour Hold Ending Time: 05:15 Attestations NPU 2 Medical Necessity Statement*: Inpatient hospitalization is medically necessary and clinically appropriate at this time. We will monitor/initiate medications and make changes as indicated.? The patient's likely length of stay 3-5 days. Coding Level of Care Code Acute Code for g Fwd Diagnoses Psychotic disorder due to psychoactive substance F19.959 Hallucinations R44.3 Methamphetamine abuse F15.10
[2023-07-01 13:53] VITALS: BP 120/80; PULSE 62; RESP 15; TEMP 36.7; O2SAT 97
[2023-07-01] MEDS: paliperidone ER 6 mg Tablet PO (20:32)
[2023-07-01] MEDS: OLANZapine 5 mg TABLET PO (20:32)
[2023-07-01 20:40] VITALS: BP 125/75; PULSE 76; RESP 18; O2SAT 97
[2023-07-02 06:00] VITALS: BP 128/79; PULSE 58; RESP 18; O2SAT 98
[2023-07-02] MEDS: propranolol 20 mg Tablet 40 MG PO ×4 (07:47→20:04)
[2023-07-02] MEDS: guaiFENesin 600 mg Tablet PO ×2 (07:48→17:45)
[2023-07-02] MEDS: naltrexone hcl 50 mg Tablet PO (07:48)
[2023-07-02 14:00] VITALS: BP 123/85; PULSE 71; RESP 18; TEMP 36.6; O2SAT 99
--- NOTE | 2023-07-02 14:22 | P.NPUPN_ITS ---
Subjective NPU 2 Subjective: Patient presented today reporting that he is doing okay. Today was the first time since last Wednesday when I arrive that we had a conversation with him vertical for more than a moment. He actually had a conversation that was something other than wanting to go home. At 1 point he requested his toiletry container to take a shower which was a new more self-directed behavior. He did discuss feeling bored here and being desirous of bleeding soon. We continue to discuss the importance of him demonstrating the behaviors that he would be performing upon discharge. Mental Status Exam 2 MSE Comments: This is an obese white male in hospital scrubs with poor grooming and minimal eye contact. Disheveled appearance with poor hygiene and malodorous. No abnormal involuntary motor movements except for significant psychomotor retardation. Limited cooperation with exam in mild distress. Speech was a little more spontaneous with more normal rate and volume. Mood was described as fine, but I do not want to be here anymore. Affect was blunted. Thought process: linear but concrete. Thought content: minimized homicidal or suicidal ideation. There were no delusions reported but he did appear extremely guarded. He did at times appear to be responding to internal stimuli despite denying any auditory or visual hallucinations. Attention and concentration were limited and memory was unreliable but none were formally tested. He was alert to person and place but not time. He was alert and oriented to person and place. Insight, judgment and impulse control are all impaired. 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 1.? Continue zyprexa 10mg at night, urine screen positive for amphetamine again. May consider switch or addition of Invega or Abilify to allow for a long-acting injectable. 2.? Continue every 15 minute checks for safety. 3.? Encourage individual, group and milieu therapy once he has engaged. 4.? Encourage sobriety treatment after discharge to the hospital care to which he is willing to commit.? 5. Patient placed on 21-day hold 06/27/2020. Involuntary Hold Information 2 96 Hour Hold: 96 Hour Involuntary Admission: Yes 96 Hour Hold Ending Date: 06/28/23 96 Hour Hold Ending Time: 05:15 Attestations NPU 2 Medical Necessity Statement*: Inpatient hospitalization is medically necessary and clinically appropriate at this time. We will monitor/initiate medications and make changes as indicated.? The patient's likely length of stay 3-5 days. Coding Level of Care Code Acute Code for [facility] Fwd Diagnoses Psychotic disorder due to psychoactive substance F19.959 Hallucinations R44.3 Methamphetamine abuse F15.10
[2023-07-02] MEDS: paliperidone ER 6 mg Tablet PO (20:05)
[2023-07-02] MEDS: OLANZapine 5 mg TABLET PO (20:05)
[2023-07-02 20:30] VITALS: BP 120/68; PULSE 71; RESP 18; O2SAT 97
[2023-07-03 06:00] VITALS: BP 139/89; PULSE 80; RESP 18; TEMP 37.3; O2SAT 97
[2023-07-03] MEDS: guaiFENesin 600 mg Tablet PO ×2 (09:04→17:32)
[2023-07-03] MEDS: propranolol 20 mg Tablet 40 MG PO ×3 (09:04→20:43)
[2023-07-03] MEDS: naltrexone hcl 50 mg Tablet PO (09:05)
--- NOTE | 2023-07-03 11:27 | W.PM.NPUPNS ---
Subjective NPU Subjective: Patient presented today reporting that he is better overall. He continues to have small incremental moves towards being more functional. He continues to have poor insight per staff and direct observation. We continue to encourage him to engage in his ADLs in a way that we can identify he will be able to continue improvements once discharged. He reports that he is consistent with his medication but we discussed the impact of his addiction and derailing his mental health. He denied any side effects to the medication. Mental Status Exam MSE Comments: This is an obese white male in hospital scrubs with poor grooming and minimal eye contact. Disheveled appearance with poor hygiene and malodorous. No abnormal involuntary motor movements except for significant psychomotor retardation. Limited cooperation with exam in mild distress. Speech was a little more spontaneous with more normal rate and volume. Mood was described as fine, but I do not want to be here anymore. Affect was blunted. Thought process: linear but concrete. Thought content: minimized homicidal or suicidal ideation. There were no delusions reported but he did appear extremely guarded. He did at times appear to be responding to internal stimuli despite denying any auditory or visual hallucinations. Attention and concentration were limited and memory was unreliable but none were formally tested. He was alert to person and place but not time. He was alert and oriented to person and place. Insight, judgment and impulse control are all impaired. 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 1.? Continue zyprexa 10mg at night, urine screen positive for amphetamine again. 2.? Continue every 15 minute checks for safety. 3.? Encourage individual, group and milieu therapy once he has engaged. 4.? Encourage sobriety treatment after discharge to the hospital care to which he is willing to commit.? 5. Patient placed on 21-day hold 06/27/2020. Involuntary Hold Information 96 Hour Hold: 96 Hour Involuntary Admission: Yes 96 Hour Hold Ending Date: 06/28/23 96 Hour Hold Ending Time: 05:15 Attestations NPU Medical Necessity Statement*: Inpatient hospitalization is medically necessary and clinically appropriate at this time. We will monitor/initiate medications and make changes as indicated.? The patient's likely length of stay 3-5 days. Coding Level of Care Code Acute Code for [facility] Fwd Diagnoses Psychotic disorder due to psychoactive substance F19.959 Hallucinations R44.3 Methamphetamine abuse F15.10
[2023-07-03 14:00] VITALS: BP 117/76; PULSE 64; RESP 18; TEMP 36.6; O2SAT 97
[2023-07-03] MEDS: nicotine 2 mg Gum BUCCAL (18:53)
[2023-07-03] MEDS: paliperidone ER 6 mg Tablet PO (20:43)
[2023-07-03] MEDS: OLANZapine 5 mg TABLET PO (20:44)
[2023-07-03] MEDS: trazodone 50 mg Tablet PO (21:57)
[2023-07-03 22:00] VITALS: BP 107/75; PULSE 67; RESP 16; TEMP 36.5; O2SAT 99
[2023-07-03] MEDS: hyDROXYzine 25 mg Capsule 50 MG PO (22:05)
[2023-07-04 06:00] VITALS: BP 127/90; PULSE 89; RESP 18; TEMP 36.9; O2SAT 96
--- NOTE | 2023-07-04 07:36 | P.NPUPN_ITS ---
Subjective NPU 2 Subjective: Patient presented today continuing to have slow improvement. He continues to desire discharge. Very slow movement on improvement in ADLs per staff report and direct observation. Continued poor hygiene even with urging. Denies side effects to medication. Mental Status Exam 2 MSE Comments: This is an obese white male in hospital scrubs with poor grooming and minimal eye contact. Disheveled appearance with poor hygiene and malodorous. No abnormal involuntary motor movements except for significant psychomotor retardation. Limited cooperation with exam in mild distress. Speech was a little more spontaneous with more normal rate and volume. Mood was described as fine, but I do not want to be here anymore. Affect was blunted. Thought process: linear but concrete. Thought content: minimized homicidal or suicidal ideation. There were no delusions reported but he did appear extremely guarded. He did at times appear to be responding to internal stimuli despite denying any auditory or visual hallucinations. Attention and concentration were limited and memory was unreliable but none were formally tested. He was alert to person and place but not time. He was alert and oriented to person and place. Insight, judgment and impulse control are all impaired. 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 1.? Continue zyprexa 10mg at night, urine screen positive for amphetamine again. 2.? Continue every 15 minute checks for safety. 3.? Encourage individual, group and milieu therapy once he has engaged. 4.? Encourage sobriety treatment after discharge to the hospital care to which he is willing to commit.? 5. Patient placed on 21-day hold 06/27/2020. Involuntary Hold Information 2 96 Hour Hold: 96 Hour Involuntary Admission: Yes 96 Hour Hold Ending Date: 06/28/23 96 Hour Hold Ending Time: 05:15 Attestations NPU 2 Medical Necessity Statement*: Inpatient hospitalization is medically necessary and clinically appropriate at this time. We will monitor/initiate medications and make changes as indicated.? The patient's likely length of stay 2-4 days. Coding Level of Care Code Acute Code for [facility] Fwd Diagnoses Psychotic disorder due to psychoactive substance F19.959 Hallucinations R44.3 Methamphetamine abuse F15.10
[2023-07-04] MEDS: guaiFENesin 600 mg Tablet PO ×2 (09:29→17:38)
[2023-07-04] MEDS: propranolol 20 mg Tablet 40 MG PO ×3 (09:29→20:30)
[2023-07-04] MEDS: naltrexone hcl 50 mg Tablet PO (09:29)
[2023-07-04] MEDS: nicotine 4 mg lozenge MUCOUS MEM (09:30)
[2023-07-04 14:00] VITALS: BP 113/71; PULSE 67; RESP 20; TEMP 36.7; O2SAT 97
--- NOTE | 2023-07-04 17:40 | PC.NURSE ---
Pt was encouraged to take a shower on 07/02 and also this shift. Pt still has not showered, pt has very poor hygiene.
[2023-07-04 19:51] VITALS: BP 136/68; PULSE 65; RESP 18; O2SAT 97
[2023-07-04] MEDS: OLANZapine 5 mg TABLET PO (20:30)
[2023-07-04] MEDS: trazodone 50 mg Tablet PO (20:30)
[2023-07-04] MEDS: paliperidone ER 6 mg Tablet PO (20:30)
[2023-07-04] MEDS: haloperidol 5 mg Tablet PO (22:44)
--- NOTE | 2023-07-04 23:57 | PC.NURSE ---
Hygiene During shift change pt asked nursing staff for his shower box. Pt showered and bed linens were changed.
[2023-07-05 06:00] VITALS: RESP 16
[2023-07-05] MEDS: naltrexone hcl 50 mg Tablet PO (08:12)
[2023-07-05] MEDS: guaiFENesin 600 mg Tablet PO ×2 (08:12→20:47)
[2023-07-05] MEDS: propranolol 20 mg Tablet 40 MG PO ×3 (08:12→20:46)
[2023-07-05 14:00] VITALS: BP 117/68; PULSE 63; RESP 13; O2SAT 97
--- NOTE | 2023-07-05 17:10 | P.NPUPN_ITS ---
Subjective NPU 2 Subjective: 38-year-old white male with mild cogniti ve impairment admitted with aggression ,auditory hallucinations, paranoia and increased irritability in the presence of the presumptive use of methamphetamine. The patient continued to spend significant amount of the day sleeping. He had no clear plan of attending to his activities of daily living as he had refused to speak to the racebook writer of this note again today. He had required significant prompting to even eat today. There was no recent acts of aggression. He had again refused any plan for outpatient substance abuse treatment or inpatient substance abuse treatment stating that he simply wished to go home. Mental Status Exam 2 MSE Comments: This is an obese white male in hospital scrubs with minimal eye contact. Disheveled appearance with poor hygiene and malodorous. No abnormal involuntary motor movements except for significant psychomotor retardation. Limited cooperation with exam in mild distress. Speech was a limited to nonproductive nonspontaneous today. Mood was described as okay, can i go? Affect was blunted. Thought process: linear but concrete. Thought content: He minimized homicidal or suicidal ideation. There were no delusions reported but he did appear extremely guarded. He did at times appear to be responding to internal stimuli despite denying any auditory or visual hallucinations. Attention and concentration were limited and memory was unreliable but none were formally tested. He was alert and oriented to person and place. Insight, judgment and impulse control are all impaired. 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 1.? Invega 6mg at night, reduce zyprexa to 2.5mg at night. Continue Naltrexone and propranolol as prescribed. 2.? Continue every 15 minute checks for safety. 3.? Encourage individual, group and milieu therapy once he has engaged. 4.? Encourage sobriety treatment after discharge to the hospital care to which he is willing to commit.? 5. Patient on 21 day hold until 07/19/23. Involuntary Hold Information 2 96 Hour Hold: 96 Hour Involuntary Admission: Yes 96 Hour Hold Ending Date: 06/28/23 96 Hour Hold Ending Time: 05:15 Attestations NPU 2 Medical Necessity Statement*: Inpatient hospitalization is medically necessary and clinically appropriate at this time. We will monitor/initiate medications and make changes as indicated.? The patient's likely length of stay 5-7 days. Coding Level of Care Code Acute Code for [facility] Fwd Diagnoses Psychotic disorder due to psychoactive substance F19.959 Hallucinations R44.3 Methamphetamine abuse F15.10
[2023-07-05] MEDS: paliperidone ER 6 mg Tablet PO (20:46)
[2023-07-05] MEDS: trazodone 50 mg Tablet PO (20:46)
[2023-07-05] MEDS: OLANZapine 5 mg TABLET 2.5 MG PO (20:46)
[2023-07-05 21:02] VITALS: BP 128/76; PULSE 70; RESP 16; TEMP 36.6; O2SAT 96
[2023-07-06 06:00] VITALS: BP 130/80; PULSE 69; RESP 16; O2SAT 97
[2023-07-06] MEDS: nicotine 4 mg lozenge MUCOUS MEM (08:26)
[2023-07-06] MEDS: propranolol 20 mg Tablet 40 MG PO ×3 (08:26→20:04)
[2023-07-06] MEDS: guaiFENesin 600 mg Tablet PO ×2 (08:26→20:04)
[2023-07-06] MEDS: naltrexone hcl 50 mg Tablet PO (08:26)
[2023-07-06 14:00] VITALS: BP 114/82; PULSE 60; RESP 16; TEMP 36.8; O2SAT 97
--- NOTE | 2023-07-06 18:56 | P.NPUPN_ITS ---
Subjective NPU 2 Subjective: Patient presented today reporting that he does not want to be here. the patient had not no meaningful conversation today as he had kept his eyes closed and spend most of his day in the room. He had nearly no self-directed behavior other than to provide sustenance with food. He had asked that he be left alone and continue to require prompting for the completion of activities of daily living which he was not able to complete in any fashion. Mental Status Exam 2 MSE Comments: This is an obese white male in hospital scrubs with minimal eye contact. Disheveled appearance with poor hygiene and malodorous. No abnormal involuntary motor movements except for significant psychomotor retardation. Limited cooperation with exam in mild distress. Speech was a limited to one word answers and nonspontaneous today. Mood was not endorsed. Affect was blunted. Thought process: difficult to assess as he was essentially nonverbal, concrete and answered questions using one word answers. Thought content: He minimized homicidal or suicidal ideation. There were no delusions reported but he did remain extremely guarded. He did not appear to be responding to internal stimuli and denied auditory or visual hallucinations. Attention and concentration were limited and memory was unreliable but none were formally tested. He was alert and oriented to person and place. Insight, judgment and impulse control are all impaired. 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 1.? Invega 6mg at night with likely increase if needed, continue zyprexa at 2.5mg at night. Continue Naltrexone and propranolol as prescribed. MINIMAL improvement noted at this time. 2.? Continue every 15 minute checks for safety. 3.? Encourage individual, group and milieu therapy once he has engaged. 4.? Encourage sobriety treatment after discharge to the hospital care to which he is willing to commit.? 5. Patient on 21 day hold until 07/19/23. Involuntary Hold Information 2 96 Hour Hold: 96 Hour Involuntary Admission: Yes 96 Hour Hold Ending Date: 06/28/23 96 Hour Hold Ending Time: 05:15 Attestations NPU 2 Medical Necessity Statement*: Inpatient hospitalization is medically necessary and clinically appropriate at this time. We will monitor/initiate medications and make changes as indicated.? The patient's likely length of stay 7-10 days. Coding Level of Care Code Acute Code for g Fwd Diagnoses Psychotic disorder due to psychoactive substance F19.959 Hallucinations R44.3 Methamphetamine abuse F15.10
[2023-07-06] MEDS: trazodone 50 mg Tablet PO (20:04)
[2023-07-06] MEDS: OLANZapine 5 mg TABLET 2.5 MG PO (20:04)
[2023-07-06 20:05] VITALS: BP 122/78; PULSE 72; RESP 18; O2SAT 97
[2023-07-06] MEDS: paliperidone ER 6 mg Tablet PO (20:05)
[2023-07-07 06:00] VITALS: BP 131/84; PULSE 66; RESP 16; O2SAT 96
[2023-07-07] MEDS: guaiFENesin 600 mg Tablet PO ×2 (08:17→20:02)
[2023-07-07] MEDS: naltrexone hcl 50 mg Tablet PO (08:17)
[2023-07-07] MEDS: propranolol 20 mg Tablet 40 MG PO ×3 (08:17→20:01)
[2023-07-07 14:00] VITALS: BP 113/73; PULSE 73; RESP 18; TEMP 36.6; O2SAT 96
--- NOTE | 2023-07-07 15:41 | P.NPUPN_ITS ---
Subjective NPU 2 Subjective: Patient had reported that he felt that he was ready to go home. He had denied having thoughts of hurting himself or others. He had continued to have minimal engagement in self-care with no ability to even engage in showering or brushing his teeth. He had reported that he was not feeling sad and stated that he had a place to live and had his mother to help him. He had admitted to the use of methamphetamine and was again informed of the dangers of using methamphetamine as it had a tendency to make a person's paranoia worse. Mental Status Exam 2 MSE Comments: This is an obese white male in hospital scrubs with minimal eye contact. Disheveled appearance with poor hygiene and malodorous. No abnormal involuntary motor movements except for significant psychomotor retardation. Limited cooperation with exam in mild distress. Speech was a limited to one word answers and nonspontaneous today. Mood was not endorsed. Affect was blunted. Thought process: more linear today, concrete and answered questions using one word answers. Thought content: He minimized homicidal or suicidal ideation. There were no delusions reported and was less guarded. He did not appear to be responding to internal stimuli and denied auditory or visual hallucinations. Attention and concentration were limited and memory was unreliable but none were formally tested. He was alert and oriented to person and place. Insight was poor. Judgment was poor and impulse control remained poor but improving. 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 1.? Invega 6mg at night with plan to discontinue zyprexa in 1-2 days. Continue Naltrexone and propranolol as prescribed. Mild improvement noted today. 2.? Continue every 15 minute checks for safety. 3.? Encourage individual, group and milieu therapy once he has engaged. 4.? Encourage sobriety treatment after discharge to the hospital care to which he is willing to commit.? 5. Patient on 21 day hold until 07/19/23. Involuntary Hold Information 2 96 Hour Hold: 96 Hour Involuntary Admission: Yes 96 Hour Hold Ending Date: 06/28/23 96 Hour Hold Ending Time: 05:15 Attestations NPU 2 Medical Necessity Statement*: Inpatient hospitalization is medically necessary and clinically appropriate at this time. We will monitor/initiate medications and make changes as indicated.? The patient's likely length of stay 7-10 days. Coding Level of Care Code Acute Code for g Fwd Diagnoses Psychotic disorder due to psychoactive substance F19.959 Hallucinations R44.3 Methamphetamine abuse F15.10
[2023-07-07] MEDS: paliperidone ER 6 mg Tablet PO (20:01)
[2023-07-07] MEDS: OLANZapine 5 mg TABLET 2.5 MG PO (20:01)
[2023-07-07] MEDS: trazodone 50 mg Tablet PO (20:02)
[2023-07-07 20:33] VITALS: BP 119/80; PULSE 75; RESP 15; TEMP 36.8; O2SAT 95
[2023-07-08] MEDS: acetaminophen 325 mg Tablet 650 MG PO (01:42)
[2023-07-08 06:00] VITALS: BP 145/65; PULSE 63; RESP 16; O2SAT 97
--- NOTE | 2023-07-08 08:57 | PC.NURSE ---
IN BED RESTING. DENIES SI/HI AND AVH AT THIS TIME. DENIES PAIN. RATES ANXIETY AND DEPRESSION 0/10. PT THEN WENT BACK TO SLEEPING. FLAT AFFECT OBSERVED. PT ISOLATES AND IS WITHDRAWN TO ROOM. SUPPORT VOICED.
[2023-07-08] MEDS: propranolol 20 mg Tablet 40 MG PO ×2 (08:58→12:11)
[2023-07-08] MEDS: naltrexone hcl 50 mg Tablet PO (08:58)
[2023-07-08] MEDS: guaiFENesin 600 mg Tablet PO (08:58)
--- NOTE | 2023-07-08 10:58 | DCPLANNER ---
IMM completed 07/08/23 @ 1046. Pt was given a copy of rights and he stated he understood his rights.
--- NOTE | 2023-07-08 11:29 | W.PM.NPUDCS ---
Diagnoses at Discharge Discharge Diagnosis (1) Psychotic disorder due to psychoactive substance: Status: Resolved (2) Hallucinations: Status: Resolved (3) Methamphetamine abuse: Status: Acute Reason for Visit Reason for Visit: MHE Brief History: History of Present Illness Markie Meza is a 38 year old male most recently discharged from the neuropsychiatric unit on 03/29/2023 who presented to the emergency department by EMS after the family had requested that the patient be evaluated. The patient in the emergency department had acknowledged hearing voices and stated to staff in the emergency department that he was hearing voices. He reported that he was uncertain as to what the voices were saying. The patient had become acutely agitated and was given Geodon 20mg intramuscularly prior to arriving on the neuropsychiatric unit for further evaluation and treatment. He was placed on a 96-hour hold as the patient had been confused and agitated. The patient was unable to provide any further history as he remained sedated throughout this initial interview. Previous outpatient records from his visit in June 01, 2023 had revealed that the patient had continued to use methamphetamines but the patient had reported that he had not been consuming alcohol. He had during that visit stated that he was having problems with hallucinations and increased paranoia as he stated that he had felt as if people are watching him. Current medications: naltrexone 50mg daily, olanzapine 20mg at night. Excerpt from NPU discharge summary on 03/29/23 Discharge Diagnosis (1) Psychotic disorder due to psychoactive substance: Status: Resolved (2) Hallucinations: Status: Resolved Reason for Visit story: History of Present Illness Markie Meza is a 37 year old male who presented to the emergency department with the following report: Chief Complaint: Psychiatric Symptoms Stated Complaint: SI Time Seen by Provider: 03/24/23 12:51 Source: patient Mode of arrival: ambulatory Limitations: no limitations History of Present Illness: 37-year-old male who states he has a history of meth abuse he states has been using meth recently he is having loose [place] he states has been hearing voices they have been telling him to harm himself he states he had suicidal thoughts and thoughts of cutting his wrist denies any worsening improving factors. Associated symptoms: Reports auditory hallucinations, depression and suicidal ideation He was admitted to the neuropsychiatric unit for definitive treatment of those issues. He presents today as he has presented to previous hospitalizations fairly disheveled, disorganized and indecisive. He had limited responses to the interview. He is known to this health technical writer through past contacts. A discharge summary from July was reviewed with him and he denied substantive changes but seem to be willing to answer briefly and abruptly to anything to try to get the interview to end. He did acknowledge continued methamphetamine use and reports an openness to getting engaged in treatment. An excerpt of that discharge summary is included below for context and the fact that he is very limited as a historian at this point. We agreed we would review available data to identify the likelihood of adherence to his Invega and that we would restart the Invega as indicated with that information. We discussed the desire to initiate the long-acting injectable. We discussed his outpatient chart and the fact that he has been attending his appointments as scheduled and he could not give a clear indication of what happened to get things off course. We agreed we would assist him in getting things restarted. Per his 07/30/2022 [facility] inpatient psychiatric discharge summary: Discharge Diagnosis (1) Psychotic disorder due to psychoactive substance: Status: Resolved (2) Hallucinations: Status: Resolved Reason for Visit Reason for Visit: [facility] Brief History: History of Present Illness Markie Meza is a 37 year old male who presented to the emergency department with the following report: Chief Complaint: Psychiatric Symptoms Stated Complaint: [facility] Time Seen by Provider: 07/20/22 08:22 Source: patient Mode of arrival: ambulatory History of Present Illness: 29-year-old male presents emergency room with a family friend he is acutely psychotic with auditory and visual hallucinations telling him to harm himself and others. He admits to all of this he also endorses suicidal intent. He last used meth 2 days ago. He has a history of methamphetamine and alcohol abuse. MD complaint: suicidal ideation and feels depressed Onset (ago): day(s) Duration: constant History of same: Yes Relieving factors: none Exacerbating factors: drug use Context: recent drug abuse Associated psychiatric symptoms: depression, suicidal ideation, homicidal ideation, auditory hallucinations and visual hallucinations Associated symptoms: Reports auditory hallucinations, visual hallucinations, depression, homicidal ideation and suicidal ideation Treatments prior to arrival: none If self harm: admits thoughts of self harm and has plan Was admitted to the neuropsychiatric unit for definitive treatment of those issues. He once again presents as a limited historian due to some likely lethargy secondary to his presumed methamphetamine withdrawal. He presents with limited responses but endorsing that he has not been taking his medication, that he has been still engaged in methamphetamine use and that he came to the hospital secondary to feeling suicidal and having hallucinations. We discussed the risk benefits and alternatives of restarting the Invega but at 6 mg p.o. nightly as well as working with the treatment team to figure out if we can find a reasonable treatment option to begin to impact his drug use. He was fairly ambivalent in the conversation but mostly secondary to being lethargic and wanting to really sleep versus answering the questions. An excerpt of his discharge summary from 07/09/2022 is included below for context and the fact that he denies substantive changes since that time. UDS was not back at the time of interview. Per his 07/09/2022 [facility] inpatient psychiatric discharge summary: SI Brief History: History of Present Illness Markie Meza is a 37 year old male who presented to the emergency department on 07/03/2022 with complaints of auditory and visual hallucinations with reports of thoughts of hurting himself and thoughts of hurting others. The patient was admitted to the neuropsychiatric unit for further evaluation and treatment. Prior to arriving on the neuropsychiatric unit, the patient had been very agitated and required the use of as needed medications including Geodon Ativan and Haldol. The patient on interview today reports that he has been having problems with hearing voices telling him to hurt himself and seeing things telling him to hurt himself. He has endorsed increased suspiciousness of others and states that the voices are sometimes jumbled. He had reported that he had been using methamphetamine intranasally and states that he had previously consumed alcohol but was no longer drinking. The patient was a poor historian and hostile and belligerent throughout much of the interview insisting that he needed to immediately check on his house. Patient had reported that he understood that he was on a 96-hour hold and stated that he did not like to take medications. Patient had acknowledged having depressed mood but did not elaborate any further regarding any changes in energy appetite or concentration. He reports having been diagnosed as having cognitive impairment and states that he was currently on disability for ADHD. Past psychiatric history: Patient denied any past history of psychiatric treatment other than reports of having been treated with ADHD as a child and reporting having been hospitalized as a teenager in [place] for psychiatric reasons. 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 He had endorsed using methamphetamine infrequently for several years. He denied any other drug use. He smokes cigarettes Family psychiatric history: None reported Legal History: unknown Social history: Patient was born in [facility]. He had reported having several siblings. He reports that he grew up in a dysfunctional family and states that his biological parents are no longer together. He reports that his mother lives in [place] and his father is . He reports having a significant learning disability and graduated [employer] with a special diploma. He had reported that he is currently on disability and is not employed. He denies any sexual physical or emotional abuse. He reports he has never been but has children. Hospital Course Discharge Summary: During the hospitalization, patient had routine laboratory studies which were within normal limits except for few outliers. Additionally there was a general medical evaluation which was also within normal limits and revealed no new acute processes. At the time of discharge, lethality was denied and psychosis was resolving. Mood and anxiety were well managed. Patient endorsed a plan to avoid all drugs of abuse and follow-up with the aftercare recommendations of the treatment team. Patient was evaluated and deemed to be absent credible lethality, and had achieved the maximum benefit from an inpatient hospitalization, so was discharged. He was placed on IM invega sustenna and 3 shots Hospital Course Hospital Course He slowly acclimated to the individual, group and milieu therapies provided. He presented with nonadherence to his medication. Eventually he allowed us to restart his medications with an increase from 10 mg p.o. twice daily of Zyprexa to 10 mg in the morning and 15 mg at night. We continued his other medications without incident. He did well with these changes. He was able to work with the social work team to get appropriate follow-up and aftercare. During the stay, he had significant improvement and was able to contract for safety outside of the hospital prior to discharge. During the hospitalization, the patient had routine laboratory studies which were within normal limits except for a few outliers.? Additionally, there was a general medical evaluation which was also within normal limits and revealed no new acute processes.? At the time of discharge, he denied lethality and his psychosis was resolving.? Mood and anxiety were well managed.? The patient endorsed a plan to avoid all drugs of abuse and follow up with the aftercare recommendations of the treatment team.? The patient was evaluated and deemed to be absent credible lethality and had achieved the maximum benefit from an inpatient hospitalization, and so was discharged. Hospital Course Hospital Course Patient appeared extremely psychotic and lethargic on the unit initially. He had refused nearly all self-care and had refused medications. He was placed on an extended 21-day hold at which time the patient was forcibly medicated and was initiated on Invega oral and titrated up to 6 mg at night prior to discharge. Zyprexa was initiated earlier during his hospital course but was slowly tapered and was discontinued on the day of discharge. He had shown minimal engagement in groups and had refused any long-term treatment for his psychosis or any continued treatment to manage his methamphetamine abuse but he was agreeable to continue to take the oral medication with the aid of his mother while living independently at home. He appeared eventually more alert and was able to shower and engage in some self-care and it was deemed that he had had maximum benefit from remaining in the hospital and thereby was discharged. At the time of discharge, lethality was denied and psychosis was resolving. Mood and anxiety were better managed. He had endorsed a plan to avoid all drugs about of abuse and follow-up with aftercare recommendations of the treatment team. Patient was evaluated and deemed to be of absent credible lethality and was thereby discharged. Involuntary Hold Information 96 Hour Hold: 96 Hour Involuntary Admission: Yes 96 Hour Hold Ending Date: 06/28/23 96 Hour Hold Ending Time: 05:15 Mental Status Exam MSE Comments: This is an obese white male in hospital scrubs with limited grooming and fair eye contact with improved eye contact. No abnormal involuntary motor movements except for mild psychomotor retardation. He was more cooperative with exam in no acute distress. Speech was a little more spontaneous with more normal rate and volume. Mood was described as okay Affect remained somewhat flat. Thought process: linear but concrete. Thought content: minimized homicidal or suicidal ideation. There were no delusions reported. He did not appear to be responding to internal stimuli and denied any auditory or visual hallucinations. Attention and concentration were limited and memory was unreliable but none were formally tested. He was alert to person and place but not time. He was alert and oriented to person and place. Insight remained poor. Judgment and impulse control remain limited at the time of discharge. Intelligence appeared commensurate with mild cognitive impairment. Discharge Data Studies Completed and Pending: Laboratory Results WBC 9.96 10^3/uL (3.2 9-11.43) 06/22/23 04:14 RBC 5.19 10^6/uL (3.8 5-5.65) 06/22/23 04:14 Hgb 15.90 g/dL (11.27 -16.99) 06/22/23 04:14 Hct 47.2 % (37-53) 06/22/23 04:14 MCV 90.9 fl (82-101) 06/22/23 04:14 MCH 30.6 pg (27-33) 06/22/23 04:14 MCHC 33.7 g/dL (30-55) 06/22/23 04:14 RDW 13.4 % (12.1-15.1 ) 06/22/23 04:14 Plt Count 283 10^3/cmm (157 -399) 06/22/23 04:14 MPV 10.4 fL (7.4-10.4 ) 06/22/23 04:14 Neut % (Auto) 51.0 % 06/22/23 04:14 Lymph % (Auto) 32.2 % 06/22/23 04:14 [place] % (Auto) 10.1 % 06/22/23 04:14 Eos % (Auto) 5.3 % 06/22/23 04:14 Baso % (Auto) 1.0 % 06/22/23 04:14 Neut # (Auto) 5.07 10^3/uL (1.8 -7.7) 06/22/23 04:14 Lymph # (Auto) 3.2 10^3/uL (0.8- 4.8) 06/22/23 04:14 [place] # (Auto) 1.0 10^3/uL (0.2- 0.9) H 06/22/23 04:14 Eos # (Auto) 0.5 10^3/uL (0.0- 0.8) 06/22/23 04:14 Baso # (Auto) 0.1 10^3/uL (0.0- 0.1) 06/22/23 04:14 Nucleated RBC % (a uto) 0 % 06/22/23 04:14 Nucleated RBCs # 0.0 /100WBC 06/22/23 04:14 Sodium 139 mmol/L (136-1 45) 06/22/23 04:14 Potassium 3.3 mmol/L (3.5-5 .1) L 06/22/23 04:14 Chloride 103 mmol/L (98-10 7) 06/22/23 04:14 Carbon Dioxide 20 mmol/L (22-29) L 06/22/23 04:14 Anion Gap 19.3 (5-19) H 06/22/23 04:14 BUN 13 mg/dL (6-20) 06/22/23 04:14 Creatinine 1.0 mg/dL (0.7-1. 2) 06/22/23 04:14 GFR Calculation 83.2 mL/min (90-1 30) L 06/22/23 04:14 Glucose 169 mg/dL (65-115 ) H 06/22/23 04:14 Calculated Osmolal ity 292 mOsm/kg (285- 295) 06/22/23 04:14 Calcium 8.9 mg/dL (8.5-10 .5) 06/22/23 04:14 Total Bilirubin 0.2 mg/dL (0.15-1 .2) 06/22/23 04:14 AST 15 U/L (0-40) 06/22/23 04:14 ALT 16 U/L (0-41) 06/22/23 04:14 Alkaline Phosphata se 107 U/L (40-130) 06/22/23 04:14 Total Protein 7.1 g/dL (6.6-8.7 ) 06/22/23 04:14 Albumin 4.1 g/dL (3.5-5.2 ) 06/22/23 04:14 Globulin 3.0 g/dL (1.3-4.6 ) 06/22/23 04:14 Urine Color Yellow (Yellow) 06/23/23 17:15 Urine Appearance Sl hazy (CLEAR) A 06/23/23 17:15 Urine pH 6.5 (5-7) 06/23/23 17:15 Ur Specific Gravit y 1.020 (1.005-1.0 30) 06/23/23 17:15 Urine Protein Trace (Negative) 06/23/23 17:15 Urine Glucose (UA) Norm (Normal) 06/23/23 17:15 Urine Ketones 1+ (Negative) H 06/23/23 17:15 Urine Blood 2+ (Negative) H 06/23/23 17:15 Urine Nitrate Negative (Negati ve) 06/23/23 17:15 Urine Bilirubin Neg (Negative) 06/23/23 17:15 Urine Urobilinogen Neg mg/dL (Negati ve) 06/23/23 17:15 Ur Leukocyte Caro ase Negative (Negati ve) 06/23/23 17:15 Urine RBC 10-15 /hpf (0-2) H 06/23/23 17:15 Urine WBC 5-10 /hpf (0-5) H 06/23/23 17:15 Ur Squamous Epith Cells 0-4 /hpf (0-5) H 06/23/23 17:15 Amorphous Sediment Not Reportable 06/23/23 17:15 Urine Bacteria Trace /hpf (NONE) 06/23/23 17:15 Urine Mucus 2+ /hpf 06/23/23 17:15 Salicylates < 0.3 mg/dL (3-10 ) L 06/22/23 04:14 Urine Opiates Scre en Negative ng/mL (N egative) 06/23/23 17:15 Acetaminophen < 5.0 ug/mL (10-3 0) L 06/22/23 04:14 Ur Barbiturates Sc reen Negative ng/mL (N egative) 06/23/23 17:15 Ur Phencyclidine S crn Negative ng/mL (N egative) 06/23/23 17:15 Ur Amphetamines Sc reen Positive ng/mL (N egative) H 06/23/23 17:15 U Benzodiazepines Scrn Negative ng/mL (N egative) 06/23/23 17:15 Urine Cocaine Scre en Negative ng/mL (N egative) 06/23/23 17:15 U Marijuana (THC) Screen Negative ng/mL (N egative) 06/23/23 17:15 Ethyl Alcohol < 10 mg/dL (0-10) 06/22/23 04:14 Vitals: Last Vital Signs Temp 98.3 F 07/07/23 20:33 Pulse 63 07/08/23 06:00 Resp 16 07/08/23 06:00 BP 145/65 07/08/23 06:00 Pulse Ox 97 07/08/23 06:00 O2 Del Method Room Air 07/07/23 20:33 Discharge Plan Discharge Patient Disposition: Home Condition: Stable Prescriptions: New trazodone 50 mg Tablet 50 mg PO BEDTIME PRN (Reason: Sleep) 30 Days Qty: 30 1RF paliperidone 6 mg Tablet Extended Release 24hr 6 mg PO 1999 Qty: 30 1RF Continued propranolol 20 mg tablet 40 mg PO QAM 30 Days Qty: 60 3RF Rx Instructions: Take two tablets every morning naltrexone 50 mg tablet 50 mg PO QAM 30 Days Qty: 30 3RF Rx Instructions: Take one tablet every morning Discontinued olanzapine [Zyprexa] 10 mg tablet 10 mg PO BEDTIME Qty: 30 3RF Rx Instructions: Take one tablet with 20 mg tablet at bedtime, total dose 30 mg Discharge Orders: Discharge Order (Routine); Ordered 07/08/23 Ordered By: David Peterson Referrals: [facility] [Other] (Contact for paid rehab services) Kim Moser FNP [Primary Care Provider] - Jo-Ann Interiano PMHNP [Staff Physician] - 07/13/23 2:45 pm Discharge Diet: Usual diet Discharge Activity: Resume usual activity Patient Instructions: Opioid Safety Discharge Attestations NPU Time Spent in Discharge Care*: less than 30 min Specific Discharge Activities: Specific discharge activities: educating patient and evaluating patient/reviewing data Coding Level of Care Code Acute Code for Chg Fwd Diagnoses Psychotic disorder due to psychoactive substance F19.959 Hallucinations R44.3 Methamphetamine abuse F15.10
[2023-07-08 12:02] VITALS: BP 145/65; PULSE 63; RESP 16; O2SAT 97
== END 2023-07-08 13:50 | disposition home or self-care (01) | DRG 897 ==
LOC: ER 05:27 → NP 06:24
PROVIDERS: Admitting Provider Psychiatry & Neurology Psychiatry; Emergency Provider Emergency Medicine; PCP Nurse Practitioner Family; Visit Provider Psychiatry & Neurology Psychiatry
DX: F15.151 Other stimulant abuse with stimulant-induced psychotic disorder with hallucinations (principal); F12.90 Cannabis use, unspecified, uncomplicated; F17.210 Nicotine dependence, cigarettes, uncomplicated; G31.84 Mild cognitive impairment of uncertain or unknown etiology; E66.9 Obesity, unspecified; Z68.33 Body mass index [BMI] 33.0-33.9, adult; Z86.73 Personal history of transient ischemic attack (TIA), and cerebral infarction without residual deficits
CPT/HCPCS: 80053; 80306; 80307; 81001; 85025; 87086; 96372; 97150; 97165; 99285; J3486

== ENCOUNTER 2023-08-16 19:40 | Emergency (ER) | payer MEDICARE, MEDICAID, SELFPAY ==
[2023-08-16 19:44] VITALS: BP 132/93; PULSE 82; TEMP 36.6; O2SAT 97; BMI 33.0
--- NOTE | 2023-08-16 20:05 | ED_ITS ---
Documented by User: DILIA Patel 08/16/23 20:13 HPI - Skin/Abscess/Foreign Bdy General: Chief complaint: Skin/Abscess/Foreign Body Stated complaint: R facial pain and sore, right finger pain Time Seen by Provider: 08/16/23 19:50 Source: patient Mode of arrival: ambulatory Limitations: no limitations History of Present Illness: Patient is a 38-year-old male who presents to the emergency department complaining of lesions to right face and right pinky finger. Patient states the pinky lesion he noticed about a week ago, and it was a brown recluse bite. He notes that it started as a small blister, however got much larger until he popped it and it began draining. He notes that this is healing to get better, though he now notes a facial lesion he has noted over the past couple days. He also notes squeezing on this lesion and causing it to drain, but just wants to make sure it is not infected. He denies any fever, nausea, vomiting, or any other concerning signs or symptoms of infection. Has not taken antibiotics. He notes that both lesions have still continued to drain. MD complaint: lesion Onset (ago): week(s) Tetanus up to date: unsure Location: face and R hand Associated symptoms: Deny chills, fever(s), nausea or vomiting Review of Systems General: Reports: 10 or more systems reviewed and unremarkable except in HPI and below Const: Denies: fever(s), chills or fatigue Eyes: Denies: change in vision ENMT: Denies: throat pain, ear or mastoid pain or nasal discharge Card: Denies: chest pain, palpitations, swelling of feet/ankles or lightheadedness Resp: Denies: dyspnea, productive cough or wheezing GI: Denies: abdominal pain, nausea, vomiting, diarrhea or constipation : Denies: flank pain, difficulty urinating, dysuria or urinary frequency Musc: Denies: neck pain, back pain or joint pain Skin/Breast: Reports: new lesions; Denies: rash Neuro: Denies: headache(s), numbness in extremities or weakness in extremities PFSH ED PFSH: Medical History Non-suicidal self harm as coping mechanism Marijuana use, episodic Cigarette nicotine dependence 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 Social History Smoking and tobacco/nicotine status: current every day tobacco/nicotine user Alcohol intake: current Marital status: Single Physical Exam Const: COMMON NORMALS: no acute distress, patient oriented x3 and no limitations GENERAL APPEARANCE: cooperative, comfortable and well developed ORIENTATION/CONSCIOUSNESS: Yes awake, Yes oriented to person, Yes oriented to place and Yes oriented to time HENMT: COMMON NORMALS: normocephalic, atraumatic and hearing grossly normal bilaterally HEAD & SCALP: normocephalic and atraumatic Eye: COMMON NORMALS: Equal, round and reactive pupils present, EOMs intact bilaterally and conjunctivae normal CONJUNCTIVA: Yes conjunctivae normal PUPIL: Yes Equal, round and reactive pupils present Neck/C-Spine: COMMON NORMALS: full ROM, supple and no JVD Resp: COMMON NORMALS: normal respiratory effort, No retractions, No use of accessory muscles and clear to auscultation bilaterally AUSCULTATION: clear to auscultation bilaterally Cardio: COMMON NORMALS: no JVD, regular rate, regular rhythm, No clicks present (Cardio), No murmurs present (Cardio) and No rub (Cardio) RATE: regular rate RHYTHM: regular rhythm Extremity: COMMON NORMALS: normal to inspection, full ROM and capillary refill normal Neuro: COMMON NORMALS: patient oriented x3, moves all extremities, no focal motor deficits and no sensory deficits noted SENSORIUM/ORIENTATION: Yes oriented to person, Yes oriented to place and Yes oriented to time Psych: COMMON NORMALS: mental status grossly normal and Normal thought process present THOUGHT PROCESS: Normal thought process present Skin: NARRATIVE SKIN EXAM: Healing scabbed over lesion to patient's right pinky. No active bleeding or drainage. There is also a scabbed over lesion to the right side of the patient's face, also not draining or bleeding. Very minimal surrounding erythema to both lesions. Course Vital Signs: Vital signs: Vital Signs Temperature 97.8 F 08/16/23 20:23 Pulse Rate 82 08/16/23 20:23 Blood Pressure 132/93 08/16/23 20:23 Pulse Oximetry 97 08/16/23 20:23 Oxygen Delivery Me thod Room Air 08/16/23 19:44 MDM - Skin/Abscess/Foreign Bdy Medicial Decision Making Patient seen for 2 lesions, 1 to his right pinky for the past week and 1 new 1 to the right face. He states that he believes both are spider bites. He has not been prescribed antibiotics and note that both lesions have been draining. He states he was just concerned and wants to see if he needs to be on antibiotics. Vitals normal on arrival and patient is afebrile. Examination revealed a nontoxic male with the 2 aforementioned lesions that both appeared to be healing, though did have mild extension of cellulitis. I will treat both with topical and oral antibiotics. Patient states he believes his tetanus is not up-to-date, I will update this in the ED. Patient informed of signs to watch out for including worsening signs of infection such as redness or purulent drainage. He understands this and will follow-up with primary care as needed. No radiology studies performed this visit Discharge Plan Discharge Patient Disposition: Home Clinical Impression: Cellulitis of face Cellulitis of finger Qualifiers: Laterality: right Qualified Code(s): L03.011 - Cellulitis of right finger Condition: Stable Prescriptions: New bacitracin 500 unit/gram ointment 1 applic topical BID Qty: 1022.4 0RF Bactrim DS 800-160 mg tablet 1 tab PO DAILY 7 Days Qty: 7 0RF No Action aripiprazole [Abilify] 10 mg tablet 10 mg PO .noon Qty: 30 3RF Rx Instructions: Take one tablet at noon naltrexone 50 mg tablet 50 mg PO QAM 30 Days Qty: 30 3RF Rx Instructions: Take one tablet every morning propranolol 40 mg tablet 40 mg PO .morning Qty: 30 3RF Rx Instructions: Take one tablet every morning trazodone 50 mg Tablet 50 mg PO BEDTIME PRN (Reason: Sleep) 30 Days Qty: 30 1RF Discharge Orders: Discharge ED (Routine); Ordered 08/16/23 Ordered By: Eloy Poole Referrals: Kim Moser FNP [Primary Care Provider] - Discharge Diet: Usual diet Discharge Activity: Resume usual activity Patient Instructions: Cellulitis (ED) Activity Restrictions/Additional Instructions: Bactrim as prescribed. Bacitracin as indicated. Monitor for any worsening signs of infection such as increased redness, swelling, or pain and return for reevaluation. Otherwise you may follow-up with your primary care as needed. 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 Social History Smoking and tobacco/nicotine status: current every day tobacco/nicotine user Alcohol intake: current Marital status: Single Course Vital Signs: Vital signs: Vital Signs Temperature 97.8 F 08/16/23 20:23 Pulse Rate 82 08/16/23 20:23 Blood Pressure 132/93 08/16/23 20:23 Pulse Oximetry 97 08/16/23 20:23 Oxygen Delivery Me thod Room Air 08/16/23 19:44 MDM - Skin/Abscess/Foreign Bdy Medicial Decision Making Patient seen for 2 lesions, 1 to his right pinky for the past week and 1 new 1 to the right face. He states that he believes both are spider bites. He has not been prescribed antibiotics and note that both lesions have been draining. He states he was just concerned and wants to see if he needs to be on antibiotics. Vitals normal on arrival and patient is afebrile. Examination revealed a nontoxic male with the 2 aforementioned lesions that both appeared to be healing, though did have mild extension of cellulitis. I will treat both with topical and oral antibiotics. Patient states he believes his tetanus is not up-to-date, I will update this in the ED. Patient informed of signs to isabella ch out for including worsening signs of infection such as redness or purulent drainage. He understands this and will follow-up with primary care as needed. Chart reviewed Discharge Plan Discharge Patient Disposition: Home Clinical Impression: Cellulitis of face Cellulitis of finger Qualifiers: Laterality: right Qualified Code(s): L03.011 - Cellulitis of right finger Condition: Stable Prescriptions: New bacitracin 500 unit/gram ointment 1 applic topical BID Qty: 1022.4 0RF Bactrim DS 800-160 mg tablet 1 tab PO DAILY 7 Days Qty: 7 0RF No Action aripiprazole [Abilify] 10 mg tablet 10 mg PO .noon Qty: 30 3RF Rx Instructions: Take one tablet at noon naltrexone 50 mg tablet 50 mg PO QAM 30 Days Qty: 30 3RF Rx Instructions: Take one tablet every morning propranolol 40 mg tablet 40 mg PO .morning Qty: 30 3RF Rx Instructions: Take one tablet every morning trazodone 50 mg Tablet 50 mg PO BEDTIME PRN (Reason: Sleep) 30 Days Qty: 30 1RF Discharge Orders: Discharge ED (Routine); Ordered 08/16/23 Ordered By: Eloy Poole Referrals: Kim Moser FNP [Primary Care Provider] - Discharge Diet: Usual diet Discharge Activity: Resume usual activity Patient Instructions: Cellulitis (ED) Activity Restrictions/Additional Instructions: Bactrim as prescribed. Bacitracin as indicated. Monitor for any worsening signs of infection such as increased redness, swelling, or pain and return for reevaluation. Otherwise you may follow-up with your primary care as needed. Coding Level of Care Code ED Director Of Quality Control for 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
[2023-08-16] MEDS: tetanus-dipt-pertussis 0.5 mL SDV IM (20:14)
[2023-08-16] MEDS: sulfamethoxazole-trimeth DS 160-800 mg Tablet 1 TAB PO (20:16)
[2023-08-16] MEDS: bacitracin ointment Pkt 1 EACH TOPICAL (20:16)
[2023-08-16 20:23] VITALS: BP 132/93; PULSE 82; TEMP 36.6; O2SAT 97
== END 2023-08-16 20:24 | disposition home or self-care (01) ==
PROVIDERS: Emergency Provider Physician Assistant; PCP Nurse Practitioner Family
DX: L03.211 Cellulitis of face (principal); L03.011 Cellulitis of right finger; Z86.73 Personal history of transient ischemic attack (TIA), and cerebral infarction without residual deficits; Z72.0 Tobacco use; Z23 Encounter for immunization
CPT/HCPCS: 80053; 80307; 90471; 90715; 99283

== ENCOUNTER 2023-10-16 17:44 | Emergency (ER) | payer MEDICARE, MEDICAID, SELFPAY ==
[2023-10-16 17:48] VITALS: BP 182/114; PULSE 84; RESP 16; TEMP 36.8; O2SAT 99
--- NOTE | 2023-10-16 17:55 | ED_ITS ---
HPI - Eye Problem General: Chief complaint: Eye Problems Stated complaint: welding / eye inj Time Seen by Provider: 10/16/23 17:54 History of Present Illness: 38-year-old male patient comes in today for complaints of Welders eye burn. 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 Patient appears nontoxic. Patient appears in moderate discomfort/pain. 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 Social History Smoking and tobacco/nicotine status: current every day tobacco/nicotine user Alcohol intake: current Marital status: Single Physical Exam Const: COMMON NORMALS: alert HENMT: COMMON NORMALS: normocephalic HEAD & SCALP: normocephalic Eye: COMMON NORMALS: Equal, round and reactive pupils present VISUAL ACUITY: Yes acuity normal ALIGNMENT: Yes alignment normal PERIORBITAL: periorbital findings normal CONJUNCTIVA: Yes conjunctival abnormal positive bilateral conjunctival injection SCLERA: scleral abnormal Laterality of scleral abnormality: positive bilateral scleral injection CORNEA: Yes corneas normal PUPIL: Yes Equal, round and reactive pupils present Neck/C-Spine: COMMON NORMALS: full ROM Resp: COMMON NORMALS: normal respiratory effort and clear to auscultation bilaterally AUSCULTATION: clear to auscultation bilaterally Cardio: COMMON NORMALS: regular rate RATE: regular rate GI: COMMON NORMALS: Soft to palpation PALPATION: Yes Soft to palpation Neuro: SENSORIUM/ORIENTATION: Yes alert Course Vital Signs: Vital signs: Vital Signs Temperature 98.2 F 10/16/23 17:48 Pulse Rate 84 10/16/23 17:48 Respiratory Rate 16 10/16/23 17:48 Blood Pressure 182/114 10/16/23 17:48 Pulse Oximetry 99 10/16/23 17:48 Oxygen Delivery Me thod Room Air 10/16/23 17:48 MDM - Eye Problem Medical Decision Making Patient comes in today for complaints of eye pain after use of welding arc. On exam pupils are equal and reactive. Patient has some injection of the cornea. Respirations are even lungs are clear to auscultation. Abdomen soft nontender. Vital signs are normal except for elevated blood pressure. Differential diagnosis includes not limited to corneal abrasion, keratitis, conjunctivitis. No signs of serious injury was noted. Patient had immediate relief with tetracaine. Believe most likely patient has a keratitis secondary to UV light exposure. Reviewed exam with patient with recommendation for treatment and instructed on avoiding reexposure to UV light. Patient reported understanding agreed to plan. No radiology studies performed this visit Discharge Plan Discharge Patient Disposition: Home Clinical Impression: Welders' keratitis of both eyes Condition: Stable Prescriptions: No Action aripiprazole [Abilify] 10 mg tablet 10 mg PO .noon Qty: 30 3RF Rx Instructions: Take one tablet at noon propranolol 40 mg tablet 40 mg PO .morning Qty: 30 3RF Rx Instructions: Take one tablet every morning trazodone 50 mg tablet 50 mg PO BEDTIME PRN (Reason: Sleep) 30 Days Qty: 30 3RF Rx Instructions: May take one tablet at bedtime as needed for sleep naltrexone 50 mg tablet 50 mg PO QAM 30 Days Qty: 30 3RF Rx Instructions: Take one tablet every morning bacitracin 500 unit/gram ointment 1 applic topical BID Qty: 1022.4 0RF Discharge Orders: Discharge ED (Routine); Ordered 10/16/23 Ordered By: Jan Ang Referrals: Kim Moser FNP [Primary Care Provider] - Discharge Diet: Usual diet Discharge Activity: Increase activity as tolerated Patient Instructions: Corneal Flash Bella (ED) Activity Restrictions/Additional Instructions: Use pain eyedrops 1 drop every 2 hours as needed for pain for the next 48 hours. Do not use eyedrops for more than 48 hours as you may mask worsening symptoms or injury. Use antibiotic eyedrops 2 drops to both eyes 4 times a day for the next 7 days. Follow-up with eye companion caregiver in 3 days for recheck. Return to ED for new concerns. Coding Level of Care Code ED Electronic Systems Technician for 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
[2023-10-16] MEDS: tetracaine 0.5% Op Soln 4 mL Btl 1 DROP EYE-BOTH (17:57)
[2023-10-16] MEDS: neomycin-poly-dex Op 5 mL Btl 2 DROP EYE-BOTH (18:00)
[2023-10-16 18:23] VITALS: BP 179/99; PULSE 88; RESP 18; O2SAT 98
== END 2023-10-16 18:24 | disposition home or self-care (01) ==
PROVIDERS: Emergency Provider Nurse Practitioner Family; PCP Nurse Practitioner Family
DX: H16.133 Photokeratitis, bilateral (principal); Z86.73 Personal history of transient ischemic attack (TIA), and cerebral infarction without residual deficits; Z72.0 Tobacco use
CPT/HCPCS: 99283

== ENCOUNTER 2024-03-31 14:41 | Inpatient (IN) | payer MEDICARE, MEDICAID, SELFPAY ==
[2024-03-31 14:48] VITALS: BP 174/85; PULSE 119; RESP 21; TEMP 36.6; O2SAT 99; BMI 35.9
[2024-03-31] MEDS: ziprasidone 20 mg/mL SDV IM (15:03)
[2024-03-31] MEDS: LORazepam 2 mg/mL INJ 1 mL IM (15:03)
--- NOTE | 2024-03-31 15:25 | ED.C_ITS ---
HPI - Psych 2 General: Chief Complaint: Psychiatric Symptoms Stated Complaint: MHE Time Seen by Provider: 03/31/24 14:45 History of Present Illness: 38-year-old man with a history of halluc ination and psychosis which in the past has been reported secondary to drug use. He reports here today with his mother. Initially he is extremely agitated and screaming that he does not want to be 96'd . Mother writes an affidavit that states that the patient has stated he wants to kill himself and he has been extremely agitated and she is concern for his welfare. He has multiple fairly fresh self-mutilation scratches on his arms. Mother says he has been complaining of a headache and that the voices are becoming hard for him to tolerate. Related Data Previous Rx's Medication Instructions Recorded aripiprazole 10 mg tablet (Abilify) 10 mg PO .noon #90 tabs 11/16/23 naltrexone 50 mg tablet 50 mg PO QAM 30 days #90 tabs 11/16/23 naloxone 4 mg/actuation nasal 4 mg intranasal Q2M PRN opioid 12/08/23 spray (Narcan) overdose #2 ea propranolol 40 mg tablet 40 mg PO BID #180 tabs 12/08/23 Allergies Allergy/AdvReac Type Severity Reaction Status Date / Time No Known Allergies Allergy Verified 12/08/23 13:12 Review of Systems 2 Narrative: Constitutional symptoms: Negative except as documented in HPI. Skin symptoms: Negative except as documented in HPI. Eye symptoms: Negative except as documented in HPI. ENMT symptoms: Negative except as documented in HPI. Respiratory symptoms: Negative except as documented in HPI. Cardiovascular symptoms: Negative except as documented in HPI. Gastrointestinal symptoms: Negative except as documented in HPI. Genitourinary symptoms: Negative except as documented in HPI. Musculoskeletal symptoms: Negative except as documented in HPI. Neurologic symptoms: Negative except as documented in HPI. Psychiatric symptoms: Negative except as documented in HPI. Endocrine symptoms: Negative except as documented in HPI. 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 Social History Smoking and tobacco/nicotine status: current every day tobacco/nicotine user Alcohol intake: current Marital status: Single Physical Exam 2 Narrative: EXAM NARRATIVE: General: Alert. no acute distress Skin: Warm, dry, numerous superficial somewhat scabbed lacerations over his forearms. Head: Normocephalic, atraumatic. Neck: Supple, trachea midline. Eye: Extraocular movements are intact. Ears, nose, mouth and throat: Oral mucosa moist. Cardiovascular: Regular rate and rhythm, Normal peripheral perfusion. Respiratory: Lungs are clear to auscultation, respirations are non-labored, breath sounds are equal, Symmetrical chest wall expansion. Gastrointestinal: Soft, Nontender, Non distended, Normal bowel sounds. Musculoskeletal: Normal ROM, no deformity. Neurological: Not Alert and oriented to person, place, time, and situation, No focal neurological deficit observed. Psychiatric: Patient is somewhat agitated. He appears to be trying to block the voices from his head by grabbing his head. Course 2 Vital Signs: Vital signs: Vital Signs Temperature 97.9 F 03/31/24 14:48 Pulse Rate 119 H 03/31/24 14:48 Respiratory Rate 21 H 03/31/24 14:48 Blood Pressure 174/85 03/31/24 14:48 Pulse Oximetry 99 03/31/24 14:48 Oxygen Delivery Me thod Room Air 03/31/24 14:48 MDM - Psych Medical Decision Making Medical decision making: Differential diagnosis for patient with reported psychosis with plan for psychiatric admission including but not limited to and based on the above HPI, review of systems and physical exam: concerns for infection, alcohol intoxication, cardiac issues or other medical problems prior to psychiatric admission. Orders placed to evaluate differential diagnosis based on the above differential, HPI and physical exam labwork, ekg ordered to evaluate the pathologies and to clear the patient medically prior to psychiatric admission Lab Review: Laboratory results were reviewed and interpreted by myself the emergency room physician. - Medically cleared. - EKG shows no ischemic changes. - Blood alcohol level is negative, as well as salicylate and Tylenol. - Urinalysis is pending at admission - No anemia. - BUN and creatinine are within normal limits. I reviewed the patient's medical record. Reexamination: Patient has improved quite a bit after receiving Ativan and Geodon. He is no longer agitated. Consultation: I spoke with Dr. Ansari who is on-call for the psychiatry service and he agrees to admission to the Neuropsych Unit. Assessment and plan: Psychosis Hallucinations Agitation ?96-hour hold has been placed. IM Ativan and Geodon were given. -Admission to neuropsychiatric unit for continued evaluation and treatment. - All lab work was reviewed and interpreted personally by myself, the ER physician - Evaluation and treatment of this problem were appropriate in the emergency setting Lab Data 03/31/24 15:12 03/31/24 15:12 Laboratory Results WBC 10.35 10^3/uL (3.29-11.43) 03/31/24 15:12 RBC 5.46 10^6/uL (3.85-5.65) 03/31/24 15:12 Hgb 16.10 g/dL (11.27-16.99) 03/31/24 15:12 Hct 48.7 % (37-53) 03/31/24 15:12 MCV 89.2 fl (82-101) 03/31/24 15:12 MCH 29.5 pg (27-33) 03/31/24 15:12 MCHC 33.1 g/dL (30-55) 03/31/24 15:12 RDW 13.0 % (12.1-15.1) 03/31/24 15:12 Plt Count 316 10^3/cmm (157-399) 03/31/24 15:12 MPV 10.5 fL (7.4-10.4) H 03/31/24 15:12 Neut % (Auto) 61.9 % 03/31/24 15:12 Lymph % (Auto) 27.9 % 03/31/24 15:12 Emmet % (Auto) 7.1 % 03/31/24 15:12 Eos % (Auto) 2.1 % 03/31/24 15:12 Baso % (Auto) 0.6 % 03/31/24 15:12 Neut # (Auto) 6.41 10^3/uL (1.8-7.7) 03/31/24 15:12 Lymph # (Auto) 2.9 10^3/uL (0.8-4.8) 03/31/24 15:12 Emmet # (Auto) 0.7 10^3/uL (0.2-0.9) 03/31/24 15:12 Eos # (Auto) 0.2 10^3/uL (0.0-0.8) 03/31/24 15:12 Baso # (Auto) 0.1 10^3/uL (0.0-0.1) 03/31/24 15:12 Nucleated RBC % (auto) 0 % 03/31/24 15:12 Nucleated RBCs # 0.0 /100WBC 03/31/24 15:12 Sodium 137 mmol/L (136-145) 03/31/24 15:12 Potassium 3.7 mmol/L (3.5-5.1) 03/31/24 15:12 Chloride 103 mmol/L (98-107) 03/31/24 15:12 Carbon Dioxide 22 mmol/L (22-29) 03/31/24 15:12 Anion Gap 15.7 (5-19) 03/31/24 15:12 BUN 17 mg/dL (6-20) 03/31/24 15:12 Creatinine 0.9 mg/dL (0.7-1.2) 03/31/24 15:12 GFR Calculation 93.9 mL/min (90-130) 03/31/24 15:12 Glucose 135 mg/dL (65-115) H 03/31/24 15:12 Calculated Osmolality 288 mOsm/kg (285-295) 03/31/24 15:12 Calcium 9.3 mg/dL (8.5-10.5) 03/31/24 15:12 Total Bilirubin 0.5 mg/dL (0.15-1.2) 03/31/24 15:12 AST 18 U/L (0-40) 03/31/24 15:12 ALT 20 U/L (0-41) 03/31/24 15:12 Alkaline Phosphatase 102 U/L (40-130) 03/31/24 15:12 Total Protein 7.4 g/dL (6.6-8.7) 03/31/24 15:12 Albumin 4.3 g/dL (3.5-5.2) 03/31/24 15:12 Globulin 3.1 g/dL (1.3-4.6) 03/31/24 15:12 Salicylates < 0.3 mg/dL (3-10) L 03/31/24 15:12 Acetaminophen < 5.0 ug/mL (10-30) L 03/31/24 15:12 Ethyl Alcohol < 10 mg/dL (0-10) 03/31/24 15:12 No radiology studies performed this visit Discharge Plan Discharge Patient Disposition: Admitted As Inpatient Admit Provider: Jason Ansari Clinical Impression: Acute psychosis, Suicidal ideation, Self-mutilation, Hallucinations Condition: Stable Coding Level of Care Code ED Transportation Assistant for 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
[2024-03-31 15:31] LABS: Basophils # 0.1 10^3/uL (0.0-0.1); Basophils % 0.6 %; Eosinophils # 0.2 10^3/uL (0.0-0.8); Eosinophils % 2.1 %; Hematocrit 48.7 % (37-53); Lymphocytes # 2.9 10^3/uL (0.8-4.8); Lymphocytes % 27.9 %; Mean Corpuscular HGB Conc 33.1 g/dL (30-55); Mean Corpuscular Hemoglobin 29.5 pg (27-33); Mean Corpuscular Volume 89.2 fl (82-101); Mean Platelet Volume 10.5 fL (7.4-10.4); Monocytes # 0.7 10^3/uL (0.2-0.9); Monocytes % 7.1 %; Neutrophils # 6.41 10^3/uL (1.8-7.7); Neutrophils % 61.9 %; Nucleated Red Blood Cells % 0 %; Platelet Count 316 10^3/cmm (157-399); Red Blood Count 5.46 10^6/uL (3.85-5.65); White Blood Count 10.35 10^3/uL (3.29-11.43)
[2024-03-31 15:52] LABS: Alanine Aminotransferase 20 U/L (0-41); Albumin Level 4.3 g/dL (3.5-5.2); Alkaline Phosphatase 102 U/L (40-130); Anion Gap 15.7 (5-19); Aspartate Amino Transferase 18 U/L (0-40); Blood Urea Nitrogen 17 mg/dL (6-20); Calcium 9.3 mg/dL (8.5-10.5); Carbon Dioxide 22 mmol/L (22-29); Chloride 103 mmol/L (98-107); Creatinine Clr Calc Pharmacy 138.9673; Globulin 3.1 g/dL (1.3-4.6); Glomerular Filtration Rate 93.9 mL/min (90-130); Glucose 135 mg/dL (65-115); Osmolality Calculated 288 mOsm/kg (285-295); Potassium 3.7 mmol/L (3.5-5.1); Sodium 137 mmol/L (136-145); Total Bilirubin 0.5 mg/dL (0.15-1.2); Total Protein 7.4 g/dL (6.6-8.7)
[2024-03-31 15:59] LABS: Acetaminophen < 5.0 ug/mL (10-30); Alcohol Level < 10 mg/dL (0-10); Salicylate < 0.3 mg/dL (3-10)
--- NOTE | 2024-03-31 16:07 | PC.PHAR ---
mom states he doesn't take meds like prescribed called pharmacy and confirmed fill dates
[2024-03-31 18:00] VITALS: BP 134/95; PULSE 98; RESP 14; O2SAT 97
[2024-03-31 18:12] VITALS: BP 137/97; PULSE 100; RESP 18; TEMP 36.6; O2SAT 98
--- NOTE | 2024-03-31 18:36 | PC.ADMIT ---
[address] [facility] Admission Note: The patient,Markie Meza,38 y/o, was given written information regarding hospital policies, unit procedures and contact persons. Patient's smoking status: current every day smoker. Vital Signs - 8 hr 03/31/24 14:48 03/31/24 18:00 03/31/24 18:12 Temperature 97.9 F 97.8 F Pulse Rate 119 H 98 100 Respiratory Rate 21 H 14 18 Blood Pressure 174/85 134/95 137/97 Pulse Oximetry 99 97 98 Oxygen Delivery Method Room Air 03/31/24 18:26 Temperature Pulse Rate Respiratory Rate Blood Pressure Pulse Oximetry Oxygen Delivery Method Room Air ADMITTED FROM [facility] ER VIA WHEELCHAIR, SECURITY AND STAFF AT 1804.PT IS SEDATED FROM RECEIVING GEODON AND ATIVAN WHILE IN THE ER AFTER BECOMING AGITATED AND UPSET DUE TO HAVING A 96 HOUR HOLD PLACED ON HIM. PT WILL FOLLOW COMMANDS AND STAFF ASSISTED TO ROOM FOR SKIN ASSESSMENT/DRESS OUT. MULTIPLE LACERATIONS WERE OBSERVED ON PTS BILATERAL FOREARMS. PT SHAKES HIS HEAD YES WHEN THIS RN ASKED IF HE INFLICTED THE WOUNDS TO HIS ARMS. IT IS ALSO NOTED THAT PT HAS SCABS ON BILATERAL SHINS. PT IS UNABLE TO PARTICIPATE IN ASSESSMENTS FULLY BUT WILL AT TIMES SHAKE HIS HEAD YES OR NO TO QUESTIONS THEN DOZE OFF. PT IS ON A 96 HOUR HOLD THAT ENDS ON March AT 1620. PT HAS BEEN ADMITTED ON THE UNIT BEFORE. MOTHER REPORTS HE HAS NOT TAKEN MEDICATIONS AND IS HEARING VOICES AND CUTTING HIMSELF. PT TOLD ER NURSE HE WAS NOT SUICIDAL. PT IS ON 15 MINUTES CHECKS DUE TO SELF INJURIOUS BEHAVIORS. NO S/S OF PAIN OBSERVED. ASSISTED TO BED AND COVERED UP. PT IS CURRENTLY RESTING WITH EYES CLOSED. SUPPORT VOICED.
[2024-03-31 19:47] VITALS: BP 145/90; PULSE 90; RESP 18; O2SAT 97
[2024-04-01 06:00] VITALS: RESP 16
--- NOTE | 2024-04-01 06:13 | PC.NURSE ---
pt refused pt was resting very well nurse notified
--- NOTE | 2024-04-01 09:51 | P.NPUHP_ITS ---
Providers/Chief Complaint 2 Admitting Physician: Jason Ansari MD Primary Care Provider: AMAYA Rangel Chief Complaint: MHE HPI NPU History of Present Illness Markie Meza is a 38 year old male who presented to the emergency department with the following report: Chief Complaint: Psychiatric Symptoms Stated Complaint: MHE Time Seen by Provider: 03/31/24 14:45 History of Present Illness: 38-year-old man with a history of hallucination and psychosis which in the past has been reported secondary to drug use. He reports here today with his mother. Initially he is extremely agitated and screaming that he does not want to be 96'd . Mother writes an affidavit that states that the patient has stated he wants to kill himself and he has been extremely agitated and she is concern for his welfare. He has multiple fairly fresh self-mutilation scratches on his arms. Mother says he has been complaining of a headache and that the voices are becoming hard for him to tolerate. He was admitted to the neuropsychiatric unit for definitive treatment of those issues. He is known to [facility] psychiatric services through inpatient and outpatient services. His last inpatient stay ended in June of this year and an excerpt of that note is included below for context. He presented today reporting that he doesn't want to talk to this manual writer using expletives and refusing to engage. Patient refused UDS and so laboratory confirmation there is continued addictive behavior not found but history and his presentation are consistent with past hospitalizations with positive amphetamines, irritable behavior and aggressiveness. He continued to express frustration at questions that were asked by this manual writer. We discussed that Dr. Peterson will be here tomorrow to try to assist him. He reported being upset that he is here and that somebody put him here on a 96-hour hold and he doesn't deserve to be here. His 07/08/2023 [facility] inpatient psychiatric discharge summary: Discharge Diagnosis (1) Psychotic disorder due to psychoactive substance: Status: Resolved (2) Hallucinations: Status: Resolved (3) Methamphetamine abuse: Status: Acute Reason for Visit Reason for Visit: MHE Brief History: History of Present Illness Markie Meza is a 38 year old male most recently discharged from the neuropsychiatric unit on 03/29/2023 who presented to the emergency department by EMS after the family had requested that the patient be evaluated. The patient in the emergency department had acknowledged hearing voices and stated to staff in the emergency department that he was hearing voices. He reported that he was uncertain as to what the voices were saying. The patient had become acutely agitated and was given Geodon 20mg intramuscularly prior to arriving on the neuropsychiatric unit for further evaluation and treatment. He was placed on a 96-hour hold as the patient had been confused and agitated. The patient was unable to provide any further history as he remained sedated throughout this initial interview. Previous outpatient records from his visit in June 01, 2023 had revealed that the patient had continued to use methamphetamines but the patient had reported that he had not been consuming alcohol. He had during that visit stated that he was having problems with hallucinations and increased paranoia as he stated that he had felt as if people are watching him. Current medications: naltrexone 50mg daily, olanzapine 20mg at night. Excerpt from NPU discharge summary on 03/29/23 Discharge Diagnosis (1) Psychotic disorder due to psychoactive substance: Status: Resolved (2) Hallucinations: Status: Resolved Reason for Visit story: History of Present Illness Markie Meza is a 37 year old male who presented to the emergency department with the following report: Chief Complaint: Psychiatric Symptoms Stated Complaint: SI Time Seen by Provider: 03/24/23 12:51 Source: patient Mode of arrival: ambulatory Limitations: no limitations History of Present Illness: 37-year-old male who states he has a history of meth abuse he states has been using meth recently he is having loose [place] he states has been hearing voices they have been telling him to harm himself he states he had suicidal thoughts and thoughts of cutting his wrist denies any worsening improving factors. Associated symptoms: Reports auditory hallucinations, depression and suicidal ideation He was admitted to the neuropsychiatric unit for definitive treatment of those issues. He presents today as he has presented to previous hospitalizations fairly disheveled, disorganized and indecisive. He had limited responses to the interview. He is known to this manual writer through past contacts. A discharge summary from July was reviewed with him and he denied substantive changes but seem to be willing to answer briefly and abruptly to anything to try to get the interview to end. He did acknowledge continued methamphetamine use and reports an openness to getting engaged in treatment. An excerpt of that discharge summary is included below for context and the fact that he is very limited as a historian at this point. We agreed we would review available data to identify the likelihood of adherence to his Invega and that we would restart the Invega as indicated with that information. We discussed the desire to initiate the long-acting injectable. We discussed his outpatient chart and the fact that he has been attending his appointments as scheduled and he could not give a clear indication of what happened to get things off course. We agreed we would assist him in getting things restarted. Per his 07/30/2022 [facility] inpatient psychiatric discharge summary: Discharge Diagnosis (1) Psychotic disorder due to psychoactive substance: Status: Resolved (2) Hallucinations: Status: Resolved Reason for Visit Reason for Visit: [facility] Brief History: History of Present Illness Markie Meza is a 37 year old male who presented to the emergency department with the following report: Chief Complaint: Psychiatric Symptoms Stated Complaint: [facility] Time Seen by Provider: 07/20/22 08:22 Source: patient Mode of arrival: ambulatory History of Present Illness: 29-year-old male presents emergency room with a family friend he is acutely psychotic with auditory and visual hallucinations telling him to harm himself and others. He admits to all of this he also endorses suicidal intent. He last used meth 2 days ago. He has a history of methamphetamine and alcohol abuse. MD complaint: suicidal ideation and feels depressed Onset (ago): day(s) Duration: constant History of same: Yes Relieving factors: none Exacerbating factors: drug use Context: recent drug abuse Associated psychiatric symptoms: depression, suicidal ideation, homicidal ideation, auditory hallucinations and visual hallucinations Associated symptoms: Reports auditory hallucinations, visual hallucinations, depression, homicidal ideation and suicidal ideation Treatments prior to arrival: none If self harm: admits thoughts of self harm and has plan Was admitted to the neuropsychiatric unit for definitive treatment of those issues. He once again presents as a limited historian due to some likely lethargy secondary to his presumed methamphetamine withdrawal. He presents with limited responses but endorsing that he has not been taking his medication, that he has been still engaged in methamphetamine use and that he came to the hospital secondary to feeling suicidal and having hallucinations. We discussed the risk benefits and alternatives of restarting the Invega but at 6 mg p.o. nightly as well as working with the treatment team to figure out if we can find a reasonable treatment option to begin to impact his drug use. He was fairly ambivalent in the conversation but mostly secondary to being lethargic and wanting to really sleep versus answering the questions. An excerpt of his discharge summary from 07/09/2022 is included below for context and the fact that he denies substantive changes since that time. UDS was not back at the time of interview. Per his 07/09/2022 [facility] inpatient psychiatric discharge summary: SI Brief History: History of Present Illness Markie Meza is a 37 year old male who presented to the emergency department on 07/03/2022 with complaints of auditory and visual hallucinations with reports of thoughts of hurting himself and thoughts of hurting others. The patient was admitted to the neuropsychiatric unit for further evaluation and treatment. Prior to arriving on the neuropsychiatric unit, the patient had been very agitated and required the use of as needed medications including Geodon Ativan and Haldol. The patient on interview today reports that he has been having problems with hearing voices telling him to hurt himself and seeing things telling him to hurt himself. He has endorsed increased suspiciousness of others and states that the voices are sometimes jumbled. He had reported that he had been using methamphetamine intranasally and states that he had previously consumed alcohol but was no longer drinking. The patient was a poor historian and hostile and belligerent throughout much of the interview insisting that he needed to immediately check on his house. Patient had reported that he understood that he was on a 96-hour hold and stated that he did not like to take medications. Patient had acknowledged having depressed mood but did not elaborate any further regarding any changes in energy appetite or concentration. He reports having been diagnosed as having cognitive impairment and states that he was currently on disability for ADHD. Past psychiatric history: Patient denied any past history of psychiatric treatment other than reports of having been treated with ADHD as a child and reporting having been hospitalized as a teenager in [place] for psychiatric reasons. 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 He had endorsed using methamphetamine infrequently for several years. He denied any other drug use. He smokes cigarettes Family psychiatric history: None reported Legal History: unknown Social history: Patient was born in [facility]. He had reported having several siblings. He reports that he grew up in a dysfunctional family and states that his biological parents are no longer together. He reports that his mother lives in [place] and his father is . He reports having a significant learning disability and graduated [employer] with a special diploma. He had reported that he is currently on disability and is not employed. He denies any sexual physical or emotional abuse. He reports he has never been but has children. Hospital Course Discharge Summary: During the hospitalization, patient had routine laboratory studies which were within normal limits except for few outliers. Additionally there was a general medical evaluation which was also within normal limits and revealed no new acute processes. At the time of discharge, lethality was denied and psychosis was resolving. Mood and anxiety were well managed. Patient endorsed a plan to avoid all drugs of abuse and follow-up with the aftercare recommendations of the treatment team. Patient was evaluated and deemed to be absent credible lethality, and had achieved the maximum benefit from an inpatient hospitalization, so was discharged. He was placed on IM invega sustenna and 3 shots Hospital Course Hospital Course He slowly acclimated to the individual, group and milieu therapies provided. He presented with nonadherence to his medication. Eventually he allowed us to restart his medications with an increase from 10 mg p.o. twice daily of Zyprexa to 10 mg in the morning and 15 mg at night. We continued his other medications without incident. He did well with these changes. He was able to work with the social work team to get appropriate follow-up and aftercare. During the stay, he had significant improvement and was able to contract for safety outside of the hospital prior to discharge. During the hospitalization, the patient had routine laboratory studies which were within normal limits except for a few outliers. Additionally, there was a general medical evaluation which was also within normal limits and revealed no new acute processes. At the time of discharge, he denied lethality and his psychosis was resolving. Mood and anxiety were well managed. The patient endorsed a plan to avoid all drugs of abuse and follow up with the aftercare recommendations of the treatment team. The patient was evaluated and deemed to be absent credible lethality and had achieved the maximum benefit from an inpatient hospitalization, and so was discharged. Hospital Course Patient appeared extremely psychotic and lethargic on the unit initially. He had refused nearly all self-care and had refused medications. He was placed on an extended 21-day hold at which time the patient was forcibly medicated and was initiated on Invega oral and titrated up to 6 mg at night prior to discharge. Zyprexa was initiated earlier during his hospital course but was slowly tapered and was discontinued on the day of discharge. He had shown minimal engagement in groups and had refused any long-term treatment for his psychosis or any continued treatment to manage his methamphetamine abuse but he was agreeable to continue to take the oral medication with the aid of his mother while living independently at home. He appeared eventually more alert and was able to shower and engage in some self-care and it was deemed that he had had maximum benefit from remaining in the hospital and thereby was discharged. At the time of discharge, lethality was denied and psychosis was resolving. Mood and anxiety were better managed. He had endorsed a plan to avoid all drugs about of abuse and follow-up with aftercare recommendations of the treatment team. Patient was evaluated and deemed to be of absent credible lethality and was thereby discharged. 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 Social History Smoking and tobacco/nicotine status: current every day tobacco/nicotine user Alcohol intake: current Marital status: Single Mental Status Exam 2 MSE Comments: This is an obese white male in hospital scrubs with limited grooming and eye contact. Mostly disheveled and with poor hygiene and clearly dirty and notable foul smell. No abnormal movements except for significant psychomotor retardation. Limited cooperation with exam in extreme distress. Speech was limited and decreased rate and volume. Mood not described but affect was agitated. Thought process linear. Thought content: Patient did not respond to questions about lethality, perceptions or othrwise, there were no delusions reported but clear paranoia noted, he did not report auditory and visual hallucinations, but appeared to be attending to internal stimuli. Attention and concentration were impaired and memory was unreliable but none were formally tested. He is alert and oriented to person and place. Insight, judgment and impulse control are impaired. Vitals/I&O/Wt Last Vital Signs Temp 97.8 F 03/31/24 18:12 Pulse 90 03/31/24 19:47 Resp 16 04/01/24 06:00 BP 145/90 03/31/24 19:47 Pulse Ox 97 03/31/24 19:47 O2 Del Method Room Air 03/31/24 18:26 Weight last 48 hrs Weight 113.398 kg Data NPU 03/31/24 15:12 03/31/24 15:12 A&P Assessment and plan (1) Psychotic disorder due to psychoactive substance: (2) Hallucinations: (3) Methamphetamine abuse: Plan The patient is a 38-year-old white male known to unit who presents involuntarily with agitation, and psychosis with likely concurrent use of methamphetamine. 1.? Continue current medication and start or restart medications as indicated. 2.? Continue every 15 minute checks for safety. 3.? Encourage individual, group and milieu therapy once he has engaged. 4.? Encourage sobriety treatment after discharge to the hospital care to which he is willing to commit.? 5. Patient on hold Involuntary Hold Information 2 96 Hour Hold: 96 Hour Involuntary Admission: Yes 96 Hour Hold Ending Date: 04/06/24 96 Hour Hold Ending Time: 16:20 Other Hold: Hold End Date: 04/06/24 Attestations NPU 2 Medical Necessity Statement*: Inpatient hospitalization is medically necessary and clinically appropriate at this time. We will monitor/initiate medications and make changes as indicated.? He will be in the hospital for over 2 midnights. Likely length of stay 5-7 days. Coding Level of Care Code Acute Code for [facility] Fwd Diagnoses Psychotic disorder due to psychoactive substance F19.959 Hallucinations R44.3 Methamphetamine abuse F15.10
--- NOTE | 2024-04-01 12:55 | PC.NURSE ---
This nurse attempted to administer abilify to patient. Patient refused, saying he wanted released. When this nurse attempted to explain how the 96-hour hold process works, patient said, if you can't fucking release me, then you can't do nothin' for me! Notified Dr. Ansari of patient's refusal.
[2024-04-01 14:00] VITALS: BP 147/88; PULSE 89; RESP 18; TEMP 36.6; O2SAT 95
[2024-04-01] MEDS: propranolol 40 mg Tablet PO (17:35)
[2024-04-01 19:43] VITALS: RESP 18
--- NOTE | 2024-04-01 19:43 | PC.NURSE ---
pt refused vitals resp are at 16
[2024-04-02 06:15] VITALS: BP 132/91; PULSE 71; RESP 16; O2SAT 97
--- NOTE | 2024-04-02 08:27 | PC.NURSE ---
refused scheduled Propranolol this morning
--- NOTE | 2024-04-02 18:18 | P.NPUPN_ITS ---
Subjective NPU 2 Subjective: 38-year-old male with a history of psych osis and methamphetamine use. Patient had refused to answer any questions today. He continued to show minimal engagement in his self-care. He had spent most of the day in his room sleeping. There had been no acts of aggression. He had continued to show no evidence of brushing or showering. Mental Status Exam 2 MSE Comments: This is an obese white male in hospital scrubs with limited grooming and eye contact. Mostly disheveled and with poor hygiene and clearly dirty and notable foul smell. No abnormal movements except for significant psychomotor retardation. Limited cooperation with exam in extreme distress. Speech was limited and decreased rate, decreased productivity and normal volume. Mood not endorsed and affect was agitated. Thought process linear. Thought content: Patient did not respond to questions about lethality, perceptions or othrwise, there were no delusions reported but clear paranoia noted, he did not report auditory and visual hallucinations, but appeared to be attending to internal stimuli. Attention and concentration were impaired and memory was unreliable but none were formally tested. He is alert and oriented to person and place. Insight, judgment and impulse control are impaired. Vitals/I&O/Wt Last Vital Signs Temp 98 F 04/01/24 14:00 Pulse 71 04/02/24 06:15 Resp 16 04/02/24 06:15 BP 132/91 04/02/24 06:15 Pulse Ox 97 04/02/24 06:15 O2 Del Method Room Air 03/31/24 18:26 Weight last 48 hrs Weight 111.13 kg Data NPU 03/31/24 15:12 03/31/24 15:12 A&P Assessment and plan (1) Psychotic disorder due to psychoactive substance: (2) Hallucinations: (3) Methamphetamine abuse: Plan The patient is a 38-year-old white male known to unit who presents involuntarily with agitation, and psychosis with likely concurrent use of methamphetamine. 1.? Continue current medication and start or restart medications as indicated. 2.? Continue every 15 minute checks for safety. 3.? Encourage individual, group and milieu therapy once he has engaged. 4.? Encourage sobriety treatment after discharge to the hospital care to which he is willing to commit.? 5. Patient on hold Involuntary Hold Information 2 96 Hour Hold: 96 Hour Involuntary Admission: Yes 96 Hour Hold Ending Date: 04/06/24 96 Hour Hold Ending Time: 16:20 Other Hold: Hold End Date: 04/06/24 Attestations NPU 2 Medical Necessity Statement*: Inpatient hospitalization is medically necessary and clinically appropriate at this time. We will monitor/initiate medications and make changes as indicated.? His likely length of stay is 5-7 days. Coding Level of Care Code Acute Code for g Fwd Diagnoses Psychotic disorder due to psychoactive substance F19.959 Hallucinations R44.3 Methamphetamine abuse F15.10
[2024-04-02] MEDS: propranolol 40 mg Tablet PO (20:32)
[2024-04-02 21:33] VITALS: BP 129/87; PULSE 82; RESP 18; TEMP 36.4; O2SAT 96
[2024-04-03 06:00] VITALS: RESP 18
--- NOTE | 2024-04-03 06:45 | PC.NURSE ---
Patient refused vital respirations were 18 nurse notified.
--- NOTE | 2024-04-03 11:46 | PC.NURSE ---
Patient at window, requesting snack and drink. This nurse gave patient a sandwich and drink. Patient drank multiple cups of juice in rapid succession. Patient refused his abilify medication. Patient was agreeable to have his BP checked. BP 77/42. Patient not symptomatic. This nurse encouraged patient to drink fluids. Patient replied, nah, I'm going to go lay back down. 0900 Propranolol held d/t hypotension.
--- NOTE | 2024-04-03 12:14 | PC.OT ---
OT EVALUATION ATTEMPTED; PATIENT SLEEPING SOUNDLY AND DOES NOT AWAKEN. WILL ATTEMPT AGAIN AT A LATER TIME.
[2024-04-03 14:00] VITALS: BP 130/81; PULSE 80; RESP 18; TEMP 36.6; O2SAT 95
--- NOTE | 2024-04-03 17:31 | P.NPUPN_ITS ---
Subjective NPU 2 Subjective: 38-year-old male with a history of psych osis and methamphetamine use. The patient continued to refuse to answer any questions on the unit. He had shown no evidence of completing any basic self-care. He had not acknowledged any use of illicit substances nor had he denied the use of illicit substances. He had left his room only to eat and had not showered in several days. He had refused his Abilify previously prescribed. Mental Status Exam 2 MSE Comments: This is an obese white male in hospital scrubs with limited grooming and eye contact. Mostly disheveled and with poor hygiene and clearly dirty and notable foul smell. No abnormal movements except for significant psychomotor retardation. Limited cooperation with exam in extreme distress. Speech was sparce and decreased rate, decreased productivity and normal volume. Mood not endorsed and affect was agitated. Thought process: difficult to assess as he was essentially nonverbal and not responding to basic questions. Thought content: Patient did not respond to questions about lethality, perceptions or othrwise, there were no delusions reported but clear paranoia noted, he did not report auditory and visual hallucinations, but appeared to be attending to internal stimuli. Attention and concentration were impaired and memory was unreliable but none were formally tested. He is alert and oriented to person and place. Insight, judgment and impulse control are impaired. Vitals/I&O/Wt Last Vital Signs Temp 98 F 04/03/24 14:00 Pulse 80 04/03/24 14:00 Resp 18 04/03/24 14:00 BP 130/81 04/03/24 14:00 Pulse Ox 95 04/03/24 14:00 O2 Del Method Room Air 04/02/24 21:33 Weight last 48 hrs Weight 111.13 kg Data NPU 03/31/24 15:12 03/31/24 15:12 A&P Assessment and plan (1) Psychotic disorder due to psychoactive substance: (2) Hallucinations: (3) Methamphetamine abuse: Plan The patient is a 38-year-old white male known to unit who presents involuntarily with agitation, and psychosis with likely concurrent use of methamphetamine. 1.? Continue current medication and start or restart medications as indicated. 2.? Continue every 15 minute checks for safety. 3.? Encourage individual, group and milieu therapy once he has engaged. 4.? Encourage sobriety treatment after discharge to the hospital care to which he is willing to commit.? 5. Patient on hold and may require forced medication. Patient may require guardianship as well. Involuntary Hold Information 2 96 Hour Hold: 96 Hour Involuntary Admission: Yes 96 Hour Hold Ending Date: 04/06/24 96 Hour Hold Ending Time: 16:20 Other Hold: Hold End Date: 04/06/24 Attestations NPU 2 Medical Necessity Statement*: Inpatient hospitalization is medically necessary and clinically appropriate at this time. We will monitor/initiate medications and make changes as indicated.? His likely length of stay is 5-7 days. Coding Level of Care Code Acute Code for Chg Fwd Diagnoses Psychotic disorder due to psychoactive substance F19.959 Hallucinations R44.3 Methamphetamine abuse F15.10
--- NOTE | 2024-04-03 18:07 | PC.NURSE ---
Staff heard a thumping. On investigation, patient was observed laying in bed and intermittently punching the wall near his bed. Staff asked patient if he was needing something. Patient said that he is bored and that he is wanting to get the fuck out of here. Security was contacted. Security Kamlesh and Joesph talked with patient. Per security, patient was uncooperative and negative, said that he was bored and that he is going to keep punching the wall. The nursing staff talked with patient. Patient verbalized that he is done doing it.
[2024-04-03 20:05] VITALS: BP 127/82; PULSE 75; RESP 18; TEMP 36.6; O2SAT 96
[2024-04-03] MEDS: trazodone 50 mg Tablet PO (21:32)
[2024-04-03] MEDS: propranolol 40 mg Tablet PO (21:32)
[2024-04-04 06:00] VITALS: RESP 18
--- NOTE | 2024-04-04 06:20 | PC.NURSE ---
Patient refused vitals nurse was notified.
[2024-04-04] MEDS: propranolol 40 mg Tablet PO ×2 (09:13→21:26)
--- NOTE | 2024-04-04 13:10 | PC.NURSE ---
PTS MED PT REFUSED MEDJOSE A, DUE AT 1200, WILL CONTINUE TO MONITOR.
[2024-04-04 14:00] VITALS: BP 130/91; PULSE 77; RESP 18; TEMP 36.6; O2SAT 95
--- NOTE | 2024-04-04 16:21 | P.NPUPN_ITS ---
Subjective NPU 2 Subjective: 38-year-old white male with mild cogniti ve impairment admitted with aggression ,, paranoia and increased irritability possibly associated with use of methamphetamine. The patient had not become aggressive yet on the unit today. He continued to appear apathetic and lethargic engaged in lack of self-care. He had refused to answer any questions. He did not endorse his mood. He had some oral intake and was encouraged to continue to intake and fluids as well. Patient had continued to refuse his Abilify. Mental Status Exam 2 MSE Comments: This is an obese white male in hospital scrubs with extremely poor grooming and eye contact. Mostly disheveled and with poor hygiene and clearly dirty and notable foul smell. No abnormal movements except for significant psychomotor retardation. Thee was no cooperation with exam in extreme distress. Speech was not present and decreased rate, decreased productivity and diminished volume. Mood not endorsed and Affect was dysphoric. Thought process: difficult to assess as he was essentially nonverbal and not responding to basic questions. Thought content: Patient did not respond to questions about lethality, perceptions or othrwise, there were no delusions reported but clear distrust. Continued presence of alogia, amotivation and apathy. he Attention and concentration were impaired and memory was unreliable but none were formally tested. He is alert and oriented only to name. Insight, judgment and impulse control are impaired. Vitals/I&O/Wt Last Vital Signs Temp 98 F 04/04/24 14:00 Pulse 77 04/04/24 14:00 Resp 18 04/04/24 14:00 BP 130/91 04/04/24 14:00 Pulse Ox 95 04/04/24 14:00 O2 Del Method Room Air 04/03/24 20:05 Data NPU 03/31/24 15:12 03/31/24 15:12 A&P Assessment and plan (1) Psychotic disorder due to psychoactive substance: (2) Hallucinations: (3) Methamphetamine abuse: Plan The patient is a 38-year-old white male known to unit who presents involuntarily with agitation, and psychosis with likely concurrent use of methamphetamine. 1.? Patient refusing prescribed abilify daily, 21 day hold filed today. 2.? Continue every 15 minute checks for safety. 3.? Encourage individual, group and milieu therapy once he has engaged. 4.? Encourage sobriety treatment after discharge to the hospital care to which he is willing to commit.? 5. Patient may require guardianship as well. Involuntary Hold Information 2 96 Hour Hold: 96 Hour Involuntary Admission: Yes 96 Hour Hold Ending Date: 04/06/24 96 Hour Hold Ending Time: 16:20 Other Hold: Hold End Date: 04/06/24 Attestations NPU 2 Medical Necessity Statement*: Inpatient hospitalization is medically necessary and clinically appropriate at this time. We will monitor/initiate medications and make changes as indicated.? His likely length of stay is 10-14 days with potential placement in care home likely outcome. Coding Level of Care Code Acute Code for g Fwd Diagnoses Psychotic disorder due to psychoactive substance F19.959 Hallucinations R44.3 Methamphetamine abuse F15.10
[2024-04-04] MEDS: OLANZapine 5 mg ODT PO (18:25)
[2024-04-04 20:10] VITALS: BP 136/75; PULSE 65; RESP 16; O2SAT 95
--- NOTE | 2024-04-05 02:58 | PC.NURSE ---
Patient served [address] on 04/04/24
[2024-04-05 06:30] VITALS: BP 118/79; PULSE 62; RESP 16; TEMP 37; O2SAT 99
--- NOTE | 2024-04-05 12:58 | PC.NURSE ---
PT DECLINES TO GET UP AND TAKE MEDICATIONS THIS AM. PT HAS REFUSED 0900 AM DOSE OF PROPANOLOL 40 MG AND AT NOON REFUSES TO TAKE ABILFY 10 MG. PT STATES I'M NOT TAKING THAT CRAP IT DOES NOT HELP. SUPPORT VOICED.
[2024-04-05 14:00] VITALS: BP 139/104; PULSE 95; RESP 18; TEMP 36.6; O2SAT 94
--- NOTE | 2024-04-05 14:22 | PC.NURSE ---
PT LEAVING WITH [facility] DEPARTMENT FOR [address]ARANCE. LEFT AT APPROXIMATELY [id number]
[2024-04-05] MEDS: haloperidol 5 mg Tablet PO (18:41)
[2024-04-05] MEDS: hyDROXYzine 25 mg Capsule 50 MG PO (18:41)
--- NOTE | 2024-04-05 18:46 | PC.NURSE ---
PT UP TO WINDOW AND STATED I WANT MY NIGHT TIME MEDS. PT WAS INFORMED IT WAS NOT TIME FOR NIGHT TIME MEDS. PT WAS VISIBLY AGITATED. PT WAS GIVEN VISTARIL 50 MG AND HALDOL 5 MG ORDERED FOR INCREASED AGITATION AND ANXIETY. SUPPORT VOICED.
--- NOTE | 2024-04-05 19:18 | P.NPUPN_ITS ---
Subjective NPU 2 Subjective: 38-year-old white male with mild cogniti ve impairment admitted with aggression, paranoia and increased irritability possibly associated with use of methamphetamine. The patient had attended a court hearing today regarding his continued stay here. He had become increasingly agitated and made threats to the bond underwriter of this note. He had continued to reiterate that he wished to go home. He had appeared paranoid and continued to escalate while hitting the wall and not engaging in appropriate self-care. He had refused to answer any questions and minimized his use of methamphetamine. He had appeared very angry while speaking to his mother on the phone but would not elaborate as to what the conversation had been about. Mental Status Exam 2 MSE Comments: This is an obese white male in hospital scrubs with extremely poor grooming and eye contact. Mostly disheveled and with poor hygiene and clearly dirty and notable foul smell. No abnormal movements except for significant psychomotor retardation. Thee was no cooperation with exam in extreme distress. Speech was loud and decreased in rate and productivity. Mood was described as mad. His affect was dysphoric. Thought process: difficult to assess as he was essentially nonverbal and not responding to basic questions. Thought content: Patient did not respond to questions about lethality, perceptions or otherwise, there were no delusions reported but clear distrust. He had reported active thoughts of wanting to harm bond underwriter. he Attention and concentration were impaired and memory was unreliable but none were formally tested. He is alert and oriented only to name. Insight, judgment and impulse control are impaired. Intelligence commensurate with mild cognitive impairment. Vitals/I&O/Wt Last Vital Signs Temp 98 F 04/05/24 14:00 Pulse 95 04/05/24 14:00 Resp 18 04/05/24 14:00 BP 139/104 04/05/24 14:00 Pulse Ox 94 04/05/24 14:00 O2 Del Method Room Air 04/03/24 20:05 Data NPU 03/31/24 15:12 03/31/24 15:12 A&P Assessment and plan (1) Psychotic disorder due to psychoactive substance: (2) Hallucinations: (3) Methamphetamine abuse: Plan The patient is a 38-year-old white male known to unit who presents involuntarily with agitation, and psychosis with likely concurrent use of methamphetamine. 1.? Start Invega oral 6mg at night, if refuse, will give Haldol 5mg IM/Cogentin. 2.? Continue every 15 minute checks for safety. 3.? Encourage individual, group and milieu therapy once he has engaged. 4.? Encourage sobriety treatment after discharge to the hospital care to which he is willing to commit.? 5. Patient may require guardianship as well. Patient on 21 day hold. Involuntary Hold Information 2 96 Hour Hold: 96 Hour Involuntary Admission: Yes 96 Hour Hold Ending Date: 04/06/24 96 Hour Hold Ending Time: 16:20 Other Hold: Hold End Date: 04/06/24 Attestations NPU 2 Medical Necessity Statement*: Inpatient hospitalization is medically necessary and clinically appropriate at this time. We will monitor/initiate medications and make changes as indicated.? His likely length of stay is 10-14 days with potential placement in assisted likely outcome. Coding Level of Care Code Acute Code for g Fwd Diagnoses Psychotic disorder due to psychoactive substance F19.959 Hallucinations R44.3 Methamphetamine abuse F15.10
[2024-04-05 20:07] VITALS: BP 137/76; PULSE 70; RESP 18; O2SAT 97
[2024-04-05] MEDS: paliperidone ER 6 mg Tablet PO (21:31)
[2024-04-05] MEDS: propranolol 40 mg Tablet PO (21:31)
[2024-04-06 06:15] VITALS: BP 111/69; PULSE 77; RESP 16; O2SAT 96
[2024-04-06 14:00] VITALS: BP 125/83; PULSE 91; RESP 17; O2SAT 99
--- NOTE | 2024-04-06 15:26 | P.NPUPN_ITS ---
Subjective NPU 2 Subjective: 38-year-old white male with mild cogniti ve impairment admitted with aggression, paranoia and increased irritability possibly associated with use of methamphetamine. Patient had remained mostly in his room. He had taken his Invega oral without requiring as needed medications or IM medications for agitation. Patient had continued to isolate himself in his room. He had continued to have limited answers to his questions regarding his substance use. He had reported that he wished to go home. Mental Status Exam 2 MSE Comments: This is an obese white male in hospital scrubs with extremely poor grooming and eye contact. Mostly disheveled and with poor hygiene. His gait was normal. No abnormal movements except for significant psychomotor retardation. There was limited cooperation with exam in moderate distress. Speech was diminished in volume and decreased in rate and productivity. Mood was described as ok. His affect was irritable and mood incongruent. Thought process: linear but superficial. Thought content: Patient did not respond to questions about lethality, perceptions or otherwise, there were no delusions reported but clear distrust. His Attention and concentration were impaired and memory was unreliable but none were formally tested. He is alert and oriented only to name and place. Insight, judgment and impulse control are impaired. Intelligence commensurate with mild cognitive impairment. 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 1.? Continue Invega oral 6mg at night, if refuse, will give Haldol 5mg IM/Cogentin. 2.? Continue every 15 minute checks for safety. 3.? Encourage individual, group and milieu therapy once he has engaged. 4.? Encourage sobriety treatment after discharge to the hospital care to which he is willing to commit.? 5. Patient may require guardianship as well. Patient on day hold. Involuntary Hold Information 2 96 Hour Hold: 96 Hour Involuntary Admission: Yes 96 Hour Hold Ending Date: 04/06/24 96 Hour Hold Ending Time: 16:20 Other Hold: Hold End Date: 04/06/24 Attestations NPU 2 Medical Necessity Statement*: Inpatient hospitalization is medically necessary and clinically appropriate at this time. We will monitor/initiate medications and make changes as indicated.? His likely length of stay is 10-14 days with potential placement in [facility] a possibility that may lengthen current stay. Coding Level of Care Code Acute Code for Chg Fwd Diagnoses Psychotic disorder due to psychoactive substance F19.959 Hallucinations R44.3 Methamphetamine abuse F15.10
[2024-04-06] MEDS: acetaminophen 325 mg Tablet 650 MG PO (16:30)
[2024-04-06] MEDS: hyDROXYzine 25 mg Capsule 50 MG PO (18:33)
[2024-04-06] MEDS: haloperidol 5 mg Tablet PO (18:33)
--- NOTE | 2024-04-06 18:34 | PC.NURSE ---
PT UP TO NURSES STATION REQUESTING MY SLEEP MEDS. PT INFORMED RN CAN NOT GIVE SLEEP MEDS RIGHT NOW. PT GRUNTED WELL MY ANXIETY. RN ADMINISTERED HALDOL 5 MG AND VISTARIL 50 MG ORDERED FOR INCREASED ANXIETY.
[2024-04-06 19:52] VITALS: BP 133/92; PULSE 111; RESP 19; O2SAT 98
[2024-04-06] MEDS: trazodone 50 mg Tablet PO (20:11)
[2024-04-06] MEDS: propranolol 40 mg Tablet PO (20:11)
[2024-04-06] MEDS: paliperidone ER 6 mg Tablet PO (20:12)
[2024-04-07 06:00] VITALS: BP 126/83; PULSE 67; RESP 16; O2SAT 97
[2024-04-07] MEDS: propranolol 40 mg Tablet PO ×2 (10:09→21:16)
[2024-04-07 14:00] VITALS: BP 111/70; PULSE 73; RESP 18; TEMP 36.3; O2SAT 97
--- NOTE | 2024-04-07 17:57 | P.NPUPN_ITS ---
Subjective NPU 2 Subjective: 38-year-old white male with mild cogniti ve impairment admitted with aggression, paranoia and increased irritability possibly associated with use of methamphetamine. The patient had not made any threats to the underwriter today. He had continued to appear irritable but had been compliant with the medications. He continued to struggle with leaving his room and attending to self-care. He had not engaged in any destruction of property here. He had been encouraged to may have. He had not communicated with any family members and stated that he would like to go home when he was better stating that he lived alone. Mental Status Exam 2 MSE Comments: This is an obese white male in hospital scrubs with extremely poor grooming and eye contact. Mostly disheveled and with poor hygiene. No abnormal movements except for significant psychomotor retardation. There was limited cooperation with exam in moderate distress lying in bed. Speech was diminished in volume and decreased in rate and productivity. Mood was described as good. His affect was irritable and mood incongruent. Thought process: linear but superficial. Thought content: Patient did not respond to questions about lethality, perceptions or otherwise, there were no delusions reported but clear distrust. His attention and concentration were impaired and memory was unreliable but none were formally tested. He is alert and oriented only to name and place. Insight, judgment and impulse control are impaired. Intelligence commensurate with mild cognitive impairment. 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 1.? Continue Invega oral 6mg at night, if refuse, will give Haldol 5mg IM/Cogentin. 2.? Continue every 15 minute checks for safety. 3.? Encourage individual, group and milieu therapy once he has engaged. 4.? Encourage sobriety treatment after discharge to the hospital care to which he is willing to commit.? 5. Patient on 21 day hold. Involuntary Hold Information 2 96 Hour Hold: 96 Hour Involuntary Admission: Yes 96 Hour Hold Ending Date: 04/06/24 96 Hour Hold Ending Time: 16:20 Other Hold: Hold End Date: 04/26/23 Attestations NPU 2 Medical Necessity Statement*: Inpatient hospitalization is medically necessary and clinically appropriate at this time. We will monitor/initiate medications and make changes as indicated.? His likely length of stay is 10-14 days. Coding Level of Care Code Acute Code for g Fwd Diagnoses Psychotic disorder due to psychoactive substance F19.959 Hallucinations R44.3 Methamphetamine abuse F15.10
[2024-04-07] MEDS: nicotine 4 mg lozenge MUCOUS MEM ×2 (20:02→22:38)
[2024-04-07 20:43] VITALS: BP 162/76; PULSE 90; RESP 18; TEMP 36.9; O2SAT 98
[2024-04-07] MEDS: hyDROXYzine 25 mg Capsule 50 MG PO (21:16)
[2024-04-07] MEDS: trazodone 50 mg Tablet PO ×2 (21:16→22:38)
[2024-04-07] MEDS: paliperidone ER 6 mg Tablet PO (21:16)
[2024-04-07] MEDS: OLANZapine 5 mg ODT PO (22:38)
[2024-04-08] MEDS: haloperidol 5 mg Tablet PO (00:24)
--- NOTE | 2024-04-08 06:42 | PC.NURSE ---
vs not collected per charge nurse. pt just fell asleep. resp 18
[2024-04-08] MEDS: propranolol 40 mg Tablet PO ×2 (08:35→20:16)
[2024-04-08] MEDS: calcium carbonate 500 mg Chew Tablet 1000 MG PO ×2 (12:40→20:39)
--- NOTE | 2024-04-08 13:52 | P.NPUPN_ITS ---
Subjective NPU 2 Subjective: 38-year-old white male with mild cogniti ve impairment admitted with aggression, paranoia and increased irritability possibly associated with use of methamphetamine. The patient had continued to isolate himself in his room. He had spent much of the day sleeping. He reported no side effects from his medication. He had left his room only to eat. He continued to not shower and show evidence of any self-care at this time. Mental Status Exam 2 MSE Comments: This is an obese white male in hospital scrubs with extremely poor grooming and eye contact. Mostly disheveled and with poor hygiene. No abnormal movements except for significant psychomotor retardation. There was limited cooperation with exam in moderate distress lying in bed. Speech was diminished in volume and decreased in rate and productivity. Mood was described as good. His affect was irritable and mood incongruent. Thought process: linear but superficial. Thought content: Patient did not respond to questions about lethality, perceptions or otherwise, there were no delusions reported but continued paranoia. His attention and concentration were impaired and memory was unreliable but none were formally tested. He is alert and oriented only to name and place. Insight, judgment and impulse control are impaired. Intelligence commensurate with mild cognitive impairment. Vitals/I&O/Wt Last Vital Signs Temp 98.4 F 04/07/24 20:43 Pulse 90 04/07/24 20:43 Resp 18 04/07/24 20:43 BP 162/76 04/07/24 20:43 Pulse Ox 98 04/07/24 20:43 O2 Del Method Room Air 04/07/24 20:43 Data NPU 03/31/24 15:12 03/31/24 15:12 A&P Assessment and plan (1) Psychotic disorder due to psychoactive substance: (2) Hallucinations: (3) Methamphetamine abuse: Plan The patient is a 38-year-old white male known to unit who presents involuntarily with agitation, and psychosis with likely concurrent use of methamphetamine. 1.? Continue Invega oral 6mg at night, if refuse, will give Haldol 5mg IM/Cogentin. Patient needs monthly IM Invega 234mg in 2-3 days. 2.? Continue every 15 minute checks for safety. 3.? Encourage individual, group and milieu therapy once he has engaged. 4.? Encourage sobriety treatment after discharge to the hospital care to which he is willing to commit.? 5. Patient on 21 day hold. Involuntary Hold Information 2 96 Hour Hold: 96 Hour Involuntary Admission: Yes 96 Hour Hold Ending Date: 04/06/24 96 Hour Hold Ending Time: 16:20 Other Hold: Hold End Date: 07/03/24 Attestations NPU 2 Medical Necessity Statement*: Inpatient hospitalization is medically necessary and clinically appropriate at this time. We will monitor/initiate medications and make changes as indicated.? His likely length of stay is 10-14 days. Coding Level of Care Code Acute Code for g Fwd Diagnoses Psychotic disorder due to psychoactive substance F19.959 Hallucinations R44.3 Methamphetamine abuse F15.10
[2024-04-08 14:00] VITALS: BP 163/63; PULSE 79; RESP 18; O2SAT 96
[2024-04-08] MEDS: nicotine 4 mg lozenge MUCOUS MEM (20:16)
[2024-04-08] MEDS: paliperidone ER 6 mg Tablet PO (20:16)
[2024-04-08] MEDS: trazodone 50 mg Tablet PO (20:16)
[2024-04-08 22:00] VITALS: BP 148/85; PULSE 78; RESP 16; TEMP 36.9; O2SAT 98
[2024-04-09 06:00] VITALS: BP 140/89; PULSE 71; RESP 18; TEMP 36.6; O2SAT 100; BMI 34.7
[2024-04-09] MEDS: propranolol 40 mg Tablet PO ×2 (08:58→21:11)
--- NOTE | 2024-04-09 13:48 | P.NPUPN_ITS ---
Subjective NPU 2 Subjective: 38-year-old white male with mild cogniti ve impairment admitted with aggression, paranoia and increased irritability possibly associated with use of methamphetamine. Patient was isolative on the milieu continue to spend much of the day sleeping. He had been compliant with the medications including Invega. He had not been engaged in any acts of aggression here yet. No threatening behaviors were reported towards the keno writer/runner of this note. He continues to struggle with completion of activities of daily living including showering. Mental Status Exam 2 MSE Comments: This is an obese white male in hospital scrubs with extremely poor grooming and eye contact. Patient was disheveled and with poor hygiene. No abnormal movements except for significant psychomotor retardation. There was limited cooperation with exam in moderate distress lying in bed. Speech was diminished in volume and decreased in rate and productivity. Mood was not endorsed. His affect was irritable. Thought process: linear but superficial. Thought content: Patient did not respond to questions about lethality, perceptions or otherwise, there were no delusions reported but continued paranoia. His attention and concentration were impaired and memory was unreliable but none were formally tested. He is alert and oriented only to name and place. Insight, judgment and impulse control are impaired. Intelligence commensurate with mild cognitive impairment. Vitals/I&O/Wt Last Vital Signs Temp 97.9 F 04/09/24 06:00 Pulse 71 04/09/24 06:00 Resp 18 04/09/24 06:00 BP 140/89 04/09/24 06:00 Pulse Ox 100 04/09/24 06:00 O2 Del Method Room Air 04/09/24 06:00 Weight last 48 hrs Weight 109.826 kg Data NPU 03/31/24 15:12 03/31/24 15:12 A&P Assessment and plan (1) Psychotic disorder due to psychoactive substance: (2) Hallucinations: (3) Methamphetamine abuse: Plan The patient is a 38-year-old white male known to unit who presents involuntarily with agitation, and psychosis with likely concurrent use of methamphetamine. 1.? Continue Invega oral 6mg at night, if refuse, will give Haldol 5mg IM/Cogentin. Patient needs monthly IM Invega 234mg in 2-3 days. 2.? Continue every 15 minute checks for safety. 3.? Encourage individual, group and milieu therapy once he has engaged. 4.? Encourage sobriety treatment after discharge to the hospital care to which he is willing to commit.? 5. Patient on 21 day hold. Involuntary Hold Information 2 96 Hour Hold: 96 Hour Involuntary Admission: Yes 96 Hour Hold Ending Date: 04/06/24 96 Hour Hold Ending Time: 16:20 Other Hold: Hold End Date: 04/26/24 Attestations NPU 2 Medical Necessity Statement*: Inpatient hospitalization is medically necessary and clinically appropriate at this time. We will monitor/initiate medications and make changes as indicated.? His likely length of stay is 10-14 days. Coding Level of Care Code Acute Code for Chg Fwd Diagnoses Psychotic disorder due to psychoactive substance F19.959 Hallucinations R44.3 Methamphetamine abuse F15.10
[2024-04-09 14:00] VITALS: BP 129/87; PULSE 103; RESP 16; TEMP 36.6; O2SAT 94
[2024-04-09 19:26] VITALS: BP 143/86; PULSE 112; RESP 20; TEMP 36.5; O2SAT 98
[2024-04-09] MEDS: trazodone 50 mg Tablet PO ×2 (21:10→22:29)
[2024-04-09] MEDS: paliperidone ER 6 mg Tablet PO (21:11)
[2024-04-10] MEDS: calcium carbonate 500 mg Chew Tablet 1000 MG PO ×2 (00:10→19:35)
[2024-04-10 06:00] VITALS: RESP 18
--- NOTE | 2024-04-10 06:25 | PC.NURSE ---
Lora wharton nurse was notified.
[2024-04-10 14:00] VITALS: BP 104/64; PULSE 76; RESP 18; TEMP 36.4; O2SAT 97
--- NOTE | 2024-04-10 14:02 | P.NPUPN_ITS ---
Subjective NPU 2 Subjective: 38-year-old white male with mild cogniti ve impairment admitted with aggression, paranoia and increased irritability possibly associated with use of methamphetamine. The patient had remained compliant with his oral Invega at this time. He had reported that he wanted to go home soon. The patient had limited engagement in self-care as he only left his room to eat and would spend much of the day sleeping. He had denied having any problems with his mood. He had refused to attend groups. Mental Status Exam 2 MSE Comments: This is an obese white male in hospital scrubs with extremely poor grooming and eye contact. Patient was disheveled and with poor hygiene. No abnormal movements except for significant psychomotor retardation. There was limited cooperation with exam in moderate distress lying in bed. Speech was diminished in volume and decreased in rate and productivity. Mood was not endorsed. His affect remained irritable. Thought process: linear but superficial. Thought content: Patient did not respond to questions about lethality, perceptions or otherwise, there were no delusions reported but continued paranoia. His attention and concentration were impaired and memory was unreliable but none were formally tested. He is alert and oriented only to name and place. Insight, judgment and impulse control are impaired. Intelligence commensurate with mild cognitive impairment. 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 1.? Continue Invega oral 6mg at night, if refuse, will give Haldol 5mg IM/Cogentin. Patient needs monthly IM Invega 234mg in 2-3 days. 2.? Continue every 15 minute checks for safety. 3.? Encourage individual, group and milieu therapy once he has engaged. 4.? Encourage sobriety treatment after discharge to the hospital care to which he is willing to commit.? 5. Patient on 21 day hold. Involuntary Hold Information 2 96 Hour Hold: 96 Hour Involuntary Admission: Yes 96 Hour Hold Ending Date: 04/06/24 96 Hour Hold Ending Time: 16:20 Other Hold: Hold End Date: 04/26/24 Attestations NPU 2 Medical Necessity Statement*: Inpatient hospitalization is medically necessary and clinically appropriate at this time. We will monitor/initiate medications and make changes as indicated.? His likely length of stay is 10-14 days. Coding Level of Care Code Acute Code for [facility] Fwd Diagnoses Psychotic disorder due to psychoactive substance F19.959 Hallucinations R44.3 Methamphetamine abuse F15.10
--- NOTE | 2024-04-10 17:15 | PC.NURSE ---
NEW ORDERS RECEIVED FROM DR. SALDIVAR FOR INVEGA 234 MG IM AT 1800. ORDERS PLACED AND PT AGREEABLE TO TAKE. EDUCATION PROVIDED AND VERBALIZED UNDERSTANDING.
[2024-04-10] MEDS: acetaminophen 325 mg Tablet 650 MG PO ×2 (17:42→21:52)
[2024-04-10] MEDS: paliperidone palmitate 234 mg Syringe IM (18:14)
[2024-04-10] MEDS: nicotine 4 mg lozenge MUCOUS MEM (18:55)
[2024-04-10 19:37] VITALS: BP 126/87; PULSE 110; RESP 20; TEMP 36.6; O2SAT 99
[2024-04-10] MEDS: hyDROXYzine 25 mg Capsule 50 MG PO (20:17)
[2024-04-10] MEDS: trazodone 50 mg Tablet PO (20:17)
[2024-04-10] MEDS: paliperidone ER 6 mg Tablet PO (20:17)
[2024-04-10] MEDS: propranolol 40 mg Tablet PO (21:04)
[2024-04-11 06:00] VITALS: BP 124/80; PULSE 73; RESP 16; TEMP 36.5; O2SAT 97
[2024-04-11 09:21] VITALS: BP 129/89
[2024-04-11] MEDS: propranolol 40 mg Tablet PO ×2 (09:21→20:56)
[2024-04-11 14:00] VITALS: BP 125/81; PULSE 87; RESP 16; TEMP 36.7; O2SAT 98
[2024-04-11] MEDS: acetaminophen 325 mg Tablet 650 MG PO ×2 (14:27→18:29)
--- NOTE | 2024-04-11 15:27 | W.PM.NPUPNS ---
Subjective NPU Subjective: Patient presented today reporting that he is feeling better. He reports he got his shot but she does not really want to get it but he knows that is necessary for him to be discharged. He reports that he feels like he is getting better and that he is gotten as much as he can get from being in here and wants to start the conversation and plan for discharge. He reports she has things to take care of outside the hospital and he is hopeful that he discharges sooner rather than later. Other than a little pain at injection site he denies any side effects or concerns with his medications. Mental Status Exam MSE Comments: This is an obese white male in hospital scrubs with extremely poor grooming and eye contact. Patient was disheveled and with poor hygiene. No abnormal movements except for decreasing psychomotor retardation. There was limited cooperation with exam in no acute distress today. Speech was diminished in volume and decreased in rate and productivity. Mood described as getting better. His affect remained subdued but less irritable. Thought process: linear but superficial. Thought content: Patient denied suicidal or homicidal ideation, there were no delusions reported he appeared less guarded, he denied auditory or visual hallucinations. His attention and concentration were limited but improving and memory was possibly more reliable but none were formally tested. He is alert and oriented only to name and place. Insight, judgment and impulse control are impaired. Intelligence commensurate with mild cognitive impairment. 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 1.? Continue Invega oral 6mg at night, if refuse, will give Haldol 5mg IM/Cogentin. Patient needs monthly IM Invega 234mg in 2-3 days. Patient received his Invega Sustenna injection today. 2.? Continue every 15 minute checks for safety. 3.? Encourage individual, group and milieu therapy once he has engaged. 4.? Encourage sobriety treatment after discharge to the hospital care to which he is willing to commit.? 5. Patient on 21 day hold. We will need to decide about discharge and supportive resources this week. Involuntary Hold Information 96 Hour Hold: 96 Hour Involuntary Admission: Yes 96 Hour Hold Ending Date: 04/06/24 96 Hour Hold Ending Time: 16:20 Other Hold: Hold End Date: 04/26/24 Attestations NPU Medical Necessity Statement*: Inpatient hospitalization is medically necessary and clinically appropriate at this time. We will monitor/initiate medications and make changes as indicated.? His likely length of stay is 10-14 days. Coding Level of Care Code Acute Code for [facility] Fwd Diagnoses Psychotic disorder due to psychoactive substance F19.959 Hallucinations R44.3 Methamphetamine abuse F15.10
[2024-04-11] MEDS: ibuprofen 600 mg Tablet PO ×2 (15:35→22:36)
--- NOTE | 2024-04-11 16:06 | PC.NURSE ---
calf pain\ Patient reports right calf pain. Patient says it is caused by walking a lot yesterday. This nurse visibly inspected the area. No redness or swelling. On palpation, patient denies tenderness. Skin is cool to the touch. Administered ibuprofen 600mg PO
[2024-04-11] MEDS: ondansetron 4 MG Tablet PO (18:16)
--- NOTE | 2024-04-11 18:18 | PC.NURSE ---
Patient states that he is not feeling well. Patient said the onset was following breakfast. Patient said that it feels as though he has to burp but can't get it out. Patient agreeable to try simethicone. Patient sitting on bench.
[2024-04-11 20:07] VITALS: BP 117/79; PULSE 97; RESP 16; TEMP 37.6; O2SAT 97
[2024-04-11] MEDS: hyDROXYzine 25 mg Capsule 50 MG PO (20:55)
[2024-04-11] MEDS: trazodone 50 mg Tablet PO ×2 (20:55→22:36)
[2024-04-11] MEDS: simethicone 80 mg Chew PO (20:56)
[2024-04-11] MEDS: paliperidone ER 6 mg Tablet PO (20:56)
[2024-04-11] MEDS: OLANZapine 5 mg ODT PO (20:56)
[2024-04-11] MEDS: haloperidol 5 mg Tablet PO (22:36)
[2024-04-12] MEDS: calcium carbonate 500 mg Chew Tablet 1000 MG PO (02:59)
[2024-04-12 06:00] VITALS: BP 137/90; PULSE 93; RESP 16; TEMP 36.6; O2SAT 97
[2024-04-12] MEDS: propranolol 40 mg Tablet PO ×2 (08:45→21:17)
[2024-04-12 14:00] VITALS: BP 135/92; PULSE 88; RESP 18; TEMP 36.6; O2SAT 99
--- NOTE | 2024-04-12 14:48 | P.NPUPN_ITS ---
Subjective NPU 2 Subjective: Patient presents today reporting that he is doing okay. He is having some increased irritability per staff reports and direct observation. Most of that seems to be related to him driving on negative energy from another patient who does not want to be here either. He continues to report that he is not willing to do any sober living treatment and feels that he is doing better in regards to his addiction and thinks that this is as good as it gets. We discussed the discontinuing the medication and having a level of irritability that does not make it being in the community reasonable. We discussed the fact that he has a place to go and some resources but continued patterns like he is having is going to cause him to lose his independence and ability to discharge to home which will likely be the plan discussed tomorrow for sometime this week. He denied any side effects to the medication. Mental Status Exam 2 MSE Comments: This is an obese white male in hospital scrubs with extremely poor grooming and eye contact. Patient was disheveled and with poor hygiene. No abnormal movements except for decreasing psychomotor retardation. There was limited cooperation with exam in no acute distress today. Speech was diminished in volume and decreased in rate and productivity. Mood described as getting better. His affect remained subdued but less irritable. Thought process: linear but superficial. Thought content: Patient denied suicidal or homicidal ideation, there were no delusions reported he appeared less guarded, he denied auditory or visual hallucinations. His attention and concentration were limited but improving and memory was possibly more reliable but none were formally tested. He is alert and oriented only to name and place. Insight, judgment and impulse control are impaired. Intelligence commensurate with mild cognitive impairment. 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 1.? Continue Invega oral 6mg at night, if refuse, will give Haldol 5mg IM/Cogentin. Patient needs monthly IM Invega 234mg. Patient received his Invega Sustenna injection today. 2.? Continue every 15 minute checks for safety. 3.? Encourage individual, group and milieu therapy once he has engaged. 4.? Encourage sobriety treatment after discharge to the hospital care to which he is willing to commit.? 5. Patient on 21 day hold. We will need to decide about discharge and supportive resources tomorrow when full social work team arrives. Involuntary Hold Information 2 96 Hour Hold: 96 Hour Involuntary Admission: Yes 96 Hour Hold Ending Date: 04/06/24 96 Hour Hold Ending Time: 16:20 Other Hold: Hold End Date: 03/26/25 Attestations NPU 2 Medical Necessity Statement*: Inpatient hospitalization is medically necessary and clinically appropriate at this time. We will monitor/initiate medications and make changes as indicated.? His likely length of stay is 3-5 days. Coding Level of Care Code Acute Code for [facility] Fwd Diagnoses Psychotic disorder due to psychoactive substance F19.959 Hallucinations R44.3 Methamphetamine abuse F15.10
[2024-04-12 20:00] VITALS: BP 123/80; PULSE 84; RESP 18; TEMP 36.9; O2SAT 99
[2024-04-12] MEDS: paliperidone ER 6 mg Tablet PO (21:17)
[2024-04-12] MEDS: trazodone 50 mg Tablet PO (21:17)
[2024-04-12] MEDS: OLANZapine 5 mg ODT PO (21:17)
[2024-04-12] MEDS: nicotine 4 mg lozenge MUCOUS MEM (21:17)
[2024-04-12] MEDS: hyDROXYzine 25 mg Capsule 50 MG PO (21:18)
[2024-04-13] MEDS: calcium carbonate 500 mg Chew Tablet 1000 MG PO (00:46)
[2024-04-13 05:58] VITALS: BP 110/72; PULSE 74; RESP 16; TEMP 36.6; O2SAT 96
[2024-04-13 09:41] VITALS: BP 118/78
--- NOTE | 2024-04-13 09:41 | PC.NURSE ---
Patient is totally refusing to take propanolol this am. Patient states I am not taking it so let it . This nurse stated the physician will be notified as soon as he comes in.
[2024-04-13 14:00] VITALS: BP 119/77; PULSE 77; RESP 16; TEMP 36.6; O2SAT 96
--- NOTE | 2024-04-13 14:15 | DCPLANNER ---
IMM completed 04/13/2024 @ 1414. Pt was given a copy of rights.
[2024-04-13 14:41] VITALS: BP 119/77; PULSE 77; RESP 16; TEMP 36.7; O2SAT 96
== END 2024-04-13 15:35 | disposition home or self-care (01) | DRG 897 ==
LOC: ER 16:35 → NP 16:58
PROVIDERS: Emergency Medicine; Admitting Provider Psychiatry & Neurology Psychiatry; Emergency Provider Emergency Medicine; PCP Nurse Practitioner Family; Visit Provider Psychiatry & Neurology Psychiatry
DX: F15.151 Other stimulant abuse with stimulant-induced psychotic disorder with hallucinations (principal); F15.150 Other stimulant abuse with stimulant-induced psychotic disorder with delusions; E66.9 Obesity, unspecified; Z68.34 Body mass index [BMI] 34.0-34.9, adult; G31.84 Mild cognitive impairment of uncertain or unknown etiology; F17.210 Nicotine dependence, cigarettes, uncomplicated; Z86.73 Personal history of transient ischemic attack (TIA), and cerebral infarction without residual deficits; Z87.442 Personal history of urinary calculi
CPT/HCPCS: 36415; 80053; 80307; 85025; 96372; 97150; 97165; 99285; J2060; J3486; Q0162

== ENCOUNTER → 2024-09-06 15:06 | Outpatient (BNVA) | payer MEDICARE, MEDICAID, OTHER, SELFPAY | PROVIDERS: PCP Nurse Practitioner Family; Visit Provider Nurse Practitioner Psychiatric/Mental Health | DX: Z79.899 Other long term (current) drug therapy (principal) | CPT/HCPCS: 80053; 80061; 83036 ==